=== PATIENT | female | born 1940 | race Caucasian/White ===

== ENCOUNTER 2018-06-22 13:48 | Inpatient (IN) ==
[2018-06-22] MEDS ORDERED: Morphine Inj 4 MG/ML Vial IV.PUSH ONE (13:57)
[2018-06-22] MEDS ORDERED: Sod Chloride 0.9% Inj 1,000 ML IV.CONT SCH (14:00)
[2018-06-22 14:31] LABS: Baso # (Auto) 0.1 th/mm3 (0.0-0.2); Baso % (Auto) 0.3 % (0.0-2.0); Hematocrit 43.9 % (35.0-46.0); Hemoglobin 14.6 gm/dL (11.6-15.3); Lymph # (Auto) 2.3 th/mm3 (1.0-4.8); Lymph % (Auto) 7.3 % (9.0-44.0); Mean Corpuscular HGB Conc 33.3 % (32.0-36.0); Mean Corpuscular Hemoglobin 29.2 pg (27.0-34.0); Mean Corpuscular Volume 87.7 fL (80.0-100.0); Mono # (Auto) 2.6 th/mm3 (0.0-0.9); Mono % (Auto) 8.4 % (0.0-8.0); Neut # (Auto) 26.1 th/mm3 (1.8-7.7); Platelet Count 124 th/mm3 (150-450); Red Cell Distribution Width 14.1 % (11.6-17.2)
[2018-06-22] MEDS ORDERED: Vancomycin Inj 1 GM/200 ML PIGGYBACK IV.SIG ONE (14:40)
[2018-06-22] MEDS ORDERED: Piperacil/Tazo 4.5 GM Premix 4.5 GM/100 ML BAG IV.SIG ONE (14:40)
--- NOTE | 2018-06-22 14:41 | CT ---
EXAM DATE: 06/22/2018 2:14 PM EDT AGE/SEX: 78 years / Female INDICATIONS: Found down, left hand weakness, complaining of back pain CLINICAL DATA: This is the patient's initial encounter. Patient reports that signs and symptoms have been present for 1 day and indicates a pain score of Nonresponsive. MEDICAL/SURGICAL HISTORY: Non-responsive. Non-responsive. RADIATION DOSE: 66.34 CTDI (mGy) COMPARISON: No prior exams available for comparison. TECHNIQUE: CT of the head without contrast. Using automated exposure control and adjustment of the mA and/or kV according to patient size, radiation dose was kept as low as reasonably achievable to ob tain optimal diagnostic quality images. DICOM format image data is available electronically for revi ew and comparison. FINDINGS: Cerebrum: Areas of low-density in the right parietal lobe. The ventricles are normal for age. No jenna dence of midline shift, mass lesion, hemorrhage. No extraaxial fluid collections are seen. Posterior Fossa: The cerebellum and brainstem are intact. The 4th ventricle is midline. The cerebe llopontine angle is unremarkable. Extracranial: The visualized portion of the orbits is intact. Skull: The calvaria is intact. No evidence of skull fracture. CONCLUSION: 1. Acute right parietal infarcts. No midline shift or mass effect. . Electronically signed by: Man Zimmerman MD 06/22/2018 2:39 PM EDT
--- NOTE | 2018-06-22 14:43 | CT ---
EXAM DATE: 06/22/2018 2:21 PM EDT AGE/SEX: 78 years / Female INDICATIONS: Found down, left sided weakness, complaining of back pain. CLINICAL DATA: This is the patient's initial encounter. Patient reports that signs and symptoms have been present for 1 day and indicates a pain score of Nonresponsive. MEDICAL/SURGICAL HISTORY: Alzheimer's disease. Non-responsive. RADIATION DOSE: 22.75 CTDI (mGy) COMPARISON: . TECHNIQUE: Contiguous axial images were obtained using helical multirow detector technique. The vol umetric data was post-processed with multiplanar reconstruction in oblique axial, sagittal, and coron al planes. Using automated exposure control and adjustment of the mA and/or kV according to patient s ize, radiation dose was kept as low as reasonably achievable to obtain optimal diagnostic quality delonte ges. DICOM format image data is available electronically for review and comparison. FINDINGS: Vertebrae: Normal vertebral body height. Diffuse disc space narrowing and degenerative disc disease C4-C7. Anterior endplate osteophytes C4-C7. Alignment: Normal. No subluxation. C2-3: The bony spinal canal is normal in size. No evidence of disc bulge or herniation. The neural foramina are bilaterally patent. C3-4: Posterior disc osteophyte complex abuts the ventral thecal sac. No canal stenosis. Moderate gregg ateral neural foraminal narrowing. C4-5: Posterior disc osteophyte complex abuts the ventral thecal sac. No canal stenosis. Moderate bi lateral neural foraminal narrowing. C5-6: Posterior disc osteophyte complex abuts the ventral thecal sac. No canal stenosis. Moderate bi lateral neural foraminal narrowing. C6-7: Posterior disc osteophyte complex abuts the ventral thecal sac. No canal stenosis. Moderate bi lateral neural foraminal narrowing. C7-T1: Posterior disc osteophyte complex abuts the ventral thecal sac. No canal stenosis. Mild right -sided and severe left-sided neural foraminal narrowing. CONCLUSION: 1. Multilevel degenerative changes. 2. Scattered neural foraminal narrowing. 3. No compression fracture or spondylolisthesis Electronically signed by: Man Zimmerman MD 06/22/2018 2:42 PM EDT
[2018-06-22 14:46] LABS: Troponin I 0.29 ng/mL (0.02-0.05)
--- NOTE | 2018-06-22 14:54 | ED ---
HPI General Chief complaint: Respiratory Symptoms Stated complaint: Medical Time Seen by Provider: 06/22/18 13:57 Source: patient and EMS Mode of arrival: EMS Limitations: no limitations and altered mental status History of Present Illness HPI narrative: 78-year-old female that presents to the ED for evaluation of possible CVA and shortness of breath. Per [facility] they got a call that apparently the patient had been found on the floor. Unclear as to how long the patient had been on the floor. Last time the patient was seen normal was on Friday per friends that were in the scene. Per patient herself she cannot really tell us any history other than she has pain on the left side of her body as well as weakness to her left arm. She cannot move her left arm on her own. She denies any history of stroke on herself. She cannot really give us good history about her medications. She denies taking blood thinners however. She cannot recall when she fell and she cannot really tell us how long she has been on the floor. No one really at bedside to give us any information about how long the symptoms have been going. Per [facility] she is also been having left facial droop. Pain per patient is 8 out of 10 especially on the left ribs. 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 Medical History Medical History Breast cancer (Acute) Diverticulosis (Acute) Elevated cholesterol (Acute) Glaucoma (Acute) Hypertension (Acute) Lung cancer (Acute) Osteoporosis (Acute) Surgical History Surgical History H/O hysterectomy for benign disease (Acute) History of appendectomy (Acute) History of bilateral salpingo-oophorectomy (Acute) History of lobectomy of lung (Acute) History of lumpectomy (Acute) History of lung biopsy (Acute) History of removal of nevus (Acute) History of rhinoplasty (Acute) History of tonsillectomy (Acute) Status post laser cataract surgery of both eyes (Acute) Family History Family History Sister Cervical cancer Social History Social History Substance History: Unable to Obtain Second Hand Smoke Exposure: Yes Smoking Status: Current every day smoker Tobacco Type: Cigarettes Packs Per Day: 1 Cigarettes Per Day: 20.0 Years Smoked: 50 Pack-Years: 50.00 How Often Do You Have a Drink Containing Alcohol: Unable to Obtain Recent Travel in [facility] within the Last 8 Weeks: No Recent Out of Country Travel within the Last 8 Weeks: No Exam Narrative Exam Narrative: GENERAL: in some distress SKIN: Focused skin assessment warm/dry. HEAD: Atraumatic. Normocephalic. EYES: Pupils equal and round 4 mm reactive to light and accommodation.. No scleral icterus. No injection or drainage. EOM intact bilaterally. ENT: No nasal bleeding or discharge. Mucous membranes pink and moist. Tongue is midline. No uvula deviation. Patient does appear to have some droop to the left side of the face. Mainly to the lip area. NECK: Trachea midline. No JVD. CARDIOVASCULAR: Regular rate and rhythm. No murmur appreciated. RESPIRATORY: No accessory muscle use. Clear to auscultation. Breath sounds equal bilaterally. GASTROINTESTINAL: Abdomen soft, non-tender, nondistended. Hepatic and splenic margins not palpable. MUSCULOSKELETAL: No obvious deformities. No clubbing. No cyanosis. No edema. Full range of motion of all extremities with exception of the left arm. Patient cannot move the left arm. Patient does have obvious drift on the left arm. Patient does have bruising noted to both knees, left arm in different sides of the body with some of them appearing older. NEUROLOGICAL: Awake and alert. slurred speech, left upper and lower extremity hemiparesis PSYCHIATRIC: Appropriate mood and affect; insight and judgment normal. Procedures Chest Tube Chest Tube 1: Chest Tube Location: Mid-Axillary Chest Size of Tube (cm): 20 Chest Tube Procedure: Yes betadine prep Tube Sutured to Skin: Yes Sterile Dressing Applied: Yes Anesthesia: 1% Lidocaine Volume anesthetic (mL): 6 Incision made with: #11 blade Chris of Air [place]: Yes Tube Drainage: none Post Procedure CXR?: Yes Patient Tolerated Procedure: Yes Post Procedure: sutured to skin Intubation Time Out Performed: Yes Sedative: etomidate Mg Given: 20 Paralytic: succinylcholine Mg Given: 100 Laryngoscope: Mccoy ET Tube Size: 7 ET Tube Uncuffed: No Tube Secured Depth (cm): 24 Tube Placement Confirmation: visualized tube passing through cords Patient Tolerated Procedure: well Intubation Complications: none Course Initial Documented Vital Signs Temperature 98 F 06/22/18 13:53 Pulse Rate 100 H 06/22/18 13:53 Respiratory Rate 28 H 06/22/18 13:53 Blood Pressure 190/88 H 06/22/18 13:53 Pulse Oximetry 96 06/22/18 13:53 Last Documented Vital Signs Temperature 98.8 F 06/23/18 12:00 Pulse Rate 88 06/23/18 14:00 Respiratory Rate 29 H 06/23/18 12:00 Blood Pressure 122/94 H 06/23/18 12:00 Pulse Oximetry 96 06/23/18 14:43 Critical Care Time Critical Care Time: Yes Total Critical Care Time: 60 Attestation: Aggregate critical care time was 60 minutes. Time to perform other separately billable procedures was not included in the critical care time. My time did not include minutes spent treating any other patients simultaneously or on activities that did not directly contribute to the patient's treatment. The services I provided to this patient were to treat and/or prevent clinically significant deterioration that could result in: [Respiratory failure and -] I provided critical care services requiring my management, as noted below: Chart data review, documentation time, medication orders and management, vital sign assessments/reviewing monitor data, ordering and reviewing lab tests, ordering and interpreting/reviewing x-rays and diagnostic studies, care of the patient and discussion of the patient with the admitting physicians. Medical Decision Making KYLE Attestation KYLE supervised visit: Yes Attestation: I, Dr. Curry, have reviewed the advance practice practitioner' s documentation and am in agreement, met with the patient face to face, made the diagnosis, and the medical decision making was done by me. The patient was initially evaluated by kenia. Please see their complete history and physical. *My assessment and Findings: The patient presents with left upper left lower hemiplegia, pulse oximetry at bedside while on nonrebreather was in the mid 90s after nonrebreather in the 80s, patient CT showed parietal CVA in lieu of the large CVA infarct and hypoxemia will intubate to protect airway During the course of the patient's emergency department visit, the patient's history, examination, and differential diagnosis were reviewed with the patient. The patient was placed on a monitor tech with oximetry and frequent blood pressure monitoring. The patient had [peripheral] IV access obtained and blood work sent for analysis. Additional worrisome laboratory findings 1 troponin elevation in lieu of CVA or neuro neurological finding raise concern for dissection, patient immediately after being intubated will be placed on propofol and taken to CT for a dissection workup. MDM Narrative Medical decision making narrative: 78-year-old female that presents to the ED for evaluation of possible stroke with shortness of breath. Patient was properly examined and was found to have signs and symptoms very concerning. Case was discussed with my attending Dr. Cruz who initially went to evaluate the patient. He recommended no stroke alert at this time as there is no clear evidence of when the symptoms started and patient does look like she has been probably in the ground for at least 24 hours. He does recommend full workup. At this time he does not recommend to being the patient. CT and labs were ordered stat. CT did show what appears to be a parietal stroke. My attending Dr. Curry evaluated the patient with me and decided to intubate the patient secondary to the patient's low O2 stats. He also because of the labs that did show elevated white blood cell count as well as troponin recommended doing a CT our time to make sure there is no sign of dissection. CT order was positive for what appears to be a left-sided pneumothorax, moderate size PE as well as multiple rib fractures and what appears to be possible metastatic disease. Unfortunate there is no family or friends at bedside to provide any information. Patient herself is not a good historian secondary to her symptoms. She is also intubated currently. At this time patient will be admitted for further evaluation. My attending Dr. Curry recommends that I speak with neurology. I spoke with Dr. Davenport who states that unfortunately as patient does have a PE will have to have heparin which partially can increase the chances of bleeding of the head but unfortunately PE can kill the patient so this will have to be treated first. This was discussed with my attending Dr. Curry who agrees with plan. My attending Dr. Curry and Dr. Ramirez for intensive care unit put a chest tube on the patient. Dr. Ramirez agrees admission to his service. plesase see chest tube insertion note, on left, indication was midsize left ptx while on peep from intubation....this case was comanaged with ENEDINA Candelario, dr maguire, and dr ramirez. Medical Screen Exam Complete: Yes Emergency Medical Condition: Yes Differential Diagnosis Differential Diagnosis: CVA versus fall versus mechanical fall versus TIA versus neuropathy versus trauma Medical Records Medical records reviewed: Yes I reviewed the patient's medical records. Lab Data Lab results reviewed: Yes I reviewed the patient's lab results. Result diagrams: 06/23/18 09:25 06/23/18 09:25 Lab Results 06/22/18 06/22/18 06/22/18 Range/Units 14:00 14:00 14:00 WBC 31.0 H (4.0-11.0) th/mm3 RBC 5.00 (4.00-5.30) mil/mm3 Hgb 14.6 (11.6-15.3) gm/dL POC Hgb (Calc) (11.6-15.3) g/dL Hct 43.9 (35.0-46.0) % POC Hct (35-46.0) % MCV 87.7 (80.0-100.0) fL MCH 29.2 (27.0-34.0) pg MCHC 33.3 (32.0-36.0) % RDW 14.1 (11.6-17.2) % Plt Count 124 L (150-450) th/mm3 MPV 10.0 (7.0-11.0) fL Prelim Diff (Auto) Slide review pending Neut % (Auto) 84.0 H (16.0-70.0) % Lymph % (Auto) 7.3 L (9.0-44.0) % Gillespie % (Auto) 8.4 H (0.0-8.0) % Eos % (Auto) 0.0 (0.0-4.0) % Baso % (Auto) 0.3 (0.0-2.0) % Neut # (Auto) 26.1 H (1.8-7.7) th/mm3 Lymph # (Auto) 2.3 (1.0-4.8) th/mm3 Gillespie # (Auto) 2.6 H (0.0-0.9) th/mm3 Eos # (Auto) 0.0 (0.0-0.4) th/mm3 Baso # (Auto) 0.1 (0.0-0.2) th/mm3 WBC Differential Manual diff final Diff Scan Seg Neuts % (Manual) 86 H (16-70) % Band Neuts % (Manual) 2 (0-6) % Lymphocytes % (Manual) 4 L (9-44) % Monocytes % (Manual) 8 (0-8) % Abs Neuts (Manual) 27.3 H (1.8-7.7) th/mm3 Differential Comment . Platelet Estimate Low L (Normal) Platelet Morphology Normal (Normal) RBC Morphology (Normal) ESR (0-30) mm/hr PT 11.9 H (9.8-11.6) sec INR 1.2 Ratio APTT 23.6 L (24.3-30.1) sec Puncture Site Patient Temperature O2 Saturation (90-100) % ABG pH (7.380-7.420) ABG pCO2 (38-42) mmHg ABG pO2 (61-120) mmHg ABG HCO3 (22-26) mmol/L ABG O2 Content (12.0-20.0) Vol % ABG Base Excess (-2-2) mmol/L ABG Methemoglobin (0-2) % Jay Test Hemoglobin (12.0-16.0) G/DL Carboxyhemoglobin (0-4) % O2 Delivery Device Vent Setting Inspired O2 % Critical Value POC Sodium (137-144) mmol/L Sodium (136-145) meq/L POC Potassium (3.6-5.0) mmol/L Potassium (3.5-5.1) meq/L POC Chloride (102-111) mmol/L Chloride (98-107) meq/L Carbon Dioxide (21.0-32.0) meq/L Anion Gap (5-15) meq/L POC BUN (5-21) mg/dL BUN (7-18) mg/dL Creatinine (0.50-1.00) mg/dL POC Creatinine (0.6-1.3) mg/dL Estimated GFR (>89) mL/min POC Glucose (68-110) mg/dL Random Glucose (74-106) mg/dL Calcium (8.5-10.1) mg/dL Phosphorus (2.5-4.9) mg/dL Magnesium (1.5-2.5) mg/dL Total Bilirubin (0.2-1.0) mg/dL AST (15-37) U/L ALT (10-53) U/L Alkaline Phosphatase (45-117) U/L Total Creatine Kinase (26-192) U/L CK-MB (CK-2) (0.5-3.6) ng/mL CK-MB (CK-2) % (0.0-4.0) % Troponin I 0.29 H (0.02-0.05) ng/mL Total Protein (6.4-8.2) g/dL Albumin (3.4-5.0) g/dL Triglycerides (42-150) mg/dL Cholesterol (120-200) mg/dL LDL Cholesterol, Calc (0-99) mg/dL HDL Cholesterol (40.0-60.0) mg/dL Cholesterol/HDL Ratio Ratio Tumor Marker AFP (0.5-8.0) ng/mL Carcinoembryonic Ag (0.2-5.0) ng/mL CA 15-3 Antigen (0.0-32.4) U/mL CA 19-9 Antigen (0.0-35.0) U/mL CA 125 Antigen (0.0-30.2) U/mL Urine Color (Yellw/Straw) Urine Clarity (Clear) Urine pH (5.0-8.5) Ur Specific Pratts (1.002-1.035) Urine Protein (Neg-Trace) mg/dL Urine Glucose (UA) (Negative) mg/dL Urine Ketones (Negative) mg/dL Urine Occult Blood (Negative) Urine Nitrate (Negative) Urine Bilirubin (Negative) Urine Urobilinogen (Less than 2) mg/dL Ur Leukocyte Esterase (Negative) Urine RBC (0-3) /hpf Urine WBC (0-5) /hpf Ur Squamous Epith Cells (0-5) /hpf Urine Mucus (Occasional) /lpf Micro UA Comment Ur Microscopic Review Urine Culture Comments Nasal Screen MRSA (PCR) (Negative) Serum Alcohol Less than 3 (0-5) mg/dL Blood Type Antibody Screen 06/22/18 06/22/18 06/22/18 Range/Units 14:00 14:00 16:28 WBC (4.0-11.0) th/mm3 RBC (4.00-5.30) mil/mm3 Hgb (11.6-15.3) gm/dL POC Hgb (Calc) 13.6 (11.6-15.3) g/dL Hct (35.0-46.0) % POC Hct 40.0 (35-46.0) % MCV (80.0-100.0) fL MCH (27.0-34.0) pg MCHC (32.0-36.0) % RDW (11.6-17.2) % Plt Count (150-450) th/mm3 MPV (7.0-11.0) fL Prelim Diff (Auto) Neut % (Auto) (16.0-70.0) % Lymph % (Auto) (9.0-44.0) % Gillespie % (Auto) (0.0-8.0) % Eos % (Auto) (0.0-4.0) % Baso % (Auto) (0.0-2.0) % Neut # (Auto) (1.8-7.7) th/mm3 Lymph # (Auto) (1.0-4.8) th/mm3 Gillespie # (Auto) (0.0-0.9) th/mm3 Eos # (Auto) (0.0-0.4) th/mm3 Baso # (Auto) (0.0-0.2) th/mm3 WBC Differential Diff Scan Seg Neuts % (Manual) (16-70) % Band Neuts % (Manual) (0-6) % Lymphocytes % (Manual) (9-44) % Monocytes % (Manual) (0-8) % Abs Neuts (Manual) (1.8-7.7) th/mm3 Differential Comment Platelet Estimate (Normal) Platelet Morphology (Normal) RBC Morphology (Normal) ESR (0-30) mm/hr PT (9.8-11.6) sec INR Ratio APTT (24.3-30.1) sec Puncture Site Left radial Patient Temperature 98.6 O2 Saturation 98 (90-100) % ABG pH 7.34 L (7.380-7.420) ABG pCO2 40 (38-42) mmHg ABG pO2 172 H (61-120) mmHg ABG HCO3 21 L (22-26) mmol/L ABG O2 Content 19.4 (12.0-20.0) Vol % ABG Base Excess -3.9 L (-2-2) mmol/L ABG Methemoglobin 0.7 (0-2) % Jay Test Present Hemoglobin 14.0 (12.0-16.0) G/DL Carboxyhemoglobin 0.9 (0-4) % O2 Delivery Device Ventilator Vent Setting Inspired O2 100 % Critical Value No POC Sodium 141 (137-144) mmol/L Sodium (136-145) meq/L POC Potassium 3.1 L (3.6-5.0) mmol/L Potassium (3.5-5.1) meq/L POC Chloride 108 (102-111) mmol/L Chloride (98-107) meq/L Carbon Dioxide (21.0-32.0) meq/L Anion Gap (5-15) meq/L POC BUN 32 H (5-21) mg/dL BUN (7-18) mg/dL Creatinine (0.50-1.00) mg/dL POC Creatinine 1.2 (0.6-1.3) mg/dL Estimated GFR (>89) mL/min POC Glucose 148 H (68-110) mg/dL Random Glucose (74-106) mg/dL Calcium (8.5-10.1) mg/dL Phosphorus (2.5-4.9) mg/dL Magnesium (1.5-2.5) mg/dL Total Bilirubin (0.2-1.0) mg/dL AST (15-37) U/L ALT (10-53) U/L Alkaline Phosphatase (45-117) U/L Total Creatine Kinase (26-192) U/L CK-MB (CK-2) (0.5-3.6) ng/mL CK-MB (CK-2) % (0.0-4.0) % Troponin I (0.02-0.05) ng/mL Total Protein (6.4-8.2) g/dL Albumin (3.4-5.0) g/dL Triglycerides (42-150) mg/dL Cholesterol (120-200) mg/dL LDL Cholesterol, Calc (0-99) mg/dL HDL Cholesterol (40.0-60.0) mg/dL Cholesterol/HDL Ratio Ratio Tumor Marker AFP (0.5-8.0) ng/mL Carcinoembryonic Ag (0.2-5.0) ng/mL CA 15-3 Antigen (0.0-32.4) U/mL CA 19-9 Antigen (0.0-35.0) U/mL CA 125 Antigen (0.0-30.2) U/mL Urine Color (Yellw/Straw) Urine Clarity (Clear) Urine pH (5.0-8.5) Ur Specific Pratts (1.002-1.035) Urine Protein (Neg-Trace) mg/dL Urine Glucose (UA) (Negative) mg/dL Urine Ketones (Negative) mg/dL Urine Occult Blood (Negative) Urine Nitrate (Negative) Urine Bilirubin (Negative) Urine Urobilinogen (Less than 2) mg/dL Ur Leukocyte Esterase (Negative) Urine RBC (0-3) /hpf Urine WBC (0-5) /hpf Ur Squamous Epith Cells (0-5) /hpf Urine Mucus (Occasional) /lpf Micro UA Comment Ur Microscopic Review Urine Culture Comments Nasal Screen MRSA (PCR) (Negative) Serum Alcohol (0-5) mg/dL Blood Type O Positive Antibody Screen Negative 06/22/18 06/22/18 06/22/18 Range/Units 16:30 18:49 23:59 WBC (4.0-11.0) th/mm3 RBC (4.00-5.30) mil/mm3 Hgb (11.6-15.3) gm/dL POC Hgb (Calc) (11.6-15.3) g/dL Hct (35.0-46.0) % POC Hct (35-46.0) % MCV (80.0-100.0) fL MCH (27.0-34.0) pg MCHC (32.0-36.0) % RDW (11.6-17.2) % Plt Count (150-450) th/mm3 MPV (7.0-11.0) fL Prelim Diff (Auto) Neut % (Auto) (16.0-70.0) % Lymph % (Auto) (9.0-44.0) % Gillespie % (Auto) (0.0-8.0) % Eos % (Auto) (0.0-4.0) % Baso % (Auto) (0.0-2.0) % Neut # (Auto) (1.8-7.7) th/mm3 Lymph # (Auto) (1.0-4.8) th/mm3 Gillespie # (Auto) (0.0-0.9) th/mm3 Eos # (Auto) (0.0-0.4) th/mm3 Baso # (Auto) (0.0-0.2) th/mm3 WBC Differential Diff Scan Seg Neuts % (Manual) (16-70) % Band Neuts % (Manual) (0-6) % Lymphocytes % (Manual) (9-44) % Monocytes % (Manual) (0-8) % Abs Neuts (Manual) (1.8-7.7) th/mm3 Differential Comment Platelet Estimate (Normal) Platelet Morphology (Normal) RBC Morphology (Normal) ESR (0-30) mm/hr PT (9.8-11.6) sec INR Ratio APTT (24.3-30.1) sec Puncture Site Patient Temperature O2 Saturation (90-100) % ABG pH (7.380-7.420) ABG pCO2 (38-42) mmHg ABG pO2 (61-120) mmHg ABG HCO3 (22-26) mmol/L ABG O2 Content (12.0-20.0) Vol % ABG Base Excess (-2-2) mmol/L ABG Methemoglobin (0-2) % Jay Test Hemoglobin (12.0-16.0) G/DL Carboxyhemoglobin (0-4) % O2 Delivery Device Vent Setting Inspired O2 % Critical Value POC Sodium (137-144) mmol/L Sodium (136-145) meq/L POC Potassium (3.6-5.0) mmol/L Potassium (3.5-5.1) meq/L POC Chloride (102-111) mmol/L Chloride (98-107) meq/L Carbon Dioxide (21.0-32.0) meq/L Anion Gap (5-15) meq/L POC BUN (5-21) mg/dL BUN (7-18) mg/dL Creatinine (0.50-1.00) mg/dL POC Creatinine (0.6-1.3) mg/dL Estimated GFR (>89) mL/min POC Glucose (68-110) mg/dL Random Glucose (74-106) mg/dL Calcium (8.5-10.1) mg/dL Phosphorus (2.5-4.9) mg/dL Magnesium (1.5-2.5) mg/dL Total Bilirubin (0.2-1.0) mg/dL AST (15-37) U/L ALT (10-53) U/L Alkaline Phosphatase (45-117) U/L Total Creatine Kinase 470 H (26-192) U/L CK-MB (CK-2) 20.2 H (0.5-3.6) ng/mL CK-MB (CK-2) % 4.3 H* (0.0-4.0) % Troponin I 0.64 H* D (0.02-0.05) ng/mL Total Protein (6.4-8.2) g/dL Albumin (3.4-5.0) g/dL Triglycerides (42-150) mg/dL Cholesterol (120-200) mg/dL LDL Cholesterol, Calc (0-99) mg/dL HDL Cholesterol (40.0-60.0) mg/dL Cholesterol/HDL Ratio Ratio Tumor Marker AFP (0.5-8.0) ng/mL Carcinoembryonic Ag (0.2-5.0) ng/mL CA 15-3 Antigen (0.0-32.4) U/mL CA 19-9 Antigen (0.0-35.0) U/mL CA 125 Antigen (0.0-30.2) U/mL Urine Color Nancie (Yellw/Straw) Urine Clarity Cloudy H (Clear) Urine pH 5.0 (5.0-8.5) Ur Specific Pratts 1.021 (1.002-1.035) Urine Protein 100 H (Neg-Trace) mg/dL Urine Glucose (UA) Negative (Negative) mg/dL Urine Ketones Trace H (Negative) mg/dL Urine Occult Blood Large H (Negative) Urine Nitrate Negative (Negative) Urine Bilirubin Negative (Negative) Urine Urobilinogen Less than 2 (Less than 2) mg/dL Ur Leukocyte Esterase Negative (Negative) Urine RBC 37 H (0-3) /hpf Urine WBC 3 (0-5) /hpf Ur Squamous Epith Cells 2 (0-5) /hpf Urine Mucus Few H (Occasional) /lpf Micro UA Comment Culture not ind Ur Microscopic Review Not Reportable Urine Culture Comments Culture not ind Nasal Screen MRSA (PCR) Not detected (Negative) Serum Alcohol (0-5) mg/dL Blood Type Antibody Screen 06/23/18 06/23/18 06/23/18 Range/Units 04:54 04:54 04:54 WBC 22.1 H (4.0-11.0) th/mm3 RBC 4.46 (4.00-5.30) mil/mm3 Hgb 13.1 (11.6-15.3) gm/dL POC Hgb (Calc) (11.6-15.3) g/dL Hct 39.7 (35.0-46.0) % POC Hct (35-46.0) % MCV 89.0 (80.0-100.0) fL MCH 29.3 (27.0-34.0) pg MCHC 32.9 (32.0-36.0) % RDW 13.6 (11.6-17.2) % Plt Count 77 L D (150-450) th/mm3 MPV 10.0 (7.0-11.0) fL Prelim Diff (Auto) Slide review pending Neut % (Auto) 83.3 H (16.0-70.0) % Lymph % (Auto) 6.9 L (9.0-44.0) % Gillespie % (Auto) 9.7 H (0.0-8.0) % Eos % (Auto) 0.0 (0.0-4.0) % Baso % (Auto) 0.1 (0.0-2.0) % Neut # (Auto) 18.4 H (1.8-7.7) th/mm3 Lymph # (Auto) 1.5 (1.0-4.8) th/mm3 Gillespie # (Auto) 2.1 H (0.0-0.9) th/mm3 Eos # (Auto) 0.0 (0.0-0.4) th/mm3 Baso # (Auto) 0.0 (0.0-0.2) th/mm3 WBC Differential . Diff Scan Auto diff confirmed Seg Neuts % (Manual) (16-70) % Band Neuts % (Manual) (0-6) % Lymphocytes % (Manual) (9-44) % Monocytes % (Manual) (0-8) % Abs Neuts (Manual) (1.8-7.7) th/mm3 Differential Comment . Platelet Estimate Low L (Normal) Platelet Morphology Normal (Normal) RBC Morphology (Normal) ESR (0-30) mm/hr PT 11.5 (9.8-11.6) sec INR 1.1 Ratio APTT 25.5 (24.3-30.1) sec Puncture Site Patient Temperature O2 Saturation (90-100) % ABG pH (7.380-7.420) ABG pCO2 (38-42) mmHg ABG pO2 (61-120) mmHg ABG HCO3 (22-26) mmol/L ABG O2 Content (12.0-20.0) Vol % ABG Base Excess (-2-2) mmol/L ABG Methemoglobin (0-2) % Jay Test Hemoglobin (12.0-16.0) G/DL Carboxyhemoglobin (0-4) % O2 Delivery Device Vent Setting Inspired O2 % Critical Value POC Sodium (137-144) mmol/L Sodium 145 (136-145) meq/L POC Potassium (3.6-5.0) mmol/L Potassium 3.1 L (3.5-5.1) meq/L POC Chloride (102-111) mmol/L Chloride 109 H (98-107) meq/L Carbon Dioxide 23.4 (21.0-32.0) meq/L Anion Gap 13 (5-15) meq/L POC BUN (5-21) mg/dL BUN 32 H (7-18) mg/dL Creatinine 1.23 H (0.50-1.00) mg/dL POC Creatinine (0.6-1.3) mg/dL Estimated GFR 42 L (>89) mL/min POC Glucose (68-110) mg/dL Random Glucose 104 (74-106) mg/dL Calcium 8.0 L (8.5-10.1) mg/dL Phosphorus 3.6 (2.5-4.9) mg/dL Magnesium 2.0 (1.5-2.5) mg/dL Total Bilirubin 0.6 (0.2-1.0) mg/dL AST 43 H (15-37) U/L ALT 22 (10-53) U/L Alkaline Phosphatase 85 (45-117) U/L Total Creatine Kinase (26-192) U/L CK-MB (CK-2) (0.5-3.6) ng/mL CK-MB (CK-2) % (0.0-4.0) % Troponin I 0.56 H (0.02-0.05) ng/mL Total Protein 6.3 L (6.4-8.2) g/dL Albumin 2.8 L (3.4-5.0) g/dL Triglycerides 322 H (42-150) mg/dL Cholesterol 209 H (120-200) mg/dL LDL Cholesterol, Calc 100 H (0-99) mg/dL HDL Cholesterol 44.9 (40.0-60.0) mg/dL Cholesterol/HDL Ratio 4.65 Ratio Tumor Marker AFP (0.5-8.0) ng/mL Carcinoembryonic Ag (0.2-5.0) ng/mL CA 15-3 Antigen (0.0-32.4) U/mL CA 19-9 Antigen (0.0-35.0) U/mL CA 125 Antigen (0.0-30.2) U/mL Urine Color (Yellw/Straw) Urine Clarity (Clear) Urine pH (5.0-8.5) Ur Specific Pratts (1.002-1.035) Urine Protein (Neg-Trace) mg/dL Urine Glucose (UA) (Negative) mg/dL Urine Ketones (Negative) mg/dL Urine Occult Blood (Negative) Urine Nitrate (Negative) Urine Bilirubin (Negative) Urine Urobilinogen (Less than 2) mg/dL Ur Leukocyte Esterase (Negative) Urine RBC (0-3) /hpf Urine WBC (0-5) /hpf Ur Squamous Epith Cells (0-5) /hpf Urine Mucus (Occasional) /lpf Micro UA Comment Ur Microscopic Review Urine Culture Comments Nasal Screen MRSA (PCR) (Negative) Serum Alcohol (0-5) mg/dL Blood Type Antibody Screen 06/23/18 06/23/18 06/23/18 Range/Units 04:54 09:25 09:25 WBC 22.0 H (4.0-11.0) th/mm3 RBC 4.45 (4.00-5.30) mil/mm3 Hgb 13.1 (11.6-15.3) gm/dL POC Hgb (Calc) (11.6-15.3) g/dL Hct 39.5 (35.0-46.0) % POC Hct (35-46.0) % MCV 88.8 (80.0-100.0) fL MCH 29.4 (27.0-34.0) pg MCHC 33.2 (32.0-36.0) % RDW 14.1 (11.6-17.2) % Plt Count 71 L (150-450) th/mm3 MPV 10.4 (7.0-11.0) fL Prelim Diff (Auto) Slide review pending Neut % (Auto) 85.4 H (16.0-70.0) % Lymph % (Auto) 5.8 L (9.0-44.0) % Gillespie % (Auto) 8.5 H (0.0-8.0) % Eos % (Auto) 0.0 (0.0-4.0) % Baso % (Auto) 0.3 (0.0-2.0) % Neut # (Auto) 18.8 H (1.8-7.7) th/mm3 Lymph # (Auto) 1.3 (1.0-4.8) th/mm3 Gillespie # (Auto) 1.9 H (0.0-0.9) th/mm3 Eos # (Auto) 0.0 (0.0-0.4) th/mm3 Baso # (Auto) 0.1 (0.0-0.2) th/mm3 WBC Differential Manual diff final Diff Scan Seg Neuts % (Manual) 73 H (16-70) % Band Neuts % (Manual) 12 H (0-6) % Lymphocytes % (Manual) 6 L (9-44) % Monocytes % (Manual) 9 H (0-8) % Abs Neuts (Manual) 18.7 H (1.8-7.7) th/mm3 Differential Comment . Platelet Estimate Low L (Normal) Platelet Morphology Enlarged H (Normal) RBC Morphology Normal (Normal) ESR (0-30) mm/hr PT (9.8-11.6) sec INR Ratio APTT (24.3-30.1) sec Puncture Site Patient Temperature O2 Saturation (90-100) % ABG pH (7.380-7.420) ABG pCO2 (38-42) mmHg ABG pO2 (61-120) mmHg ABG HCO3 (22-26) mmol/L ABG O2 Content (12.0-20.0) Vol % ABG Base Excess (-2-2) mmol/L ABG Methemoglobin (0-2) % Jay Test Hemoglobin (12.0-16.0) G/DL Carboxyhemoglobin (0-4) % O2 Delivery Device Vent Setting Inspired O2 % Critical Value POC Sodium (137-144) mmol/L Sodium 144 (136-145) meq/L POC Potassium (3.6-5.0) mmol/L Potassium 3.3 L (3.5-5.1) meq/L POC Chloride (102-111) mmol/L Chloride 109 H (98-107) meq/L Carbon Dioxide 24.3 (21.0-32.0) meq/L Anion Gap 11 (5-15) meq/L POC BUN (5-21) mg/dL BUN 31 H (7-18) mg/dL Creatinine 1.21 H (0.50-1.00) mg/dL POC Creatinine (0.6-1.3) mg/dL Estimated GFR 43 L (>89) mL/min POC Glucose (68-110) mg/dL Random Glucose 153 H (74-106) mg/dL Calcium 8.0 L (8.5-10.1) mg/dL Phosphorus 3.1 (2.5-4.9) mg/dL Magnesium 2.1 (1.5-2.5) mg/dL Total Bilirubin 0.7 (0.2-1.0) mg/dL AST 51 H (15-37) U/L ALT 25 (10-53) U/L Alkaline Phosphatase 87 (45-117) U/L Total Creatine Kinase (26-192) U/L CK-MB (CK-2) (0.5-3.6) ng/mL CK-MB (CK-2) % (0.0-4.0) % Troponin I (0.02-0.05) ng/mL Total Protein 6.4 (6.4-8.2) g/dL Albumin 2.8 L (3.4-5.0) g/dL Triglycerides 327 H (42-150) mg/dL Cholesterol 205 H (120-200) mg/dL LDL Cholesterol, Calc 97 (0-99) mg/dL HDL Cholesterol 43.0 (40.0-60.0) mg/dL Cholesterol/HDL Ratio 4.76 Ratio Tumor Marker AFP (0.5-8.0) ng/mL Carcinoembryonic Ag (0.2-5.0) ng/mL CA 15-3 Antigen (0.0-32.4) U/mL CA 19-9 Antigen (0.0-35.0) U/mL CA 125 Antigen (0.0-30.2) U/mL Urine Color (Yellw/Straw) Urine Clarity (Clear) Urine pH (5.0-8.5) Ur Specific Pratts (1.002-1.035) Urine Protein (Neg-Trace) mg/dL Urine Glucose (UA) (Negative) mg/dL Urine Ketones (Negative) mg/dL Urine Occult Blood (Negative) Urine Nitrate (Negative) Urine Bilirubin (Negative) Urine Urobilinogen (Less than 2) mg/dL Ur Leukocyte Esterase (Negative) Urine RBC (0-3) /hpf Urine WBC (0-5) /hpf Ur Squamous Epith Cells (0-5) /hpf Urine Mucus (Occasional) /lpf Micro UA Comment Ur Microscopic Review Urine Culture Comments Nasal Screen MRSA (PCR) (Negative) Serum Alcohol (0-5) mg/dL Blood Type Antibody Screen 06/23/18 06/23/18 06/23/18 Range/Units 09:25 09:25 09:25 WBC (4.0-11.0) th/mm3 RBC (4.00-5.30) mil/mm3 Hgb (11.6-15.3) gm/dL POC Hgb (Calc) (11.6-15.3) g/dL Hct (35.0-46.0) % POC Hct (35-46.0) % MCV (80.0-100.0) fL MCH (27.0-34.0) pg MCHC (32.0-36.0) % RDW (11.6-17.2) % Plt Count (150-450) th/mm3 MPV (7.0-11.0) fL Prelim Diff (Auto) Neut % (Auto) (16.0-70.0) % Lymph % (Auto) (9.0-44.0) % Gillespie % (Auto) (0.0-8.0) % Eos % (Auto) (0.0-4.0) % Baso % (Auto) (0.0-2.0) % Neut # (Auto) (1.8-7.7) th/mm3 Lymph # (Auto) (1.0-4.8) th/mm3 Gillespie # (Auto) (0.0-0.9) th/mm3 Eos # (Auto) (0.0-0.4) th/mm3 Baso # (Auto) (0.0-0.2) th/mm3 WBC Differential Diff Scan Seg Neuts % (Manual) (16-70) % Band Neuts % (Manual) (0-6) % Lymphocytes % (Manual) (9-44) % Monocytes % (Manual) (0-8) % Abs Neuts (Manual) (1.8-7.7) th/mm3 Differential Comment Platelet Estimate (Normal) Platelet Morphology (Normal) RBC Morphology (Normal) ESR 10 (0-30) mm/hr PT (9.8-11.6) sec INR Ratio APTT (24.3-30.1) sec Puncture Site Patient Temperature O2 Saturation (90-100) % ABG pH (7.380-7.420) ABG pCO2 (38-42) mmHg ABG pO2 (61-120) mmHg ABG HCO3 (22-26) mmol/L ABG O2 Content (12.0-20.0) Vol % ABG Base Excess (-2-2) mmol/L ABG Methemoglobin (0-2) % Jay Test Hemoglobin (12.0-16.0) G/DL Carboxyhemoglobin (0-4) % O2 Delivery Device Vent Setting Inspired O2 % Critical Value POC Sodium (137-144) mmol/L Sodium (136-145) meq/L POC Potassium (3.6-5.0) mmol/L Potassium (3.5-5.1) meq/L POC Chloride (102-111) mmol/L Chloride (98-107) meq/L Carbon Dioxide (21.0-32.0) meq/L Anion Gap (5-15) meq/L POC BUN (5-21) mg/dL BUN (7-18) mg/dL Creatinine (0.50-1.00) mg/dL POC Creatinine (0.6-1.3) mg/dL Estimated GFR (>89) mL/min POC Glucose (68-110) mg/dL Random Glucose (74-106) mg/dL Calcium (8.5-10.1) mg/dL Phosphorus (2.5-4.9) mg/dL Magnesium (1.5-2.5) mg/dL Total Bilirubin (0.2-1.0) mg/dL AST (15-37) U/L ALT (10-53) U/L Alkaline Phosphatase (45-117) U/L Total Creatine Kinase (26-192) U/L CK-MB (CK-2) (0.5-3.6) ng/mL CK-MB (CK-2) % (0.0-4.0) % Troponin I (0.02-0.05) ng/mL Total Protein (6.4-8.2) g/dL Albumin (3.4-5.0) g/dL Triglycerides 494 H (42-150) mg/dL Cholesterol 225 H (120-200) mg/dL LDL Cholesterol, Calc (0-99) mg/dL HDL Cholesterol 45.3 (40.0-60.0) mg/dL Cholesterol/HDL Ratio 4.96 Ratio Tumor Marker AFP 13.3 H (0.5-8.0) ng/mL Carcinoembryonic Ag 41.3 H (0.2-5.0) ng/mL CA 15-3 Antigen 177.1 H (0.0-32.4) U/mL CA 19-9 Antigen 593.6 H (0.0-35.0) U/mL CA 125 Antigen 1091.1 H (0.0-30.2) U/mL Urine Color (Yellw/Straw) Urine Clarity (Clear) Urine pH (5.0-8.5) Ur Specific Pratts (1.002-1.035) Urine Protein (Neg-Trace) mg/dL Urine Glucose (UA) (Negative) mg/dL Urine Ketones (Negative) mg/dL Urine Occult Blood (Negative) Urine Nitrate (Negative) Urine Bilirubin (Negative) Urine Urobilinogen (Less than 2) mg/dL Ur Leukocyte Esterase (Negative) Urine RBC (0-3) /hpf Urine WBC (0-5) /hpf Ur Squamous Epith Cells (0-5) /hpf Urine Mucus (Occasional) /lpf Micro UA Comment Ur Microscopic Review Urine Culture Comments Nasal Screen MRSA (PCR) (Negative) Serum Alcohol (0-5) mg/dL Blood Type Antibody Screen 06/23/18 Range/Units 11:27 WBC (4.0-11.0) th/mm3 RBC (4.00-5.30) mil/mm3 Hgb (11.6-15.3) gm/dL POC Hgb (Calc) (11.6-15.3) g/dL Hct (35.0-46.0) % POC Hct (35-46.0) % MCV (80.0-100.0) fL MCH (27.0-34.0) pg MCHC (32.0-36.0) % RDW (11.6-17.2) % Plt Count (150-450) th/mm3 MPV (7.0-11.0) fL Prelim Diff (Auto) Neut % (Auto) (16.0-70.0) % Lymph % (Auto) (9.0-44.0) % Gillespie % (Auto) (0.0-8.0) % Eos % (Auto) (0.0-4.0) % Baso % (Auto) (0.0-2.0) % Neut # (Auto) (1.8-7.7) th/mm3 Lymph # (Auto) (1.0-4.8) th/mm3 Gillespie # (Auto) (0.0-0.9) th/mm3 Eos # (Auto) (0.0-0.4) th/mm3 Baso # (Auto) (0.0-0.2) th/mm3 WBC Differential Diff Scan Seg Neuts % (Manual) (16-70) % Band Neuts % (Manual) (0-6) % Lymphocytes % (Manual) (9-44) % Monocytes % (Manual) (0-8) % Abs Neuts (Manual) (1.8-7.7) th/mm3 Differential Comment Platelet Estimate (Normal) Platelet Morphology (Normal) RBC Morphology (Normal) ESR (0-30) mm/hr PT (9.8-11.6) sec INR Ratio APTT (24.3-30.1) sec Puncture Site Patient Temperature O2 Saturation (90-100) % ABG pH (7.380-7.420) ABG pCO2 (38-42) mmHg ABG pO2 (61-120) mmHg ABG HCO3 (22-26) mmol/L ABG O2 Content (12.0-20.0) Vol % ABG Base Excess (-2-2) mmol/L ABG Methemoglobin (0-2) % Jay Test Hemoglobin (12.0-16.0) G/DL Carboxyhemoglobin (0-4) % O2 Delivery Device Vent Setting Inspired O2 % Critical Value POC Sodium (137-144) mmol/L Sodium (136-145) meq/L POC Potassium (3.6-5.0) mmol/L Potassium (3.5-5.1) meq/L POC Chloride (102-111) mmol/L Chloride (98-107) meq/L Carbon Dioxide (21.0-32.0) meq/L Anion Gap (5-15) meq/L POC BUN (5-21) mg/dL BUN (7-18) mg/dL Creatinine (0.50-1.00) mg/dL POC Creatinine (0.6-1.3) mg/dL Estimated GFR (>89) mL/min POC Glucose 97 (68-110) mg/dL Random Glucose (74-106) mg/dL Calcium (8.5-10.1) mg/dL Phosphorus (2.5-4.9) mg/dL Magnesium (1.5-2.5) mg/dL Total Bilirubin (0.2-1.0) mg/dL AST (15-37) U/L ALT (10-53) U/L Alkaline Phosphatase (45-117) U/L Total Creatine Kinase (26-192) U/L CK-MB (CK-2) (0.5-3.6) ng/mL CK-MB (CK-2) % (0.0-4.0) % Troponin I (0.02-0.05) ng/mL Total Protein (6.4-8.2) g/dL Albumin (3.4-5.0) g/dL Triglycerides (42-150) mg/dL Cholesterol (120-200) mg/dL LDL Cholesterol, Calc (0-99) mg/dL HDL Cholesterol (40.0-60.0) mg/dL Cholesterol/HDL Ratio Ratio Tumor Marker AFP (0.5-8.0) ng/mL Carcinoembryonic Ag (0.2-5.0) ng/mL CA 15-3 Antigen (0.0-32.4) U/mL CA 19-9 Antigen (0.0-35.0) U/mL CA 125 Antigen (0.0-30.2) U/mL Urine Color (Yellw/Straw) Urine Clarity (Clear) Urine pH (5.0-8.5) Ur Specific Pratts (1.002-1.035) Urine Protein (Neg-Trace) mg/dL Urine Glucose (UA) (Negative) mg/dL Urine Ketones (Negative) mg/dL Urine Occult Blood (Negative) Urine Nitrate (Negative) Urine Bilirubin (Negative) Urine Urobilinogen (Less than 2) mg/dL Ur Leukocyte Esterase (Negative) Urine RBC (0-3) /hpf Urine WBC (0-5) /hpf Ur Squamous Epith Cells (0-5) /hpf Urine Mucus (Occasional) /lpf Micro UA Comment Ur Microscopic Review Urine Culture Comments Nasal Screen MRSA (PCR) (Negative) Serum Alcohol (0-5) mg/dL Blood Type Antibody Screen Imaging Data Attestation: I personally reviewed and interpreted this imaging study as follows : Radiologist's impression: Cervical Spine CT 06/22/18 13:58 CONCLUSION: 1. Multilevel degenerative changes. 2. Scattered neural foraminal narrowing. 3. No compression fracture or spondylolisthesis Chest X-Ray 06/22/18 13:58 CONCLUSION: 1. The endotracheal tube and NG tube appear to be in good position. 2. Small 3 mm apical left pneumothorax. 3. Subcutaneous emphysema along the left chest wall along with multiple left- sided rib fractures. Head CT 06/22/18 13:58 CONCLUSION: 1. Acute right parietal infarcts. No midline shift or mass effect. . Pelvis X-Ray 06/22/18 13:58 CONCLUSION: Limited study without gross abnormality. Humerus X-Ray 06/22/18 13:59 CONCLUSION: No abnormality involving the humerus. Subcutaneous air is seen tracking over the lateral left chest wall. Thoracic Aorta CT 06/22/18 15:28 CONCLUSION: 1. Moderate volume acute pulmonary emboli. 2. Moderate size left pneumothorax with overlying subcutaneous air. 3. Severe emphysematous changes. 4. 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 5. Occlusion of the right outflow possibly acute in origin. Clinical evaluation for right lower extremity claudication suggested. 6. 2 hepatic masses worrisome for metastatic disease. These are limited in their evaluation on this study due to the arterial phase of the exam. Consider MRI of the liver to further assess if clinically warranted. Chest X-Ray 06/22/18 19:09 CONCLUSION: Left chest tube with tiny stable left pneumothorax and subcutaneous air that has increased slightly since earlier exam. Multiple left rib fractures. Endotracheal tube and nasogastric tube in good position. Chest X-Ray 06/23/18 00:00 CONCLUSION: 1. The left-sided chest tube remains in place with no visualized pneumothorax. 2. Small left effusion with hazy airspace disease at the left lung base. Head MRI 06/23/18 00:00 CONCLUSION: 1. 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 2. There appear to be 2 punctate acute infarctions involving the right cerebellar hemisphere. This is best seen on the diffusion-weighted images. Venous Doppler Study 06/23/18 00:00 CONCLUSION: 1. Occlusive thrombus in both posterior tibial veins. Head MRA 06/23/18 09:12 CONCLUSION: 1. Occlusion of the mid to distal right M1 segment with reconstitution of the proximal right M2 branches via collaterals. ECG Data Attestation: I personally reviewed and interpreted this ECG as follows: Interpretation: EKG shows sinus rhythm with no sign of acute ischemia and arrhythmia read by me and attending. Discharge Plan Discharge Disposition Patient Disposition: 30 Still Patient Discharge Condition Condition: Fair Discharge Details Diagnosis: Acute CVA (cerebrovascular accident), Pulmonary embolism, Pneumothorax, Closed rib fracture Physicians Team ED Provider: Jesus Curry ED Midlevel Provider: Michael Candelario Primary Care Provider: Ciaran Aldridge Attending Provider: Jhon Ramirez Other Providers: Roberto Enriquez ; Wero Wadsworth ; Salbador Turcios ; Benjie Woodson Status ED Status: Left Department Discharge Information Discharge Date/Time: 06/22/18 20:05
[2018-06-22 15:03] LABS: Lymphocytes 4 % (9-44); Monocytes 8 % (0-8); Platelet Morphology Normal (Normal)
[2018-06-22] MEDS ORDERED: Etomidate Inj 40 MG/20 ML Vial IV.PUSH ONE (15:12)
[2018-06-22] MEDS ORDERED: Propofol Inj 500 MG/50 ML Vial ONE (15:23)
[2018-06-22] MEDS ORDERED: Etomidate Inj 20 MG/10 ML Ampul IV.PUSH ONE (15:23)
[2018-06-22] MEDS ORDERED: Succinylcholine Inj 200 MG/10 ML Vial IV.PUSH ONE (15:23)
[2018-06-22 15:24] LABS: Activated Partial Thrombo Time 23.6 sec (24.3-30.1); INR 1.2 Ratio; Prothrombin Time 11.9 sec (9.8-11.6)
[2018-06-22] MEDS: Propofol 1000 mg/100 ml Inj 1,000 MG/100 ML BOTTLE IV.CONT PRN (15:35)
--- NOTE | 2018-06-22 16:09 | XR ---
EXAM DATE: 06/22/2018 1:58 PM EDT AGE/SEX: 78 years / Female INDICATIONS: Pelvic pain. CLINICAL DATA: This is the patient's initial encounter. Patient reports that signs and symptoms have been present for 1 day and indicates a pain score of Nonresponsive. MEDICAL/SURGICAL HISTORY: Non-responsive. Non-responsive. COMPARISON: None. FINDINGS: 2 frontal views of the pelvis are limited by motion artifact. Osteoarthritis involving the hip joints bilaterally. No gross fracture or dislocation. Soft tissues are grossly unremarkable. CONCLUSION: Limited study without gross abnormality. Electronically signed by: Kike Salazar MD 06/22/2018 4:08 PM EDT
--- NOTE | 2018-06-22 16:11 | XR ---
EXAM DATE: 06/22/2018 1:58 PM EDT AGE/SEX: 78 years / Female INDICATIONS: Post intubation. CLINICAL DATA: This is the patient's initial encounter. Patient reports that signs and symptoms have been present for 1 day and indicates a pain score of Nonresponsive. MEDICAL/SURGICAL HISTORY: Non-responsive. Non-responsive. COMPARISON: No prior exams available for comparison. FINDINGS: Status post placement of an endotracheal tube which appears to be in good position. The tip is approx imately 1 cm above the jennifer. There is an NG tube in the stomach. There is some atelectasis in the l eft lung base. The right lung is grossly clear. There is a small 3 mm left apical pneumothorax. There is subcutaneous emphysema seen along the left chest wall. There are multiple left-sided rib fracture s. CONCLUSION: 1. The endotracheal tube and NG tube appear to be in good position. 2. Small 3 mm apical left pneumothorax. 3. Subcutaneous emphysema along the left chest wall along with multiple left-sided rib fractures. Electronically signed by: Dany Leon MD 06/22/2018 4:09 PM EDT
--- NOTE | 2018-06-22 16:15 | XR ---
EXAM DATE: 06/22/2018 1:59 PM EDT AGE/SEX: 78 years / Female INDICATIONS: Left arm pain. CLINICAL DATA: This is the patient's initial encounter. Patient reports that signs and symptoms have been present for 1 day and indicates a pain score of Nonresponsive. MEDICAL/SURGICAL HISTORY: None. None. COMPARISON: None . FINDINGS: Bony structures are intact and in normal alignment. Osseous density is normal. Soft tissues are unre markable. No radiopaque foreign bodies seen. CONCLUSION: No abnormality involving the humerus. Subcutaneous air is seen tracking over the lateral left chest w all. Electronically signed by: Kike Salazar MD 06/22/2018 4:13 PM EDT
[2018-06-22 16:45] LABS: ABG Base Excess -3.9 mmol/L (-2-2); ABG PCO2 40 mmHg (38-42); ABG PO2 172 mmHg (61-120)
[2018-06-22 16:53] LABS: Bilirubin,Urine Negative (Negative); Clarity,Urine Cloudy (Clear); Color,Urine Amber (Yellw/Straw); Glucose,Urine (UA) Negative (Negative); Leukocyte Esterase,Urine Negative (Negative); Mucus,Urine Few /lpf (Occasional); Nitrite,Urine Negative (Negative); Specific Gravity,Urine 1.021 (1.002-1.035); Squamous Epithelial Cell,Urine 2 /hpf (0-5)
--- NOTE | 2018-06-22 18:04 | CT ---
EXAM DATE: 06/22/2018 5:03 PM EDT AGE/SEX: 78 years / Female INDICATIONS: Left sided weakness, and pain. CLINICAL DATA: This is the patient's initial encounter. Patient reports that signs and symptoms have been present for 1 day and indicates a pain score of 10/10. MEDICAL/SURGICAL HISTORY: None. None. RADIATION DOSE: 15.79 CTDI (mGy) COMPARISON: CT of the abdomen and pelvis 02/14/2017 . TECHNIQUE: Volumetric scanning was performed using a multi-row detector CT scanner during bolus infu michelle of 73 ml Omnipaque 350 (iohexol) nonionic water-soluble contrast as a single exam dose. The da ta was post processed with a variety of visualization algorithms including full volume maximum intens ity projection, multi-planar sliding thin slab reformation, curved planar reformation, and surface re ndering techniques. Using automated exposure control and adjustment of the mA and/or kV according to patient size, radiation dose was kept as low as reasonably achievable to obtain optimal diagnostic q uality images. DICOM format image data is available electronically for review and comparison. FINDINGS: THORACIC/ABDOMINAL AORTA: Diffuse scattered calcified atheromatous plaque throughout the thoracic and abdominal aorta as well as its major branches. A tiny chronic dissection flap is seen involving the infrarenal abdominal aorta. This is not flow limiting. A 50% stenosis is seen involving the right com mon iliac artery. There is short segment occlusion spanning approximately 1 cm involving the origin o f the right external iliac artery. The remaining external iliac artery on the right is patent. The ri ght internal iliac artery is occluded. The left inflow is patent although calcified. Left internal il iac artery is highly stenotic at its origin. The celiac and SMA origins are patent. Renal artery orig ins are patent. HEART AND MEDIASTINUM: The heart is normal in size. No pericardial effusion. Pulmonary arteries are n ormal in caliber. Note is made of multiple filling defects involving the pulmonary arteries bilateral ly but more pronounced on the right. The largest thrombus involves the interlobar pulmonary artery ex tending into the origin of the segmental branches. Small volume thrombus seen involving the right upp er lobe and left lower lobe. No saddle embolus. LUNG PARENCHYMA: Pronounced emphysematous changes bilaterally. A moderate left sided pneumothorax. En dotracheal tube and nasogastric tube observed. Consolidation involving the basilar segments of left l ower lobe. OTHER STRUCTURES: 2 low-density masses are seen involving the liver worrisome for metastatic lesions. This measures 17 mm within segment 2 and 20 mm within segment 6. These are new from the prior study. Colonic diverticulosis. Solitary gallstone. CONCLUSION: 1. Moderate volume acute pulmonary emboli. 2. Moderate size left pneumothorax with overlying subcutaneous air. 3. Severe emphysematous changes. 4. 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 5. Occlusion of the right outflow possibly acute in origin. Clinical evaluation for right lower extr emity claudication suggested. 6. 2 hepatic masses worrisome for metastatic disease. These are limited in their evaluation on this study due to the arterial phase of the exam. Consider MRI of the liver to further assess if clinicall y warranted. Electronically signed by: Kike Salazar MD 06/22/2018 6:03 PM EDT
[2018-06-22] MEDS ORDERED: Lidocaine PF 1% Inj 30 ML Vial ONE (18:42)
[2018-06-22] MEDS ORDERED: Acetaminophen 325 MG Tablet PO PRN (18:48)
[2018-06-22] MEDS ORDERED: Bisacodyl 10 MG Supp RECTAL PRN (18:48)
--- NOTE | 2018-06-22 19:34 | XR ---
EXAM DATE: 06/22/2018 7:09 PM EDT AGE/SEX: 78 years / Female INDICATIONS: Status post chest tube placement. CLINICAL DATA: This is the patient's subsequent encounter. Patient reports that signs and symptoms h ave been present for 1 day and indicates a pain score of Nonresponsive. MEDICAL/SURGICAL HISTORY: Non-responsive. Non-responsive. COMPARISON: C, CHEST 1V SINGLE AP, 06/22/2018. . FINDINGS: Endotracheal tube tip about 1 cm above the jennifer. NG coiled in stomach. Left-sided chest tube presen t with tiny left apical pneumothorax similar to the exam from earlier today. Bilateral patchy basilar airspace disease, left greater than right. Subcutaneous air in left chest wall. Multiple left rib fr actures. CONCLUSION: Left chest tube with tiny stable left pneumothorax and subcutaneous air that has increased slightly s tommy earlier exam. Multiple left rib fractures. Endotracheal tube and nasogastric tube in good position. Electronically signed by: Farrukh Sierra MD 06/22/2018 7:32 PM EDT
[2018-06-22] MEDS ORDERED: fentaNYL Citrate Inj 100 MCG/2 ML Ampul IV.PUSH ONE (19:35)
[2018-06-22] MEDS: Chlorhexidine 0.12% Oral Kit 15 ML UDC OROPHARYNG SCH (19:38)
[2018-06-22] MEDS: Sod Chloride 0.9% Inj 1,000 ML IV.CONT SCH (19:46)
--- NOTE | 2018-06-22 21:07 | P.HPCC ---
History of Present Illness Primary Care Physician: Ciaran Aldridge MD History of Present Illness: 78-year-old female presents to the ED for evaluation of possible CVA and shortness of breath. Per [facility] they got a call that apparently the patient had been found on the floor. Unclear as to how long the patient had been on the floor. Last time the patient was seen normal was on Friday per friends that were in the scene. Per patient herself she cannot really tell us any history other than she has pain on the left side of her body as well as weakness to her left arm. She cannot move her left arm on her own. She denies any history of stroke on herself. She cannot really give us good history about her medications. She denies taking blood thinners however. She cannot recall when she fell and she cannot really tell us how long she has been on the floor. No one really at bedside to give us any information about how long the symptoms have been going. Per EVAC she is also been having left facial droop. CT of the brain obtained in the emergency department shows Acute right parietal infarcts. No midline shift or mass effect. The chest x-ray with the findings of Subcutaneous emphysema along the left chest wall along with multiple left- sided rib fractures. CTA of the pulmonary artery is consistent with Moderate volume acute pulmonary emboli and Moderate size left pneumothorax with overlying subcutaneous air. The patient was intubated by ED attending and the chest tube was placed in the emergency department as well. Inpatient Certification: I certify that the inpatient services were ordered in accordance with Medicare regulations governing the order. This includes certification that hospital inpatient services are reasonable and necessary and in the case of services not specified as inpatient-only under 42 CFR 419.22(n), that they are appropriately provided as inpatient services in accordance to with the 2-midnight benchmark under 43 CFR 412.3(e) Estimated Total Length of Stay (Days): 5 Plans for Post Hospital Care: Not yet determined Review of Systems unobtainable due to endotracheal tube PMFSH - History History Provided By: Patient, Medical Record, Try Out Person / EMT - Medical History Medical History: Medical History (Last Reviewed 06/22/18 @ 18:26 by ENEDINA Toussaint) Medical history unknown Patient taking unknown medications Surgical history unknown - Tobacco History Second Hand Smoke Exposure: Yes Tobacco Use In Past 30 Days: Yes Smoking Status: Current every day smoker Tobacco Type: Cigarettes - Alcohol History How Often Do You Have a Drink Containing Alcohol: Unable to Obtain - Substance Use History Substance History: Unable to Obtain - Travel History Recent Travel in the [place] Within the Last 8 Weeks: No Recent Travel Out of the Country Within the Last 8 Weeks: No - Immunization History Tetanus Immunization: Unable to Assess Medications and Allergies Active Medications: Active Medications Acetaminophen (Tylenol) 650 mg PO Q6H PRN PRN Reason: PAIN 1-10 AND/OR FEVER >101F Al Hydroxide/Mg Hydroxide (Milk Of Magnesia Liq) 30 ml PO Q12H PRN PRN Reason: Mild Constipation Albuterol (Duoneb Neb (Prn)) 1 ampul NEB Q2HR NEB PRN PRN Reason: WHEEZING Albuterol (Duoneb Neb (Nicola)) 1 ampul NEB Q4HR NEB [facility] Last Admin: 06/22/18 19:46 Dose: 1 ampul Bisacodyl (Dulcolax Supp) 10 mg RECTAL DAILY PRN PRN Reason: SEVERE CONSITIPATION Chlorhexidine Gluconate (Peridex 0.12% Oral Kit) 15 ml OROPHARYNG BID@0800, 2000 [facility] Last Admin: 06/22/18 19:38 Dose: 15 ml Chlorhexidine Gluconate (Chlorhexidine 2% Cloth) 3 pack TOPICAL DAILY@0400 NICOLA Stop: 06/28/18 03:59 Chlorhexidine Gluconate (Chlorhexidine 2% Cloth) 3 pack TOPICAL DAILY@0400 PRN PRN Reason: Extra cloth needed Stop: 06/28/18 03:59 Famotidine (Pepcid Pf Inj) 20 mg IV.PUSH Q12HR [facility] Propofol (Diprivan 1000 Mg/100 Ml Inj) 1,000 mg in 100 mls @ 2.042 mls/hr IV.CONT TITRATE PRN; Protocol PRN Reason: Per Protocol Last Titration: 06/22/18 15:54 Dose: 25 mcg/kg/min, 10.21 mls/hr Sodium Chloride (Ns Inj) 1,000 mls @ 84 mls/hr IV.CONT .[id number] [facility] Last Admin: 06/22/18 19:46 Dose: 84 mls/hr Lactulose (Lactulose Liq) 30 ml PO DAILY PRN PRN Reason: SEVERE CONSITIPATION Midazolam HCl (Versed Inj) 2 mg IV.PUSH Q1H PRN PRN Reason: SEDATION Miscellaneous Medication () 1 each OROPHARYNG 0000,0400,1200,1600 NICOLA Ondansetron HCl (Zofran Inj) 4 mg IV.PUSH Q6H PRN PRN Reason: NAUSEA OR VOMITING Senna/Docusate Sodium (Shadia-Colace) 1 tab PO BID NICOLA Sennosides (Senokot) 17.2 mg PO Q12H PRN PRN Reason: Moderate Constipation Sodium Chloride (Ns Flush) 2 ml IV.FLUSH BID NICOLA Sodium Chloride (Ns Flush) 2 ml IV.FLUSH PRN PRN PRN Reason: FLUSH AFTER USING IV ACCESS Allergies Allergy/AdvReac Type Severity Reaction Status Date / Time No Known Allergies Allergy Unverified 06/22/18 13:53 Home Medications Medication Instructions Recorded Confirmed Type Unable to Obtain Home Meds 06/22/18 06/22/18 History Results - Labs CBC & Chem 7: 06/22/18 14:00 Labs: Short CBC 06/22/18 Range/Units 14:00 WBC 31.0 H (4.0-11.0) th/mm3 Hgb 14.6 (11.6-15.3) gm/dL Hct 43.9 (35.0-46.0) % Plt Count 124 L (150-450) th/mm3 Cardiac Enzymes 06/22/18 Range/Units 14:00 Troponin I 0.29 H (0.02-0.05) ng/mL Urine 06/22/18 Range/Units 16:30 Urine Color Nancie (Yellw/Straw) Urine Clarity Cloudy H (Clear) Urine pH 5.0 (5.0-8.5) Ur Specific [place] 1.021 (1.002-1.035) Urine Protein 100 H (Neg-Trace) mg/dL Urine Glucose (UA) Negative (Negative) mg/dL - Imaging Impressions Cervical Spine CT 06/22/18 13:58 CONCLUSION: 1. Multilevel degenerative changes. 2. Scattered neural foraminal narrowing. 3. No compression fracture or spondylolisthesis Chest X-Ray 06/22/18 13:58 CONCLUSION: 1. The endotracheal tube and NG tube appear to be in good position. 2. Small 3 mm apical left pneumothorax. 3. Subcutaneous emphysema along the left chest wall along with multiple left- sided rib fractures. Head CT 06/22/18 13:58 CONCLUSION: 1. Acute right parietal infarcts. No midline shift or mass effect. . Pelvis X-Ray 06/22/18 13:58 CONCLUSION: Limited study without gross abnormality. Humerus X-Ray 06/22/18 13:59 CONCLUSION: No abnormality involving the humerus. Subcutaneous air is seen tracking over the lateral left chest wall. Thoracic Aorta CT 06/22/18 15:28 CONCLUSION: 1. Moderate volume acute pulmonary emboli. 2. Moderate size left pneumothorax with overlying subcutaneous air. 3. Severe emphysematous changes. 4. 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 5. Occlusion of the right outflow possibly acute in origin. Clinical evaluation for right lower extremity claudication suggested. 6. 2 hepatic masses worrisome for metastatic disease. These are limited in their evaluation on this study due to the arterial phase of the exam. Consider MRI of the liver to further assess if clinically warranted. Chest X-Ray 06/22/18 19:09 CONCLUSION: Left chest tube with tiny stable left pneumothorax and subcutaneous air that has increased slightly since earlier exam. Multiple left rib fractures. Endotracheal tube and nasogastric tube in good position. Exam Vital signs: Vital Signs 06/22/18 13:53 06/22/18 13:58 06/22/18 14:10 Temperature 98 F Pulse Rate 100 H 102 H Respiratory Rate 28 H 28 H Blood Pressure 190/88 H Pulse Oximetry 96 98 06/22/18 15:05 06/22/18 15:55 06/22/18 16:30 Temperature 97.8 F 97.7 F 97.8 F Pulse Rate 97 H 99 H 93 H Respiratory Rate 24 20 15 Blood Pressure 191/85 H 145/93 H 150/78 H Pulse Oximetry 100 100 100 06/22/18 17:23 06/22/18 18:15 06/22/18 18:17 Temperature 97.7 F 97.9 F Pulse Rate 87 89 Respiratory Rate 16 20 28 H Blood Pressure 130/78 166/76 H Pulse Oximetry 100 100 98 06/22/18 19:25 06/22/18 19:30 06/22/18 20:00 Temperature Pulse Rate 92 H Respiratory Rate 22 35 H Blood Pressure 122/61 Pulse Oximetry 99 100 06/22/18 20:12 Temperature Pulse Rate Respiratory Rate 26 H Blood Pressure Pulse Oximetry Intake & Output 06/22/18 06/22/1818 06:59 18:59 06:59 Intake Total 1000 / 1000 Balance 1000 / 1000 Weight 68.07 kg 65 kg Intake: IV 1000 / 1000 NS Inj 1,000 ML @ 1000 mls/hr 1000 / 1000 IV.CONT .Q1H [facility] Rx#:[id number] Other: Weight On Admission 65 kg - Constitutional moderate distress, chronically ill appearing, somnolent - Routine HEENT Exam Head: Present: normocephalic, atraumatic Eye: Present: normal accommodation ENT: Present: mucous membranes moist - Routine Neck Exam Absent: JVD, carotid bruit - Routine Respiratory Exam Present: patient mechanically ventilated. Absent: rhonchi, stridor, wheezes - Routine Cardiovascular Exam Present: RRR, S1, S2. Absent: murmur, gallop, rubs - Routine Abdominal Exam Present: soft, normoactive bowel sounds. Absent: tenderness, distended - Routine Extremities Exam Absent: cyanosis, clubbing, edema - Routine Skin Exam Present: intact. Absent: cyanosis, erythema - Routine Neurological Exam Present: altered mental status Septic Shock Reassessment Septic shock perfusion: reassessment completed Caprini VTE Risk Assessment Caprini VTE Risk Assessment: Moderate/High Risk (score >= 2) Caprini Risk Assessment Model: Point Value = 1 Point Value = 2 Point Value = 3 Point Value = 5 Age 41-60 Minor surgery BMI > 25 kg/m2 Swollen legs Varicose veins or History of unexplained or recurrent spontaneous Oral contraceptives or hormone replacement Sepsis (< 1 month) Serious lung disease, including pneumonia (< 1 month) Abnormal pulmonary function Acute myocardial infarction Congestive heart failure (< 1 month) History of inflammatory bowel disease Medical patient at bed rest Age 61-74 Arthroscopic surgery Major open surgery (> 45 min) Laparoscopic surgery (> 45 min) Malignancy Confined to bed (> 72 hours) Immobilizing plaster cast Central venous access Age >= 75 History of VTE Family history of VTE Factor V Leiden Prothrombin [id number] Lupus anticoagulant Anticardiolipin antibodies Elevated serum homocysteine Heparin-induced thrombocytopenia Other congenital or acquired thrombophilia Stroke (< 1 month) Elective arthroplasty Hip, pelvis, or leg fracture Acute spinal cord injury (< 1 month) Prophylaxis Regimen: Total Risk Factor Score Risk Level Prophylaxis Regimen 0-1 Low Early ambulation 2 Moderate Order ONE of the following: *Sequential Compression Device (SCD) *Heparin 5000 units SQ BID 3-4 Higher Order ONE of the following medications: *Heparin 5000 units SQ TID *Enoxaparin/Lovenox 40 mg SQ daily (WT < 150 kg, CrCl > 30 mL/min) *Enoxaparin/Lovenox 30 mg SQ daily (WT < 150 kg, CrCl > 10-29 mL/min) *Enoxaparin/Lovenox 30 mg SQ BID (WT < 150 kg, CrCl > 30 mL/min) AND/OR *Sequential Compression Device (SCD) 5 or more Highest Order ONE of the following medications: *Heparin 5000 units SQ TID (Preferred with Epidurals) *Enoxaparin/Lovenox 40 mg SQ daily (WT < 150 kg, CrCl > 30 mL/min) *Enoxaparin/Lovenox 30 mg SQ daily (WT < 150 kg, CrCl > 10-29 mL/min) *Enoxaparin/Lovenox 30 mg SQ BID (WT < 150 kg, CrCl > 30 mL/min) AND *Sequential Compression Device (SCD) Assessment and Plan - Assessment and Plan Plan: Respiratory failure -Intubated for an airway protection -Underlying pulmonary embolism -Vent bundle -No weaning until neurologically improved Acute CVA -Unknown downtime -Not a candidate for TPA or thrombectomy -Aspirin, statins -2D echo -Neurology consultation Pulmonary embolism -Doppler of lower extremities -2D echo to rule out PFO -Hematology consultation for anticoagulation, the patient with acute CVA worrisome of hemorrhagic conversion -Most likely needs IVC filter Liver lesions suspicious of metastatic process -Per gastroenterology DVT GI prophylaxis -Teds SCDs -Subcu heparin -Pepcid 35 minutes of critical care H&P: Quality - VTE Deep Vein Thrombosis/Pulmonary Embolism Present on Admission: No
[2018-06-23] MEDS: Famotidine PF Inj 20 MG/2 ML Vial IV.PUSH SCH ×3 (00:01→20:59)
[2018-06-23] MEDS: Oral Hygiene Kit OROPHARYNG SCH ×5 (00:02→23:43)
[2018-06-23] MEDS: Senna/Docusate Sodium 8.6/50 MG Tablet PO SCH ×3 (00:02→20:59)
[2018-06-23 00:55] LABS: Troponin I 0.64 ng/mL (0.02-0.05)
[2018-06-23 01:09] LABS: Creatine Kinase MB 20.2 ng/mL (0.5-3.6)
[2018-06-23 01:10] LABS: CKMB Percent 4.3 % (0.0-4.0)
[2018-06-23] MEDS ORDERED: Chlorhexidine Gluconate 2% 1 Pack (2 Cloths) TOPICAL PRN (04:00)
[2018-06-23] MEDS: Chlorhexidine Gluconate 2% 1 Pack (2 Cloths) TOPICAL SCH (04:12)
[2018-06-23] MEDS: Sod Chloride 0.9% Inj 1,000 ML IV.CONT SCH ×2 (06:20→21:15)
[2018-06-23 07:02] LABS: Baso % (Auto) 0.1 % (0.0-2.0); Hematocrit 39.7 % (35.0-46.0); Hemoglobin 13.1 gm/dL (11.6-15.3); Lymph # (Auto) 1.5 th/mm3 (1.0-4.8); Lymph % (Auto) 6.9 % (9.0-44.0); Mean Corpuscular HGB Conc 32.9 % (32.0-36.0); Mean Corpuscular Hemoglobin 29.3 pg (27.0-34.0); Mono # (Auto) 2.1 th/mm3 (0.0-0.9); Mono % (Auto) 9.7 % (0.0-8.0); Neut # (Auto) 18.4 th/mm3 (1.8-7.7); Neut % (Auto) 83.3 % (16.0-70.0); Platelet Count 77 th/mm3 (150-450); Red Blood Count 4.46 mil/mm3 (4.00-5.30); Red Cell Distribution Width 13.6 % (11.6-17.2); White Blood Count 22.1 th/mm3 (4.0-11.0)
[2018-06-23 07:19] LABS: Alanine Aminotransferase 22 U/L (10-53); Albumin 2.8 g/dL (3.4-5.0); Anion Gap 13 meq/L (5-15); Aspartate Aminotransferase 43 U/L (15-37); Blood Urea Nitrogen 32 mg/dL (7-18); Carbon Dioxide 23.4 meq/L (21.0-32.0); Chloride 109 meq/L (98-107); Cholesterol 209 mg/dL (120-200); Glomerular Filtration Rate 42 mL/min (>89); Glucose,Random 104 mg/dL (74-106); Phosphorus 3.6 mg/dL (2.5-4.9); Potassium 3.1 meq/L (3.5-5.1); Sodium 145 meq/L (136-145)
[2018-06-23 07:21] LABS: Activated Partial Thrombo Time 25.5 sec (24.3-30.1); INR 1.1 Ratio; Prothrombin Time 11.5 sec (9.8-11.6)
[2018-06-23 07:22] LABS: Alkaline Phosphatase 85 U/L (45-117); Chol/HDL Ratio 4.65 Ratio; HDL Cholesterol 44.9 mg/dL (40.0-60.0); LDL Cholesterol,Calculated 100 mg/dL (0-99); Total Protein 6.3 g/dL (6.4-8.2); Triglycerides 322 mg/dL (42-150); Troponin I 0.56 ng/mL (0.02-0.05)
[2018-06-23] MEDS: Propofol 1000 mg/100 ml Inj 1,000 MG/100 ML BOTTLE IV.CONT PRN ×4 (07:47→23:42)
--- NOTE | 2018-06-23 07:53 | XR ---
EXAM DATE: 06/23/2018 12:00 AM EDT AGE/SEX: 78 years / Female INDICATIONS: Follow up pneumothorax. CLINICAL DATA: This is the patient's subsequent encounter. Patient reports that signs and symptoms h ave been present for 2 days and indicates a pain score of Nonresponsive. MEDICAL/SURGICAL HISTORY: Non-responsive. Non-responsive. COMPARISON: [facility] [place], CHEST 1V SINGLE AP, 06/22/2018. . FINDINGS: A single AP portable semierect view of the chest was obtained and again demonstrates an endotracheal tube in place with the tip 2 cm above the jennifer. A nasogastric tube is again seen coursing through t he esophagus and stomach. There is a left-sided chest tube in place with no visualized pneumothorax. Multiple left rib fractures are again noted. There is subcutaneous emphysema along the left lateral c hest wall. Patchy opacity remains at the left lung base and costophrenic angle is blunted. CONCLUSION: 1. The left-sided chest tube remains in place with no visualized pneumothorax. 2. Small left effusion with hazy airspace disease at the left lung base. Electronically signed by: Jose Griffiths MD 06/23/2018 7:52 AM EDT
[2018-06-23 08:24] LABS: Platelet Morphology Normal (Normal)
[2018-06-23] MEDS ORDERED: Dextrose 50% in Water 50 ML Vial IV.PUSH PRN (08:37)
--- NOTE | 2018-06-23 08:39 | US ---
EXAM DATE: 06/23/2018 12:00 AM EDT AGE/SEX: 78 years / Female INDICATIONS: Bilateral leg swelling. CLINICAL DATA: This is the patient's initial encounter. Patient reports that signs and symptoms have been present for 1 day and indicates a pain score of Nonresponsive. MEDICAL/SURGICAL HISTORY: . Bilateral leg swelling. None. COMPARISON: No prior exams available for comparison. TECHNIQUE: Venous ultrasound of both lower extremities was performed from the inguinal ligament to t he proximal calf. Real-time, color Doppler and spectral tracing, compression and augmentation techni ques were used. FINDINGS: Right Leg: The common femoral, superficial and popliteal veins are fully compressible and demonstrat ed normal venous waveform with augmentation response. There is occlusive thrombus noted in the on awake counselor ior tibial vein which is noncompressible. The peroneal vein is patent. Left Leg: The common femoral, superficial femoral and popliteal veins are fully compressible and dem onstrate a normal venous waveform with augmentation response. There is occlusive thrombus noted in th e posterior tibial vein which is noncompressible. The peroneal vein is patent. Other: None. CONCLUSION: 1. Occlusive thrombus in both posterior tibial veins. Electronically signed by: Jose Griffiths MD 06/23/2018 8:38 AM EDT
[2018-06-23] MEDS ORDERED: Sodium Phosphate Inj 30 MMOL in Sodium Chlor 0.9% Inj 250 ML IV.SIG PRN (08:53)
[2018-06-23] MEDS ORDERED: Potassium Phosphate 500 MG Soluble Tablet PO PRN ×2 (08:53)
[2018-06-23] MEDS ORDERED: Magnesium Oxide 400 MG Tablet PO PRN (08:53)
[2018-06-23] MEDS ORDERED: Magnesium Sulfate Inj 2 GM in Sodium Chlor 0.9% Inj 96 ML IV.SIG PRN (08:53)
[2018-06-23] MEDS ORDERED: Potassium Chlor 40 mEq Premix 40 MEQ/100 ML PIGGYBACK IV.SIG PRN ×2 (08:53)
[2018-06-23] MEDS ORDERED: Potassium Chlor 20 mEq Premix 20 MEQ/100 ML PIGGYBACK IV.SIG PRN ×2 (08:53)
[2018-06-23] MEDS ORDERED: Potassium Phosphate Inj 30 MMOL in Sodium Chlor 0.9% Inj 250 ML IV.SIG PRN (08:53)
[2018-06-23] MEDS ORDERED: Magnesium Sulfate Inj 4 GM in Sodium Chlor 0.9% Inj 92 ML IV.SIG PRN (08:53)
--- NOTE | 2018-06-23 08:53 | P.PNCC ---
Subjective Subjective Remarks/Hospital Course: 78-year-old female presents to the ED for evaluation of possible CVA and shortness of breath. Per [facility] they got a call that apparently the patient had been found on the floor. Unclear as to how long the patient had been on the floor. Last time the patient was seen normal was on Friday per friends that were in the scene. Per patient herself she cannot really tell us any history other than she has pain on the left side of her body as well as weakness to her left arm. She cannot move her left arm on her own. She denies any history of stroke on herself. She cannot really give us good history about her medications. She denies taking blood thinners however. She cannot recall when she fell and she cannot really tell us how long she has been on the floor. No one really at bedside to give us any information about how long the symptoms have been going. Per EVAC she is also been having left facial droop. CT of the brain obtained in the emergency department shows Acute right parietal infarcts. No midline shift or mass effect. The chest x-ray with the findings of Subcutaneous emphysema along the left chest wall along with multiple left- sided rib fractures. CTA of the pulmonary artery is consistent with Moderate volume acute pulmonary emboli and Moderate size left pneumothorax with overlying subcutaneous air. The patient was intubated by ED attending and the chest tube was placed in the emergency department as well. 06/23 Patient is sedated with Diprivan and intubated. Afebrile. Objective Vital Signs / I&O: Vital Signs 06/22/18 13:53 06/22/18 13:58 06/22/18 14:10 Temperature 98 F Pulse Rate 100 H 102 H Respiratory Rate 28 H 28 H Blood Pressure 190/88 H Pulse Oximetry 96 98 06/22/18 15:05 06/22/18 15:55 06/22/18 16:30 Temperature 97.8 F 97.7 F 97.8 F Pulse Rate 97 H 99 H 93 H Respiratory Rate 24 20 15 Blood Pressure 191/85 H 145/93 H 150/78 H Pulse Oximetry 100 100 100 06/22/18 17:23 06/22/18 18:15 06/22/18 18:17 Temperature 97.7 F 97.9 F Pulse Rate 87 89 Respiratory Rate 16 20 28 H Blood Pressure 130/78 166/76 H Pulse Oximetry 100 100 98 06/22/18 19:25 06/22/18 19:30 06/22/18 19:45 Temperature Pulse Rate 92 H 90 Respiratory Rate 22 35 H 24 Blood Pressure 122/61 Pulse Oximetry 99 06/22/18 20:00 06/22/18 20:12 06/22/18 20:16 Temperature 98.4 F Pulse Rate 96 H Respiratory Rate 26 H 22 Blood Pressure 201/95 H Pulse Oximetry 100 94 L 06/22/18 22:00 06/22/18 23:15 06/23/18 00:00 Temperature 99.1 F Pulse Rate 86 86 95 H Respiratory Rate 21 32 H Blood Pressure 148/66 H Pulse Oximetry 95 95 06/23/18 02:00 06/23/18 03:36 06/23/18 03:37 Temperature Pulse Rate 85 84 Respiratory Rate 18 19 Blood Pressure Pulse Oximetry 97 06/23/18 04:00 06/23/18 06:00 Temperature 99.0 F Pulse Rate 85 92 H Respiratory Rate 19 Blood Pressure 122/59 L Pulse Oximetry 93 L Intake & Output 06/22/18 06/23/18 06/23/18 18:59 06:59 18:59 Intake Total 1000 / 1000 300 / 300 100 / 100 Output Total 536 / 536 Balance 1000 / 1000 -236 / -236 100 / 100 Weight 68.07 kg 61.4 kg Intake: IV 1000 / 1000 200 / 200 100 / 100 Diprivan 1000 mg/100 ml Inj 1, 100 / 100 100 / 100 000 mg In 100 ml @ 5 MCG/KG/MIN 2.042 mls/hr IV.CONT TITRATE PRN Rx#:[id number] NS Inj 1,000 ML @ 84 mls/hr IV. 1000 / 1000 100 / 100 CONT .[id number] [facility] Rx#:[id number] Tube Feeding 100 / 100 Output: Urine Amount (Catheter) 450 / 450 Indwelling Urethral Catheter 450 / 450 Gastric Drainage 50 / 50 Orogastric Tube 50 / 50 Chest Tube Drainage 36 / 36 #1 Left Upper Mid-Axillary 36 / 36 Chest Other: # Bowel Movements 0 Weight On Admission 65 kg Result Diagrams: 06/23/18 09:25 06/23/18 09:25 Other Results: Laboratory Results - last 12 hr 06/22/18 06/22/18 06/23/18 18:49 23:59 04:54 WBC 22.1 H RBC 4.46 Hgb 13.1 Hct 39.7 MCV 89.0 MCH 29.3 MCHC 32.9 RDW 13.6 Plt Count 77 L D MPV 10.0 Prelim Diff (Auto) Slide review pending Neut % (Auto) 83.3 H Lymph % (Auto) 6.9 L Mitchell % (Auto) 9.7 H Eos % (Auto) 0.0 Baso % (Auto) 0.1 Neut # (Auto) 18.4 H Lymph # (Auto) 1.5 Mitchell # (Auto) 2.1 H Eos # (Auto) 0.0 Baso # (Auto) 0.0 WBC Differential . Diff Scan Auto diff confirmed Differential Comment . Platelet Estimate Low L Platelet Morphology Normal PT INR APTT Sodium Potassium Chloride Carbon Dioxide Anion Gap BUN Creatinine Estimated GFR Random Glucose Calcium Phosphorus Magnesium Total Bilirubin AST ALT Alkaline Phosphatase Total Creatine Kinase 470 H CK-MB (CK-2) 20.2 H CK-MB (CK-2) % 4.3 H* Troponin I 0.64 H* D Total Protein Albumin Triglycerides Cholesterol LDL Cholesterol, Calc HDL Cholesterol Cholesterol/HDL Ratio Nasal Screen MRSA (PCR) Not detected 06/23/18 06/23/18 04:54 04:54 WBC RBC Hgb Hct MCV MCH MCHC RDW Plt Count MPV Prelim Diff (Auto) Neut % (Auto) Lymph % (Auto) Mitchell % (Auto) Eos % (Auto) Baso % (Auto) Neut # (Auto) Lymph # (Auto) Mitchell # (Auto) Eos # (Auto) Baso # (Auto) WBC Differential Diff Scan Differential Comment Platelet Estimate Platelet Morphology PT 11.5 INR 1.1 APTT 25.5 Sodium 145 Potassium 3.1 L Chloride 109 H Carbon Dioxide 23.4 Anion Gap 13 BUN 32 H Creatinine 1.23 H Estimated GFR 42 L Random Glucose 104 Calcium 8.0 L Phosphorus 3.6 Magnesium 2.0 Total Bilirubin 0.6 AST 43 H ALT 22 Alkaline Phosphatase 85 Total Creatine Kinase CK-MB (CK-2) CK-MB (CK-2) % Troponin I 0.56 H Total Protein 6.3 L Albumin 2.8 L Triglycerides 322 H Cholesterol 209 H LDL Cholesterol, Calc 100 H HDL Cholesterol 44.9 Cholesterol/HDL Ratio 4.65 Nasal Screen MRSA (PCR) Imaging: Cervical Spine CT 06/22/18 13:58 CONCLUSION: 1. Multilevel degenerative changes. 2. Scattered neural foraminal narrowing. 3. No compression fracture or spondylolisthesis Head CT 06/22/18 13:58 CONCLUSION: 1. Acute right parietal infarcts. No midline shift or mass effect. . Pelvis X-Ray 06/22/18 13:58 CONCLUSION: Limited study without gross abnormality. Humerus X-Ray 06/22/18 13:59 CONCLUSION: No abnormality involving the humerus. Subcutaneous air is seen tracking over the lateral left chest wall. Thoracic Aorta CT 06/22/18 15:28 CONCLUSION: 1. Moderate volume acute pulmonary emboli. 2. Moderate size left pneumothorax with overlying subcutaneous air. 3. Severe emphysematous changes. 4. 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 5. Occlusion of the right outflow possibly acute in origin. Clinical evaluation for right lower extremity claudication suggested. 6. 2 hepatic masses worrisome for metastatic disease. These are limited in their evaluation on this study due to the arterial phase of the exam. Consider MRI of the liver to further assess if clinically warranted. Chest X-Ray 06/23/18 00:00 CONCLUSION: 1. The left-sided chest tube remains in place with no visualized pneumothorax. 2. Small left effusion with hazy airspace disease at the left lung base. Objective Remarks: GENERAL: Patient is 78 yo critcally ill intubated and sedated SKIN: Warm and dry. HEAD: Normocephalic. EYES: No scleral icterus. No injection or drainage. NECK: Supple, trachea midline. No JVD or lymphadenopathy. CARDIOVASCULAR: Regular rate and rhythm without murmurs, gallops, or rubs. RESPIRATORY: Breath sounds equal bilaterally. No accessory muscle use. GASTROINTESTINAL: Abdomen soft, non-tender, nondistended. MUSCULOSKELETAL: No cyanosis, or edema. Neuro: sedated Assessment and Plan - Assessment and Plan Plan: VDRF Acute CVA ( Acute right parietal infarcts) Pulmonary embolism Left sided PTX Liver lesions suspicious of metastatic process Mild elevated troponin-multifactorial. Leukocytosis Thrombocytopenia Plan Neuro: On Diprivan infusion for sedation. Daily sedation vacation. CT brain: Acute parietal infarcts MRI brain:. 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 2 punctate acute infarctions involving the right cerebellar hemisphere. MRA brain: Occlusion of the mid to distal right M1 segment with reconstitution of the proximal right M2 branches via collaterals. Neuro is following Unknown downtime. Not a candidate for TPA or thrombectomy Aspirin, statins Pulm: Continue with vent support keep sats >92% Bronchodilators, ICU vent bundle. CT thoracic aorta: Pulmonary embolism, left sided PTX s/p CT placement 2D echo ordered, check Doppler US LE Hematology consultation for anticoagulation, the patient with acute CVA worrisome of hemorrhagic conversion Most likely needs IVC filter CV: Monitor HR and BP keep MAp>65mmHg Continue ASA, Lipitor Echo showed Normal left ventricular size. Wall thickness is normal. EF: 60 -65%. : Monitor renal function, I/O's, electrolytes replacement per protocol. On NS@84ml/hr GI: Liver lesions suspicious of metastatic process GI consulted. On Pepcid 20mg IV Q12 for GI prophylaxis On tube feeds- 2cal HN with goal rate 55ml/hr ID: Monitor for signs of infections (Fever, WBC) Received Vanco and Zosyn in ED. Continue with Zosyn empirically, check sputum cx, BC x 2sets Heme: Monitor CBC, Doppler US LE: Occlusive thrombus in both posterior tibial veins. Endo: SSI for glycemic control DVT GI prophylaxis -Teds SCDs -Subcu heparin -Pepcid 35 minutes of critical care
[2018-06-23] MEDS ORDERED: Aspirin 325 MG Tablet PO SCH (09:00)
[2018-06-23] MEDS ORDERED: Piperacil/Tazo 4.5 GM Premix 4.5 GM/100 ML BAG IV.SIG SCH (09:00)
--- NOTE | 2018-06-23 09:15 | P.CONNEU ---
History of Present Illness Service: Neurology Primary Care Provider: Ciaran Aldridge MD Family Provider: Ciaran Aldridge MD Chief Complaint: Stroke History of Present Illness: 78-year-old female admitted for stroke management. Patient found down unknown length of time unclear time of onset of her stroke. Therefore not a TPA candidate. No information obtainable from patient as she is currently intubated and lightly sedated. She is found to have right hemispheric strokes on CT brain scan also had a chest tube placed. 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 - Medical History Medical History: Medical History (Last Reviewed 06/22/18 @ 18:26 by ENEDINA Toussaint) Medical history unknown Patient taking unknown medications Surgical history unknown - Tobacco History Second Hand Smoke Exposure: Yes Tobacco Use In Past 30 Days: Yes Smoking Status: Current every day smoker Tobacco Type: Cigarettes - Alcohol History How Often Do You Have a Drink Containing Alcohol: Unable to Obtain - Substance Use History Substance History: Unable to Obtain - Travel History Recent Travel in the [facility] Within the Last 8 Weeks: No Recent Travel Out of the Country Within the Last 8 Weeks: No - Immunization History Tetanus Immunization: Unable to Assess Medications and Allergies Active Medications: Active Medications Acetaminophen (Tylenol) 650 mg PO Q6H PRN PRN Reason: PAIN 1-10 AND/OR FEVER >101F Al Hydroxide/Mg Hydroxide (Milk Of Magnrosemary Liq) 30 ml PO Q12H PRN PRN Reason: Mild Constipation Albuterol (Duoneb Neb (Prn)) 1 ampul NEB Q2HR NEB PRN PRN Reason: WHEEZING Albuterol (Duoneb Neb (Nicola)) 1 ampul NEB Q4HR NEB [facility] Last Admin: 06/23/18 03:35 Dose: 1 ampul Aspirin (Aspirin) 325 mg PO DAILY [facility] Atorvastatin Calcium (Lipitor) 80 mg PO DAILY [facility] Bisacodyl (Dulcolax Supp) 10 mg RECTAL DAILY PRN PRN Reason: SEVERE CONSITIPATION Chlorhexidine Gluconate (Peridex 0.12% Oral Kit) 15 ml OROPHARYNG BID@0800, 2000 [facility] Last Admin: 06/22/18 19:38 Dose: 15 ml Chlorhexidine Gluconate (Chlorhexidine 2% Cloth) 3 pack TOPICAL DAILY@0400 [facility] Stop: 06/28/18 03:59 Last Admin: 06/23/18 04:12 Dose: 3 pack Chlorhexidine Gluconate (Chlorhexidine 2% Cloth) 3 pack TOPICAL DAILY@0400 PRN PRN Reason: Extra cloth needed Stop: 06/28/18 03:59 Dextrose (D50w Vial) 50 ml IV.PUSH UNSCH PRN PRN Reason: PER HYPOGLYCEMIA PROTOCOL Famotidine (Pepcid Pf Inj) 20 mg IV.PUSH Q12HR [facility] Last Admin: 06/23/18 00:01 Dose: 20 mg Glucagon (Glucagon Inj) 1 mg OTHER PRN PRN PRN Reason: for Hypoglycemia Protocol Propofol (Diprivan 1000 Mg/100 Ml Inj) 1,000 mg in 100 mls @ 2.042 mls/hr IV.CONT TITRATE PRN; Protocol PRN Reason: Per Protocol Last Admin: 06/23/18 07:47 Dose: 35 mcg/kg/min, 14.3 mls/hr Sodium Chloride (Ns Inj) 1,000 mls @ 84 mls/hr IV.CONT .[id number] [facility] Last Admin: 06/23/18 06:20 Dose: 84 mls/hr Magnesium Sulfate 4 gm/ Sodium (Chloride) 100 mls @ 50 mls/hr IV.SIG UNSCH PRN PRN Reason: For Magnesium 0.9 - 1.1 mg/dL Potassium Chloride (Kcl 40 Meq Premix Inj) 40 meq in 100 mls @ 25 mls/hr IV.SIG Q2H PRN PRN Reason: For Potassium 2.8 - 3.2 mEq/L Potassium Chloride (Kcl 20 Meq Premix Inj) 20 meq in 100 mls @ 50 mls/hr IV.SIG Q2H PRN PRN Reason: For Potassium 3.3 - 3.5 mEq/L Potassium Chloride (Kcl 40 Meq Premix Inj) 40 meq in 100 mls @ 25 mls/hr IV.SIG UNSCH PRN PRN Reason: For Potassium 3.3 - 3.5 mEq/L Potassium Chloride (Kcl 20 Meq Premix Inj) 20 meq in 100 mls @ 50 mls/hr IV.SIG Q2H PRN PRN Reason: For Potassium 2.8 - 3.2 mEq/L Potassium Phosphate 30 mmol/ (Sodium Chloride) 260 mls @ 42 mls/hr IV.SIG UNSCH PRN PRN Reason: SEE LABEL COMMENTS Sodium Phosphate 30 mmol/ (Sodium Chloride) 260 mls @ 42 mls/hr IV.SIG UNSCH PRN PRN Reason: For Phosphorus < 2.5 mg/dL Piperacillin/Tazobactam/Dextrose (Zosyn 4.5 Gm Premix) 4.5 gm in 100 mls @ 200 mls/hr IV.SIG Q8H [place]A Magnesium Sulfate 2 gm/ Sodium (Chloride) 100 mls @ 50 mls/hr IV.SIG UNSCH PRN PRN Reason: For Magnesium 1.2 - 1.6 mg/dL Insulin Human Regular (Novolin R Correctional Sugar Inj) 0 units SQ Q6HR [place]A; Protocol Lactulose (Lactulose Liq) 30 ml PO DAILY PRN PRN Reason: SEVERE CONSITIPATION Magnesium Oxide (Mag-Ox) 800 mg PO UNSCH PRN PRN Reason: For Magnesium 1.2 - 1.6 mg/dL Midazolam HCl (Versed Inj) 2 mg IV.PUSH Q1H PRN PRN Reason: SEDATION Miscellaneous Medication () 1 each OROPHARYNG 0000,0400,1200,1600 [facility] Last Admin: 06/23/18 04:12 Dose: 1 each Ondansetron HCl (Zofran Inj) 4 mg IV.PUSH Q6H PRN PRN Reason: NAUSEA OR VOMITING Potassium Bicarb/Potassium Chloride (K-Lyte Cl Eff) 50 meq PO UNSCH PRN PRN Reason: For Potassium 3.3 - 3.5 mEq/L Potassium Phosphate (K-Phos Original) 2,000 mg PO UNSCH PRN PRN Reason: SEE LABEL COMMENTS Potassium Phosphate (K-Phos Original) 2,000 mg PO Q4H PRN PRN Reason: Phosphorus Less Than 2.5 mg/dL Senna/Docusate Sodium (Shadia-Colace) 1 tab PO BID [facility] Last Admin: 06/23/18 00:02 Dose: 1 tab Sennosides (Senokot) 17.2 mg PO Q12H PRN PRN Reason: Moderate Constipation Sodium Chloride (Ns Flush) 2 ml IV.FLUSH BID [facility] Last Admin: 06/23/18 00:00 Dose: 2 ml Sodium Chloride (Ns Flush) 2 ml IV.FLUSH PRN PRN PRN Reason: FLUSH AFTER USING IV ACCESS Allergies Allergy/AdvReac Type Severity Reaction Status Date / Time No Known Allergies Allergy Unverified 06/22/18 13:53 Home Medications Medication Instructions Recorded Confirmed Type Unable to Obtain Home Meds 06/22/18 06/22/18 History Exam Vital signs: Vital Signs 06/22/18 13:53 06/22/18 13:58 06/22/18 14:10 Temperature 98 F Pulse Rate 100 H 102 H Respiratory Rate 28 H 28 H Blood Pressure 190/88 H Pulse Oximetry 96 98 06/22/18 15:05 06/22/18 15:55 06/22/18 16:30 Temperature 97.8 F 97.7 F 97.8 F Pulse Rate 97 H 99 H 93 H Respiratory Rate 24 20 15 Blood Pressure 191/85 H 145/93 H 150/78 H Pulse Oximetry 100 100 100 06/22/18 17:23 06/22/18 18:15 06/22/18 18:17 Temperature 97.7 F 97.9 F Pulse Rate 87 89 Respiratory Rate 16 20 28 H Blood Pressure 130/78 166/76 H Pulse Oximetry 100 100 98 06/22/18 19:25 06/22/18 19:30 06/22/18 19:45 Temperature Pulse Rate 92 H 90 Respiratory Rate 22 35 H 24 Blood Pressure 122/61 Pulse Oximetry 99 06/22/18 20:00 06/22/18 20:12 06/22/18 20:16 Temperature 98.4 F Pulse Rate 96 H Respiratory Rate 26 H 22 Blood Pressure 201/95 H Pulse Oximetry 100 94 L 06/22/18 22:00 06/22/18 23:15 06/23/18 00:00 Temperature 99.1 F Pulse Rate 86 86 95 H Respiratory Rate 21 32 H Blood Pressure 148/66 H Pulse Oximetry 95 95 06/23/18 02:00 06/23/18 03:36 06/23/18 03:37 Temperature Pulse Rate 85 84 Respiratory Rate 18 19 Blood Pressure Pulse Oximetry 97 06/23/18 04:00 06/23/18 06:00 06/23/18 08:28 Temperature 99.0 F Pulse Rate 85 92 H 86 Respiratory Rate 19 23 Blood Pressure 122/59 L Pulse Oximetry 93 L 97 Intake & Output 06/22/18 06/23/18 06/23/18 18:59 06:59 18:59 Intake Total 1000 / 1000 300 / 300 100 / 100 Output Total 536 / 536 Balance 1000 / 1000 -236 / -236 100 / 100 Weight 68.07 kg 61.4 kg Intake: IV 1000 / 1000 200 / 200 100 / 100 Diprivan 1000 mg/100 ml Inj 1, 100 / 100 100 / 100 000 mg In 100 ml @ 5 MCG/KG/MIN 2.042 mls/hr IV.CONT TITRATE PRN Rx#:[id number] NS Inj 1,000 ML @ 84 mls/hr IV. 1000 / 1000 100 / 100 CONT .[id number] NICLOA Rx#:[id number] Tube Feeding 100 / 100 Output: Urine Amount (Catheter) 450 / 450 Indwelling Urethral Catheter 450 / 450 Gastric Drainage 50 / 50 Orogastric Tube 50 / 50 Chest Tube Drainage 36 / 36 #1 Left Upper Mid-Axillary 36 / 36 Chest Other: # Bowel Movements 0 Weight On Admission 65 kg Narrative: GENERAL: in NAD, SKIN: Warm and dry. HEAD: Atraumatic. Normocephalic. EYES: Pupils equal and round. No scleral icterus. ENT: No nasal bleeding or discharge. Mucous membranes pink and moist. NECK: Trachea midline. No JVD. CARDIOVASCULAR: Regular rate and rhythm. RESPIRATORY: No accessory muscle use. GASTROINTESTINAL: Abdomen soft, non-tender, nondistended. MUSCULOSKELETAL: Extremities without clubbing, cyanosis, or edema. No obvious deformities. NEUROLOGICAL: Intubated, mild sedation, not following nonverbal, right gaze preference, left hemiplegia PSYCHIATRIC: Calm - Constitutional no acute distress - Routine HEENT Exam Head: Present: normocephalic Eye: Present: EOMI Results - Labs CBC & Chem 7: 06/23/18 04:54 06/23/18 04:54 Labs: Laboratory Results - last 24 hr 06/22/18 06/22/18 06/22/18 14:00 14:00 14:00 WBC 31.0 H RBC 5.00 Hgb 14.6 POC Hgb (Calc) Hct 43.9 POC Hct MCV 87.7 MCH 29.2 MCHC 33.3 RDW 14.1 Plt Count 124 L MPV 10.0 Prelim Diff (Auto) Slide review pending Neut % (Auto) 84.0 H Lymph % (Auto) 7.3 L [place] % (Auto) 8.4 H Eos % (Auto) 0.0 Baso % (Auto) 0.3 Neut # (Auto) 26.1 H Lymph # (Auto) 2.3 [place] # (Auto) 2.6 H Eos # (Auto) 0.0 Baso # (Auto) 0.1 WBC Differential Manual diff final Diff Scan Seg Neuts % (Manual) 86 H Band Neuts % (Manual) 2 Lymphocytes % (Manual) 4 L Monocytes % (Manual) 8 Abs Neuts (Manual) 27.3 H Differential Comment . Platelet Estimate Low L Platelet Morphology Normal PT 11.9 H INR 1.2 APTT 23.6 L Puncture Site Patient Temperature O2 Saturation ABG pH ABG pCO2 ABG pO2 ABG HCO3 ABG O2 Content ABG Base Excess ABG Methemoglobin Jay Test Hemoglobin Carboxyhemoglobin O2 Delivery Device Vent Setting Inspired O2 Critical Value POC Sodium Sodium POC Potassium Potassium POC Chloride Chloride Carbon Dioxide Anion Gap POC BUN BUN Creatinine POC Creatinine Estimated GFR POC Glucose Random Glucose Calcium Phosphorus Magnesium Total Bilirubin AST ALT Alkaline Phosphatase Total Creatine Kinase CK-MB (CK-2) CK-MB (CK-2) % Troponin I 0.29 H Total Protein Albumin Triglycerides Cholesterol LDL Cholesterol, Calc HDL Cholesterol Cholesterol/HDL Ratio Urine Color Urine Clarity Urine pH Ur Specific [place] Urine Protein Urine Glucose (UA) Urine Ketones Urine Occult Blood Urine Nitrate Urine Bilirubin Urine Urobilinogen Ur Leukocyte Esterase Urine RBC Urine WBC Ur Squamous Epith Cells Urine Mucus Micro UA Comment Ur Microscopic Review Urine Culture Comments Nasal Screen MRSA (PCR) Serum Alcohol Less than 3 Blood Type Antibody Screen 06/22/18 06/22/18 06/22/18 14:00 14:00 16:28 WBC RBC Hgb POC Hgb (Calc) 13.6 Hct POC Hct 40.0 MCV MCH MCHC RDW Plt Count MPV Prelim Diff (Auto) Neut % (Auto) Lymph % (Auto) [place] % (Auto) Eos % (Auto) Baso % (Auto) Neut # (Auto) Lymph # (Auto) [place] # (Auto) Eos # (Auto) Baso # (Auto) WBC Differential Diff Scan Seg Neuts % (Manual) Band Neuts % (Manual) Lymphocytes % (Manual) Monocytes % (Manual) Abs Neuts (Manual) Differential Comment Platelet Estimate Platelet Morphology PT INR APTT Puncture Site Left radial Patient Temperature 98.6 O2 Saturation 98 ABG pH 7.34 L ABG pCO2 40 ABG pO2 172 H ABG HCO3 21 L ABG O2 Content 19.4 ABG Base Excess -3.9 L ABG Methemoglobin 0.7 Jay Test Present Hemoglobin 14.0 Carboxyhemoglobin 0.9 O2 Delivery Device Ventilator Vent Setting Inspired O2 100 Critical Value No POC Sodium 141 Sodium POC Potassium 3.1 L Potassium POC Chloride 108 Chloride Carbon Dioxide Anion Gap POC BUN 32 H BUN Creatinine POC Creatinine 1.2 Estimated GFR POC Glucose 148 H Random Glucose Calcium Phosphorus Magnesium Total Bilirubin AST ALT Alkaline Phosphatase Total Creatine Kinase CK-MB (CK-2) CK-MB (CK-2) % Troponin I Total Protein Albumin Triglycerides Cholesterol LDL Cholesterol, Calc HDL Cholesterol Cholesterol/HDL Ratio Urine Color Urine Clarity Urine pH Ur Specific [place] Urine Protein Urine Glucose (UA) Urine Ketones Urine Occult Blood Urine Nitrate Urine Bilirubin Urine Urobilinogen Ur Leukocyte Esterase Urine RBC Urine WBC Ur Squamous Epith Cells Urine Mucus Micro UA Comment Ur Microscopic Review Urine Culture Comments Nasal Screen MRSA (PCR) Serum Alcohol Blood Type O Positive Antibody Screen Negative 06/22/18 06/22/18 06/22/18 16:30 18:49 23:59 WBC RBC Hgb POC Hgb (Calc) Hct POC Hct MCV MCH MCHC RDW Plt Count MPV Prelim Diff (Auto) Neut % (Auto) Lymph % (Auto) [place] % (Auto) Eos % (Auto) Baso % (Auto) Neut # (Auto) Lymph # (Auto) [place] # (Auto) Eos # (Auto) Baso # (Auto) WBC Differential Diff Scan Seg Neuts % (Manual) Band Neuts % (Manual) Lymphocytes % (Manual) Monocytes % (Manual) Abs Neuts (Manual) Differential Comment Platelet Estimate Platelet Morphology PT INR APTT Puncture Site Patient Temperature O2 Saturation ABG pH ABG pCO2 ABG pO2 ABG HCO3 ABG O2 Content ABG Base Excess ABG Methemoglobin Jay Test Hemoglobin Carboxyhemoglobin O2 Delivery Device Vent Setting Inspired O2 Critical Value POC Sodium Sodium POC Potassium Potassium POC Chloride Chloride Carbon Dioxide Anion Gap POC BUN BUN Creatinine POC Creatinine Estimated GFR POC Glucose Random Glucose Calcium Phosphorus Magnesium Total Bilirubin AST ALT Alkaline Phosphatase Total Creatine Kinase 470 H CK-MB (CK-2) 20.2 H CK-MB (CK-2) % 4.3 H* Troponin I 0.64 H* D Total Protein Albumin Triglycerides Cholesterol LDL Cholesterol, Calc HDL Cholesterol Cholesterol/HDL Ratio Urine Color Nancie Urine Clarity Cloudy H Urine pH 5.0 Ur Specific [place] 1.021 Urine Protein 100 H Urine Glucose (UA) Negative Urine Ketones Trace H Urine Occult Blood Large H Urine Nitrate Negative Urine Bilirubin Negative Urine Urobilinogen Less than 2 Ur Leukocyte Esterase Negative Urine RBC 37 H Urine WBC 3 Ur Squamous Epith Cells 2 Urine Mucus Few H Micro UA Comment Culture not ind Ur Microscopic Review Not Reportable Urine Culture Comments Culture not ind Nasal Screen MRSA (PCR) Not detected Serum Alcohol Blood Type Antibody Screen 06/23/18 06/23/18 06/23/18 04:54 04:54 04:54 WBC 22.1 H RBC 4.46 Hgb 13.1 POC Hgb (Calc) Hct 39.7 POC Hct MCV 89.0 MCH 29.3 MCHC 32.9 RDW 13.6 Plt Count 77 L D MPV 10.0 Prelim Diff (Auto) Slide review pending Neut % (Auto) 83.3 H Lymph % (Auto) 6.9 L [place] % (Auto) 9.7 H Eos % (Auto) 0.0 Baso % (Auto) 0.1 Neut # (Auto) 18.4 H Lymph # (Auto) 1.5 [place] # (Auto) 2.1 H Eos # (Auto) 0.0 Baso # (Auto) 0.0 WBC Differential . Diff Scan Auto diff confirmed Seg Neuts % (Manual) Band Neuts % (Manual) Lymphocytes % (Manual) Monocytes % (Manual) Abs Neuts (Manual) Differential Comment . Platelet Estimate Low L Platelet Morphology Normal PT 11.5 INR 1.1 APTT 25.5 Puncture Site Patient Temperature O2 Saturation ABG pH ABG pCO2 ABG pO2 ABG HCO3 ABG O2 Content ABG Base Excess ABG Methemoglobin Jay Test Hemoglobin Carboxyhemoglobin O2 Delivery Device Vent Setting Inspired O2 Critical Value POC Sodium Sodium 145 POC Potassium Potassium 3.1 L POC Chloride Chloride 109 H Carbon Dioxide 23.4 Anion Gap 13 POC BUN BUN 32 H Creatinine 1.23 H POC Creatinine Estimated GFR 42 L POC Glucose Random Glucose 104 Calcium 8.0 L Phosphorus 3.6 Magnesium 2.0 Total Bilirubin 0.6 AST 43 H ALT 22 Alkaline Phosphatase 85 Total Creatine Kinase CK-MB (CK-2) CK-MB (CK-2) % Troponin I 0.56 H Total Protein 6.3 L Albumin 2.8 L Triglycerides 322 H Cholesterol 209 H LDL Cholesterol, Calc 100 H HDL Cholesterol 44.9 Cholesterol/HDL Ratio 4.65 Urine Color Urine Clarity Urine pH Ur Specific [place] Urine Protein Urine Glucose (UA) Urine Ketones Urine Occult Blood Urine Nitrate Urine Bilirubin Urine Urobilinogen Ur Leukocyte Esterase Urine RBC Urine WBC Ur Squamous Epith Cells Urine Mucus Micro UA Comment Ur Microscopic Review Urine Culture Comments Nasal Screen MRSA (PCR) Serum Alcohol Blood Type Antibody Screen - Imaging Impressions Cervical Spine CT 06/22/18 13:58 CONCLUSION: 1. Multilevel degenerative changes. 2. Scattered neural foraminal narrowing. 3. No compression fracture or spondylolisthesis Chest X-Ray 06/22/18 13:58 CONCLUSION: 1. The endotracheal tube and NG tube appear to be in good position. 2. Small 3 mm apical left pneumothorax. 3. Subcutaneous emphysema along the left chest wall along with multiple left- sided rib fractures. Head CT 06/22/18 13:58 CONCLUSION: 1. Acute right parietal infarcts. No midline shift or mass effect. . Pelvis X-Ray 06/22/18 13:58 CONCLUSION: Limited study without gross abnormality. Humerus X-Ray 06/22/18 13:59 CONCLUSION: No abnormality involving the humerus. Subcutaneous air is seen tracking over the lateral left chest wall. Thoracic Aorta CT 06/22/18 15:28 CONCLUSION: 1. Moderate volume acute pulmonary emboli. 2. Moderate size left pneumothorax with overlying subcutaneous air. 3. Severe emphysematous changes. 4. 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 5. Occlusion of the right outflow possibly acute in origin. Clinical evaluation for right lower extremity claudication suggested. 6. 2 hepatic masses worrisome for metastatic disease. These are limited in their evaluation on this study due to the arterial phase of the exam. Consider MRI of the liver to further assess if clinically warranted. Chest X-Ray 06/22/18 19:09 CONCLUSION: Left chest tube with tiny stable left pneumothorax and subcutaneous air that has increased slightly since earlier exam. Multiple left rib fractures. Endotracheal tube and nasogastric tube in good position. Chest X-Ray 06/23/18 00:00 CONCLUSION: 1. The left-sided chest tube remains in place with no visualized pneumothorax. 2. Small left effusion with hazy airspace disease at the left lung base. Venous Doppler Study 06/23/18 00:00 CONCLUSION: 1. Occlusive thrombus in both posterior tibial veins. Review/Management - Diagnosis (1) Acute right MCA stroke Code(s): I63.511 - Cerebral infarction due to unspecified occlusion or stenosis of right middle cerebral artery Status: Acute Current Visit: Yes (2) Pulmonary embolism Code(s): I26.99 - Other pulmonary embolism without acute cor pulmonale Status : Acute Current Visit: Yes (3) Pneumothorax Code(s): J93.9 - Pneumothorax, unspecified Status: Acute Current Visit: Yes (4) Closed rib fracture Code(s): S22.39XA - Fracture of one rib, unspecified side, initial encounter for closed fracture Status: Acute Current Visit: Yes (5) DVT (deep venous thrombosis) Code(s): I82.409 - Acute embolism and thrombosis of unspecified deep veins of unspecified lower extremity Status: Acute Current Visit: Yes (6) Liver lesion Code(s): K76.9 - Liver disease, unspecified Status: Acute Current Visit: Yes - Review/Management Plan: Acute right MCA stroke Possibly related to hypercoagulable state she also has a concurrent pulmonary embolus; possible underlying neoplasm Recommendations Aspirin, heparin every 8hrs Hematological evaluation for DVT, PE, liver lesion suspicious of metastatic disease High-dose anticoagulation does run a risk of hemorrhage into the ischemic infarct MRI, MRA brain Carotid imaging Echo Lipid, TSH, B12, HbA1c Therapy Telemetry SCDs Patient is critically ill (2) Pulmonary embolism Qualifiers: Pulmonary embolism type: other Chronicity: acute Acute cor pulmonale presence: without acute cor pulmonale Qualified Code(s): I26.99 - Other pulmonary embolism without acute cor pulmonale (3) Pneumothorax Qualifiers: Pneumothorax type: traumatic Encounter type: initial encounter Qualified Code(s): S27.0XXA - Traumatic pneumothorax, initial encounter (4) Closed rib fracture Qualifiers: Encounter type: initial encounter Rib fracture type: multiple ribs Laterality: left Qualified Code(s): S22.42XA - Multiple fractures of ribs, left side, initial encounter for closed fracture
[2018-06-23 09:18] LABS: Chol/HDL Ratio 4.76 Ratio
[2018-06-23] MEDS: Chlorhexidine 0.12% Oral Kit 15 ML UDC OROPHARYNG SCH ×2 (09:37→20:15)
--- NOTE | 2018-06-23 09:49 | P.CONGI ---
History of Present Illness Consult date: 06/23/18 Consult reason: 2 hepatic masses worrisome for metastatic disease Chief complaint: Acute CVA, PE, Pneumonthorax, AMS History of Present Illness: This patient is a 78-year-old female who presented to the emergency room at [facility] on 06/22/2018 due to possible CVA and shortness of breath. Per emergency medical services patient had been found on the floor, length of time unable to be determined. Patient denied any history of CVA and also denied taking any blood thinners and was unable to provide much information upon arrival. Thoracic/abdominal CTA done revealed 2 low-density masses worrisome for metastatic lesions one measuring 17 mm and the other 20 mm , colonic diverticulosis, and solitary gallstones. This service has been consulted to evaluate results of thoracic/abdominal CTA to hepatic masses. 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 Venous Doppler study done due to bilateral lower extremity swelling reveal bilateral tibial DVTs. Patient also noted to have pulmonary embolism with a left sided pneumothorax for which she has a left-sided chest tube to drainage. Patient is currently sedated with dipper Van and ventilated. NG tube in place with 2 Darnell HN infusing at 30 mL's an hour. 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 - Medical History Medical History: Medical History (Last Reviewed 06/22/18 @ 18:26 by ENEDINA Toussaint) Medical history unknown Patient taking unknown medications Surgical history unknown - Tobacco History Second Hand Smoke Exposure: Yes Tobacco Use In Past 30 Days: Yes Smoking Status: Current every day smoker Tobacco Type: Cigarettes - Alcohol History How Often Do You Have a Drink Containing Alcohol: Unable to Obtain - Substance Use History Substance History: Unable to Obtain - Travel History Recent Travel in the [place] Within the Last 8 Weeks: No Recent Travel Out of the Country Within the Last 8 Weeks: No - Immunization History Tetanus Immunization: Unable to Assess <Chary Mark - Last Filed: 06/23/18 09:49> - Medical History Medical History: Medical History (Last Reviewed 06/22/18 @ 18:26 by ENEDINA Toussaint) Medical history unknown Patient taking unknown medications Surgical history unknown <Wero Wadsworth - Last Filed: 06/23/18 13:53> Medications and Allergies Active Medications: Active Medications Acetaminophen (Tylenol) 650 mg PO Q6H PRN PRN Reason: PAIN 1-10 AND/OR FEVER >101F Al Hydroxide/Mg Hydroxide (Milk Of Magnesia Liq) 30 ml PO Q12H PRN PRN Reason: Mild Constipation Albuterol (Duoneb Neb (Prn)) 1 ampul NEB Q2HR NEB PRN PRN Reason: WHEEZING Albuterol (Duoneb Neb (Nicola)) 1 ampul NEB Q4HR NEB [facility] Last Admin: 06/23/18 03:35 Dose: 1 ampul Aspirin (Aspirin Supp) 300 mg RECTAL DAILY N[facility] Atorvastatin Calcium (Lipitor) 80 mg PO DAILY N[facility] Bisacodyl (Dulcolax Supp) 10 mg RECTAL DAILY PRN PRN Reason: SEVERE CONSITIPATION Chlorhexidine Gluconate (Peridex 0.12% Oral Kit) 15 ml OROPHARYNG BID@0800, 2000 [facility] Last Admin: 06/22/18 19:38 Dose: 15 ml Chlorhexidine Gluconate (Chlorhexidine 2% Cloth) 3 pack TOPICAL DAILY@0400 N[facility] Stop: 06/28/18 03:59 Last Admin: 06/23/18 04:12 Dose: 3 pack Chlorhexidine Gluconate (Chlorhexidine 2% Cloth) 3 pack TOPICAL DAILY@0400 PRN PRN Reason: Extra cloth needed Stop: 06/28/18 03:59 Dextrose (D50w Vial) 50 ml IV.PUSH UNSCH PRN PRN Reason: PER HYPOGLYCEMIA PROTOCOL Famotidine (Pepcid Pf Inj) 20 mg IV.PUSH Q12HR [facility] Last Admin: 06/23/18 00:01 Dose: 20 mg Glucagon (Glucagon Inj) 1 mg OTHER PRN PRN PRN Reason: for Hypoglycemia Protocol Heparin Sodium (Porcine) (Heparin Inj) 5,000 units SQ Q8H [facility] Propofol (Diprivan 1000 Mg/100 Ml Inj) 1,000 mg in 100 mls @ 2.042 mls/hr IV.CONT TITRATE PRN; Protocol PRN Reason: Per Protocol Last Admin: 06/23/18 07:47 Dose: 35 mcg/kg/min, 14.3 mls/hr Sodium Chloride (Ns Inj) 1,000 mls @ 84 mls/hr IV.CONT .[id number] [facility] Last Admin: 06/23/18 06:20 Dose: 84 mls/hr Magnesium Sulfate 4 gm/ Sodium (Chloride) 100 mls @ 50 mls/hr IV.SIG UNSCH PRN PRN Reason: For Magnesium 0.9 - 1.1 mg/dL Potassium Chloride (Kcl 40 Meq Premix Inj) 40 meq in 100 mls @ 25 mls/hr IV.SIG Q2H PRN PRN Reason: For Potassium 2.8 - 3.2 mEq/L Potassium Chloride (Kcl 20 Meq Premix Inj) 20 meq in 100 mls @ 50 mls/hr IV.SIG Q2H PRN PRN Reason: For Potassium 3.3 - 3.5 mEq/L Potassium Chloride (Kcl 40 Meq Premix Inj) 40 meq in 100 mls @ 25 mls/hr IV.SIG UNSCH PRN PRN Reason: For Potassium 3.3 - 3.5 mEq/L Potassium Chloride (Kcl 20 Meq Premix Inj) 20 meq in 100 mls @ 50 mls/hr IV.SIG Q2H PRN PRN Reason: For Potassium 2.8 - 3.2 mEq/L Potassium Phosphate 30 mmol/ (Sodium Chloride) 260 mls @ 42 mls/hr IV.SIG UNSCH PRN PRN Reason: SEE LABEL COMMENTS Sodium Phosphate 30 mmol/ (Sodium Chloride) 260 mls @ 42 mls/hr IV.SIG UNSCH PRN PRN Reason: For Phosphorus < 2.5 mg/dL Piperacillin/Tazobactam/Dextrose (Zosyn 4.5 Gm Premix) 4.5 gm in 100 mls @ 200 mls/hr IV.SIG Q8H [facility] Magnesium Sulfate 2 gm/ Sodium (Chloride) 100 mls @ 50 mls/hr IV.SIG UNSCH PRN PRN Reason: For Magnesium 1.2 - 1.6 mg/dL Insulin Human Regular (Novolin R Correctional Sugar Inj) 0 units SQ Q6HR [facility]; Protocol Lactulose (Lactulose Liq) 30 ml PO DAILY PRN PRN Reason: SEVERE CONSITIPATION Magnesium Oxide (Mag-Ox) 800 mg PO UNSCH PRN PRN Reason: For Magnesium 1.2 - 1.6 mg/dL Midazolam HCl (Versed Inj) 2 mg IV.PUSH Q1H PRN PRN Reason: SEDATION Miscellaneous Medication () 1 each OROPHARYNG 0000,0400,1200,1600 [facility] Last Admin: 06/23/18 04:12 Dose: 1 each Ondansetron HCl (Zofran Inj) 4 mg IV.PUSH Q6H PRN PRN Reason: NAUSEA OR VOMITING Potassium Bicarb/Potassium Chloride (K-Lyte Cl Eff) 50 meq PO UNSCH PRN PRN Reason: For Potassium 3.3 - 3.5 mEq/L Potassium Phosphate (K-Phos Original) 2,000 mg PO UNSCH PRN PRN Reason: SEE LABEL COMMENTS Potassium Phosphate (K-Phos Original) 2,000 mg PO Q4H PRN PRN Reason: Phosphorus Less Than 2.5 mg/dL Senna/Docusate Sodium (Shadia-Colace) 1 tab PO BID [facility] Last Admin: 06/23/18 00:02 Dose: 1 tab Sennosides (Senokot) 17.2 mg PO Q12H PRN PRN Reason: Moderate Constipation Sodium Chloride (Ns Flush) 2 ml IV.FLUSH BID [facility] Last Admin: 06/23/18 00:00 Dose: 2 ml Sodium Chloride (Ns Flush) 2 ml IV.FLUSH PRN PRN PRN Reason: FLUSH AFTER USING IV ACCESS <Chary Mark - Last Filed: 06/23/18 09:49> Active Medications: Active Medications Acetaminophen (Tylenol) 650 mg PO Q6H PRN PRN Reason: PAIN 1-10 AND/OR FEVER >101F Al Hydroxide/Mg Hydroxide (Milk Of Magnesia Liq) 30 ml PO Q12H PRN PRN Reason: Mild Constipation Albuterol (Duoneb Neb (Prn)) 1 ampul NEB Q2HR NEB PRN PRN Reason: WHEEZING Albuterol (Duoneb Neb (Nicola)) 1 ampul NEB Q4HR NEB [facility] Last Admin: 06/23/18 11:09 Dose: 1 ampul Aspirin (Aspirin Supp) 300 mg RECTAL DAILY [facility] Atorvastatin Calcium (Lipitor) 80 mg PO DAILY [facility] Bisacodyl (Dulcolax Supp) 10 mg RECTAL DAILY PRN PRN Reason: SEVERE CONSITIPATION Chlorhexidine Gluconate (Peridex 0.12% Oral Kit) 15 ml OROPHARYNG BID@0800, 2000 [facility] Last Admin: 06/23/18 09:37 Dose: 15 ml Chlorhexidine Gluconate (Chlorhexidine 2% Cloth) 3 pack TOPICAL DAILY@0400 [facility] Stop: 06/28/18 03:59 Last Admin: 06/23/18 04:12 Dose: 3 pack Chlorhexidine Gluconate (Chlorhexidine 2% Cloth) 3 pack TOPICAL DAILY@0400 PRN PRN Reason: Extra cloth needed Stop: 06/28/18 03:59 Dextrose (D50w Vial) 50 ml IV.PUSH UNSCH PRN PRN Reason: PER HYPOGLYCEMIA PROTOCOL Famotidine (Pepcid Pf Inj) 20 mg IV.PUSH Q12HR [facility] Last Admin: 06/23/18 09:36 Dose: 20 mg Glucagon (Glucagon Inj) 1 mg OTHER PRN PRN PRN Reason: for Hypoglycemia Protocol Heparin Sodium (Porcine) (Heparin Inj) 5,000 units SQ Q8H [facility] Last Admin: 06/23/18 11:03 Dose: Not Given Propofol (Diprivan 1000 Mg/100 Ml Inj) 1,000 mg in 100 mls @ 2.042 mls/hr IV.CONT TITRATE PRN; Protocol PRN Reason: Per Protocol Last Admin: 06/23/18 07:47 Dose: 35 mcg/kg/min, 14.3 mls/hr Sodium Chloride (Ns Inj) 1,000 mls @ 84 mls/hr IV.CONT .[id number] [facility] Last Admin: 06/23/18 06:20 Dose: 84 mls/hr Magnesium Sulfate 4 gm/ Sodium (Chloride) 100 mls @ 50 mls/hr IV.SIG UNSCH PRN PRN Reason: For Magnesium 0.9 - 1.1 mg/dL Potassium Chloride (Kcl 40 Meq Premix Inj) 40 meq in 100 mls @ 25 mls/hr IV.SIG Q2H PRN PRN Reason: For Potassium 2.8 - 3.2 mEq/L Potassium Chloride (Kcl 20 Meq Premix Inj) 20 meq in 100 mls @ 50 mls/hr IV.SIG Q2H PRN PRN Reason: For Potassium 3.3 - 3.5 mEq/L Potassium Chloride (Kcl 40 Meq Premix Inj) 40 meq in 100 mls @ 25 mls/hr IV.SIG UNSCH PRN PRN Reason: For Potassium 3.3 - 3.5 mEq/L Potassium Chloride (Kcl 20 Meq Premix Inj) 20 meq in 100 mls @ 50 mls/hr IV.SIG Q2H PRN PRN Reason: For Potassium 2.8 - 3.2 mEq/L Potassium Phosphate 30 mmol/ (Sodium Chloride) 260 mls @ 42 mls/hr IV.SIG UNSCH PRN PRN Reason: SEE LABEL COMMENTS Sodium Phosphate 30 mmol/ (Sodium Chloride) 260 mls @ 42 mls/hr IV.SIG UNSCH PRN PRN Reason: For Phosphorus < 2.5 mg/dL Magnesium Sulfate 2 gm/ Sodium (Chloride) 100 mls @ 50 mls/hr IV.SIG UNSCH PRN PRN Reason: For Magnesium 1.2 - 1.6 mg/dL Piperacillin/Tazobactam/Dextrose (Zosyn 3.375 Gm Premix) 50 mls @ 100 mls/hr IV.SIG Q6H [facility] Insulin Human Regular (Novolin R Correctional Sugar Inj) 0 units SQ Q6HR [facility]; Protocol Last Admin: 06/23/18 12:36 Dose: Not Given Lactulose (Lactulose Liq) 30 ml PO DAILY PRN PRN Reason: SEVERE CONSITIPATION Magnesium Oxide (Mag-Ox) 800 mg PO UNSCH PRN PRN Reason: For Magnesium 1.2 - 1.6 mg/dL Midazolam HCl (Versed Inj) 2 mg IV.PUSH Q1H PRN PRN Reason: SEDATION Miscellaneous Medication () 1 each OROPHARYNG 0000,0400,1200,1600 [facility] Last Admin: 06/23/18 12:36 Dose: 1 each Ondansetron HCl (Zofran Inj) 4 mg IV.PUSH Q6H PRN PRN Reason: NAUSEA OR VOMITING Potassium Bicarb/Potassium Chloride (K-Lyte Cl Eff) 50 meq PO UNSCH PRN PRN Reason: For Potassium 3.3 - 3.5 mEq/L Potassium Phosphate (K-Phos Original) 2,000 mg PO UNSCH PRN PRN Reason: SEE LABEL COMMENTS Potassium Phosphate (K-Phos Original) 2,000 mg PO Q4H PRN PRN Reason: Phosphorus Less Than 2.5 mg/dL Senna/Docusate Sodium (Shadia-Colace) 1 tab PO BID [facility] Last Admin: 06/23/18 00:02 Dose: 1 tab Sennosides (Senokot) 17.2 mg PO Q12H PRN PRN Reason: Moderate Constipation Sodium Chloride (Ns Flush) 2 ml IV.FLUSH BID [facility] Last Admin: 06/23/18 09:36 Dose: 2 ml Sodium Chloride (Ns Flush) 2 ml IV.FLUSH PRN PRN PRN Reason: FLUSH AFTER USING IV ACCESS <Wero Wadsworth - Last Filed: 06/23/18 13:53> Allergies Allergy/AdvReac Type Severity Reaction Status Date / Time No Known Allergies Allergy Unverified 06/22/18 13:53 Home Medications Medication Instructions Recorded Confirmed Type Unable to Obtain Home Meds 06/22/18 06/22/18 History Exam Vital signs: Vital Signs 06/22/18 13:53 06/22/18 13:58 06/22/18 14:10 Temperature 98 F Pulse Rate 100 H 102 H Respiratory Rate 28 H 28 H Blood Pressure 190/88 H Pulse Oximetry 96 98 06/22/18 15:05 06/22/18 15:55 06/22/18 16:30 Temperature 97.8 F 97.7 F 97.8 F Pulse Rate 97 H 99 H 93 H Respiratory Rate 24 20 15 Blood Pressure 191/85 H 145/93 H 150/78 H Pulse Oximetry 100 100 100 06/22/18 17:23 06/22/18 18:15 06/22/18 18:17 Temperature 97.7 F 97.9 F Pulse Rate 87 89 Respiratory Rate 16 20 28 H Blood Pressure 130/78 166/76 H Pulse Oximetry 100 100 98 06/22/18 19:25 06/22/18 19:30 06/22/18 19:45 Temperature Pulse Rate 92 H 90 Respiratory Rate 22 35 H 24 Blood Pressure 122/61 Pulse Oximetry 99 06/22/18 20:00 06/22/18 20:12 06/22/18 20:16 Temperature 98.4 F Pulse Rate 96 H Respiratory Rate 26 H 22 Blood Pressure 201/95 H Pulse Oximetry 100 94 L 06/22/18 22:00 06/22/18 23:15 06/23/18 00:00 Temperature 99.1 F Pulse Rate 86 86 95 H Respiratory Rate 21 32 H Blood Pressure 148/66 H Pulse Oximetry 95 95 06/23/18 02:00 06/23/18 03:36 06/23/18 03:37 Temperature Pulse Rate 85 84 Respiratory Rate 18 19 Blood Pressure Pulse Oximetry 97 06/23/18 04:00 06/23/18 06:00 06/23/18 08:28 Temperature 99.0 F Pulse Rate 85 92 H 86 Respiratory Rate 19 23 Blood Pressure 122/59 L Pulse Oximetry 93 L 97 Intake & Output 06/22/18 06/23/18 06/23/18 18:59 06:59 18:59 Intake Total 1000 / 1000 300 / 300 100 / 100 Output Total 536 / 536 Balance 1000 / 1000 -236 / -236 100 / 100 Weight 68.07 kg 61.4 kg Intake: IV 1000 / 1000 200 / 200 100 / 100 Diprivan 1000 mg/100 ml Inj 1, 100 / 100 100 / 100 000 mg In 100 ml @ 5 MCG/KG/MIN 2.042 mls/hr IV.CONT TITRATE PRN Rx#:[id number] NS Inj 1,000 ML @ 84 mls/hr IV. 1000 / 1000 100 / 100 CONT .[id number] [facility] Rx#:[id number] Tube Feeding 100 / 100 Output: Urine Amount (Catheter) 450 / 450 Indwelling Urethral Catheter 450 / 450 Gastric Drainage 50 / 50 Orogastric Tube 50 / 50 Chest Tube Drainage 36 / 36 #1 Left Upper Mid-Axillary 36 / 36 Chest Other: # Bowel Movements 0 Weight On Admission 65 kg - Constitutional chronically ill appearing Comments: Sedated and ventilated - Routine HEENT Exam Head: Present: normocephalic Eye: Absent: conjunctival icterus - Routine Respiratory Exam Present: patient mechanically ventilated, CTA bilaterally. Absent: accessory muscle use - Routine Cardiovascular Exam Present: RRR. Absent: murmur, gallop - Routine Abdominal Exam Present: soft, normoactive bowel sounds. Absent: tenderness, distended, firm - Routine Extremities Exam Present: cyanosis, pulses intact. Absent: edema - Routine Skin Exam Present: dry, warm. Absent: jaundice - Routine Neurological Exam Sedated on propofol <Chary Mark - Last Filed: 06/23/18 09:49> Vital signs: Vital Signs 06/22/18 13:53 06/22/18 13:58 06/22/18 14:10 Temperature 98 F Pulse Rate 100 H 102 H Respiratory Rate 28 H 28 H Blood Pressure 190/88 H Pulse Oximetry 96 98 06/22/18 15:05 06/22/18 15:55 06/22/18 16:30 Temperature 97.8 F 97.7 F 97.8 F Pulse Rate 97 H 99 H 93 H Respiratory Rate 24 20 15 Blood Pressure 191/85 H 145/93 H 150/78 H Pulse Oximetry 100 100 100 06/22/18 17:23 06/22/18 18:15 06/22/18 18:17 Temperature 97.7 F 97.9 F Pulse Rate 87 89 Respiratory Rate 16 20 28 H Blood Pressure 130/78 166/76 H Pulse Oximetry 100 100 98 06/22/18 19:25 06/22/18 19:30 06/22/18 19:45 Temperature Pulse Rate 92 H 90 Respiratory Rate 22 35 H 24 Blood Pressure 122/61 Pulse Oximetry 99 06/22/18 20:00 06/22/18 20:12 06/22/18 20:16 Temperature 98.4 F Pulse Rate 96 H Respiratory Rate 26 H 22 Blood Pressure 201/95 H Pulse Oximetry 100 94 L 06/22/18 22:00 06/22/18 23:15 06/23/18 00:00 Temperature 99.1 F Pulse Rate 86 86 95 H Respiratory Rate 21 32 H Blood Pressure 148/66 H Pulse Oximetry 95 95 06/23/18 02:00 06/23/18 03:36 06/23/18 03:37 Temperature Pulse Rate 85 84 Respiratory Rate 18 19 Blood Pressure Pulse Oximetry 97 06/23/18 04:00 06/23/18 06:00 06/23/18 08:00 Temperature 99.0 F 100.0 F H Pulse Rate 85 92 H 84 Respiratory Rate 19 19 Blood Pressure 122/59 L 132/62 Pulse Oximetry 93 L 93 L 06/23/18 08:28 06/23/18 09:00 06/23/18 10:00 Temperature Pulse Rate 86 86 87 Respiratory Rate 23 Blood Pressure Pulse Oximetry 97 06/23/18 11:09 06/23/18 12:00 Temperature 98.8 F Pulse Rate 78 79 Respiratory Rate 16 29 H Blood Pressure 122/94 H Pulse Oximetry 95 90 L Intake & Output 06/22/18 06/23/18 06/23/18 18:59 06:59 18:59 Intake Total 1000 / 1000 300 / 300 200 / 200 Output Total 536 / 536 Balance 1000 / 1000 -236 / -236 200 / 200 Weight 68.07 kg 61.4 kg Intake: IV 1000 / 1000 200 / 200 200 / 200 Diprivan 1000 mg/100 ml Inj 1, 100 / 100 100 / 100 000 mg In 100 ml @ 5 MCG/KG/MIN 2.042 mls/hr IV.CONT TITRATE PRN Rx#:[id number] NS Inj 1,000 ML @ 84 mls/hr IV. 1000 / 1000 100 / 100 CONT .[id number] [facility] Rx#:[id number] Zosyn 4.5 GM Premix 4.5 gm In 100 / 100 100 ml @ 200 mls/hr IV.SIG Q8H [facility] Rx#:[id number] Tube Feeding 100 / 100 Output: Urine Amount (Catheter) 450 / 450 Indwelling Urethral Catheter 450 / 450 Gastric Drainage 50 / 50 Orogastric Tube 50 / 50 Chest Tube Drainage 36 / 36 #1 Left Upper Mid-Axillary 36 / 36 Chest Other: # Bowel Movements 0 Weight On Admission 65 kg <Wero Wadsworth - Last Filed: 06/23/18 13:53> Results - Labs CBC & Chem 7: 06/23/18 04:54 06/23/18 04:54 Labs: Laboratory Results - last 24 hr 06/22/18 06/22/18 06/22/18 14:00 14:00 14:00 WBC 31.0 H RBC 5.00 Hgb 14.6 POC Hgb (Calc) Hct 43.9 POC Hct MCV 87.7 MCH 29.2 MCHC 33.3 RDW 14.1 Plt Count 124 L MPV 10.0 Prelim Diff (Auto) Slide review pending Neut % (Auto) 84.0 H Lymph % (Auto) 7.3 L Letcher % (Auto) 8.4 H Eos % (Auto) 0.0 Baso % (Auto) 0.3 Neut # (Auto) 26.1 H Lymph # (Auto) 2.3 Letcher # (Auto) 2.6 H Eos # (Auto) 0.0 Baso # (Auto) 0.1 WBC Differential Manual diff final Diff Scan Seg Neuts % (Manual) 86 H Band Neuts % (Manual) 2 Lymphocytes % (Manual) 4 L Monocytes % (Manual) 8 Abs Neuts (Manual) 27.3 H Differential Comment . Platelet Estimate Low L Platelet Morphology Normal PT 11.9 H INR 1.2 APTT 23.6 L Puncture Site Patient Temperature O2 Saturation ABG pH ABG pCO2 ABG pO2 ABG HCO3 ABG O2 Content ABG Base Excess ABG Methemoglobin Jay Test Hemoglobin Carboxyhemoglobin O2 Delivery Device Vent Setting Inspired O2 Critical Value POC Sodium Sodium POC Potassium Potassium POC Chloride Chloride Carbon Dioxide Anion Gap POC BUN BUN Creatinine POC Creatinine Estimated GFR POC Glucose Random Glucose Calcium Phosphorus Magnesium Total Bilirubin AST ALT Alkaline Phosphatase Total Creatine Kinase CK-MB (CK-2) CK-MB (CK-2) % Troponin I 0.29 H Total Protein Albumin Triglycerides Cholesterol LDL Cholesterol, Calc HDL Cholesterol Cholesterol/HDL Ratio Urine Color Urine Clarity Urine pH Ur Specific [place] Urine Protein Urine Glucose (UA) Urine Ketones Urine Occult Blood Urine Nitrate Urine Bilirubin Urine Urobilinogen Ur Leukocyte Esterase Urine RBC Urine WBC Ur Squamous Epith Cells Urine Mucus Micro UA Comment Ur Microscopic Review Urine Culture Comments Nasal Screen MRSA (PCR) Serum Alcohol Less than 3 Blood Type Antibody Screen 06/22/18 06/22/18 06/22/18 14:00 14:00 16:28 WBC RBC Hgb POC Hgb (Calc) 13.6 Hct POC Hct 40.0 MCV MCH MCHC RDW Plt Count MPV Prelim Diff (Auto) Neut % (Auto) Lymph % (Auto) Letcher % (Auto) Eos % (Auto) Baso % (Auto) Neut # (Auto) Lymph # (Auto) Letcher # (Auto) Eos # (Auto) Baso # (Auto) WBC Differential Diff Scan Seg Neuts % (Manual) Band Neuts % (Manual) Lymphocytes % (Manual) Monocytes % (Manual) Abs Neuts (Manual) Differential Comment Platelet Estimate Platelet Morphology PT INR APTT Puncture Site Left radial Patient Temperature 98.6 O2 Saturation 98 ABG pH 7.34 L ABG pCO2 40 ABG pO2 172 H ABG HCO3 21 L ABG O2 Content 19.4 ABG Base Excess -3.9 L ABG Methemoglobin 0.7 Jay Test Present Hemoglobin 14.0 Carboxyhemoglobin 0.9 O2 Delivery Device Ventilator Vent Setting Inspired O2 100 Critical Value No POC Sodium 141 Sodium POC Potassium 3.1 L Potassium POC Chloride 108 Chloride Carbon Dioxide Anion Gap POC BUN 32 H BUN Creatinine POC Creatinine 1.2 Estimated GFR POC Glucose 148 H Random Glucose Calcium Phosphorus Magnesium Total Bilirubin AST ALT Alkaline Phosphatase Total Creatine Kinase CK-MB (CK-2) CK-MB (CK-2) % Troponin I Total Protein Albumin Triglycerides Cholesterol LDL Cholesterol, Calc HDL Cholesterol Cholesterol/HDL Ratio Urine Color Urine Clarity Urine pH Ur Specific [place] Urine Protein Urine Glucose (UA) Urine Ketones Urine Occult Blood Urine Nitrate Urine Bilirubin Urine Urobilinogen Ur Leukocyte Esterase Urine RBC Urine WBC Ur Squamous Epith Cells Urine Mucus Micro UA Comment Ur Microscopic Review Urine Culture Comments Nasal Screen MRSA (PCR) Serum Alcohol Blood Type O Positive Antibody Screen Negative 06/22/18 06/22/18 06/22/18 16:30 18:49 23:59 WBC RBC Hgb POC Hgb (Calc) Hct POC Hct MCV MCH MCHC RDW Plt Count MPV Prelim Diff (Auto) Neut % (Auto) Lymph % (Auto) Letcher % (Auto) Eos % (Auto) Baso % (Auto) Neut # (Auto) Lymph # (Auto) Letcher # (Auto) Eos # (Auto) Baso # (Auto) WBC Differential Diff Scan Seg Neuts % (Manual) Band Neuts % (Manual) Lymphocytes % (Manual) Monocytes % (Manual) Abs Neuts (Manual) Differential Comment Platelet Estimate Platelet Morphology PT INR APTT Puncture Site Patient Temperature O2 Saturation ABG pH ABG pCO2 ABG pO2 ABG HCO3 ABG O2 Content ABG Base Excess ABG Methemoglobin Jay Test Hemoglobin Carboxyhemoglobin O2 Delivery Device Vent Setting Inspired O2 Critical Value POC Sodium Sodium POC Potassium Potassium POC Chloride Chloride Carbon Dioxide Anion Gap POC BUN BUN Creatinine POC Creatinine Estimated GFR POC Glucose Random Glucose Calcium Phosphorus Magnesium Total Bilirubin AST ALT Alkaline Phosphatase Total Creatine Kinase 470 H CK-MB (CK-2) 20.2 H CK-MB (CK-2) % 4.3 H* Troponin I 0.64 H* D Total Protein Albumin Triglycerides Cholesterol LDL Cholesterol, Calc HDL Cholesterol Cholesterol/HDL Ratio Urine Color Nancie Urine Clarity Cloudy H Urine pH 5.0 Ur Specific [place] 1.021 Urine Protein 100 H Urine Glucose (UA) Negative Urine Ketones Trace H Urine Occult Blood Large H Urine Nitrate Negative Urine Bilirubin Negative Urine Urobilinogen Less than 2 Ur Leukocyte Esterase Negative Urine RBC 37 H Urine WBC 3 Ur Squamous Epith Cells 2 Urine Mucus Few H Micro UA Comment Culture not ind Ur Microscopic Review Not Reportable Urine Culture Comments Culture not ind Nasal Screen MRSA (PCR) Not detected Serum Alcohol Blood Type Antibody Screen 06/23/18 06/23/18 06/23/18 04:54 04:54 04:54 WBC 22.1 H RBC 4.46 Hgb 13.1 POC Hgb (Calc) Hct 39.7 POC Hct MCV 89.0 MCH 29.3 MCHC 32.9 RDW 13.6 Plt Count 77 L D MPV 10.0 Prelim Diff (Auto) Slide review pending Neut % (Auto) 83.3 H Lymph % (Auto) 6.9 L Letcher % (Auto) 9.7 H Eos % (Auto) 0.0 Baso % (Auto) 0.1 Neut # (Auto) 18.4 H Lymph # (Auto) 1.5 Letcher # (Auto) 2.1 H Eos # (Auto) 0.0 Baso # (Auto) 0.0 WBC Differential . Diff Scan Auto diff confirmed Seg Neuts % (Manual) Band Neuts % (Manual) Lymphocytes % (Manual) Monocytes % (Manual) Abs Neuts (Manual) Differential Comment . Platelet Estimate Low L Platelet Morphology Normal PT 11.5 INR 1.1 APTT 25.5 Puncture Site Patient Temperature O2 Saturation ABG pH ABG pCO2 ABG pO2 ABG HCO3 ABG O2 Content ABG Base Excess ABG Methemoglobin Jay Test Hemoglobin Carboxyhemoglobin O2 Delivery Device Vent Setting Inspired O2 Critical Value POC Sodium Sodium 145 POC Potassium Potassium 3.1 L POC Chloride Chloride 109 H Carbon Dioxide 23.4 Anion Gap 13 POC BUN BUN 32 H Creatinine 1.23 H POC Creatinine Estimated GFR 42 L POC Glucose Random Glucose 104 Calcium 8.0 L Phosphorus 3.6 Magnesium 2.0 Total Bilirubin 0.6 AST 43 H ALT 22 Alkaline Phosphatase 85 Total Creatine Kinase CK-MB (CK-2) CK-MB (CK-2) % Troponin I 0.56 H Total Protein 6.3 L Albumin 2.8 L Triglycerides 322 H Cholesterol 209 H LDL Cholesterol, Calc 100 H HDL Cholesterol 44.9 Cholesterol/HDL Ratio 4.65 Urine Color Urine Clarity Urine pH Ur Specific [place] Urine Protein Urine Glucose (UA) Urine Ketones Urine Occult Blood Urine Nitrate Urine Bilirubin Urine Urobilinogen Ur Leukocyte Esterase Urine RBC Urine WBC Ur Squamous Epith Cells Urine Mucus Micro UA Comment Ur Microscopic Review Urine Culture Comments Nasal Screen MRSA (PCR) Serum Alcohol Blood Type Antibody Screen 06/23/18 04:54 WBC RBC Hgb POC Hgb (Calc) Hct POC Hct MCV MCH MCHC RDW Plt Count MPV Prelim Diff (Auto) Neut % (Auto) Lymph % (Auto) [place] % (Auto) Eos % (Auto) Baso % (Auto) Neut # (Auto) Lymph # (Auto) [place] # (Auto) Eos # (Auto) Baso # (Auto) WBC Differential Diff Scan Seg Neuts % (Manual) Band Neuts % (Manual) Lymphocytes % (Manual) Monocytes % (Manual) Abs Neuts (Manual) Differential Comment Platelet Estimate Platelet Morphology PT INR APTT Puncture Site Patient Temperature O2 Saturation ABG pH ABG pCO2 ABG pO2 ABG HCO3 ABG O2 Content ABG Base Excess ABG Methemoglobin Jay Test Hemoglobin Carboxyhemoglobin O2 Delivery Device Vent Setting Inspired O2 Critical Value POC Sodium Sodium POC Potassium Potassium POC Chloride Chloride Carbon Dioxide Anion Gap POC BUN BUN Creatinine POC Creatinine Estimated GFR POC Glucose Random Glucose Calcium Phosphorus Magnesium Total Bilirubin AST ALT Alkaline Phosphatase Total Creatine Kinase CK-MB (CK-2) CK-MB (CK-2) % Troponin I Total Protein Albumin Triglycerides 327 H Cholesterol 205 H LDL Cholesterol, Calc 97 HDL Cholesterol 43.0 Cholesterol/HDL Ratio 4.76 Urine Color Urine Clarity Urine pH Ur Specific [place] Urine Protein Urine Glucose (UA) Urine Ketones Urine Occult Blood Urine Nitrate Urine Bilirubin Urine Urobilinogen Ur Leukocyte Esterase Urine RBC Urine WBC Ur Squamous Epith Cells Urine Mucus Micro UA Comment Ur Microscopic Review Urine Culture Comments Nasal Screen MRSA (PCR) Serum Alcohol Blood Type Antibody Screen - Imaging Impressions Cervical Spine CT 06/22/18 13:58 CONCLUSION: 1. Multilevel degenerative changes. 2. Scattered neural foraminal narrowing. 3. No compression fracture or spondylolisthesis Chest X-Ray 06/22/18 13:58 CONCLUSION: 1. The endotracheal tube and NG tube appear to be in good position. 2. Small 3 mm apical left pneumothorax. 3. Subcutaneous emphysema along the left chest wall along with multiple left- sided rib fractures. Head CT 06/22/18 13:58 CONCLUSION: 1. Acute right parietal infarcts. No midline shift or mass effect. . Pelvis X-Ray 06/22/18 13:58 CONCLUSION: Limited study without gross abnormality. Humerus X-Ray 06/22/18 13:59 CONCLUSION: No abnormality involving the humerus. Subcutaneous air is seen tracking over the lateral left chest wall. Thoracic Aorta CT 06/22/18 15:28 CONCLUSION: 1. Moderate volume acute pulmonary emboli. 2. Moderate size left pneumothorax with overlying subcutaneous air. 3. Severe emphysematous changes. 4. 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 5. Occlusion of the right outflow possibly acute in origin. Clinical evaluation for right lower extremity claudication suggested. 6. 2 hepatic masses worrisome for metastatic disease. These are limited in their evaluation on this study due to the arterial phase of the exam. Consider MRI of the liver to further assess if clinically warranted. Chest X-Ray 06/22/18 19:09 CONCLUSION: Left chest tube with tiny stable left pneumothorax and subcutaneous air that has increased slightly since earlier exam. Multiple left rib fractures. Endotracheal tube and nasogastric tube in good position. Chest X-Ray 06/23/18 00:00 CONCLUSION: 1. The left-sided chest tube remains in place with no visualized pneumothorax. 2. Small left effusion with hazy airspace disease at the left lung base. Venous Doppler Study 06/23/18 00:00 CONCLUSION: 1. Occlusive thrombus in both posterior tibial veins. <Chary Mark - Last Filed: 06/23/18 09:49> - Labs CBC & Chem 7: 06/23/18 09:25 06/23/18 09:25 Labs: Laboratory Results - last 24 hr 06/22/18 06/22/18 06/22/18 14:00 14:00 14:00 WBC 31.0 H RBC 5.00 Hgb 14.6 POC Hgb (Calc) Hct 43.9 POC Hct MCV 87.7 MCH 29.2 MCHC 33.3 RDW 14.1 Plt Count 124 L MPV 10.0 Prelim Diff (Auto) Slide review pending Neut % (Auto) 84.0 H Lymph % (Auto) 7.3 L Letcher % (Auto) 8.4 H Eos % (Auto) 0.0 Baso % (Auto) 0.3 Neut # (Auto) 26.1 H Lymph # (Auto) 2.3 Letcher # (Auto) 2.6 H Eos # (Auto) 0.0 Baso # (Auto) 0.1 WBC Differential Manual diff final Diff Scan Seg Neuts % (Manual) 86 H Band Neuts % (Manual) 2 Lymphocytes % (Manual) 4 L Monocytes % (Manual) 8 Abs Neuts (Manual) 27.3 H Differential Comment . Platelet Estimate Low L Platelet Morphology Normal RBC Morphology ESR PT 11.9 H INR 1.2 APTT 23.6 L Puncture Site Patient Temperature O2 Saturation ABG pH ABG pCO2 ABG pO2 ABG HCO3 ABG O2 Content ABG Base Excess ABG Methemoglobin Jay Test Hemoglobin Carboxyhemoglobin O2 Delivery Device Vent Setting Inspired O2 Critical Value POC Sodium Sodium POC Potassium Potassium POC Chloride Chloride Carbon Dioxide Anion Gap POC BUN BUN Creatinine POC Creatinine Estimated GFR POC Glucose Random Glucose Calcium Phosphorus Magnesium Total Bilirubin AST ALT Alkaline Phosphatase Total Creatine Kinase CK-MB (CK-2) CK-MB (CK-2) % Troponin I 0.29 H Total Protein Albumin Triglycerides Cholesterol LDL Cholesterol, Calc HDL Cholesterol Cholesterol/HDL Ratio Tumor Marker AFP Carcinoembryonic Ag Urine Color Urine Clarity Urine pH Ur Specific [place] Urine Protein Urine Glucose (UA) Urine Ketones Urine Occult Blood Urine Nitrate Urine Bilirubin Urine Urobilinogen Ur Leukocyte Esterase Urine RBC Urine WBC Ur Squamous Epith Cells Urine Mucus Micro UA Comment Ur Microscopic Review Urine Culture Comments Nasal Screen MRSA (PCR) Serum Alcohol Less than 3 Blood Type Antibody Screen 06/22/18 06/22/18 06/22/18 14:00 14:00 16:28 WBC RBC Hgb POC Hgb (Calc) 13.6 Hct POC Hct 40.0 MCV MCH MCHC RDW Plt Count MPV Prelim Diff (Auto) Neut % (Auto) Lymph % (Auto) [place]cher % (Auto) Eos % (Auto) Baso % (Auto) Neut # (Auto) Lymph # (Auto) Letcher # (Auto) Eos # (Auto) Baso # (Auto) WBC Differential Diff Scan Seg Neuts % (Manual) Band Neuts % (Manual) Lymphocytes % (Manual) Monocytes % (Manual) Abs Neuts (Manual) Differential Comment Platelet Estimate Platelet Morphology RBC Morphology ESR PT INR APTT Puncture Site Left radial Patient Temperature 98.6 O2 Saturation 98 ABG pH 7.34 L ABG pCO2 40 ABG pO2 172 H ABG HCO3 21 L ABG O2 Content 19.4 ABG Base Excess -3.9 L ABG Methemoglobin 0.7 Jay Test Present Hemoglobin 14.0 Carboxyhemoglobin 0.9 O2 Delivery Device Ventilator Vent Setting Inspired O2 100 Critical Value No POC Sodium 141 Sodium POC Potassium 3.1 L Potassium POC Chloride 108 Chloride Carbon Dioxide Anion Gap POC BUN 32 H BUN Creatinine POC Creatinine 1.2 Estimated GFR POC Glucose 148 H Random Glucose Calcium Phosphorus Magnesium Total Bilirubin AST ALT Alkaline Phosphatase Total Creatine Kinase CK-MB (CK-2) CK-MB (CK-2) % Troponin I Total Protein Albumin Triglycerides Cholesterol LDL Cholesterol, Calc HDL Cholesterol Cholesterol/HDL Ratio Tumor Marker AFP Carcinoembryonic Ag Urine Color Urine Clarity Urine pH Ur Specific [place] Urine Protein Urine Glucose (UA) Urine Ketones Urine Occult Blood Urine Nitrate Urine Bilirubin Urine Urobilinogen Ur Leukocyte Esterase Urine RBC Urine WBC Ur Squamous Epith Cells Urine Mucus Micro UA Comment Ur Microscopic Review Urine Culture Comments Nasal Screen MRSA (PCR) Serum Alcohol Blood Type O Positive Antibody Screen Negative 06/22/18 06/22/18 06/22/18 16:30 18:49 23:59 WBC RBC Hgb POC Hgb (Calc) Hct POC Hct MCV MCH MCHC RDW Plt Count MPV Prelim Diff (Auto) Neut % (Auto) Lymph % (Auto) [place] % (Auto) Eos % (Auto) Baso % (Auto) Neut # (Auto) Lymph # (Auto) [place] # (Auto) Eos # (Auto) Baso # (Auto) WBC Differential Diff Scan Seg Neuts % (Manual) Band Neuts % (Manual) Lymphocytes % (Manual) Monocytes % (Manual) Abs Neuts (Manual) Differential Comment Platelet Estimate Platelet Morphology RBC Morphology ESR PT INR APTT Puncture Site Patient Temperature O2 Saturation ABG pH ABG pCO2 ABG pO2 ABG HCO3 ABG O2 Content ABG Base Excess ABG Methemoglobin Jay Test Hemoglobin Carboxyhemoglobin O2 Delivery Device Vent Setting Inspired O2 Critical Value POC Sodium Sodium POC Potassium Potassium POC Chloride Chloride Carbon Dioxide Anion Gap POC BUN BUN Creatinine POC Creatinine Estimated GFR POC Glucose Random Glucose Calcium Phosphorus Magnesium Total Bilirubin AST ALT Alkaline Phosphatase Total Creatine Kinase 470 H CK-MB (CK-2) 20.2 H CK-MB (CK-2) % 4.3 H* Troponin I 0.64 H* D Total Protein Albumin Triglycerides Cholesterol LDL Cholesterol, Calc HDL Cholesterol Cholesterol/HDL Ratio Tumor Marker AFP Carcinoembryonic Ag Urine Color Nancie Urine Clarity Cloudy H Urine pH 5.0 Ur Specific [place] 1.021 Urine Protein 100 H Urine Glucose (UA) Negative Urine Ketones Trace H Urine Occult Blood Large H Urine Nitrate Negative Urine Bilirubin Negative Urine Urobilinogen Less than 2 Ur Leukocyte Esterase Negative Urine RBC 37 H Urine WBC 3 Ur Squamous Epith Cells 2 Urine Mucus Few H Micro UA Comment Culture not ind Ur Microscopic Review Not Reportable Urine Culture Comments Culture not ind Nasal Screen MRSA (PCR) Not detected Serum Alcohol Blood Type Antibody Screen 06/23/18 06/23/18 06/23/18 04:54 04:54 04:54 WBC 22.1 H RBC 4.46 Hgb 13.1 POC Hgb (Calc) Hct 39.7 POC Hct MCV 89.0 MCH 29.3 MCHC 32.9 RDW 13.6 Plt Count 77 L D MPV 10.0 Prelim Diff (Auto) Slide review pending Neut % (Auto) 83.3 H Lymph % (Auto) 6.9 L [place] % (Auto) 9.7 H Eos % (Auto) 0.0 Baso % (Auto) 0.1 Neut # (Auto) 18.4 H Lymph # (Auto) 1.5 [place] # (Auto) 2.1 H Eos # (Auto) 0.0 Baso # (Auto) 0.0 WBC Differential . Diff Scan Auto diff confirmed Seg Neuts % (Manual) Band Neuts % (Manual) Lymphocytes % (Manual) Monocytes % (Manual) Abs Neuts (Manual) Differential Comment . Platelet Estimate Low L Platelet Morphology Normal RBC Morphology ESR PT 11.5 INR 1.1 APTT 25.5 Puncture Site Patient Temperature O2 Saturation ABG pH ABG pCO2 ABG pO2 ABG HCO3 ABG O2 Content ABG Base Excess ABG Methemoglobin Jay Test Hemoglobin Carboxyhemoglobin O2 Delivery Device Vent Setting Inspired O2 Critical Value POC Sodium Sodium 145 POC Potassium Potassium 3.1 L POC Chloride Chloride 109 H Carbon Dioxide 23.4 Anion Gap 13 POC BUN BUN 32 H Creatinine 1.23 H POC Creatinine Estimated GFR 42 L POC Glucose Random Glucose 104 Calcium 8.0 L Phosphorus 3.6 Magnesium 2.0 Total Bilirubin 0.6 AST 43 H ALT 22 Alkaline Phosphatase 85 Total Creatine Kinase CK-MB (CK-2) CK-MB (CK-2) % Troponin I 0.56 H Total Protein 6.3 L Albumin 2.8 L Triglycerides 322 H Cholesterol 209 H LDL Cholesterol, Calc 100 H HDL Cholesterol 44.9 Cholesterol/HDL Ratio 4.65 Tumor Marker AFP Carcinoembryonic Ag Urine Color Urine Clarity Urine pH Ur Specific [place] Urine Protein Urine Glucose (UA) Urine Ketones Urine Occult Blood Urine Nitrate Urine Bilirubin Urine Urobilinogen Ur Leukocyte Esterase Urine RBC Urine WBC Ur Squamous Epith Cells Urine Mucus Micro UA Comment Ur Microscopic Review Urine Culture Comments Nasal Screen MRSA (PCR) Serum Alcohol Blood Type Antibody Screen 06/23/18 06/23/18 06/23/18 04:54 09:25 09:25 WBC 22.0 H RBC 4.45 Hgb 13.1 POC Hgb (Calc) Hct 39.5 POC Hct MCV 88.8 MCH 29.4 MCHC 33.2 RDW 14.1 Plt Count 71 L MPV 10.4 Prelim Diff (Auto) Slide review pending Neut % (Auto) 85.4 H Lymph % (Auto) 5.8 L [place] % (Auto) 8.5 H Eos % (Auto) 0.0 Baso % (Auto) 0.3 Neut # (Auto) 18.8 H Lymph # (Auto) 1.3 [place] # (Auto) 1.9 H Eos # (Auto) 0.0 Baso # (Auto) 0.1 WBC Differential Manual diff final Diff Scan Seg Neuts % (Manual) 73 H Band Neuts % (Manual) 12 H Lymphocytes % (Manual) 6 L Monocytes % (Manual) 9 H Abs Neuts (Manual) 18.7 H Differential Comment . Platelet Estimate Low L Platelet Morphology Enlarged H RBC Morphology Normal ESR PT INR APTT Puncture Site Patient Temperature O2 Saturation ABG pH ABG pCO2 ABG pO2 ABG HCO3 ABG O2 Content ABG Base Excess ABG Methemoglobin Jay Test Hemoglobin Carboxyhemoglobin O2 Delivery Device Vent Setting Inspired O2 Critical Value POC Sodium Sodium 144 POC Potassium Potassium 3.3 L POC Chloride Chloride 109 H Carbon Dioxide 24.3 Anion Gap 11 POC BUN BUN 31 H Creatinine 1.21 H POC Creatinine Estimated GFR 43 L POC Glucose Random Glucose 153 H Calcium 8.0 L Phosphorus 3.1 Magnesium 2.1 Total Bilirubin 0.7 AST 51 H ALT 25 Alkaline Phosphatase 87 Total Creatine Kinase CK-MB (CK-2) CK-MB (CK-2) % Troponin I Total Protein 6.4 Albumin 2.8 L Triglycerides 327 H Cholesterol 205 H LDL Cholesterol, Calc 97 HDL Cholesterol 43.0 Cholesterol/HDL Ratio 4.76 Tumor Marker AFP Carcinoembryonic Ag Urine Color Urine Clarity Urine pH Ur Specific [place] Urine Protein Urine Glucose (UA) Urine Ketones Urine Occult Blood Urine Nitrate Urine Bilirubin Urine Urobilinogen Ur Leukocyte Esterase Urine RBC Urine WBC Ur Squamous Epith Cells Urine Mucus Micro UA Comment Ur Microscopic Review Urine Culture Comments Nasal Screen MRSA (PCR) Serum Alcohol Blood Type Antibody Screen 06/23/18 06/23/18 06/23/18 09:25 09:25 11:27 WBC RBC Hgb POC Hgb (Calc) Hct POC Hct MCV MCH MCHC RDW Plt Count MPV Prelim Diff (Auto) Neut % (Auto) Lymph % (Auto) [place] % (Auto) Eos % (Auto) Baso % (Auto) Neut # (Auto) Lymph # (Auto) [place] # (Auto) Eos # (Auto) Baso # (Auto) WBC Differential Diff Scan Seg Neuts % (Manual) Band Neuts % (Manual) Lymphocytes % (Manual) Monocytes % (Manual) Abs Neuts (Manual) Differential Comment Platelet Estimate Platelet Morphology RBC Morphology ESR 10 PT INR APTT Puncture Site Patient Temperature O2 Saturation ABG pH ABG pCO2 ABG pO2 ABG HCO3 ABG O2 Content ABG Base Excess ABG Methemoglobin Jay Test Hemoglobin Carboxyhemoglobin O2 Delivery Device Vent Setting Inspired O2 Critical Value POC Sodium Sodium POC Potassium Potassium POC Chloride Chloride Carbon Dioxide Anion Gap POC BUN BUN Creatinine POC Creatinine Estimated GFR POC Glucose 97 Random Glucose Calcium Phosphorus Magnesium Total Bilirubin AST ALT Alkaline Phosphatase Total Creatine Kinase CK-MB (CK-2) CK-MB (CK-2) % Troponin I Total Protein Albumin Triglycerides 494 H Cholesterol 225 H LDL Cholesterol, Calc HDL Cholesterol 45.3 Cholesterol/HDL Ratio 4.96 Tumor Marker AFP 13.3 H Carcinoembryonic Ag 41.3 H Urine Color Urine Clarity Urine pH Ur Specific [place] Urine Protein Urine Glucose (UA) Urine Ketones Urine Occult Blood Urine Nitrate Urine Bilirubin Urine Urobilinogen Ur Leukocyte Esterase Urine RBC Urine WBC Ur Squamous Epith Cells Urine Mucus Micro UA Comment Ur Microscopic Review Urine Culture Comments Nasal Screen MRSA (PCR) Serum Alcohol Blood Type Antibody Screen - Imaging Impressions Cervical Spine CT 06/22/18 13:58 CONCLUSION: 1. Multilevel degenerative changes. 2. Scattered neural foraminal narrowing. 3. No compression fracture or spondylolisthesis Chest X-Ray 06/22/18 13:58 CONCLUSION: 1. The endotracheal tube and NG tube appear to be in good position. 2. Small 3 mm apical left pneumothorax. 3. Subcutaneous emphysema along the left chest wall along with multiple left- sided rib fractures. Head CT 06/22/18 13:58 CONCLUSION: 1. Acute right parietal infarcts. No midline shift or mass effect. . Pelvis X-Ray 06/22/18 13:58 CONCLUSION: Limited study without gross abnormality. Humerus X-Ray 06/22/18 13:59 CONCLUSION: No abnormality involving the humerus. Subcutaneous air is seen tracking over the lateral left chest wall. Thoracic Aorta CT 06/22/18 15:28 CONCLUSION: 1. Moderate volume acute pulmonary emboli. 2. Moderate size left pneumothorax with overlying subcutaneous air. 3. Severe emphysematous changes. 4. 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 5. Occlusion of the right outflow possibly acute in origin. Clinical evaluation for right lower extremity claudication suggested. 6. 2 hepatic masses worrisome for metastatic disease. These are limited in their evaluation on this study due to the arterial phase of the exam. Consider MRI of the liver to further assess if clinically warranted. Chest X-Ray 06/22/18 19:09 CONCLUSION: Left chest tube with tiny stable left pneumothorax and subcutaneous air that has increased slightly since earlier exam. Multiple left rib fractures. Endotracheal tube and nasogastric tube in good position. Chest X-Ray 06/23/18 00:00 CONCLUSION: 1. The left-sided chest tube remains in place with no visualized pneumothorax. 2. Small left effusion with hazy airspace disease at the left lung base. Venous Doppler Study 06/23/18 00:00 CONCLUSION: 1. Occlusive thrombus in both posterior tibial veins. <Wero Wadsworth - Last Filed: 06/23/18 13:53> Assessment and Plan (1) Liver lesion Status: Acute Code(s): K76.9 - Liver disease, unspecified - Plan This patient is a 78-year-old female who presented to the emergency room at [facility] on 06/22/2018 due to possible CVA and shortness of breath. Per emergency medical services patient had been found on the floor, length of time unable to be determined. Patient denied any history of CVA and also denied taking any blood thinners and was unable to provide much information upon arrival. Thoracic/abdominal CTA done revealed 2 low-density masses worrisome for metastatic lesions one measuring 17 mm and the other 20 mm , colonic diverticulosis, and solitary gallstones. This service has been consulted to evaluate results of thoracic/abdominal CTA to hepatic masses. 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 Venous Doppler study done due to bilateral lower extremity swelling reveal bilateral tibial DVTs. Patient also noted to have pulmonary embolism with a left sided pneumothorax for which she has a left-sided chest tube to drainage. Patient is currently sedated with dipper Van and ventilated. NG tube in place with 2 Darnell HN infusing at 30 mL's an hour. Liver Lesions: CTA of the thoracic aorta performed and revealed the following findings--> 2 low-density masses are seen involving the liver worrisome for metastatic lesions. This measures 17 mm within segment 2 and 20 mm within segment 6. These are new from the prior study. Colonic diverticulosis. Solitary gallstone. May consider MRI if patient stabilizes for further evaluation and assessment. Neurology, hematology and palliative care consulted. 06/23/2018 WBC count 22.1 hemoglobin 13.1 hematocrit 39.7 platelet count 77 INR 1.1 total bilirubin 0.6 AST 43 ALT 22 alk phos 85 troponin elevated since admission, now 0.56. Will continue to follow patient's labs. Plan -Continue tube feedings -Monitor liver function -May consider MRI when patient stable for further evaluation -Supportive care -Further recommendations to follow This patient has been seen by myself and Dr. Wadsworth and this note is written on his behalf <Chary Mark - Last Filed: 06/23/18 09:49> (1) Liver lesion Status: Acute Code(s): K76.9 - Liver disease, unspecified - Plan Seen and exmained with [facility], currently too sick for liver orta. Tumor markers ordered. MRI at some point in the future depending upon clinical situation. Thank you The exam, history, and the medical decision-making described in the above note were completed with the assistance of the mid-level provider. I reviewed and agree with the findings presented. I attest that I had a [id number] encounter with the patient on the same day, and personally performed and documented my assessment and findings in the medical record. <Wero Wadsworth - Last Filed: 06/23/18 13:53>
[2018-06-23 10:00] LABS: Baso # (Auto) 0.1 th/mm3 (0.0-0.2); Baso % (Auto) 0.3 % (0.0-2.0); Hematocrit 39.5 % (35.0-46.0); Hemoglobin 13.1 gm/dL (11.6-15.3); Lymph # (Auto) 1.3 th/mm3 (1.0-4.8); Lymph % (Auto) 5.8 % (9.0-44.0); Mean Corpuscular HGB Conc 33.2 % (32.0-36.0); Mean Corpuscular Hemoglobin 29.4 pg (27.0-34.0); Mean Corpuscular Volume 88.8 fL (80.0-100.0); Mean Platelet Volume 10.4 fL (7.0-11.0); Mono # (Auto) 1.9 th/mm3 (0.0-0.9); Mono % (Auto) 8.5 % (0.0-8.0); Neut # (Auto) 18.8 th/mm3 (1.8-7.7); Neut % (Auto) 85.4 % (16.0-70.0); Platelet Count 71 th/mm3 (150-450); Red Blood Count 4.45 mil/mm3 (4.00-5.30); Red Cell Distribution Width 14.1 % (11.6-17.2)
[2018-06-23 10:40] LABS: Alanine Aminotransferase 25 U/L (10-53); Alkaline Phosphatase 87 U/L (45-117); Alpha Fetoprotein Tumor Marker 13.3 ng/mL (0.5-8.0); Carcinoembryonic Antigen 41.3 ng/mL (0.2-5.0); Chol/HDL Ratio 4.96 Ratio; HDL Cholesterol 45.3 mg/dL (40.0-60.0); Phosphorus 3.1 mg/dL (2.5-4.9); Total Protein 6.4 g/dL (6.4-8.2)
[2018-06-23 10:45] LABS: Albumin 2.8 g/dL (3.4-5.0); Anion Gap 11 meq/L (5-15); Aspartate Aminotransferase 51 U/L (15-37); Blood Urea Nitrogen 31 mg/dL (7-18); Carbon Dioxide 24.3 meq/L (21.0-32.0); Chloride 109 meq/L (98-107); Glomerular Filtration Rate 43 mL/min (>89); Glucose,Random 153 mg/dL (74-106); Magnesium 2.1 mg/dL (1.5-2.5); Sodium 144 meq/L (136-145)
[2018-06-23 10:56] LABS: Potassium 3.3 meq/L (3.5-5.1)
[2018-06-23] MEDS: Heparin - SQ 10,000 UNITS/ML Vial SQ SCH ×2 (11:03→19:25)
--- NOTE | 2018-06-23 11:18 | P.CONPAL ---
Consult Service: Palliative Care Requesting Physician: Jhon Ramirez Reason for Consult: a. To assist with evaluation and management of symptoms including: pain b. To assist medical decision maker(s) with: better understanding of current medical conditions; weighing benefits/burdens of medical treatment options; making medical treatment decisions. Primary Care Provider: Ciaran Aldridge MD History of Present Illness History of Present Illness: Miss Reina is a 78 year old female with past medical history of emphysema, hyperlipidemia, breast cancer, diverticulosis, glaucoma, hypertension, lung cancer and osteoporosis. Patient presented to [facility] emergency department on 06/22/18 for evaluation of shortness of breath and possible CVA. She was found on the floor after an uncertain period of time. She had reportedly last been seen in her normal state of health on 06/20/18. Upon arrival the patient was unable to provide any history. Left arm was flaccid and had notable left facial droop. She reported pain 8/10 on left rib area. Initial evaluation revealed: * WBC 31, hemoglobin 14.6, hematocrit 43.9, platelets 124, neutrophils 84% * PT 11.9, INR 1.2, APTT 23.6 * Troponin 0.29 * Serum alcohol less than 3 * NA 141, K 3.1, Chloride 108, BUN 32, Creatinine 1.2 * Urinalysis negative * CT cervical spine - multilevel degenerative changes, scattered neural foraminal narrowing, no fracture. * CXR - ETT and NG in place, 3mm apical left pneumothorax, subcutaneous emphysema along left chest wall with multiple level rib fractures. * CT head - acute right parietal infarcts, no midline shift or mass effect. * pelvis x-ray - limited study without gross abnormality. * humerus x-ray - negative, subcutaneous air seen tracking over the lateral left chest wall. 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 Consider MRI of the liver to further assess if clinically warranted. * Chest X-Ray - left chest tube with tiny stable left pneumothorax and subcutaneous air that has increased slightly since earlier exam, multiple left rib fractures, endotracheal tube and nasogastric tube in good position. * EKG - sinus rhythm, possible left atrial enlargement, possible right ventricular conduction delay, inferior NM. * Venous Doppler ultrasound - occlusive thrombus in both posterior tibial veins. Patient was admitted with stroke, pulmonary embolus/ DVT and possible liver mets. She was deemed not to be candidate for TPA given likely prolonged down time. Patient was intubated for hypoxia and placed on mechanical vent. Left chest tube was placed. Neurology, Dr. Woodson was consulted. Patient was started on aspirin and heparin to treat DVT and pulmonary embolus as this can be fatal understanding there is an increase risk of bleeding in the brain. MRI/ MRA brain and echocardiogram recommended. Gastroenterology, Dr. Wadsworth was consulted for possible liver mets with recommendations to monitor liver function, MRI when medically stable for further evaluation. Lab results 06/23/18: * WBC 22, platelets 71 * Total bilirubin 0.7, AST 51, ALT 25, creatinine 1.21 * Total protein 6.4, albumin 2.8 * triglycerides 494, cholesterol 225, HDL 45.3, LDL pending * AFP tumor marker 13.3 * CEA 41.3 * CA 15-3, CA 19-9 and CA 125 pending. * Blood cultures pending. Palliative care consulted to assist with further clarification of medical treatment goals. Discussed with Dr. Turcios who recommends to proceed with IVC filter. Spoke with [facility], Cari Dumas who agrees to proceed. We agreed I will call with another update as we obtain additional information. She verbalizes appreciation. I have contacted Dr. Rivera and Dr. Duckworth's offices to request lung cancer records. They will fax to [facility] unit fax# [phone]. Function/Cognitive Trajectory: Patient has had increasing weakness and fatigue over the past few months, recent headache and feeling foggy this weekend. She was living independently and caring for herself. Review of Systems unobtainable due to endotracheal tube PMFSH - History History Provided By: Friend, Medical Record, Psychotherapist Counselor / EMT - Medical History Medical History: Medical History (Last Updated 06/23/18 @ 15:23 by Dulce Pelaez) Breast cancer Diverticulosis Elevated cholesterol Glaucoma Hypertension Lung cancer Osteoporosis - Surgical History Surgical History: Surgical History (Last Updated 06/23/18 @ 15:27 by Dulce Pelaez) H/O hysterectomy for benign disease History of appendectomy History of bilateral salpingo-oophorectomy History of lobectomy of lung History of lumpectomy History of lung biopsy History of removal of nevus History of rhinoplasty History of tonsillectomy Status post laser cataract surgery of both eyes - Family History Family History: Family History (Last Updated 06/23/18 @ 12:22 by Dulce Pelaez) Sister Cervical cancer - Social History I have reviewed the patient's Social History: Yes - Tobacco History Second Hand Smoke Exposure: Yes Tobacco Use In Past 30 Days: Yes Smoking Status: Current every day smoker Tobacco Type: Cigarettes Packs Per Day: 1 Years Smoked: 50 - Alcohol History How Often Do You Have a Drink Containing Alcohol: Unable to Obtain - Substance Use History Substance History: Unable to Obtain - Travel History Recent Travel in the [facility] [place] Within the Last 8 Weeks: No Recent Travel Out of the Country Within the Last 8 Weeks: No - Immunization History Tetanus Immunization: Unable to Assess Medications and Allergies Active Medications: Active Medications Acetaminophen (Tylenol) 650 mg PO Q6H PRN PRN Reason: PAIN 1-10 AND/OR FEVER >101F Al Hydroxide/Mg Hydroxide (Milk Of Osvaldo Liq) 30 ml PO Q12H PRN PRN Reason: Mild Constipation Albuterol (Duoneb Neb (Prn)) 1 ampul NEB Q2HR NEB PRN PRN Reason: WHEEZING Albuterol (Duoneb Neb (Nicola)) 1 ampul NEB Q4HR NEB [facility] Last Admin: 06/23/18 03:35 Dose: 1 ampul Aspirin (Aspirin Supp) 300 mg RECTAL DAILY [facility] Atorvastatin Calcium (Lipitor) 80 mg PO DAILY [facility] Bisacodyl (Dulcolax Supp) 10 mg RECTAL DAILY PRN PRN Reason: SEVERE CONSITIPATION Chlorhexidine Gluconate (Peridex 0.12% Oral Kit) 15 ml OROPHARYNG BID@0800, 2000 [facility] Last Admin: 06/23/18 09:37 Dose: 15 ml Chlorhexidine Gluconate (Chlorhexidine 2% Cloth) 3 pack TOPICAL DAILY@0400 [facility] Stop: 06/28/18 03:59 Last Admin: 06/23/18 04:12 Dose: 3 pack Chlorhexidine Gluconate (Chlorhexidine 2% Cloth) 3 pack TOPICAL DAILY@0400 PRN PRN Reason: Extra cloth needed Stop: 06/28/18 03:59 Dextrose (D50w Vial) 50 ml IV.PUSH UNSCH PRN PRN Reason: PER HYPOGLYCEMIA PROTOCOL Famotidine (Pepcid Pf Inj) 20 mg IV.PUSH Q12HR [facility] Last Admin: 06/23/18 09:36 Dose: 20 mg Glucagon (Glucagon Inj) 1 mg OTHER PRN PRN PRN Reason: for Hypoglycemia Protocol Heparin Sodium (Porcine) (Heparin Inj) 5,000 units SQ Q8H [facility] Propofol (Diprivan 1000 Mg/100 Ml Inj) 1,000 mg in 100 mls @ 2.042 mls/hr IV.CONT TITRATE PRN; Protocol PRN Reason: Per Protocol Last Admin: 06/23/18 07:47 Dose: 35 mcg/kg/min, 14.3 mls/hr Sodium Chloride (Ns Inj) 1,000 mls @ 84 mls/hr IV.CONT .[id number] [facility] Last Admin: 06/23/18 06:20 Dose: 84 mls/hr Magnesium Sulfate 4 gm/ Sodium (Chloride) 100 mls @ 50 mls/hr IV.SIG UNSCH PRN PRN Reason: For Magnesium 0.9 - 1.1 mg/dL Potassium Chloride (Kcl 40 Meq Premix Inj) 40 meq in 100 mls @ 25 mls/hr IV.SIG Q2H PRN PRN Reason: For Potassium 2.8 - 3.2 mEq/L Potassium Chloride (Kcl 20 Meq Premix Inj) 20 meq in 100 mls @ 50 mls/hr IV.SIG Q2H PRN PRN Reason: For Potassium 3.3 - 3.5 mEq/L Potassium Chloride (Kcl 40 Meq Premix Inj) 40 meq in 100 mls @ 25 mls/hr IV.SIG UNSCH PRN PRN Reason: For Potassium 3.3 - 3.5 mEq/L Potassium Chloride (Kcl 20 Meq Premix Inj) 20 meq in 100 mls @ 50 mls/hr IV.SIG Q2H PRN PRN Reason: For Potassium 2.8 - 3.2 mEq/L Potassium Phosphate 30 mmol/ (Sodium Chloride) 260 mls @ 42 mls/hr IV.SIG UNSCH PRN PRN Reason: SEE LABEL COMMENTS Sodium Phosphate 30 mmol/ (Sodium Chloride) 260 mls @ 42 mls/hr IV.SIG UNSCH PRN PRN Reason: For Phosphorus < 2.5 mg/dL Piperacillin/Tazobactam/Dextrose (Zosyn 4.5 Gm Premix) 4.5 gm in 100 mls @ 200 mls/hr IV.SIG Q8H [facility] Last Admin: 06/23/18 09:36 Dose: 200 mls/hr Magnesium Sulfate 2 gm/ Sodium (Chloride) 100 mls @ 50 mls/hr IV.SIG UNSCH PRN PRN Reason: For Magnesium 1.2 - 1.6 mg/dL Insulin Human Regular (Novolin R Correctional Sugar Inj) 0 units SQ Q6HR NICOLA; Protocol Lactulose (Lactulose Liq) 30 ml PO DAILY PRN PRN Reason: SEVERE CONSITIPATION Magnesium Oxide (Mag-Ox) 800 mg PO UNSCH PRN PRN Reason: For Magnesium 1.2 - 1.6 mg/dL Midazolam HCl (Versed Inj) 2 mg IV.PUSH Q1H PRN PRN Reason: SEDATION Miscellaneous Medication () 1 each OROPHARYNG 0000,0400,1200,1600 [facility] Last Admin: 06/23/18 04:12 Dose: 1 each Ondansetron HCl (Zofran Inj) 4 mg IV.PUSH Q6H PRN PRN Reason: NAUSEA OR VOMITING Potassium Bicarb/Potassium Chloride (K-Lyte Cl Eff) 50 meq PO UNSCH PRN PRN Reason: For Potassium 3.3 - 3.5 mEq/L Potassium Phosphate (K-Phos Original) 2,000 mg PO UNSCH PRN PRN Reason: SEE LABEL COMMENTS Potassium Phosphate (K-Phos Original) 2,000 mg PO Q4H PRN PRN Reason: Phosphorus Less Than 2.5 mg/dL Senna/Docusate Sodium (Shadia-Colace) 1 tab PO BID [facility] Last Admin: 06/23/18 00:02 Dose: 1 tab Sennosides (Senokot) 17.2 mg PO Q12H PRN PRN Reason: Moderate Constipation Sodium Chloride (Ns Flush) 2 ml IV.FLUSH BID [facility] Last Admin: 06/23/18 09:36 Dose: 2 ml Sodium Chloride (Ns Flush) 2 ml IV.FLUSH PRN PRN PRN Reason: FLUSH AFTER USING IV ACCESS Allergies Allergy/AdvReac Type Severity Reaction Status Date / Time No Known Allergies Allergy Unverified 06/22/18 13:53 Home Medications Medication Instructions Recorded Confirmed Type Unable to Obtain Home Meds 06/22/18 06/22/18 History Advance Directives Advance Directives Date on File: 12/04/89 Living Will: Yes Healthcare Surrogate: Yes Health Care Surrogate Name and Number: Cari Dumas, friend: [phone] Power of Electrical Contractor: Unknown Documented care wishes: Living Will states that if she is unable to participate in decisions concerning her life: if no reasonable expectation for recovery from extreme physical or mental disability that she directs she be allowed to , not be kept alive by medications, artificial means, life support or heroic measures. She asks that medication be administered to alleviate suffering even though this may shorten her remaining life. She also indicates she hopes to live out her last days at home rather than n the the hospital if it does not jeopardize the chance of recovery to a meaningful and conscious life and does not impose an undue burden on my family. Today's verbally stated goals: Patient is not capacitated to make her own health care decisions, uncertain if she will regain capacity. Family/friends goals: Elected NO CODE. Has consented to proceed with IVC filter placement. Will further clarify goals as we obtain additional information to further prognosticate. Ethical and Legal Issues: No known concerns at this time. Physical Exam Vital Signs: Vital Signs - 24 hr 06/22/18 13:53 06/22/18 13:58 06/22/18 14:10 Temperature 98 F Pulse Rate 100 H 102 H Respiratory Rate 28 H 28 H Blood Pressure 190/88 H Pulse Oximetry 96 98 06/22/18 15:05 06/22/18 15:55 06/22/18 16:30 Temperature 97.8 F 97.7 F 97.8 F Pulse Rate 97 H 99 H 93 H Respiratory Rate 24 20 15 Blood Pressure 191/85 H 145/93 H 150/78 H Pulse Oximetry 100 100 100 06/22/18 17:23 06/22/18 18:15 06/22/18 18:17 Temperature 97.7 F 97.9 F Pulse Rate 87 89 Respiratory Rate 16 20 28 H Blood Pressure 130/78 166/76 H Pulse Oximetry 100 100 98 06/22/18 19:25 06/22/18 19:30 06/22/18 19:45 Temperature Pulse Rate 92 H 90 Respiratory Rate 22 35 H 24 Blood Pressure 122/61 Pulse Oximetry 99 06/22/18 20:00 06/22/18 20:12 06/22/18 20:16 Temperature 98.4 F Pulse Rate 96 H Respiratory Rate 26 H 22 Blood Pressure 201/95 H Pulse Oximetry 100 94 L 06/22/18 22:00 06/22/18 23:15 06/23/18 00:00 Temperature 99.1 F Pulse Rate 86 86 95 H Respiratory Rate 21 32 H Blood Pressure 148/66 H Pulse Oximetry 95 95 06/23/18 02:00 06/23/18 03:36 06/23/18 03:37 Temperature Pulse Rate 85 84 Respiratory Rate 18 19 Blood Pressure Pulse Oximetry 97 06/23/18 04:00 06/23/18 06:00 06/23/18 08:28 Temperature 99.0 F Pulse Rate 85 92 H 86 Respiratory Rate 19 23 Blood Pressure 122/59 L Pulse Oximetry 93 L 97 I&O: Intake & Output 06/21/18 06/22/18 06/23/18 06/24/18 06:59 06:59 06:59 06:59 Intake Total 1300 / 1300 100 / 100 Output Total 536 / 536 Balance 764 / 764 100 / 100 Weight 61.4 kg Physical Exam: CONSTITUTIONAL/GENERAL: This is an adequately nourished patient, sedated on mech vent. TUBES/LINES/DRAINS: ETT, OG, PIVs, left chest tube, Siddiqi, bilateral soft wrist restraints. SKIN: No jaundice, rashes, or lesions. Ecchymoses on upper extremities, bilateral knees and left hip. HEAD: Atraumatic. Normocephalic. EYES: Pupils equal and round and reactive. Extraocular motions intact. No scleral icterus. No injection or drainage. Fundi not examined. ENT: Unable to assess hearing. Nose without bleeding or purulent drainage. Throat difficult to visualize due to tubes. NECK: Trachea midline. CARDIOVASCULAR: Regular rate and rhythm without murmurs, gallops, or rubs. No JVD. Peripheral pulses symmetric. RESPIRATORY/CHEST: Left chest tube. Mildly labored respirations on vent. crackles. diminished breath sounds. GASTROINTESTINAL: Abdomen soft, non-tender, nondistended. Bowel sounds present. GENITOURINARY: Without palpable bladder distension. Siddiqi catheter in place. MUSCULOSKELETAL: Extremities without clubbing edema. Mottling noted left foot, toes purplish color and cold to touch. LYMPHATICS: No palpable cervical or supraclavicular adenopathy. NEUROLOGICAL: Sedated on vent. Withdraws to painful stimuli right UE and bilateral LEs. Left arm flaccid. PSYCHIATRIC: Sedated. Diagnostic Tests Laboratory: Laboratory Results - last 72 hr 06/22/18 06/22/18 06/22/18 14:00 14:00 14:00 WBC 31.0 H RBC 5.00 Hgb 14.6 POC Hgb (Calc) Hct 43.9 POC Hct MCV 87.7 MCH 29.2 MCHC 33.3 RDW 14.1 Plt Count 124 L MPV 10.0 Prelim Diff (Auto) Slide review pending Neut % (Auto) 84.0 H Lymph % (Auto) 7.3 L Surry % (Auto) 8.4 H Eos % (Auto) 0.0 Baso % (Auto) 0.3 Neut # (Auto) 26.1 H Lymph # (Auto) 2.3 Surry # (Auto) 2.6 H Eos # (Auto) 0.0 Baso # (Auto) 0.1 WBC Differential Manual diff final Diff Scan Seg Neuts % (Manual) 86 H Band Neuts % (Manual) 2 Lymphocytes % (Manual) 4 L Monocytes % (Manual) 8 Abs Neuts (Manual) 27.3 H Differential Comment . Platelet Estimate Low L Platelet Morphology Normal ESR PT 11.9 H INR 1.2 APTT 23.6 L Puncture Site Patient Temperature O2 Saturation ABG pH ABG pCO2 ABG pO2 ABG HCO3 ABG O2 Content ABG Base Excess ABG Methemoglobin Jay Test Hemoglobin Carboxyhemoglobin O2 Delivery Device Vent Setting Inspired O2 Critical Value POC Sodium Sodium POC Potassium Potassium POC Chloride Chloride Carbon Dioxide Anion Gap POC BUN BUN Creatinine POC Creatinine Estimated GFR POC Glucose Random Glucose Calcium Phosphorus Magnesium Total Bilirubin AST ALT Alkaline Phosphatase Total Creatine Kinase CK-MB (CK-2) CK-MB (CK-2) % Troponin I 0.29 H Total Protein Albumin Triglycerides Cholesterol LDL Cholesterol, Calc HDL Cholesterol Cholesterol/HDL Ratio Tumor Marker AFP Carcinoembryonic Ag Urine Color Urine Clarity Urine pH Ur Specific [place] Urine Protein Urine Glucose (UA) Urine Ketones Urine Occult Blood Urine Nitrate Urine Bilirubin Urine Urobilinogen Ur Leukocyte Esterase Urine RBC Urine WBC Ur Squamous Epith Cells Urine Mucus Micro UA Comment Ur Microscopic Review Urine Culture Comments Nasal Screen MRSA (PCR) Serum Alcohol Less than 3 Blood Type Antibody Screen 06/22/18 06/22/18 06/22/18 14:00 14:00 16:28 WBC RBC Hgb POC Hgb (Calc) 13.6 Hct POC Hct 40.0 MCV MCH MCHC RDW Plt Count MPV Prelim Diff (Auto) Neut % (Auto) Lymph % (Auto) Surry % (Auto) Eos % (Auto) Baso % (Auto) Neut # (Auto) Lymph # (Auto) Sur[place] # (Auto) Eos # (Auto) Baso # (Auto) WBC Differential Diff Scan Seg Neuts % (Manual) Band Neuts % (Manual) Lymphocytes % (Manual) Monocytes % (Manual) Abs Neuts (Manual) Differential Comment Platelet Estimate Platelet Morphology ESR PT INR APTT Puncture Site Left radial Patient Temperature 98.6 O2 Saturation 98 ABG pH 7.34 L ABG pCO2 40 ABG pO2 172 H ABG HCO3 21 L ABG O2 Content 19.4 ABG Base Excess -3.9 L ABG Methemoglobin 0.7 Jay Test Present Hemoglobin 14.0 Carboxyhemoglobin 0.9 O2 Delivery Device Ventilator Vent Setting Inspired O2 100 Critical Value No POC Sodium 141 Sodium POC Potassium 3.1 L Potassium POC Chloride 108 Chloride Carbon Dioxide Anion Gap POC BUN 32 H BUN Creatinine POC Creatinine 1.2 Estimated GFR POC Glucose 148 H Random Glucose Calcium Phosphorus Magnesium Total Bilirubin AST ALT Alkaline Phosphatase Total Creatine Kinase CK-MB (CK-2) CK-MB (CK-2) % Troponin I Total Protein Albumin Triglycerides Cholesterol LDL Cholesterol, Calc HDL Cholesterol Cholesterol/HDL Ratio Tumor Marker AFP Carcinoembryonic Ag Urine Color Urine Clarity Urine pH Ur Specific [place] Urine Protein Urine Glucose (UA) Urine Ketones Urine Occult Blood Urine Nitrate Urine Bilirubin Urine Urobilinogen Ur Leukocyte Esterase Urine RBC Urine WBC Ur Squamous Epith Cells Urine Mucus Micro UA Comment Ur Microscopic Review Urine Culture Comments Nasal Screen MRSA (PCR) Serum Alcohol Blood Type O Positive Antibody Screen Negative 06/22/18 06/22/18 06/22/18 16:30 18:49 23:59 WBC RBC Hgb POC Hgb (Calc) Hct POC Hct MCV MCH MCHC RDW Plt Count MPV Prelim Diff (Auto) Neut % (Auto) Lymph % (Auto) Sur[place] % (Auto) Eos % (Auto) Baso % (Auto) Neut # (Auto) Lymph # (Auto) [place] # (Auto) Eos # (Auto) Baso # (Auto) WBC Differential Diff Scan Seg Neuts % (Manual) Band Neuts % (Manual) Lymphocytes % (Manual) Monocytes % (Manual) Abs Neuts (Manual) Differential Comment Platelet Estimate Platelet Morphology ESR PT INR APTT Puncture Site Patient Temperature O2 Saturation ABG pH ABG pCO2 ABG pO2 ABG HCO3 ABG O2 Content ABG Base Excess ABG Methemoglobin Jay Test Hemoglobin Carboxyhemoglobin O2 Delivery Device Vent Setting Inspired O2 Critical Value POC Sodium Sodium POC Potassium Potassium POC Chloride Chloride Carbon Dioxide Anion Gap POC BUN BUN Creatinine POC Creatinine Estimated GFR POC Glucose Random Glucose Calcium Phosphorus Magnesium Total Bilirubin AST ALT Alkaline Phosphatase Total Creatine Kinase 470 H CK-MB (CK-2) 20.2 H CK-MB (CK-2) % 4.3 H* Troponin I 0.64 H* D Total Protein Albumin Triglycerides Cholesterol LDL Cholesterol, Calc HDL Cholesterol Cholesterol/HDL Ratio Tumor Marker AFP Carcinoembryonic Ag Urine Color Nancie Urine Clarity Cloudy H Urine pH 5.0 Ur Specific [place] 1.021 Urine Protein 100 H Urine Glucose (UA) Negative Urine Ketones Trace H Urine Occult Blood Large H Urine Nitrate Negative Urine Bilirubin Negative Urine Urobilinogen Less than 2 Ur Leukocyte Esterase Negative Urine RBC 37 H Urine WBC 3 Ur Squamous Epith Cells 2 Urine Mucus Few H Micro UA Comment Culture not ind Ur Microscopic Review Not Reportable Urine Culture Comments Culture not ind Nasal Screen MRSA (PCR) Not detected Serum Alcohol Blood Type Antibody Screen 06/23/18 06/23/18 06/23/18 04:54 04:54 04:54 WBC 22.1 H RBC 4.46 Hgb 13.1 POC Hgb (Calc) Hct 39.7 POC Hct MCV 89.0 MCH 29.3 MCHC 32.9 RDW 13.6 Plt Count 77 L D MPV 10.0 Prelim Diff (Auto) Slide review pending Neut % (Auto) 83.3 H Lymph % (Auto) 6.9 L [place] % (Auto) 9.7 H Eos % (Auto) 0.0 Baso % (Auto) 0.1 Neut # (Auto) 18.4 H Lymph # (Auto) 1.5 [place] # (Auto) 2.1 H Eos # (Auto) 0.0 Baso # (Auto) 0.0 WBC Differential . Diff Scan Auto diff confirmed Seg Neuts % (Manual) Band Neuts % (Manual) Lymphocytes % (Manual) Monocytes % (Manual) Abs Neuts (Manual) Differential Comment . Platelet Estimate Low L Platelet Morphology Normal ESR PT 11.5 INR 1.1 APTT 25.5 Puncture Site Patient Temperature O2 Saturation ABG pH ABG pCO2 ABG pO2 ABG HCO3 ABG O2 Content ABG Base Excess ABG Methemoglobin Jay Test Hemoglobin Carboxyhemoglobin O2 Delivery Device Vent Setting Inspired O2 Critical Value POC Sodium Sodium 145 POC Potassium Potassium 3.1 L POC Chloride Chloride 109 H Carbon Dioxide 23.4 Anion Gap 13 POC BUN BUN 32 H Creatinine 1.23 H POC Creatinine Estimated GFR 42 L POC Glucose Random Glucose 104 Calcium 8.0 L Phosphorus 3.6 Magnesium 2.0 Total Bilirubin 0.6 AST 43 H ALT 22 Alkaline Phosphatase 85 Total Creatine Kinase CK-MB (CK-2) CK-MB (CK-2) % Troponin I 0.56 H Total Protein 6.3 L Albumin 2.8 L Triglycerides 322 H Cholesterol 209 H LDL Cholesterol, Calc 100 H HDL Cholesterol 44.9 Cholesterol/HDL Ratio 4.65 Tumor Marker AFP Carcinoembryonic Ag Urine Color Urine Clarity Urine pH Ur Specific [place] Urine Protein Urine Glucose (UA) Urine Ketones Urine Occult Blood Urine Nitrate Urine Bilirubin Urine Urobilinogen Ur Leukocyte Esterase Urine RBC Urine WBC Ur Squamous Epith Cells Urine Mucus Micro UA Comment Ur Microscopic Review Urine Culture Comments Nasal Screen MRSA (PCR) Serum Alcohol Blood Type Antibody Screen 06/23/18 06/23/18 06/23/18 04:54 09:25 09:25 WBC 22.0 H RBC 4.45 Hgb 13.1 POC Hgb (Calc) Hct 39.5 POC Hct MCV 88.8 MCH 29.4 MCHC 33.2 RDW 14.1 Plt Count 71 L MPV 10.4 Prelim Diff (Auto) Slide review pending Neut % (Auto) 85.4 H Lymph % (Auto) 5.8 L [place] % (Auto) 8.5 H Eos % (Auto) 0.0 Baso % (Auto) 0.3 Neut # (Auto) 18.8 H Lymph # (Auto) 1.3 [place] # (Auto) 1.9 H Eos # (Auto) 0.0 Baso # (Auto) 0.1 WBC Differential Diff Scan Seg Neuts % (Manual) Band Neuts % (Manual) Lymphocytes % (Manual) Monocytes % (Manual) Abs Neuts (Manual) Differential Comment . Platelet Estimate Platelet Morphology ESR PT INR APTT Puncture Site Patient Temperature O2 Saturation ABG pH ABG pCO2 ABG pO2 ABG HCO3 ABG O2 Content ABG Base Excess ABG Methemoglobin Jay Test Hemoglobin Carboxyhemoglobin O2 Delivery Device Vent Setting Inspired O2 Critical Value POC Sodium Sodium 144 POC Potassium Potassium 3.3 L POC Chloride Chloride 109 H Carbon Dioxide 24.3 Anion Gap 11 POC BUN BUN 31 H Creatinine 1.21 H POC Creatinine Estimated GFR 43 L POC Glucose Random Glucose 153 H Calcium 8.0 L Phosphorus 3.1 Magnesium 2.1 Total Bilirubin 0.7 AST 51 H ALT 25 Alkaline Phosphatase 87 Total Creatine Kinase CK-MB (CK-2) CK-MB (CK-2) % Troponin I Total Protein 6.4 Albumin 2.8 L Triglycerides 327 H Cholesterol 205 H LDL Cholesterol, Calc 97 HDL Cholesterol 43.0 Cholesterol/HDL Ratio 4.76 Tumor Marker AFP Carcinoembryonic Ag Urine Color Urine Clarity Urine pH Ur Specific [place] Urine Protein Urine Glucose (UA) Urine Ketones Urine Occult Blood Urine Nitrate Urine Bilirubin Urine Urobilinogen Ur Leukocyte Esterase Urine RBC Urine WBC Ur Squamous Epith Cells Urine Mucus Micro UA Comment Ur Microscopic Review Urine Culture Comments Nasal Screen MRSA (PCR) Serum Alcohol Blood Type Antibody Screen 06/23/18 06/23/18 09:25 09:25 WBC RBC Hgb POC Hgb (Calc) Hct POC Hct MCV MCH MCHC RDW Plt Count MPV Prelim Diff (Auto) Neut % (Auto) Lymph % (Auto) [place] % (Auto) Eos % (Auto) Baso % (Auto) Neut # (Auto) Lymph # (Auto) [place] # (Auto) Eos # (Auto) Baso # (Auto) WBC Differential Diff Scan Seg Neuts % (Manual) Band Neuts % (Manual) Lymphocytes % (Manual) Monocytes % (Manual) Abs Neuts (Manual) Differential Comment Platelet Estimate Platelet Morphology ESR 10 PT INR APTT Puncture Site Patient Temperature O2 Saturation ABG pH ABG pCO2 ABG pO2 ABG HCO3 ABG O2 Content ABG Base Excess ABG Methemoglobin Jay Test Hemoglobin Carboxyhemoglobin O2 Delivery Device Vent Setting Inspired O2 Critical Value POC Sodium Sodium POC Potassium Potassium POC Chloride Chloride Carbon Dioxide Anion Gap POC BUN BUN Creatinine POC Creatinine Estimated GFR POC Glucose Random Glucose Calcium Phosphorus Magnesium Total Bilirubin AST ALT Alkaline Phosphatase Total Creatine Kinase CK-MB (CK-2) CK-MB (CK-2) % Troponin I Total Protein Albumin Triglycerides 494 H Cholesterol 225 H LDL Cholesterol, Calc HDL Cholesterol 45.3 Cholesterol/HDL Ratio 4.96 Tumor Marker AFP 13.3 H Carcinoembryonic Ag 41.3 H Urine Color Urine Clarity Urine pH Ur Specific [place] Urine Protein Urine Glucose (UA) Urine Ketones Urine Occult Blood Urine Nitrate Urine Bilirubin Urine Urobilinogen Ur Leukocyte Esterase Urine RBC Urine WBC Ur Squamous Epith Cells Urine Mucus Micro UA Comment Ur Microscopic Review Urine Culture Comments Nasal Screen MRSA (PCR) Serum Alcohol Blood Type Antibody Screen Result Diagrams: 06/24/18 06:48 06/24/18 06:48 Imaging: Cervical Spine CT 06/22/18 13:58 CONCLUSION: 1. Multilevel degenerative changes. 2. Scattered neural foraminal narrowing. 3. No compression fracture or spondylolisthesis Head CT 06/22/18 13:58 CONCLUSION: 1. Acute right parietal infarcts. No midline shift or mass effect. . Pelvis X-Ray 06/22/18 13:58 CONCLUSION: Limited study without gross abnormality. Humerus X-Ray 06/22/18 13:59 CONCLUSION: No abnormality involving the humerus. Subcutaneous air is seen tracking over the lateral left chest wall. Thoracic Aorta CT 06/22/18 15:28 CONCLUSION: 1. Moderate volume acute pulmonary emboli. 2. Moderate size left pneumothorax with overlying subcutaneous air. 3. Severe emphysematous changes. 4. 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 5. Occlusion of the right outflow possibly acute in origin. Clinical evaluation for right lower extremity claudication suggested. 6. 2 hepatic masses worrisome for metastatic disease. These are limited in their evaluation on this study due to the arterial phase of the exam. Consider MRI of the liver to further assess if clinically warranted. Chest X-Ray 06/23/18 00:00 CONCLUSION: 1. The left-sided chest tube remains in place with no visualized pneumothorax. 2. Small left effusion with hazy airspace disease at the left lung base. Venous Doppler Study 06/23/18 00:00 CONCLUSION: 1. Occlusive thrombus in both posterior tibial veins. Procedures: * 06/22/18 - intubated, chest tube placed. Patient/Family Conference Present at Family Conference: Met with NINA Gould and friend. Family Conference Time: 60 Family Conference Location: Bedside, Consult Room Issues Discussed: * Palliative care role, purpose, approach * Additional medical, psychosocial, and spiritual history * Patients general health, functional status, and cognitive changes in the months leading up to the current hospitalization * Patient/family understanding of the current medical problems * Patient/family understanding of prognosis - will need additional test results to clearly prognosticate - patient is critically ill and high risk for complications/ decline. * Patients goals of care as best understood from advance directives and/or conversations and/or values * Current medical treatment options and benefits/burdens of those options * Questions answered to the best of my ability * Palliative care contact information provided Assessment and Plan Pertinent Non-Medical Issues: Psychosocial: Single. Has 2 sisters and 1 son. 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 Spiritual: Unknown. Legal: Patient is not capacitated to make her own health care decisions, uncertain if she will regain capacity. HAs written Living Will and designation of health care surrogate, Cari Dumas (primary [facility]) and Nathaniel Reina (alternate [facility]). Ethical issues impacting care: No known concerns at this time. Important Contacts: * Cari Dumas, [facility]/friend: [phone] * Nathaniel Aguilarzio, brother: [phone] Prognosis: Will need additional test results to adequately prognosticate. Code Status: No Code DNR Plan: * Patient is not capacitated to make her own health care decisions, uncertain if she will regain capacity. HAs written Living Will and designation of health care surrogate, Cari Dumas (primary [facility]) and Nathaniel Reina (alternate [facility]). * NO CODE * Goals: Met with NINA Gould (retired [employer] [facility] town manager) and her friend. Medical update provided, review additional tests pending. Reviewed Living Will and [facility] paperwork. NO CODE elected. Verbalizes patient would not find quality of life less than previous acceptable, as she is a very active, independent woman. Advised we do not have enough information at this time to determine expected residual effects of stroke. Cari has a good understanding of potential complications. We agreed to talk after additional test results are available. * Discussed with Dr. Turcios who recommends to proceed with IVC filter. Spoke with [facility], Cari Dumas who agrees to proceed. We agreed I will call with another update as we obtain additional information. * I have contacted Dr. Rivera and Dr. Duckworth's offices to request lung cancer records. They will fax to [facility] unit fax# [phone]. * SYMPTOMS: Dyspnea: secondary to COPD/emphysema, possible lung cancer, pulmonary embolus, rib fractures, pneumothorax, chest tube in place. On mechanical vent. Pain: due to recent fall, stroke, tubes. Currently sedated on Propofol. Will monitor. No new medication recommendations at this time. * Palliative care number provided. * Palliative care will continue to follow throughout hospital course to assist with symptom management and further clarification of goals of medical treatment. Appreciation Thank you for the opportunity to participate in the care of Betty Reina. Attestation Attestation: To help prompt me to consider important information that might be impacting today's encounter and assessment, information from prior notes written by myself or my colleagues may have been "brought forward" into today's note. My signature on this note, however, is an attestation that I personally performed the exam, history, and/or decision-making noted today, and, unless otherwise indicated, the interactions with patient, family, and staff as well as the review of records all occurred today. I also attest that the listed assessment and stated plan reflect my best clinical judgment today based on the combination of historical information, prior notes, and today's exam/ interactions. When time spent is documented, it refers only to time spent today by the signer, or if indicated, combined time spent today by collaborating physician/nurse practitioner.
[2018-06-23 11:43] LABS: Lymphocytes 6 % (9-44); Monocytes 9 % (0-8)
[2018-06-23 11:44] LABS: RBC Morphology Normal (Normal)
[2018-06-23] MEDS: Insulin NovoLIN Regular Correctional Sugar Inj SQ SCH ×3 (12:36→23:53)
--- NOTE | 2018-06-23 13:17 | ECHRPT ---
Indication: AFIB AND FLUTTER CONCLUSIONS Normal left ventricular size and function. Wall thickness is normal. The right ventricular size is normal. The right ventricular systoilc function is normal. The interatrial septum not well visualized. The aortic root and proximal ascending aorta are not well visualized. Trace mitral valve regurgitation. No aortic valve stenosis or regurgitation but mild sclerosis. There is moderate to severe tricuspid valve regurgitation. . The estimated pulmonary arterial pressure is 71 mmHg suggesting pulmonary hypertension. The pulmonary valve is not well visualized. BP: / HR: Rhythm: MEASUREMENTS (Male / Female) Normal Values Technical Quality:Fair 2D ECHO LV Diastolic Diameter PLAX 3.1 cm 4.2 - 5.9 / 3.9 - 5.3 cm LV Systolic Diameter PLAX 2.4 cm IVS Diastolic Thickness 0.9 cm 0.6 - 1.0 / 0.6 - 0.9 cm LVPW Diastolic Thickness 0.9 cm 0.6 - 1.0 / 0.6 - 0.9 cm LV Relative Wall Thickness 0.6 RV Internal Dim ED PLAX 2.9 cm LVOT Diameter 1.7 cm Aortic Root Diameter 1.9 cm DOPPLER AV Peak Velocity 189.0 cm/s AV Peak Gradient 14.3 mmHg LVOT Peak Velocity 108.0 cm/s LVOT Peak Gradient 4.7 mmHg AV Area Cont Eq pk 1.3 cm Mitral E Point Velocity 47.4 cm/s Mitral A Point Velocity 80.9 cm/s Mitral E to A Ratio 0.6 LV E' Lateral Velocity 6.8 cm/s Mitral E to LV E' Lateral Ratio 7.0 LV E' Septal Velocity 5.7 cm/s Mitral E to LV E' Septal Ratio 8.4 TR Peak Velocity 389.0 cm/s TR Peak Gradient 60.5 mmHg Right Atrial Pressure 10.0 mmHg Pulmonary Artery Systolic Pressu 70.5 mmHg Right Ventricular Systolic Press 70.5 mmHg PV Peak Velocity 150.0 cm/s PV Peak Gradient 9.0 mmHg FINDINGS LEFT VENTRICLE Normal left ventricular size. Wall thickness is normal. The left ventricular systolic function is normal with an estimated ejection fraction in the range of 60-65%. RIGHT VENTRICLE The right ventricular size is normal. The right ventricular systoilc function is normal. LEFT ATRIUM The left atrial size is normal. RIGHT ATRIUM The right atrial size is normal. ATRIAL SEPTUM The interatrial septum not well visualized. AORTA The aortic root and proximal ascending aorta are not well visualized. MITRAL VALVE Trace mitral valve regurgitation. AORTIC VALVE Trileaflet aortic valve. No aortic valve stenosis or regurgitation but mild sclerosis. TRICUSPID VALVE There is moderate to severe tricuspid valve regurgitation. . The estimated pulmonary arterial pressure is 71 mmHg suggesting pulmonary hypertension. PULMONARY VALVE The pulmonary valve is not well visualized. VESSELS The inferior vena cava is normal in size. PERICARDIUM No pericardial effusion. Higinio Alvares MD (Electronically Signed) Final Date:23 June 2018 13:16
[2018-06-23 13:35] LABS: Cancer Antigen 19-9 593.6 U/mL (0.0-35.0)
[2018-06-23 13:42] LABS: Cancer Antigen 15-3 177.1 U/mL (0.0-32.4)
[2018-06-23 14:42] LABS: Cancer Antigen 125 1091.1 U/mL (0.0-30.2)
--- NOTE | 2018-06-23 14:47 | MR ---
EXAM DATE: 06/23/2018 12:20 PM EDT AGE/SEX: 78 years / Female INDICATIONS: Left sided weakness. CLINICAL DATA: This is the patient's subsequent encounter. Patient reports that signs and symptoms h ave been present for 2 days and indicates a pain score of 3/10. MEDICAL/SURGICAL HISTORY: Hypertension. Hypercholesterolemia. Carcinoma, breast. Appendectomy . Tonsillectomy. Hysterectomy. lumpectomy COMPARISON: [facility], MR HEAD W/O CONTRAST, 06/23/2018. . TECHNIQUE: 3D [id number]-cixizg MRA was performed. Source images, multiplanar STS MIP, and 3D volum e MIP reconstructions were reviewed. FINDINGS: Anterior Circulation: Intracranial Carotid Arteries: Patent. TRISTIAN: There is no evidence for aneurysm, vessel truncation or stenosis, and no evidence for vascular m alformation. MCA: The right M1 segment tapers to an occlusion in the mid to distal segment with reconstitution of the proximal M2 branches. Left MCA branches are patent and normal in caliber. Posterior Circulation: Distal Vertebral Arteries: Distal Vertebral arteries are symetrical and patent. Basilar Artery: There is no evidence for aneurysm, vessel truncation or stenosis, and no evidence for vascular malformation. SPIKE MACHINE FEEDER and Cerebellar Branches: There is no evidence for aneurysm, vessel truncation or stenosis, and no evidence for vascular malformation. CONCLUSION: 1. Occlusion of the mid to distal right M1 segment with reconstitution of the proximal right M2 bran ches via collaterals. Electronically signed by: Robb Ferguson MD 06/23/2018 2:46 PM EDT
--- NOTE | 2018-06-23 14:52 | MR ---
EXAM DATE: 06/23/2018 12:20 PM EDT AGE/SEX: 78 years / Female INDICATIONS: Left sided weakness. CLINICAL DATA: This is the patient's subsequent encounter. Patient reports that signs and symptoms h ave been present for 2 days and indicates a pain score of 3/10. MEDICAL/SURGICAL HISTORY: Hypertension. Hypercholesterolemia. Carcinoma, breast. Appendectomy . Tonsillectomy. Hysterectomy. lumpectomy COMPARISON: [facility], CT HEAD W/O CONTRAST, 06/22/2018. . TECHNIQUE: Multiplanar, multisequence examination of the brain was performed without contrast. FINDINGS: Cerebrum: The ventricles are normal for age. No evidence of midline shift, mass lesion, hemorrhage. There is evidence of acute cerebral infarction involving the right MCA territory.. No extraaxial fl uid collections are seen. The pituitary gland and suprasellar cistern are normal in configuration. White Matter: No significant signal abnormalities are seen in the white matter. There are mild chron ic white matter changes bilaterally characteristic for patient's age. Posterior Fossa: The cerebellum and brainstem are intact. The 4th ventricle is midline. The cerebel lopontine angle is unremarkable. The cerebellar tonsils are normal in position. Diffusion Imaging: There is restricted diffusion involving the right temporal parietal lobe extendin g into the right occipital lobe. This is consistent with acute infarct involving the right MCA territ ory. There is also some questionable increased signal in the right cerebellar hemisphere which may re present to punctate areas of acute infarction. Extracranial: The visualized portions of the orbits and paranasal sinuses are unremarkable. CONCLUSION: 1. 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 2. There appear to be 2 punctate acute infarctions involving the right cerebellar hemisphere. This i s best seen on the diffusion-weighted images. Electronically signed by: Dany Leon MD 06/23/2018 2:51 PM EDT
[2018-06-23] MEDS ORDERED: RASS Change Order MISCELLANE ONE (15:00)
--- NOTE | 2018-06-23 15:16 | MG ---
cc: Puja Clemente MD AGE: [age] years old. EEG NUMBER: [id number] REFERRING PHYSICIAN: . In room 527, intubated, Diprivan at 40 mcg. Hyperventilation not done, photic done. Diprivan was off for 4 minutes into the EEG and then back at 14 minutes for restlessness. CLINICAL HISTORY: The patient is not using the left side of her body. Unable to determine if actually squeezing the right hand to command. She has history of acute right parietal infarcts found on the floor with a possible stroke. Pepcid and Diprivan are current medicines as described, per the description of record. At times, she has a background of 6 Hz to 7 Hz, variable. EKG looks sinus. Overall, fairly symmetrical theta slowing. Some movement of her right leg and arm. No epileptic activity. Increased artifact as the patient becomes more restless. Photic stimulation with some driving response noted. IMPRESSION: Mild slowing of background consistent with a possible mild encephalopathy from medication effect, but no epileptiform features. Clinical correlation. MD SHIREEN Kingsley/adeola/kassi , 02:41 PM , 02:46 PM
[2018-06-23] MEDS: fentaNYL 10 mcg/mL Premix Drip 2,500 MCG/250 ML BAG IV.SIG PRN (15:21)
--- NOTE | 2018-06-23 16:18 | ECG ---
Date Performed: 06/22/2018 Time Performed: 13:59:55 PTAGE: 78 years EKG: INDETERMINATE ATRIAL RHYTHM DUE TO BASELINE ARTIFACT AND WATER. LEFT ATRIAL ENLARGEMENT POS SIBLE RIGHT VENTRICULAR CONDUCTION DELAY LEFT ANTERIOR FASCICULAR BLOCK INFERIOR MYOCARDIAL INFARCTIO N ABNORMAL ECG PREVIOUS TRACING : 04/24/2015 10.52 DOCTOR: Ton Adrian Interpretating Date/Time 06/23/2018 16:17:55
--- NOTE | 2018-06-23 16:38 | P.RAD ---
Post Procedure Progress Note - Pre Procedure Diagnosis (1) DVT (deep venous thrombosis) - Post Procedure Diagnosis (1) DVT (deep venous thrombosis) - Procedure Information Procedure Date: 06/23/18 Supervising Radiologist: Luis Haro MD Anesthesia: Conscious Sedation - Plan of Activity Patient to Unit: Critical Care Patient Condition: Critical See PACS Report for procedural detail/treatment. Vascular - Venous Procedure Abdominal Procedure(s): Permanent IVC Filter
[2018-06-23] MEDS ORDERED: Iohexol 350 MG/ML 50 ML Vial (for Rad Diag) IVCONTRAST ONE (16:39)
--- NOTE | 2018-06-23 16:57 | IR ---
EXAM DATE: 06/23/2018 9:20 AM EDT AGE/SEX: 78 years / Female INDICATIONS: Patient presents with history of stroke and pulmonary emboli in need of inferior vena c ilda filter placement. CLINICAL DATA: This is the patient's initial encounter. Patient reports that signs and symptoms have been present for 1 day and indicates a pain score of Nonresponsive. MEDICAL/SURGICAL HISTORY: . History of stroke, CVA, Pulmonary Embolus, Thrombocytopenia. . Un able to obtain. COMPARISON: No prior exams available for comparison. FLUORO TIME (min): 1.1 IMAGE SERIES: 2 ACCESS SITE: Right internal jugular vein CONTRAST (cc): 10cc Omnipaque (iohexol) 350 DEVICE(S): Right IVC vein 7fr venatech filter . . PROCEDURE : 1. Ultrasound-guided venipuncture. 2. Inferior venacavogram. 3. Inferior vena cava filter placement. 4. Conscious sedation with continuous EKG and oximetry monitoring. The risks, benefits and alternatives to the procedure were explained and verbal and written consent w as obtained. The site was prepped in sterile fashion. Full sterile technique was used, including ca p, mask, sterile gloves and gown and a large sterile sheet. Hand hygiene and 2% chlorhexidine and/or betadine/alcohol prep was utilized per protocol for cutaneous antisepsis. Sterile gel and sterile p robe cover were utilized for ultrasound guidance. The skin and subcutaneous tissues were infiltrated with local anesthetic solution. With ultrasound and fluoroscopic guidance the targeted vein was punctured and a vascular sheath was p laced. Inferior venacavogram was performed to demonstrate level of renal veins. No caval thrombus was identified. The prescribed filter was deployed in the infrarenal inferior vena cava. Following deplo yment the filter was identified in good position. Conscious sedation was performed with the prescribed dosages and duration as above in the presence of an independent trained radiology nurse to assist in the monitoring of the patient. EKG and oximetry remained stable throughout the procedure. The patient tolerated the procedure well and there were n o complications. The patient was sent to post anesthesia recovery in stable condition. CONCLUSION: 1. Uncomplicated inferior vena cava filter placement as above. Electronically signed by: Luis Haro MD 06/23/2018 4:56 PM EDT
[2018-06-23 17:14] LABS: Hemoglobin A1c 5.9 % (4.3-6.0)
[2018-06-23] MEDS: Piperacil/Tazo 3.375 GM Premix 50 ML IV.SIG SCH ×2 (17:18→20:59)
[2018-06-23] MEDS: Aspirin 300 MG Supp RECTAL SCH (17:18)
[2018-06-23] MEDS: Potassium Chloride 25 MEQ Effervescent Tablet PO PRN (17:19)
--- NOTE | 2018-06-23 19:08 | P.PNPAL ---
Called Cari Dumas [facility] to provide update on additional test results since our meeting earlier today. Reviewed MRI, MRA, echocardiogram, EEG and tumor marker results. Advised I suha requested copies of lung cancer diagnosis from Dr. Duckworth and Dr. Spencer Adhikari's offices, will fax to [facility]. It did not seem offices had copy of pathology results, she will contact a friend of Dr. Adhikari 's to obtain path report. If unable to obtain I will request copy from Dr. Betsy Kyle at [facility] in AM. I advised I will speak with cinder dump crane operator, oncologist and neurologist for further prognostication and plan of care on 06/24/18 and will call with update tomorrow. Questions answered. Verbalizes great appreciation.
--- NOTE | 2018-06-23 19:33 | MB ---
cc: Keshawn Turcios MD DATE: 06/23/2018 REASON FOR CONSULTATION: Consult requested by arboriculturist for recommendation for anticoagulation in a patient who has acute thrombotic stroke, pulmonary embolism, and bilateral lower leg DVT and liver lesions. HISTORY OF PRESENT ILLNESS: Betty is a 78-year-old female. She is currently on the ventilator, unable to give any history. History is obtained through review of her records. According to the available records, EVAC was called by patient's friend when she was found on the floor by them. It is unknown how long the patient was on the floor. She was brought into the emergency room. Examination showed left-sided weakness and left facial droop. A CT scan of the brain showed acute thrombotic stroke. She had a CT angiogram of the aorta, which showed pulmonary embolism and large left pneumothorax. Chest x-ray showed multiple left-sided rib fractures. Also, incidentally showed 2 liver lesions. The patient has a chest tube placed in for left pneumothorax, which most likely due to the patient's fall and trauma to the rib cage with rib fracture causing the pneumothorax. She was intubated in the emergency room. She had a Doppler ultrasound of both lower legs showed bilateral lower leg DVTs. The patient was not a candidate for any anticoagulation due to the concern for hemorrhagic conversion of the acute stroke. Unit Coordinator has consulted the undersigned for further recommendations. I did talk to Dr. Littlejohn and recommended that patient is not a candidate for any anticoagulation, and we should get an IVC filter with the interventional radiologist. Further history is not available at the present time. REVIEW OF SYSTEMS: Not possible as the patient is sedated on the ventilator. PAST MEDICAL HISTORY: Unable to obtain. PAST SURGICAL HISTORY: Unable to obtain. ALLERGIES: NONE reported in the chart. MEDICATIONS: Medications prior to the hospital we were unable to obtain. FAMILY HISTORY: Unable to obtain. SOCIAL HISTORY: Unable to obtain. PHYSICAL EXAMINATION: GENERAL: Reveals a well-developed, elderly female who is on the ventilator, lightly sedated. VITAL SIGNS: Temperature is 98.8, heart rate is 79, blood pressure is 122/94. HEENT: PERRLA, EOMI. Left facial droop noted. ET tube noted. NECK: No lymphadenopathy. LUNGS: Clear. HEART: Regular rate and rhythm. BREASTS: No masses noted. The patient was examined in the presence of the patient's nurse and the tech. ABDOMEN: Soft, nondistended. EXTREMITIES: Edema noted. NEUROLOGIC: The patient is sedated. ASSESSMENT: 1. 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 This is most likely due to hypercoagulable state from disseminated malignancy until proven otherwise. 2. Left pneumothorax due to the fall and has rib fractures. 3. Thrombocytopenia consumptive due to multiple thrombotic/embolic event. 4. Multiple liver lesions, highly suspicious for malignancy. The primary site is unknown at the present time. PLAN: I have reviewed her available records. I have discussed with the arboriculturist, Dr. Littlejohn. She is not a candidate for any anticoagulation for pulmonary embolism and DVT due to concern for hemorrhagic conversion of acute thrombotic stroke. My recommendation is temporary IVC filter placement. I had called the radiology department and discussed with the obstetrics technician who will schedule the filter as soon as possible. Regarding the liver lesions, she is not stable at this time to undergo CT scan of the chest, abdomen and pelvis to evaluate for the primary tumor. At this time, my advice is to check the tumor markers for further evaluation. Once the patient is stable, then I will order the CT scan of the chest, abdomen and pelvis for the primary site. On examination, she does not have any breast masses. The patient was examined in the presence of the patient's nurse and tech. Neurology, GI and palliative care have been consulted. Further recommendations to follow. Thank you for asking my opinion. MD KIT Ardon/zaina , 06:51 PM , 07:06 PM YESSY
[2018-06-24] MEDS: Heparin - SQ 10,000 UNITS/ML Vial SQ SCH ×3 (02:02→17:18)
[2018-06-24] MEDS: Piperacil/Tazo 3.375 GM Premix 50 ML IV.SIG SCH ×4 (02:58→20:17)
[2018-06-24] MEDS: Oral Hygiene Kit OROPHARYNG SCH ×3 (04:24→16:07)
[2018-06-24] MEDS: Chlorhexidine Gluconate 2% 1 Pack (2 Cloths) TOPICAL SCH (04:24)
[2018-06-24] MEDS: Propofol 1000 mg/100 ml Inj 1,000 MG/100 ML BOTTLE IV.CONT PRN ×4 (06:06→23:26)
[2018-06-24] MEDS: Insulin NovoLIN Regular Correctional Sugar Inj SQ SCH ×3 (06:07→17:34)
--- NOTE | 2018-06-24 07:02 | P.PNCC ---
Subjective Subjective Remarks/Hospital Course: 78-year-old female presents to the ED for evaluation of possible CVA and shortness of breath. Per [facility] they got a call that apparently the patient had been found on the floor. Unclear as to how long the patient had been on the floor. Last time the patient was seen normal was on Friday per friends that were in the scene. Per patient herself she cannot really tell us any history other than she has pain on the left side of her body as well as weakness to her left arm. She cannot move her left arm on her own. She denies any history of stroke on herself. She cannot really give us good history about her medications. She denies taking blood thinners however. She cannot recall when she fell and she cannot really tell us how long she has been on the floor. No one really at bedside to give us any information about how long the symptoms have been going. Per [facility] she is also been having left facial droop. CT of the brain obtained in the emergency department shows Acute right parietal infarcts. No midline shift or mass effect. The chest x-ray with the findings of Subcutaneous emphysema along the left chest wall along with multiple left- sided rib fractures. CTA of the pulmonary artery is consistent with Moderate volume acute pulmonary emboli and Moderate size left pneumothorax with overlying subcutaneous air. The patient was intubated by ED attending and the chest tube was placed in the emergency department as well. 06/23 Patient is sedated with Diprivan and intubated. Afebrile. /10 Patient remains sedated with Fentanyl and Diprivan and intubated. T:100.3 , s/p IVC filter placement yesterday.Had an episode of desaturation and now on 100% FIO2 with PEEP:5 and sats 94-95%. Objective Vital Signs / I&O: Vital Signs 06/23/18 08:00 06/23/18 08:28 06/23/18 09:00 Temperature 100.0 F H Pulse Rate 84 86 86 Respiratory Rate 19 23 Blood Pressure 132/62 Pulse Oximetry 93 L 97 06/23/18 10:00 06/23/18 10:47 06/23/18 11:00 Temperature Pulse Rate 87 91 H 82 Respiratory Rate 30 H 18 Blood Pressure 114/65 117/60 Pulse Oximetry 87 L 92 L 06/23/18 11:09 06/23/18 11:15 06/23/18 11:30 Temperature Pulse Rate 78 80 81 Respiratory Rate 16 17 20 Blood Pressure 119/63 121/64 Pulse Oximetry 95 94 L 91 L 06/23/18 11:45 06/23/18 12:00 06/23/18 12:01 Temperature 98.1 F Pulse Rate 83 84 79 Respiratory Rate 25 H 25 H 29 H Blood Pressure 125/71 122/94 H 122/94 H Pulse Oximetry 91 L 92 L 90 L 06/23/18 12:16 06/23/18 12:30 06/23/18 13:00 Temperature Pulse Rate 84 83 82 Respiratory Rate 25 H 26 H 31 H Blood Pressure 160/95 H 125/58 L 118/61 Pulse Oximetry 93 L 96 97 06/23/18 13:22 06/23/18 13:30 06/23/18 14:00 Temperature Pulse Rate 80 84 88 Respiratory Rate 53 H Blood Pressure 118/65 118/66 Pulse Oximetry 06/23/18 14:11 06/23/18 14:19 06/23/18 14:27 Temperature Pulse Rate 87 88 84 Respiratory Rate 37 H 38 H 28 H Blood Pressure 152/106 H 131/64 Pulse Oximetry 70 L 92 L 91 L 06/23/18 14:43 06/23/18 15:00 06/23/18 15:54 Temperature Pulse Rate 87 85 Respiratory Rate 26 H 18 Blood Pressure 133/67 119/58 L Pulse Oximetry 96 90 L 97 06/23/18 15:58 06/23/18 16:00 06/23/18 16:34 Temperature 98.2 F Pulse Rate 85 83 84 Respiratory Rate 15 16 23 Blood Pressure 123/62 Pulse Oximetry 96 93 L 06/23/18 16:40 06/23/18 16:52 06/23/18 17:00 Temperature Pulse Rate 83 83 83 Respiratory Rate 17 18 16 Blood Pressure 119/63 99/56 L Pulse Oximetry 91 L 93 L 98 06/23/18 17:23 06/23/18 18:00 06/23/18 19:00 Temperature Pulse Rate 80 87 Respiratory Rate 15 15 Blood Pressure 104/61 135/69 Pulse Oximetry 97 94 L 91 L 06/23/18 19:55 06/23/18 19:56 06/23/18 20:00 Temperature Pulse Rate 81 85 Respiratory Rate 19 19 21 Blood Pressure Pulse Oximetry 93 L 96 06/23/18 20:01 06/23/18 21:00 06/23/18 22:00 Temperature Pulse Rate 87 83 86 Respiratory Rate 24 12 12 Blood Pressure 166/83 H 109/60 109/61 Pulse Oximetry 94 L 94 L 95 06/23/18 23:00 06/23/18 23:10 06/23/18 23:14 Temperature Pulse Rate 80 79 79 Respiratory Rate 12 11 L 11 L Blood Pressure 95/55 L 94/57 L 96/57 L Pulse Oximetry 94 L 93 L 94 L 06/23/18 23:30 06/23/18 23:51 06/24/18 00:00 Temperature 98.5 F Pulse Rate 81 79 82 Respiratory Rate 16 21 13 Blood Pressure 119/67 116/59 L Pulse Oximetry 93 L 95 06/24/18 00:10 06/24/18 02:00 06/24/18 04:00 Temperature 100.3 F H Pulse Rate 82 84 Respiratory Rate 20 15 Blood Pressure 115/60 Pulse Oximetry 94 L 93 L 06/24/18 04:19 06/24/18 04:20 06/24/18 06:00 Temperature Pulse Rate 86 92 H Respiratory Rate 13 14 Blood Pressure Pulse Oximetry 93 L 92 L Intake & Output 06/23/18 06/23/18 06/24/18 06:59 18:59 06:59 Intake Total 300 / 300 1472 / 1472 708 / 708 Output Total 536 / 536 372 / 372 300 / 300 Balance -236 / -236 1100 / 1100 408 / 408 Weight 61.4 kg 61.8 kg 28.44 kg Intake: IV 200 / 200 1350 / 1350 250 / 250 Diprivan 1000 mg/100 ml Inj 1, 100 / 100 200 / 200 150 / 150 000 mg In 100 ml @ 5 MCG/KG/MIN 2.042 mls/hr IV.CONT TITRATE PRN Rx#:[id number] NS Inj 1,000 ML @ 84 mls/hr IV. 100 / 100 1000 / 1000 CONT .[id number] MATIAS Rx#:[id number] Zosyn 3.375 GM Premix 50 ML @ 50 / 50 100 / 100 100 mls/hr IV.SIG Q6H MATIAS Rx#: [id number] Zosyn 4.5 GM Premix 4.5 gm In 100 / 100 100 ml @ 200 mls/hr IV.SIG Q8H MATIAS Rx#:[id number] Tube Feeding 100 / 100 122 / 122 458 / 458 Output: Urine Amount (Catheter) 450 / 450 300 / 300 250 / 250 Indwelling Urethral Catheter 450 / 450 300 / 300 250 / 250 Gastric Drainage 50 / 50 Orogastric Tube 50 / 50 Chest Tube Drainage 36 / 36 72 / 72 50 / 50 #1 Left Upper Mid-Axillary 36 / 36 72 / 72 50 / 50 Chest Other: # Bowel Movements 0 0 Weight On Admission 65 kg Result Diagrams: 06/24/18 06:48 06/24/18 06:48 Other Results: Laboratory Results - last 12 hr 06/23/18 06/23/18 06/23/18 04:54 09:25 23:37 POC Glucose 161 H Hemoglobin A1c 6.0 5.9 06/24/18 06:04 POC Glucose 160 H Hemoglobin A1c Imaging: Laboratory Results - last 12 hr 06/23/18 06/23/18 06/23/18 04:54 09:25 23:37 POC Glucose 161 H Hemoglobin A1c 6.0 5.9 06/24/18 06:04 POC Glucose 160 H Hemoglobin A1c Objective Remarks: GENERAL: Patient is 78 yo critically ill intubated and sedated SKIN: Warm and dry. HEAD: Normocephalic. EYES: No scleral icterus. No injection or drainage. NECK: Supple, trachea midline. No JVD or lymphadenopathy. CARDIOVASCULAR: Regular rate and rhythm without murmurs, gallops, or rubs. RESPIRATORY: Breath sounds equal bilaterally. No accessory muscle use. GASTROINTESTINAL: Abdomen soft, non-tender, nondistended. MUSCULOSKELETAL: No edema. +Cyanosis of fingertips on right hand Neuro: sedated Assessment and Plan - Assessment and Plan Plan: VDRF Acute CVA ( Acute right parietal infarcts) Pulmonary embolism Left sided PTX Liver lesions suspicious of metastatic process Mild elevated troponin-multifactorial. Leukocytosis Thrombocytopenia Plan Neuro: On Diprivan, Fentanyl infusion for sedation. Daily sedation vacation. CT brain: Acute parietal infarcts MRI brain:. 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 2 punctate acute infarctions involving the right cerebellar hemisphere. MRA brain: Occlusion of the mid to distal right M1 segment with reconstitution of the proximal right M2 branches via collaterals. Neuro is following Unknown downtime. Not a candidate for TPA or thrombectomy Aspirin, statins Pulm: Continue with vent support keep sats >92% On PRVC RR 12, TV 450, IT:1.0, PEEP:5 and FIO2:100%. Decrease FIO2 as josh. Bronchodilators, ICU vent bundle. Check CXR CT thoracic aorta: Pulmonary embolism, left sided PTX s/p CT placement- monitor CT drainage Doppler US LE b/l LE Not a candidate for anticoagulation due to worrisome of hemorrhagic conversion s/p IVC filter placement on 06/23. Heme is following. CV: Monitor HR and BP keep MAP>65mmHg Continue ASA, Lipitor Echo showed Normal left ventricular size. Wall thickness is normal. EF: 60 -65%. : Monitor renal function, I/O's, electrolytes replacement per protocol. d/c IVF and diurese with Lasix 40mg x1 GI: Liver lesions suspicious of metastatic process GIis following. On Pepcid 20mg IV Q12 for GI prophylaxis tube feeds held for high residuals, will start trickle feeds-On 2cal HN with goal rate 55ml/hr Add [place] 5mg IV Q8 PRN ID: Monitor for signs of infections (Fever, WBC) Received Vanco and Zosyn in ED. Continue with Zosyn empirically, add Vanco Follow up on sputum cx and BC 06/23 Heme: Monitor CBC, check Hep PLT ab Doppler US LE: Occlusive thrombus in both posterior tibial veins. Heme is following Tumor markers elevated. CEA: 41, AFP:13, CA 125: 1091, CA19-9: 593.6, CA 15-3:177 Endo: SSI for glycemic control DVT GI prophylaxis -Teds SCDs -Subcu heparin -Pepcid Palliative care is following- Patient was made no code DNR 35 minutes of critical care
[2018-06-24 08:01] LABS: Baso % (Auto) 0.1 % (0.0-2.0); Eos % (Auto) 0.1 % (0.0-4.0); Hematocrit 34.7 % (35.0-46.0); Hemoglobin 11.5 gm/dL (11.6-15.3); Lymph # (Auto) 1.2 th/mm3 (1.0-4.8); Mean Corpuscular HGB Conc 33.2 % (32.0-36.0); Mean Corpuscular Volume 90.6 fL (80.0-100.0); Mean Platelet Volume 10.6 fL (7.0-11.0); Mono # (Auto) 1.8 th/mm3 (0.0-0.9); Mono % (Auto) 7.5 % (0.0-8.0); Neut # (Auto) 20.8 th/mm3 (1.8-7.7); Neut % (Auto) 87.3 % (16.0-70.0); Platelet Count 55 th/mm3 (150-450); Red Blood Count 3.83 mil/mm3 (4.00-5.30); Red Cell Distribution Width 14.3 % (11.6-17.2); White Blood Count 23.8 th/mm3 (4.0-11.0)
--- NOTE | 2018-06-24 08:03 | P.PNNEU ---
Subjective Subjective Comments: No acute events Active Medications: Active Medications Acetaminophen (Tylenol) 650 mg PO Q6H PRN PRN Reason: PAIN 1-10 AND/OR FEVER >101F Al Hydroxide/Mg Hydroxide (Milk Of Osvaldo Lireji) 30 ml PO Q12H PRN PRN Reason: Mild Constipation Albuterol (Duoneb Neb (Prn)) 1 ampul NEB Q2HR NEB PRN PRN Reason: WHEEZING Albuterol (Duoneb Neb (Nicola)) 1 ampul NEB Q4HR NEB [facility] Last Admin: 06/24/18 04:19 Dose: 1 ampul Aspirin (Aspirin Supp) 300 mg RECTAL DAILY [facility] Last Admin: 06/23/18 17:18 Dose: 300 mg Atorvastatin Calcium (Lipitor) 80 mg PO DAILY [facility] Last Admin: 06/23/18 17:19 Dose: 80 mg Bisacodyl (Dulcolax Supp) 10 mg RECTAL DAILY PRN PRN Reason: SEVERE CONSITIPATION Chlorhexidine Gluconate (Peridex 0.12% Oral Kit) 15 ml OROPHARYNG BID@0800, 2000 [facility] Last Admin: 06/23/18 20:15 Dose: 15 ml Chlorhexidine Gluconate (Chlorhexidine 2% Cloth) 3 pack TOPICAL DAILY@0400 [facility] Stop: 06/28/18 03:59 Last Admin: 06/24/18 04:24 Dose: 3 pack Chlorhexidine Gluconate (Chlorhexidine 2% Cloth) 3 pack TOPICAL DAILY@0400 PRN PRN Reason: Extra cloth needed Stop: 06/28/18 03:59 Dextrose (D50w Vial) 50 ml IV.PUSH UNSCH PRN PRN Reason: PER HYPOGLYCEMIA PROTOCOL Famotidine (Pepcid Pf Inj) 20 mg IV.PUSH Q12HR [facility] Last Admin: 06/23/18 20:59 Dose: 20 mg Glucagon (Glucagon Inj) 1 mg OTHER PRN PRN PRN Reason: for Hypoglycemia Protocol Heparin Sodium (Porcine) (Heparin Inj) 5,000 units SQ Q8H [facility] Last Admin: 06/24/18 02:02 Dose: 5,000 units Propofol (Diprivan 1000 Mg/100 Ml Inj) 1,000 mg in 100 mls @ 2.042 mls/hr IV.CONT TITRATE PRN; Protocol PRN Reason: Per Protocol Last Admin: 06/24/18 06:06 Dose: 50 mcg/kg/min, 20.42 mls/hr Sodium Chloride (Ns Inj) 1,000 mls @ 84 mls/hr IV.CONT .[id number] [facility] Last Admin: 06/23/18 21:15 Dose: 84 mls/hr Magnesium Sulfate 4 gm/ Sodium (Chloride) 100 mls @ 50 mls/hr IV.SIG UNSCH PRN PRN Reason: For Magnesium 0.9 - 1.1 mg/dL Potassium Chloride (Kcl 40 Meq Premix Inj) 40 meq in 100 mls @ 25 mls/hr IV.SIG Q2H PRN PRN Reason: For Potassium 2.8 - 3.2 mEq/L Potassium Chloride (Kcl 20 Meq Premix Inj) 20 meq in 100 mls @ 50 mls/hr IV.SIG Q2H PRN PRN Reason: For Potassium 3.3 - 3.5 mEq/L Potassium Chloride (Kcl 40 Meq Premix Inj) 40 meq in 100 mls @ 25 mls/hr IV.SIG UNSCH PRN PRN Reason: For Potassium 3.3 - 3.5 mEq/L Potassium Chloride (Kcl 20 Meq Premix Inj) 20 meq in 100 mls @ 50 mls/hr IV.SIG Q2H PRN PRN Reason: For Potassium 2.8 - 3.2 mEq/L Potassium Phosphate 30 mmol/ (Sodium Chloride) 260 mls @ 42 mls/hr IV.SIG UNSCH PRN PRN Reason: SEE LABEL COMMENTS Sodium Phosphate 30 mmol/ (Sodium Chloride) 260 mls @ 42 mls/hr IV.SIG UNSCH PRN PRN Reason: For Phosphorus < 2.5 mg/dL Magnesium Sulfate 2 gm/ Sodium (Chloride) 100 mls @ 50 mls/hr IV.SIG UNSCH PRN PRN Reason: For Magnesium 1.2 - 1.6 mg/dL Piperacillin/Tazobactam/Dextrose (Zosyn 3.375 Gm Premix) 50 mls @ 100 mls/hr IV.SIG Q6H [facility] Last Infusion: 06/24/18 03:35 Dose: Infused Fentanyl (Fentanyl 10 Mcg/Ml Premix Drip) 2,500 mcg in 250 mls @ 5 mls/hr IV.SIG TITRATE PRN; Protocol PRN Reason: Per Protocol Last Admin: 06/23/18 15:21 Dose: 50 mcg/hr, 5 mls/hr Insulin Human Regular (Novolin R Correctional Sugar Inj) 0 units SQ Q6HR [facility]; Protocol Last Admin: 06/24/18 06:07 Dose: 1 units Lactulose (Lactulose Liq) 30 ml PO DAILY PRN PRN Reason: SEVERE CONSITIPATION Magnesium Oxide (Mag-Ox) 800 mg PO UNSCH PRN PRN Reason: For Magnesium 1.2 - 1.6 mg/dL Metoclopramide HCl (Reglan Inj) 5 mg IV.PUSH Q8H PRN; Protocol PRN Reason: VOMITING Midazolam HCl (Versed Inj) 2 mg IV.PUSH Q1H PRN PRN Reason: SEDATION Miscellaneous Medication () 1 each OROPHARYNG 0000,0400,1200,1600 [facility] Last Admin: 06/24/18 04:24 Dose: 1 each Ondansetron HCl (Zofran Inj) 4 mg IV.PUSH Q6H PRN PRN Reason: NAUSEA OR VOMITING Potassium Bicarb/Potassium Chloride (K-Lyte Cl Eff) 50 meq PO UNSCH PRN PRN Reason: For Potassium 3.3 - 3.5 mEq/L Last Admin: 06/23/18 17:19 Dose: 50 meq Potassium Phosphate (K-Phos Original) 2,000 mg PO UNSCH PRN PRN Reason: SEE LABEL COMMENTS Potassium Phosphate (K-Phos Original) 2,000 mg PO Q4H PRN PRN Reason: Phosphorus Less Than 2.5 mg/dL Senna/Docusate Sodium (Shadia-Colace) 1 tab PO BID [facility] Last Admin: 06/23/18 20:59 Dose: 1 tab Sennosides (Senokot) 17.2 mg PO Q12H PRN PRN Reason: Moderate Constipation Sodium Chloride (Ns Flush) 2 ml IV.FLUSH BID [facility] Last Admin: 06/23/18 20:15 Dose: 2 ml Sodium Chloride (Ns Flush) 2 ml IV.FLUSH PRN PRN PRN Reason: FLUSH AFTER USING IV ACCESS Allergies/Adverse Reactions: Allergies Allergy/AdvReac Type Severity Reaction Status Date / Time No Known Allergies Allergy Unverified 06/22/18 13:53 Review of Systems unobtainable due to endotracheal tube, unobtainable due to mental status Physical Exam Vital signs: Vital Signs 06/23/18 08:00 06/23/18 08:28 06/23/18 09:00 Temperature 100.0 F H Pulse Rate 84 86 86 Respiratory Rate 19 23 Blood Pressure 132/62 Pulse Oximetry 93 L 97 06/23/18 10:00 06/23/18 10:47 06/23/18 11:00 Temperature Pulse Rate 87 91 H 82 Respiratory Rate 30 H 18 Blood Pressure 114/65 117/60 Pulse Oximetry 87 L 92 L 06/23/18 11:09 06/23/18 11:15 06/23/18 11:30 Temperature Pulse Rate 78 80 81 Respiratory Rate 16 17 20 Blood Pressure 119/63 121/64 Pulse Oximetry 95 94 L 91 L 06/23/18 11:45 06/23/18 12:00 06/23/18 12:01 Temperature 98.1 F Pulse Rate 83 84 79 Respiratory Rate 25 H 25 H 29 H Blood Pressure 125/71 122/94 H 122/94 H Pulse Oximetry 91 L 92 L 90 L 06/23/18 12:16 06/23/18 12:30 06/23/18 13:00 Temperature Pulse Rate 84 83 82 Respiratory Rate 25 H 26 H 31 H Blood Pressure 160/95 H 125/58 L 118/61 Pulse Oximetry 93 L 96 97 06/23/18 13:22 06/23/18 13:30 06/23/18 14:00 Temperature Pulse Rate 80 84 88 Respiratory Rate 53 H Blood Pressure 118/65 118/66 Pulse Oximetry 06/23/18 14:11 06/23/18 14:19 06/23/18 14:27 Temperature Pulse Rate 87 88 84 Respiratory Rate 37 H 38 H 28 H Blood Pressure 152/106 H 131/64 Pulse Oximetry 70 L 92 L 91 L 06/23/18 14:43 06/23/18 15:00 06/23/18 15:54 Temperature Pulse Rate 87 85 Respiratory Rate 26 H 18 Blood Pressure 133/67 119/58 L Pulse Oximetry 96 90 L 97 06/23/18 15:58 06/23/18 16:00 06/23/18 16:34 Temperature 98.2 F Pulse Rate 85 83 84 Respiratory Rate 15 16 23 Blood Pressure 123/62 Pulse Oximetry 96 93 L 06/23/18 16:40 06/23/18 16:52 06/23/18 17:00 Temperature Pulse Rate 83 83 83 Respiratory Rate 17 18 16 Blood Pressure 119/63 99/56 L Pulse Oximetry 91 L 93 L 98 06/23/18 17:23 06/23/18 18:00 06/23/18 19:00 Temperature Pulse Rate 80 87 Respiratory Rate 15 15 Blood Pressure 104/61 135/69 Pulse Oximetry 97 94 L 91 L 06/23/18 19:55 06/23/18 19:56 06/23/18 20:00 Temperature Pulse Rate 81 85 Respiratory Rate 19 19 21 Blood Pressure Pulse Oximetry 93 L 96 06/23/18 20:01 06/23/18 21:00 06/23/18 22:00 Temperature Pulse Rate 87 83 86 Respiratory Rate 24 12 12 Blood Pressure 166/83 H 109/60 109/61 Pulse Oximetry 94 L 94 L 95 06/23/18 23:00 06/23/18 23:10 06/23/18 23:14 Temperature Pulse Rate 80 79 79 Respiratory Rate 12 11 L 11 L Blood Pressure 95/55 L 94/57 L 96/57 L Pulse Oximetry 94 L 93 L 94 L 06/23/18 23:30 06/23/18 23:51 06/24/18 00:00 Temperature 98.5 F Pulse Rate 81 79 82 Respiratory Rate 16 21 13 Blood Pressure 119/67 116/59 L Pulse Oximetry 93 L 95 06/24/18 00:10 06/24/18 02:00 06/24/18 04:00 Temperature 100.3 F H Pulse Rate 82 84 Respiratory Rate 20 15 Blood Pressure 115/60 Pulse Oximetry 94 L 93 L 06/24/18 04:19 06/24/18 04:20 06/24/18 06:00 Temperature Pulse Rate 86 92 H Respiratory Rate 13 14 Blood Pressure Pulse Oximetry 93 L 92 L Intake & Output 06/23/18 06/24/18 06/24/18 18:59 06:59 18:59 Intake Total 1472 / 1472 708 / 708 Output Total 372 / 372 300 / 300 Balance 1100 / 1100 408 / 408 Weight 61.8 kg 28.44 kg Intake: IV 1350 / 1350 250 / 250 Diprivan 1000 mg/100 ml Inj 1, 200 / 200 150 / 150 000 mg In 100 ml @ 5 MCG/KG/MIN 2.042 mls/hr IV.CONT TITRATE PRN Rx#:[id number] NS Inj 1,000 ML @ 84 mls/hr IV. 1000 / 1000 CONT .[id number] N[facility]OLA Rx#:[id number] Zosyn 3.375 GM Premix 50 ML @ 50 / 50 100 / 100 100 mls/hr IV.SIG Q6H [facility] Rx#: [id number] Zosyn 4.5 GM Premix 4.5 gm In 100 / 100 100 ml @ 200 mls/hr IV.SIG Q8H [facility] Rx#:[id number] Tube Feeding 122 / 122 458 / 458 Output: Urine Amount (Catheter) 300 / 300 250 / 250 Indwelling Urethral Catheter 300 / 300 250 / 250 Chest Tube Drainage 72 / 72 50 / 50 #1 Left Upper Mid-Axillary 72 50 / 50 Chest Other: # Bowel Movements 0 Narrative: GENERAL: in NAD, SKIN: Warm and dry. HEAD: Atraumatic. Normocephalic. EYES: Pupils equal and round. No scleral icterus. ENT: No nasal bleeding or discharge. Mucous membranes pink and moist. NECK: Trachea midline. No JVD. CARDIOVASCULAR: Regular rate and rhythm. RESPIRATORY: No accessory muscle use. GASTROINTESTINAL: Abdomen soft, non-tender, nondistended. MUSCULOSKELETAL: Extremities without clubbing, cyanosis, or edema. No obvious deformities. NEUROLOGICAL: Intubated, on fentanyl and propofol, more awake, not following nonverbal, ou 2mm sluggish, right gaze preference, left hemiplegia PSYCHIATRIC: Calm - Constitutional no acute distress - Routine HEENT Exam Head: Present: normocephalic - Urinary Catheter Management Indwelling Urethral Catheter Cath placed during this visit: yes Reason for continuing: Hourly intake/output Insertion date: 06/22/18 Insertion time: 15:29 Objective Laboratory Results - last 24 hr 06/23/18 06/23/18 06/23/18 04:54 04:54 04:54 WBC RBC Hgb Hct MCV MCH MCHC RDW Plt Count MPV Prelim Diff (Auto) Neut % (Auto) Lymph % (Auto) [place] % (Auto) Eos % (Auto) Baso % (Auto) Neut # (Auto) Lymph # (Auto) [place] # (Auto) Eos # (Auto) Baso # (Auto) WBC Differential . Diff Scan Auto diff confirmed Seg Neuts % (Manual) Band Neuts % (Manual) Lymphocytes % (Manual) Monocytes % (Manual) Abs Neuts (Manual) Differential Comment Platelet Estimate Low L Platelet Morphology Normal RBC Morphology ESR Sodium Potassium Chloride Carbon Dioxide Anion Gap BUN Creatinine Estimated GFR POC Glucose Random Glucose Hemoglobin A1c 6.0 Calcium Phosphorus Magnesium Total Bilirubin AST ALT Alkaline Phosphatase Total Protein Albumin Triglycerides 327 H Cholesterol 205 H LDL Cholesterol, Calc 97 HDL Cholesterol 43.0 Cholesterol/HDL Ratio 4.76 Tumor Marker AFP Carcinoembryonic Ag CA 15-3 Antigen CA 19-9 Antigen CA 125 Antigen 06/23/18 06/23/18 06/23/18 09:25 09:25 09:25 WBC 22.0 H RBC 4.45 Hgb 13.1 Hct 39.5 MCV 88.8 MCH 29.4 MCHC 33.2 RDW 14.1 Plt Count 71 L MPV 10.4 Prelim Diff (Auto) Slide review pending Neut % (Auto) 85.4 H Lymph % (Auto) 5.8 L [place] % (Auto) 8.5 H Eos % (Auto) 0.0 Baso % (Auto) 0.3 Neut # (Auto) 18.8 H Lymph # (Auto) 1.3 S[place]y # (Auto) 1.9 H Eos # (Auto) 0.0 Baso # (Auto) 0.1 WBC Differential Manual diff final Diff Scan Seg Neuts % (Manual) 73 H Band Neuts % (Manual) 12 H Lymphocytes % (Manual) 6 L Monocytes % (Manual) 9 H Abs Neuts (Manual) 18.7 H Differential Comment . Platelet Estimate Low L Platelet Morphology Enlarged H RBC Morphology Normal ESR 10 Sodium 144 Potassium 3.3 L Chloride 109 H Carbon Dioxide 24.3 Anion Gap 11 BUN 31 H Creatinine 1.21 H Estimated GFR 43 L POC Glucose Random Glucose 153 H Hemoglobin A1c Calcium 8.0 L Phosphorus 3.1 Magnesium 2.1 Total Bilirubin 0.7 AST 51 H ALT 25 Alkaline Phosphatase 87 Total Protein 6.4 Albumin 2.8 L Triglycerides Cholesterol LDL Cholesterol, Calc HDL Cholesterol Cholesterol/HDL Ratio Tumor Marker AFP Carcinoembryonic Ag CA 15-3 Antigen CA 19-9 Antigen CA 125 Antigen 06/23/18 06/23/18 06/23/18 09:25 09:25 09:25 WBC RBC Hgb Hct MCV MCH MCHC RDW Plt Count MPV Prelim Diff (Auto) Neut % (Auto) Lymph % (Auto) [place] % (Auto) Eos % (Auto) Baso % (Auto) Neut # (Auto) Lymph # (Auto) [place] # (Auto) Eos # (Auto) Baso # (Auto) WBC Differential Diff Scan Seg Neuts % (Manual) Band Neuts % (Manual) Lymphocytes % (Manual) Monocytes % (Manual) Abs Neuts (Manual) Differential Comment Platelet Estimate Platelet Morphology RBC Morphology ESR Sodium Potassium Chloride Carbon Dioxide Anion Gap BUN Creatinine Estimated GFR POC Glucose Random Glucose Hemoglobin A1c 5.9 Calcium Phosphorus Magnesium Total Bilirubin AST ALT Alkaline Phosphatase Total Protein Albumin Triglycerides 494 H Cholesterol 225 H LDL Cholesterol, Calc HDL Cholesterol 45.3 Cholesterol/HDL Ratio 4.96 Tumor Marker AFP 13.3 H Carcinoembryonic Ag 41.3 H CA 15-3 Antigen 177.1 H CA 19-9 Antigen 593.6 H CA 125 Antigen 1091.1 H 06/23/18 06/23/18 06/23/18 11:27 17:22 23:37 WBC RBC Hgb Hct MCV MCH MCHC RDW Plt Count MPV Prelim Diff (Auto) Neut % (Auto) Lymph % (Auto) [place] % (Auto) Eos % (Auto) Baso % (Auto) Neut # (Auto) Lymph # (Auto) [place] # (Auto) Eos # (Auto) Baso # (Auto) WBC Differential Diff Scan Seg Neuts % (Manual) Band Neuts % (Manual) Lymphocytes % (Manual) Monocytes % (Manual) Abs Neuts (Manual) Differential Comment Platelet Estimate Platelet Morphology RBC Morphology ESR Sodium Potassium Chloride Carbon Dioxide Anion Gap BUN Creatinine Estimated GFR POC Glucose 97 114 H 161 H Random Glucose Hemoglobin A1c Calcium Phosphorus Magnesium Total Bilirubin AST ALT Alkaline Phosphatase Total Protein Albumin Triglycerides Cholesterol LDL Cholesterol, Calc HDL Cholesterol Cholesterol/HDL Ratio Tumor Marker AFP Carcinoembryonic Ag CA 15-3 Antigen CA 19-9 Antigen CA 125 Antigen 06/24/18 06:04 WBC RBC Hgb Hct MCV MCH MCHC RDW Plt Count MPV Prelim Diff (Auto) Neut % (Auto) Lymph % (Auto) [place] % (Auto) Eos % (Auto) Baso % (Auto) Neut # (Auto) Lymph # (Auto) [place] # (Auto) Eos # (Auto) Baso # (Auto) WBC Differential Diff Scan Seg Neuts % (Manual) Band Neuts % (Manual) Lymphocytes % (Manual) Monocytes % (Manual) Abs Neuts (Manual) Differential Comment Platelet Estimate Platelet Morphology RBC Morphology ESR Sodium Potassium Chloride Carbon Dioxide Anion Gap BUN Creatinine Estimated GFR POC Glucose 160 H Random Glucose Hemoglobin A1c Calcium Phosphorus Magnesium Total Bilirubin AST ALT Alkaline Phosphatase Total Protein Albumin Triglycerides Cholesterol LDL Cholesterol, Calc HDL Cholesterol Cholesterol/HDL Ratio Tumor Marker AFP Carcinoembryonic Ag CA 15-3 Antigen CA 19-9 Antigen CA 125 Antigen Review/Management - Diagnosis (1) Acute right MCA stroke Code(s): I63.511 - Cerebral infarction due to unspecified occlusion or stenosis of right middle cerebral artery Status: Acute Current Visit: Yes (2) Pulmonary embolism Code(s): I26.99 - Other pulmonary embolism without acute cor pulmonale Status : Acute Current Visit: Yes (3) Pneumothorax Code(s): J93.9 - Pneumothorax, unspecified Status: Acute Current Visit: Yes (4) Closed rib fracture Code(s): S22.39XA - Fracture of one rib, unspecified side, initial encounter for closed fracture Status: Acute Current Visit: Yes (5) DVT (deep venous thrombosis) Code(s): I82.409 - Acute embolism and thrombosis of unspecified deep veins of unspecified lower extremity Status: Acute Current Visit: Yes (6) Liver lesion Code(s): K76.9 - Liver disease, unspecified Status: Acute Current Visit: Yes - Review/Management Plan: Acute right MCA stroke Possibly related to hypercoagulable state she also has a concurrent pulmonary embolus; possible underlying neoplasm MRI brain scan reviewed right posterior MCA stroke. MRI brain showing distal MCA branch occlusion Echo normal Recommendations Carotid ultrasound pending I suspect she should have a reasonably favorable prognosis based on size and location of her stroke although serial exams off sedation will allow further investigation limit sedation as much as feasible/cpap trials Patient is critically ill (2) Pulmonary embolism Qualifiers: Pulmonary embolism type: other Chronicity: acute Acute cor pulmonale presence: without acute cor pulmonale Qualified Code(s): I26.99 - Other pulmonary embolism without acute cor pulmonale (3) Pneumothorax Qualifiers: Pneumothorax type: traumatic Encounter type: initial encounter Qualified Code(s): S27.0XXA - Traumatic pneumothorax, initial encounter (4) Closed rib fracture Qualifiers: Encounter type: initial encounter Rib fracture type: multiple ribs Laterality: left Qualified Code(s): S22.42XA - Multiple fractures of ribs, left side, initial encounter for closed fracture
[2018-06-24 08:20] LABS: Albumin 2.3 g/dL (3.4-5.0); Anion Gap 13 meq/L (5-15); Aspartate Aminotransferase 30 U/L (15-37); Blood Urea Nitrogen 33 mg/dL (7-18); Calcium 7.9 mg/dL (8.5-10.1); Carbon Dioxide 21.5 meq/L (21.0-32.0); Chloride 112 meq/L (98-107); Glomerular Filtration Rate 43 mL/min (>89); Glucose,Random 150 mg/dL (74-106); Magnesium 2.3 mg/dL (1.5-2.5); Potassium 3.5 meq/L (3.5-5.1); Sodium 146 meq/L (136-145)
[2018-06-24 08:22] LABS: Alanine Aminotransferase 21 U/L (10-53); Phosphorus 2.6 mg/dL (2.5-4.9)
[2018-06-24 08:24] LABS: Alkaline Phosphatase 95 U/L (45-117); Total Protein 5.7 g/dL (6.4-8.2)
--- NOTE | 2018-06-24 08:30 | XR ---
EXAM DATE: 06/24/2018 12:00 AM EDT AGE/SEX: 78 years / Female INDICATIONS: Cough. CLINICAL DATA: This is the patient's subsequent encounter. Patient reports that signs and symptoms h ave been present for 1 week and indicates a pain score of Nonresponsive. MEDICAL/SURGICAL HISTORY: Non-responsive. . Chest tube. COMPARISON: [facility] [place], CHEST 1V SINGLE AP, 06/23/2018. . FINDINGS: A single AP view of the chest demonstrates left basilar pleural-parenchymal density. Left-sided chest tube without significant pneumothorax. Subcutaneous emphysema laterally on the left. Cardiomegaly. E T tube and nasogastric tube are unchanged. The cardiomediastinal contours are unremarkable. Osseous structures are intact. CONCLUSION: Stable chest. Electronically signed by: Man Zimmerman MD 06/24/2018 8:29 AM EDT
[2018-06-24] MEDS ORDERED: Vancomycin Inj 1 GM/200 ML PIGGYBACK IV.SIG SCH (09:00)
--- NOTE | 2018-06-24 09:40 | US ---
EXAM DATE: 06/24/2018 8:01 AM EDT AGE/SEX: 78 years / Female INDICATIONS: Cerebrovascular accident. CLINICAL DATA: This is the patient's initial encounter. Patient reports that signs and symptoms have been present for 1 day and indicates a pain score of Nonresponsive. MEDICAL/SURGICAL HISTORY: Carcinoma, breast. Carcinoma, lung. Diverticulosis. Hypercholester olemia. Glaucoma. HTN. Osteoporosis. Hysterectomy. Appendectomy. Tonsillectomy. Bilateral salping o-oophorectomy. Right lung lobectomy. Right breast lumpectomy. Lung biopsy. Nevus removal. Rhinoplast y. Bilateral laser cataract surgery. COMPARISON: No prior exams available for comparison. VELOCITY PARAMETERS: ICA/CCA Ratio: Right 0.9 , Left 1.9 ICA: Right 97 cm/sec, Left 167 cm/sec CCA: Right 112 cm/sec, Left 88 cm/sec ECA: Right 94 cm/sec, Left 73 cm/sec Vertebral: Right 34 cm/sec antegrade, Left 43 cm/sec antegrade FINDINGS: Right Carotid: Mild arteriosclerotic plaque is visualized.The waveforms are within normal limits. Left Carotid: Mild arteriosclerotic plaque is visualized. The waveforms are within normal limits. Other: None. CONCLUSION: 1. No hemodynamic significant stenosis in right carotid artery. 2. There is an approximate 50-69% stenosis left internal carotid artery. Electronically signed by: Man Zimmerman MD 06/24/2018 9:38 AM EDT
[2018-06-24] MEDS: Senna/Docusate Sodium 8.6/50 MG Tablet PO SCH ×2 (09:50→20:17)
[2018-06-24] MEDS: Aspirin 300 MG Supp RECTAL SCH (09:50)
[2018-06-24] MEDS: Famotidine PF Inj 20 MG/2 ML Vial IV.PUSH SCH ×2 (09:51→20:17)
[2018-06-24] MEDS: Chlorhexidine 0.12% Oral Kit 15 ML UDC OROPHARYNG SCH ×2 (09:52→19:53)
[2018-06-24] MEDS ORDERED: Vancomycin Consult Pharmacy OTHER PRN (10:00)
--- NOTE | 2018-06-24 10:23 | P.PNGI ---
Subjective Interval history: Pt intubated and sedated. RN at bedside. Palliative care and oncology finding. <JohnluisDrakeRadha - Last Filed: 06/24/18 10:16> Physical Exam Vital signs: Vital Signs 06/23/18 10:47 06/23/18 11:00 06/23/18 11:09 Temperature Pulse Rate 91 H 82 78 Respiratory Rate 30 H 18 16 Blood Pressure 114/65 117/60 Pulse Oximetry 87 L 92 L 95 06/23/18 11:15 06/23/18 11:30 06/23/18 11:45 Temperature Pulse Rate 80 81 83 Respiratory Rate 17 20 25 H Blood Pressure 119/63 121/64 125/71 Pulse Oximetry 94 L 91 L 91 L 06/23/18 12:00 06/23/18 12:01 06/23/18 12:16 Temperature 98.1 F Pulse Rate 84 79 84 Respiratory Rate 25 H 29 H 25 H Blood Pressure 122/94 H 122/94 H 160/95 H Pulse Oximetry 92 L 90 L 93 L 06/23/18 12:30 06/23/18 13:00 06/23/18 13:22 Temperature Pulse Rate 83 82 80 Respiratory Rate 26 H 31 H 53 H Blood Pressure 125/58 L 118/61 118/65 Pulse Oximetry 96 97 06/23/18 13:30 06/23/18 14:00 06/23/18 14:11 Temperature Pulse Rate 84 88 87 Respiratory Rate 37 H Blood Pressure 118/66 Pulse Oximetry 70 L 06/23/18 14:19 06/23/18 14:27 06/23/18 14:43 Temperature Pulse Rate 88 84 Respiratory Rate 38 H 28 H Blood Pressure 152/106 H 131/64 Pulse Oximetry 92 L 91 L 96 06/23/18 15:00 06/23/18 15:54 06/23/18 15:58 Temperature Pulse Rate 87 85 85 Respiratory Rate 26 H 18 15 Blood Pressure 133/67 119/58 L Pulse Oximetry 90 L 97 96 06/23/18 16:00 06/23/18 16:34 06/23/18 16:40 Temperature 98.2 F Pulse Rate 83 84 83 Respiratory Rate 16 23 17 Blood Pressure 123/62 119/63 Pulse Oximetry 93 L 91 L 06/23/18 16:52 06/23/18 17:00 06/23/18 17:23 Temperature Pulse Rate 83 83 Respiratory Rate 18 16 Blood Pressure 99/56 L Pulse Oximetry 93 L 98 97 06/23/18 18:00 06/23/18 19:00 06/23/18 19:55 Temperature Pulse Rate 80 87 Respiratory Rate 15 15 19 Blood Pressure 104/61 135/69 Pulse Oximetry 94 L 91 L 93 L 06/23/18 19:56 06/23/18 20:00 06/23/18 20:01 Temperature Pulse Rate 81 85 87 Respiratory Rate 19 21 24 Blood Pressure 166/83 H Pulse Oximetry 96 94 L 06/23/18 21:00 06/23/18 22:00 06/23/18 23:00 Temperature Pulse Rate 83 86 80 Respiratory Rate 12 12 12 Blood Pressure 109/60 109/61 95/55 L Pulse Oximetry 94 L 95 94 L 06/23/18 23:10 06/23/18 23:14 06/23/18 23:30 Temperature Pulse Rate 79 79 81 Respiratory Rate 11 L 11 L 16 Blood Pressure 94/57 L 96/57 L 119/67 Pulse Oximetry 93 L 94 L 93 L 06/23/18 23:51 06/24/18 00:00 06/24/18 00:10 Temperature 98.5 F Pulse Rate 79 82 Respiratory Rate 21 13 20 Blood Pressure 116/59 L Pulse Oximetry 95 94 L 06/24/18 02:00 06/24/18 04:00 06/24/18 04:19 Temperature 100.3 F H Pulse Rate 82 84 86 Respiratory Rate 15 13 Blood Pressure 115/60 Pulse Oximetry 93 L 06/24/18 04:20 06/24/18 06:00 06/24/18 07:00 Temperature Pulse Rate 92 H 96 H Respiratory Rate 14 14 Blood Pressure Pulse Oximetry 93 L 92 L 06/24/18 08:00 Temperature Pulse Rate Respiratory Rate 25 H Blood Pressure Pulse Oximetry 90 L Intake & Output 06/23/18 06/24/18 06/24/18 18:59 06:59 18:59 Intake Total 1472 / 1472 708 / 708 Output Total 372 / 372 300 / 300 Balance 1100 / 1100 408 / 408 Weight 61.8 kg 28.44 kg 63.1 kg Intake: IV 1350 / 1350 250 / 250 Diprivan 1000 mg/100 ml Inj 1, 200 / 200 150 / 150 000 mg In 100 ml @ 5 MCG/KG/MIN 2.042 mls/hr IV.CONT TITRATE PRN Rx#:[id number] NS Inj 1,000 ML @ 84 mls/hr IV. 1000 / 1000 CONT .[id number] MATIAS Rx#:[id number] Zosyn 3.375 GM Premix 50 ML @ 50 / 50 100 / 100 100 mls/hr IV.SIG Q6H MATIAS Rx#: [id number] Zosyn 4.5 GM Premix 4.5 gm In 100 / 100 100 ml @ 200 mls/hr IV.SIG Q8H MATIAS Rx#:[id number] Tube Feeding 122 / 122 458 / 458 Output: Urine Amount (Catheter) 300 / 300 250 / 250 Indwelling Urethral Catheter 300 / 300 250 / 250 Chest Tube Drainage 72 / 72 50 / 50 #1 Left Upper Mid-Axillary 72 / 72 50 / 50 Chest Other: # Bowel Movements 0 - Routine HEENT Exam Head: Present: normocephalic - Routine Respiratory Exam Present: patient mechanically ventilated - Routine Abdominal Exam Present: soft, normoactive bowel sounds, distended - Routine Skin Exam Present: dry, warm - Routine Neurological Exam sedated, unresponsive - Urinary Catheter Management Indwelling Urethral Catheter Cath placed during this visit: yes Reason for continuing: Hourly intake/output Insertion date: 06/22/18 Insertion time: 15:29 <Radha Kirk - Last Filed: 06/24/18 10:16> Vital signs: Vital Signs 06/23/18 14:00 06/23/18 14:11 06/23/18 14:19 Temperature Pulse Rate 88 87 88 Respiratory Rate 37 H 38 H Blood Pressure 152/106 H Pulse Oximetry 70 L 92 L 06/23/18 14:27 06/23/18 14:43 06/23/18 15:00 Temperature Pulse Rate 84 87 Respiratory Rate 28 H 26 H Blood Pressure 131/64 133/67 Pulse Oximetry 91 L 96 90 L 06/23/18 15:54 06/23/18 15:58 06/23/18 16:00 Temperature 98.2 F Pulse Rate 85 85 83 Respiratory Rate 18 15 16 Blood Pressure 119/58 L 123/62 Pulse Oximetry 97 96 93 L 06/23/18 16:34 06/23/18 16:40 06/23/18 16:52 Temperature Pulse Rate 84 83 83 Respiratory Rate 23 17 18 Blood Pressure 119/63 Pulse Oximetry 91 L 93 L 06/23/18 17:00 06/23/18 17:23 06/23/18 18:00 Temperature Pulse Rate 83 80 Respiratory Rate 16 15 Blood Pressure 99/56 L 104/61 Pulse Oximetry 98 97 94 L 06/23/18 19:00 06/23/18 19:55 06/23/18 19:56 Temperature Pulse Rate 87 81 Respiratory Rate 15 19 19 Blood Pressure 135/69 Pulse Oximetry 91 L 93 L 06/23/18 20:00 06/23/18 20:01 06/23/18 21:00 Temperature Pulse Rate 85 87 83 Respiratory Rate 21 24 12 Blood Pressure 166/83 H 109/60 Pulse Oximetry 96 94 L 94 L 06/23/18 22:00 06/23/18 23:00 06/23/18 23:10 Temperature Pulse Rate 86 80 79 Respiratory Rate 12 12 11 L Blood Pressure 109/61 95/55 L 94/57 L Pulse Oximetry 95 94 L 93 L 06/23/18 23:14 06/23/18 23:30 06/23/18 23:51 Temperature Pulse Rate 79 81 79 Respiratory Rate 11 L 16 21 Blood Pressure 96/57 L 119/67 Pulse Oximetry 94 L 93 L 06/24/18 00:00 06/24/18 00:10 06/24/18 02:00 Temperature 98.5 F Pulse Rate 82 82 Respiratory Rate 13 20 Blood Pressure 116/59 L Pulse Oximetry 95 94 L 06/24/18 04:00 06/24/18 04:19 06/24/18 04:20 Temperature 100.3 F H Pulse Rate 84 86 Respiratory Rate 15 13 14 Blood Pressure 115/60 Pulse Oximetry 93 L 93 L 06/24/18 06:00 06/24/18 07:00 06/24/18 08:00 Temperature Pulse Rate 92 H 96 H 93 H Respiratory Rate 14 25 H Blood Pressure Pulse Oximetry 92 L 90 L 06/24/18 10:00 06/24/18 11:21 Temperature Pulse Rate 86 88 Respiratory Rate 16 Blood Pressure Pulse Oximetry Intake & Output 06/23/18 06/24/18 06/24/18 18:59 06:59 18:59 Intake Total 1472 / 1472 708 / 708 150 / 150 Output Total 372 / 372 300 / 300 Balance 1100 / 1100 408 / 408 150 / 150 Weight 61.8 kg 28.44 kg 63.1 kg Intake: IV 1350 / 1350 250 / 250 150 / 150 Diprivan 1000 mg/100 ml Inj 1, 200 / 200 150 / 150 100 / 100 000 mg In 100 ml @ 5 MCG/KG/MIN 2.042 mls/hr IV.CONT TITRATE PRN Rx#:[id number] NS Inj 1,000 ML @ 84 mls/hr IV. 1000 / 1000 CONT .[id number] MATIAS Rx#:[id number] Zosyn 3.375 GM Premix 50 ML @ 50 / 50 100 / 100 50 / 50 100 mls/hr IV.SIG Q6H MATIAS Rx#: [id number] Zosyn 4.5 GM Premix 4.5 gm In 100 / 100 100 ml @ 200 mls/hr IV.SIG Q8H MATIAS Rx#:[id number] Tube Feeding 122 / 122 458 / 458 Output: Urine Amount (Catheter) 300 / 300 250 / 250 Indwelling Urethral Catheter 300 / 300 250 / 250 Chest Tube Drainage 72 / 72 50 / 50 #1 Left Upper Mid-Axillary 72 / 72 50 / 50 Chest Other: # Bowel Movements 0 - Urinary Catheter Management Indwelling Urethral Catheter Cath placed during this visit: no <Wero Wadsworth - Last Filed: 06/24/18 13:59> Results - Labs CBC & Chem 7: 06/24/18 06:48 06/24/18 06:48 Laboratory Results - last 24 hr 06/23/18 06/23/18 06/23/18 04:54 09:25 09:25 WBC RBC Hgb Hct MCV MCH MCHC RDW Plt Count MPV Prelim Diff (Auto) Neut % (Auto) Lymph % (Auto) [place] % (Auto) Eos % (Auto) Baso % (Auto) Neut # (Auto) Lymph # (Auto) [place] # (Auto) Eos # (Auto) Baso # (Auto) WBC Differential Manual diff final Seg Neuts % (Manual) 73 H Band Neuts % (Manual) 12 H Lymphocytes % (Manual) 6 L Monocytes % (Manual) 9 H Abs Neuts (Manual) 18.7 H Differential Comment Platelet Estimate Low L Platelet Morphology Enlarged H RBC Morphology Normal ESR Sodium 144 Potassium 3.3 L Chloride 109 H Carbon Dioxide 24.3 Anion Gap 11 BUN 31 H Creatinine 1.21 H Estimated GFR 43 L POC Glucose Random Glucose 153 H Hemoglobin A1c 6.0 Calcium 8.0 L Phosphorus 3.1 Magnesium 2.1 Total Bilirubin 0.7 AST 51 H ALT 25 Alkaline Phosphatase 87 Total Protein 6.4 Albumin 2.8 L Triglycerides Cholesterol LDL Cholesterol, Calc HDL Cholesterol Cholesterol/HDL Ratio Tumor Marker AFP Carcinoembryonic Ag CA 15-3 Antigen CA 19-9 Antigen CA 125 Antigen 06/23/18 06/23/18 06/23/18 09:25 09:25 09:25 WBC RBC Hgb Hct MCV MCH MCHC RDW Plt Count MPV Prelim Diff (Auto) Neut % (Auto) Lymph % (Auto) [place] % (Auto) Eos % (Auto) Baso % (Auto) Neut # (Auto) Lymph # (Auto) [place] # (Auto) Eos # (Auto) Baso # (Auto) WBC Differential Seg Neuts % (Manual) Band Neuts % (Manual) Lymphocytes % (Manual) Monocytes % (Manual) Abs Neuts (Manual) Differential Comment Platelet Estimate Platelet Morphology RBC Morphology ESR 10 Sodium Potassium Chloride Carbon Dioxide Anion Gap BUN Creatinine Estimated GFR POC Glucose Random Glucose Hemoglobin A1c 5.9 Calcium Phosphorus Magnesium Total Bilirubin AST ALT Alkaline Phosphatase Total Protein Albumin Triglycerides 494 H Cholesterol 225 H LDL Cholesterol, Calc HDL Cholesterol 45.3 Cholesterol/HDL Ratio 4.96 Tumor Marker AFP 13.3 H Carcinoembryonic Ag 41.3 H CA 15-3 Antigen CA 19-9 Antigen CA 125 Antigen 06/23/18 06/23/18 06/23/18 09:25 11:27 17:22 WBC RBC Hgb Hct MCV MCH MCHC RDW Plt Count MPV Prelim Diff (Auto) Neut % (Auto) Lymph % (Auto) [place] % (Auto) Eos % (Auto) Baso % (Auto) Neut # (Auto) Lymph # (Auto) [place] # (Auto) Eos # (Auto) Baso # (Auto) WBC Differential Seg Neuts % (Manual) Band Neuts % (Manual) Lymphocytes % (Manual) Monocytes % (Manual) Abs Neuts (Manual) Differential Comment Platelet Estimate Platelet Morphology RBC Morphology ESR Sodium Potassium Chloride Carbon Dioxide Anion Gap BUN Creatinine Estimated GFR POC Glucose 97 114 H Random Glucose Hemoglobin A1c Calcium Phosphorus Magnesium Total Bilirubin AST ALT Alkaline Phosphatase Total Protein Albumin Triglycerides Cholesterol LDL Cholesterol, Calc HDL Cholesterol Cholesterol/HDL Ratio Tumor Marker AFP Carcinoembryonic Ag CA 15-3 Antigen 177.1 H CA 19-9 Antigen 593.6 H CA 125 Antigen 1091.1 H 06/23/18 06/24/18 06/24/18 23:37 06:04 06:48 WBC 23.8 H RBC 3.83 L Hgb 11.5 L Hct 34.7 L MCV 90.6 MCH 30.0 MCHC 33.2 RDW 14.3 Plt Count 55 L MPV 10.6 Prelim Diff (Auto) Slide review pending Neut % (Auto) 87.3 H Lymph % (Auto) 5.0 L [place] % (Auto) 7.5 Eos % (Auto) 0.1 Baso % (Auto) 0.1 Neut # (Auto) 20.8 H Lymph # (Auto) 1.2 [place] # (Auto) 1.8 H Eos # (Auto) 0.0 Baso # (Auto) 0.0 WBC Differential Seg Neuts % (Manual) Band Neuts % (Manual) Lymphocytes % (Manual) Monocytes % (Manual) Abs Neuts (Manual) Differential Comment . Platelet Estimate Platelet Morphology RBC Morphology ESR Sodium Potassium Chloride Carbon Dioxide Anion Gap BUN Creatinine Estimated GFR POC Glucose 161 H 160 H Random Glucose Hemoglobin A1c Calcium Phosphorus Magnesium Total Bilirubin AST ALT Alkaline Phosphatase Total Protein Albumin Triglycerides Cholesterol LDL Cholesterol, Calc HDL Cholesterol Cholesterol/HDL Ratio Tumor Marker AFP Carcinoembryonic Ag CA 15-3 Antigen CA 19-9 Antigen CA 125 Antigen 06/24/18 06:48 WBC RBC Hgb Hct MCV MCH MCHC RDW Plt Count MPV Prelim Diff (Auto) Neut % (Auto) Lymph % (Auto) [place] % (Auto) Eos % (Auto) Baso % (Auto) Neut # (Auto) Lymph # (Auto) [place] # (Auto) Eos # (Auto) Baso # (Auto) WBC Differential Seg Neuts % (Manual) Band Neuts % (Manual) Lymphocytes % (Manual) Monocytes % (Manual) Abs Neuts (Manual) Differential Comment Platelet Estimate Platelet Morphology RBC Morphology ESR Sodium 146 H Potassium 3.5 Chloride 112 H Carbon Dioxide 21.5 Anion Gap 13 BUN 33 H Creatinine 1.22 H Estimated GFR 43 L POC Glucose Random Glucose 150 H Hemoglobin A1c Calcium 7.9 L Phosphorus 2.6 Magnesium 2.3 Total Bilirubin 0.5 AST 30 ALT 21 Alkaline Phosphatase 95 Total Protein 5.7 L D Albumin 2.3 L Triglycerides Cholesterol LDL Cholesterol, Calc HDL Cholesterol Cholesterol/HDL Ratio Tumor Marker AFP Carcinoembryonic Ag CA 15-3 Antigen CA 19-9 Antigen CA 125 Antigen Microbiology 06/23/18 20:15 Sputum - Endotracheal Gram Stain - Final 06/23/18 11:05 Blood - Peripheral Anaerobic Blood Culture - Final QNS - See aerobic report. 06/23/18 10:50 Blood - Peripheral Anaerobic Blood Culture - Final QNS - See aerobic report. - Imaging Impressions Head MRI 06/23/18 00:00 CONCLUSION: 1. 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 2. There appear to be 2 punctate acute infarctions involving the right cerebellar hemisphere. This is best seen on the diffusion-weighted images. Head MRA 06/23/18 09:12 CONCLUSION: 1. Occlusion of the mid to distal right M1 segment with reconstitution of the proximal right M2 branches via collaterals. IVC Filter Placement X-Ray 06/23/18 09:20 CONCLUSION: 1. Uncomplicated inferior vena cava filter placement as above. Chest X-Ray 06/24/18 00:00 CONCLUSION: Stable chest. Carotid Doppler Study 06/24/18 08:01 CONCLUSION: 1. No hemodynamic significant stenosis in right carotid artery. 2. There is an approximate 50-69% stenosis left internal carotid artery. <Radha Kirk - Last Filed: 06/24/18 10:16> - Labs CBC & Chem 7: 06/24/18 06:48 06/24/18 06:48 Laboratory Results - last 24 hr 06/23/18 06/23/18 06/23/18 04:54 09:25 09:25 WBC RBC Hgb Hct MCV MCH MCHC RDW Plt Count MPV Prelim Diff (Auto) Neut % (Auto) Lymph % (Auto) [place] % (Auto) Eos % (Auto) Baso % (Auto) Neut # (Auto) Lymph # (Auto) [place] # (Auto) Eos # (Auto) Baso # (Auto) WBC Differential Seg Neuts % (Manual) Band Neuts % (Manual) Lymphocytes % (Manual) Monocytes % (Manual) Abs Neuts (Manual) Differential Comment Platelet Estimate Platelet Morphology RBC Morphology Sodium Potassium Chloride Carbon Dioxide Anion Gap BUN Creatinine Estimated GFR POC Glucose Random Glucose Hemoglobin A1c 6.0 5.9 Calcium Phosphorus Magnesium Total Bilirubin AST ALT Alkaline Phosphatase Total Protein Albumin CA 15-3 Antigen 177.1 H CA 19-9 Antigen 593.6 H CA 125 Antigen 1091.1 H 06/23/18 06/23/18 06/24/18 17:22 23:37 06:04 WBC RBC Hgb Hct MCV MCH MCHC RDW Plt Count MPV Prelim Diff (Auto) Neut % (Auto) Lymph % (Auto) [place] % (Auto) Eos % (Auto) Baso % (Auto) Neut # (Auto) Lymph # (Auto) [place] # (Auto) Eos # (Auto) Baso # (Auto) WBC Differential Seg Neuts % (Manual) Band Neuts % (Manual) Lymphocytes % (Manual) Monocytes % (Manual) Abs Neuts (Manual) Differential Comment Platelet Estimate Platelet Morphology RBC Morphology Sodium Potassium Chloride Carbon Dioxide Anion Gap BUN Creatinine Estimated GFR POC Glucose 114 H 161 H 160 H Random Glucose Hemoglobin A1c Calcium Phosphorus Magnesium Total Bilirubin AST ALT Alkaline Phosphatase Total Protein Albumin CA 15-3 Antigen CA 19-9 Antigen CA 125 Antigen 06/24/18 06/24/18 06/24/18 06:48 06:48 12:04 WBC 23.8 H RBC 3.83 L Hgb 11.5 L Hct 34.7 L MCV 90.6 MCH 30.0 MCHC 33.2 RDW 14.3 Plt Count 55 L MPV 10.6 Prelim Diff (Auto) Slide review pending Neut % (Auto) 87.3 H Lymph % (Auto) 5.0 L [place] % (Auto) 7.5 Eos % (Auto) 0.1 Baso % (Auto) 0.1 Neut # (Auto) 20.8 H Lymph # (Auto) 1.2 [place] # (Auto) 1.8 H Eos # (Auto) 0.0 Baso # (Auto) 0.0 WBC Differential Manual diff final Seg Neuts % (Manual) 80 H Band Neuts % (Manual) 13 H Lymphocytes % (Manual) 2 L Monocytes % (Manual) 5 Abs Neuts (Manual) 22.1 H Differential Comment . Platelet Estimate Low L Platelet Morphology Normal RBC Morphology Normal Sodium 146 H Potassium 3.5 Chloride 112 H Carbon Dioxide 21.5 Anion Gap 13 BUN 33 H Creatinine 1.22 H Estimated GFR 43 L POC Glucose 169 H Random Glucose 150 H Hemoglobin A1c Calcium 7.9 L Phosphorus 2.6 Magnesium 2.3 Total Bilirubin 0.5 AST 30 ALT 21 Alkaline Phosphatase 95 Total Protein 5.7 L D Albumin 2.3 L CA 15-3 Antigen CA 19-9 Antigen CA 125 Antigen Microbiology 06/23/18 11:05 Blood - Peripheral Aerobic Blood Culture - Preliminary No growth in 1 day 06/23/18 11:05 Blood - Peripheral Anaerobic Blood Culture - Final QNS - See aerobic report. 06/23/18 10:50 Blood - Peripheral Aerobic Blood Culture - Preliminary No growth in 1 day 06/23/18 10:50 Blood - Peripheral Anaerobic Blood Culture - Final QNS - See aerobic report. 06/23/18 20:15 Sputum - Endotracheal Gram Stain - Final - Imaging Impressions Head MRI 06/23/18 00:00 CONCLUSION: 1. 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 2. There appear to be 2 punctate acute infarctions involving the right cerebellar hemisphere. This is best seen on the diffusion-weighted images. Head MRA 06/23/18 09:12 CONCLUSION: 1. Occlusion of the mid to distal right M1 segment with reconstitution of the proximal right M2 branches via collaterals. IVC Filter Placement X-Ray 06/23/18 09:20 CONCLUSION: 1. Uncomplicated inferior vena cava filter placement as above. Chest X-Ray 06/24/18 00:00 CONCLUSION: Stable chest. Carotid Doppler Study 06/24/18 08:01 CONCLUSION: 1. No hemodynamic significant stenosis in right carotid artery. 2. There is an approximate 50-69% stenosis left internal carotid artery. <Wero Wadsworth - Last Filed: 06/24/18 13:59> Assessment and Plan (1) Liver lesion Status: Acute Code(s): K76.9 - Liver disease, unspecified - Plan Assessment: - Liver lesions noted on imaging with concern for malignancy CTA thoracic aorta --> 2 hepatic masses worrisome for metastatic disease. These are limited in their evaluation on this study due to the arterial phase of the exam. Consider MRI of the liver to further assess if clinically warranted. Tumor markers - AFP-13.3 CA 19-9 593.6 Oncology is currently following, pt too unstable for MRI. Palliative care is also following, planning for family meeting today. - Multiple emboli likely from hypercoagulable state likely from malignancy Plan: Oncology following Too unstable for MRI Nothing to add from a GI standpoint Our service will sign off Please reconsult if needed Pt has been seen and examined by myself and Dr. Wadsworth and this note is written on his behalf <Radha Kirk - Last Filed: 06/24/18 10:16> (1) Liver lesion Status: Acute Code(s): K76.9 - Liver disease, unspecified - Plan Seen and examined with [facility] [employer], too unstable for gi orta. Obtain MRI when able. GI will sign off, reconsult as needed. Thank you The exam, history, and the medical decision-making described in the above note were completed with the assistance of the mid-level provider. I reviewed and agree with the findings presented. I attest that I had a [id number] encounter with the patient on the same day, and personally performed and documented my assessment and findings in the medical record. <Wero Wadsworth - Last Filed: 06/24/18 13:59>
[2018-06-24] MEDS ORDERED: Vancomycin Inj 750 MG in Sodium Chlor 0.9% Inj 250 ML IV.SIG ONE (11:00)
[2018-06-24] MEDS ORDERED: Vancomycin Inj 1,250 MG in Sodium Chlor 0.9% Inj 250 ML IV.SIG ONE (12:00)
[2018-06-24 12:23] LABS: Lymphocytes 2 % (9-44); Monocytes 5 % (0-8); Platelet Morphology Normal (Normal); RBC Morphology Normal (Normal)
--- NOTE | 2018-06-24 12:33 | P.PNPAL ---
Reason for Visit Reason for visit: a. To assist with evaluation and management of symptoms including: pain, dyspnea b. To assist medical decision maker(s) with: better understanding of current medical conditions; weighing benefits/burdens of medical treatment options; making medical treatment decisions. Subjective Subjective/Interval History: Patient seen and examined in ICU. No family or friends present. Patient remains sedated (Fentanyl 50 and Propofol 40) on mech vent. Nurse reports episode of desaturations overnight with need to increase FiO2 to 100%, currently on vent with FiO2 90%. Carotid doppler ultrasound without significant right carotid artery stenosis, left carotid artery with 50-69% stenosis. Chest x-ray stable. WBC 23.8, hemoglobin 11.5, platelets continue to drop now 55. Creatinine stable 1.22. Albumin 2.3. Blood culture no growth 1 day, sputum culture pending. Patient has mottling left foot with palpable pulses. Nurse reports no pulse in right wrist. Gastroenterology has signed off. Dr. Woodson notes indicate reasonably favorable prognosis based on size and location of stroke. I appreciate his input. Spoke with Dr. Turcios to notify records were placed on chart with recent follow up notes regarding lung cancer. Advised to let me know if he needs additional information. He indicates he will order CT chest/ abdomen and pelvis to evaluate for source/ extent of cancer given elevated tumor markers and hypercoagulable state likely secondary to malignancy. Family/Friend Interactions: Spoke with Cari Dumas via phone. Medical update provided. Reviewed increased FiO2 needs overnight, test results, Dr. Woodson thoughts regarding prognosis, plan for additional imaging to evaluate source/ extent of cancer. Explained we need additional information for further prognositication. Explained the coming days and test results will provide better ability to prognosticate clearly. Advised the concern for being able to wean from mech vent given long smoking history, 6 months history of pneumonia, underlying PE, rib fractures and emphysema, Cari agrees. Cari will visit sometime 06/25/18, she will notify me before she arrives so we can meet again for update. Advance Directives Advance Directives Date on File: 12/04/89 Health Care Surrogate Name and Number: Cari Dumas, friend: [phone] Documented care wishes:: Living Will states that if she is unable to participate in decisions concerning her life: if no reasonable expectation for recovery from extreme physical or mental disability that she directs she be allowed to , not be kept alive by medications, artificial means, life support or heroic measures. She asks that medication be administered to alleviate suffering even though this may shorten her remaining life. She also indicates she hopes to live out her last days at home rather than n the the hospital if it does not jeopardize the chance of recovery to a meaningful and conscious life and does not impose an undue burden on my family. Significant change in goals:: NO CODE. Continue aggressive care short of NO CODE for now. Objective Vital Signs: Vital Signs 06/23/18 12:30 06/23/18 13:00 06/23/18 13:22 Temperature Pulse Rate 83 82 80 Respiratory Rate 26 H 31 H 53 H Blood Pressure 125/58 L 118/61 118/65 Pulse Oximetry 96 97 06/23/18 13:30 06/23/18 14:00 06/23/18 14:11 Temperature Pulse Rate 84 88 87 Respiratory Rate 37 H Blood Pressure 118/66 Pulse Oximetry 70 L 06/23/18 14:19 06/23/18 14:27 06/23/18 14:43 Temperature Pulse Rate 88 84 Respiratory Rate 38 H 28 H Blood Pressure 152/106 H 131/64 Pulse Oximetry 92 L 91 L 96 06/23/18 15:00 06/23/18 15:54 06/23/18 15:58 Temperature Pulse Rate 87 85 85 Respiratory Rate 26 H 18 15 Blood Pressure 133/67 119/58 L Pulse Oximetry 90 L 97 96 06/23/18 16:00 06/23/18 16:34 06/23/18 16:40 Temperature 98.2 F Pulse Rate 83 84 83 Respiratory Rate 16 23 17 Blood Pressure 123/62 119/63 Pulse Oximetry 93 L 91 L 06/23/18 16:52 06/23/18 17:00 06/23/18 17:23 Temperature Pulse Rate 83 83 Respiratory Rate 18 16 Blood Pressure 99/56 L Pulse Oximetry 93 L 98 97 06/23/18 18:00 06/23/18 19:00 06/23/18 19:55 Temperature Pulse Rate 80 87 Respiratory Rate 15 15 19 Blood Pressure 104/61 135/69 Pulse Oximetry 94 L 91 L 93 L 06/23/18 19:56 06/23/18 20:00 06/23/18 20:01 Temperature Pulse Rate 81 85 87 Respiratory Rate 19 21 24 Blood Pressure 166/83 H Pulse Oximetry 96 94 L 06/23/18 21:00 06/23/18 22:00 06/23/18 23:00 Temperature Pulse Rate 83 86 80 Respiratory Rate 12 12 12 Blood Pressure 109/60 109/61 95/55 L Pulse Oximetry 94 L 95 94 L 06/23/18 23:10 06/23/18 23:14 06/23/18 23:30 Temperature Pulse Rate 79 79 81 Respiratory Rate 11 L 11 L 16 Blood Pressure 94/57 L 96/57 L 119/67 Pulse Oximetry 93 L 94 L 93 L 06/23/18 23:51 06/24/18 00:00 06/24/18 00:10 Temperature 98.5 F Pulse Rate 79 82 Respiratory Rate 21 13 20 Blood Pressure 116/59 L Pulse Oximetry 95 94 L 06/24/18 02:00 06/24/18 04:00 06/24/18 04:19 Temperature 100.3 F H Pulse Rate 82 84 86 Respiratory Rate 15 13 Blood Pressure 115/60 Pulse Oximetry 93 L 06/24/18 04:20 06/24/18 06:00 06/24/18 07:00 Temperature Pulse Rate 92 H 96 H Respiratory Rate 14 14 Blood Pressure Pulse Oximetry 93 L 92 L 06/24/18 08:00 06/24/18 10:00 06/24/18 11:21 Temperature Pulse Rate 93 H 86 88 Respiratory Rate 25 H 16 Blood Pressure Pulse Oximetry 90 L Intake & Output 06/23/18 06/24/18 06/24/18 18:59 06:59 18:59 Intake Total 1472 / 1472 708 / 708 150 / 150 Output Total 372 / 372 300 / 300 Balance 1100 / 1100 408 / 408 150 / 150 Weight 61.8 kg 28.44 kg 63.1 kg Intake: IV 1350 / 1350 250 / 250 150 / 150 Diprivan 1000 mg/100 ml Inj 1, 200 / 200 150 / 150 100 / 100 000 mg In 100 ml @ 5 MCG/KG/MIN 2.042 mls/hr IV.CONT TITRATE PRN Rx#:[id number] NS Inj 1,000 ML @ 84 mls/hr IV. 1000 / 1000 CONT .[id number] [facility] Rx#:[id number] Zosyn 3.375 GM Premix 50 ML @ 50 / 50 100 / 100 50 / 50 100 mls/hr IV.SIG Q6H MATIAS Rx#: [id number] Zosyn 4.5 GM Premix 4.5 gm In 100 / 100 100 ml @ 200 mls/hr IV.SIG Q8H MATIAS Rx#:[id number] Tube Feeding 122 / 122 458 / 458 Output: Urine Amount (Catheter) 300 / 300 250 / 250 Indwelling Urethral Catheter 300 / 300 250 / 250 Chest Tube Drainage / 72 50 / 50 #1 Left Upper Mid-Axillary 50 / 50 Chest Other: # Bowel Movements 0 Physical Exam: CONSTITUTIONAL/GENERAL: This is an adequately nourished patient, sedated on [facility] vent. TUBES/LINES/DRAINS: ETT, OG, PIVs, left chest tube, Siddiqi, bilateral soft wrist restraints. SKIN: No jaundice, rashes, or lesions. Ecchymoses on upper extremities, bilateral knees and left hip. EYES: Pupils equal and round. ENT: Unable to assess hearing. Nose without bleeding or purulent drainage. Throat difficult to visualize due to tubes. CARDIOVASCULAR: Regular rate and rhythm. RESPIRATORY/CHEST: Left chest tube. Mildly labored respirations on vent. crackles. diminished breath sounds. GASTROINTESTINAL: Abdomen soft, non-tender, nondistended. Bowel sounds present. Easily reducible, soft hernia right upper abdomen. GENITOURINARY: Without palpable bladder distension. Siddiqi catheter in place. MUSCULOSKELETAL: Extremities without clubbing edema. Mottling noted left foot, cool to touch. Right hand fingertip cyanosis noted. NEUROLOGICAL: Sedated on vent. Withdraws to painful stimuli right UE and bilateral LEs. Left arm flaccid. PSYCHIATRIC: Sedated. Diagnostic Tests Laboratory: Laboratory Results - last 72 hr 06/22/18 06/22/18 06/22/18 14:00 14:00 14:00 WBC 31.0 H RBC 5.00 Hgb 14.6 POC Hgb (Calc) Hct 43.9 POC Hct MCV 87.7 MCH 29.2 MCHC 33.3 RDW 14.1 Plt Count 124 L MPV 10.0 Prelim Diff (Auto) Slide review pending Neut % (Auto) 84.0 H Lymph % (Auto) 7.3 L [place] % (Auto) 8.4 H Eos % (Auto) 0.0 Baso % (Auto) 0.3 Neut # (Auto) 26.1 H Lymph # (Auto) 2.3 [place] # (Auto) 2.6 H Eos # (Auto) 0.0 Baso # (Auto) 0.1 WBC Differential Manual diff final Diff Scan Seg Neuts % (Manual) 86 H Band Neuts % (Manual) 2 Lymphocytes % (Manual) 4 L Monocytes % (Manual) 8 Abs Neuts (Manual) 27.3 H Differential Comment . Platelet Estimate Low L Platelet Morphology Normal RBC Morphology ESR PT 11.9 H INR 1.2 APTT 23.6 L Puncture Site Patient Temperature O2 Saturation ABG pH ABG pCO2 ABG pO2 ABG HCO3 ABG O2 Content ABG Base Excess ABG Methemoglobin Jay Test Hemoglobin Carboxyhemoglobin O2 Delivery Device Vent Setting Inspired O2 Critical Value POC Sodium Sodium POC Potassium Potassium POC Chloride Chloride Carbon Dioxide Anion Gap POC BUN BUN Creatinine POC Creatinine Estimated GFR POC Glucose Random Glucose Hemoglobin A1c Calcium Phosphorus Magnesium Total Bilirubin AST ALT Alkaline Phosphatase Total Creatine Kinase CK-MB (CK-2) CK-MB (CK-2) % Troponin I 0.29 H Total Protein Albumin Triglycerides Cholesterol LDL Cholesterol, Calc HDL Cholesterol Cholesterol/HDL Ratio Tumor Marker AFP Carcinoembryonic Ag CA 15-3 Antigen CA 19-9 Antigen CA 125 Antigen Urine Color Urine Clarity Urine pH Ur Specific [place] Urine Protein Urine Glucose (UA) Urine Ketones Urine Occult Blood Urine Nitrate Urine Bilirubin Urine Urobilinogen Ur Leukocyte Esterase Urine RBC Urine WBC Ur Squamous Epith Cells Urine Mucus Micro UA Comment Ur Microscopic Review Urine Culture Comments Nasal Screen MRSA (PCR) Serum Alcohol Less than 3 Blood Type Antibody Screen 06/22/18 06/22/18 06/22/18 14:00 14:00 16:28 WBC RBC Hgb POC Hgb (Calc) 13.6 Hct POC Hct 40.0 MCV MCH MCHC RDW Plt Count MPV Prelim Diff (Auto) Neut % (Auto) Lymph % (Auto) [place] % (Auto) Eos % (Auto) Baso % (Auto) Neut # (Auto) Lymph # (Auto) [place] # (Auto) Eos # (Auto) Baso # (Auto) WBC Differential Diff Scan Seg Neuts % (Manual) Band Neuts % (Manual) Lymphocytes % (Manual) Monocytes % (Manual) Abs Neuts (Manual) Differential Comment Platelet Estimate Platelet Morphology RBC Morphology ESR PT INR APTT Puncture Site Left radial Patient Temperature 98.6 O2 Saturation 98 ABG pH 7.34 L ABG pCO2 40 ABG pO2 172 H ABG HCO3 21 L ABG O2 Content 19.4 ABG Base Excess -3.9 L ABG Methemoglobin 0.7 Jay Test Present Hemoglobin 14.0 Carboxyhemoglobin 0.9 O2 Delivery Device Ventilator Vent Setting Inspired O2 100 Critical Value No POC Sodium 141 Sodium POC Potassium 3.1 L Potassium POC Chloride 108 Chloride Carbon Dioxide Anion Gap POC BUN 32 H BUN Creatinine POC Creatinine 1.2 Estimated GFR POC Glucose 148 H Random Glucose Hemoglobin A1c Calcium Phosphorus Magnesium Total Bilirubin AST ALT Alkaline Phosphatase Total Creatine Kinase CK-MB (CK-2) CK-MB (CK-2) % Troponin I Total Protein Albumin Triglycerides Cholesterol LDL Cholesterol, Calc HDL Cholesterol Cholesterol/HDL Ratio Tumor Marker AFP Carcinoembryonic Ag CA 15-3 Antigen CA 19-9 Antigen CA 125 Antigen Urine Color Urine Clarity Urine pH Ur Specific [place] Urine Protein Urine Glucose (UA) Urine Ketones Urine Occult Blood Urine Nitrate Urine Bilirubin Urine Urobilinogen Ur Leukocyte Esterase Urine RBC Urine WBC Ur Squamous Epith Cells Urine Mucus Micro UA Comment Ur Microscopic Review Urine Culture Comments Nasal Screen MRSA (PCR) Serum Alcohol Blood Type O Positive Antibody Screen Negative 06/22/18 06/22/18 06/22/18 16:30 18:49 23:59 WBC RBC Hgb POC Hgb (Calc) Hct POC Hct MCV MCH MCHC RDW Plt Count MPV Prelim Diff (Auto) Neut % (Auto) Lymph % (Auto) [place] % (Auto) Eos % (Auto) Baso % (Auto) Neut # (Auto) Lymph # (Auto) [place] # (Auto) Eos # (Auto) Baso # (Auto) WBC Differential Diff Scan Seg Neuts % (Manual) Band Neuts % (Manual) Lymphocytes % (Manual) Monocytes % (Manual) Abs Neuts (Manual) Differential Comment Platelet Estimate Platelet Morphology RBC Morphology ESR PT INR APTT Puncture Site Patient Temperature O2 Saturation ABG pH ABG pCO2 ABG pO2 ABG HCO3 ABG O2 Content ABG Base Excess ABG Methemoglobin Jay Test Hemoglobin Carboxyhemoglobin O2 Delivery Device Vent Setting Inspired O2 Critical Value POC Sodium Sodium POC Potassium Potassium POC Chloride Chloride Carbon Dioxide Anion Gap POC BUN BUN Creatinine POC Creatinine Estimated GFR POC Glucose Random Glucose Hemoglobin A1c Calcium Phosphorus Magnesium Total Bilirubin AST ALT Alkaline Phosphatase Total Creatine Kinase 470 H CK-MB (CK-2) 20.2 H CK-MB (CK-2) % 4.3 H* Troponin I 0.64 H* D Total Protein Albumin Triglycerides Cholesterol LDL Cholesterol, Calc HDL Cholesterol Cholesterol/HDL Ratio Tumor Marker AFP Carcinoembryonic Ag CA 15-3 Antigen CA 19-9 Antigen CA 125 Antigen Urine Color [place]ancie Urine Clarity Cloudy H Urine pH 5.0 Ur Specific [place] 1.021 Urine Protein 100 H Urine Glucose (UA) Negative Urine Ketones Trace H Urine Occult Blood Large H Urine Nitrate Negative Urine Bilirubin Negative Urine Urobilinogen Less than 2 Ur Leukocyte Esterase Negative Urine RBC 37 H Urine WBC 3 Ur Squamous Epith Cells 2 Urine Mucus Few H Micro UA Comment Culture not ind Ur Microscopic Review Not Reportable Urine Culture Comments Culture not ind Nasal Screen MRSA (PCR) Not detected Serum Alcohol Blood Type Antibody Screen 06/23/18 06/23/18 06/23/18 04:54 04:54 04:54 WBC 22.1 H RBC 4.46 Hgb 13.1 POC Hgb (Calc) Hct 39.7 POC Hct MCV 89.0 MCH 29.3 MCHC 32.9 RDW 13.6 Plt Count 77 L D MPV 10.0 Prelim Diff (Auto) Slide review pending Neut % (Auto) 83.3 H Lymph % (Auto) 6.9 L [place] % (Auto) 9.7 H Eos % (Auto) 0.0 Baso % (Auto) 0.1 Neut # (Auto) 18.4 H Lymph # (Auto) 1.5 [place] # (Auto) 2.1 H Eos # (Auto) 0.0 Baso # (Auto) 0.0 WBC Differential . Diff Scan Auto diff confirmed Seg Neuts % (Manual) Band Neuts % (Manual) Lymphocytes % (Manual) Monocytes % (Manual) Abs Neuts (Manual) Differential Comment . Platelet Estimate Low L Platelet Morphology Normal RBC Morphology ESR PT 11.5 INR 1.1 APTT 25.5 Puncture Site Patient Temperature O2 Saturation ABG pH ABG pCO2 ABG pO2 ABG HCO3 ABG O2 Content ABG Base Excess ABG Methemoglobin Jay Test Hemoglobin Carboxyhemoglobin O2 Delivery Device Vent Setting Inspired O2 Critical Value POC Sodium Sodium 145 POC Potassium Potassium 3.1 L POC Chloride Chloride 109 H Carbon Dioxide 23.4 Anion Gap 13 POC BUN BUN 32 H Creatinine 1.23 H POC Creatinine Estimated GFR 42 L POC Glucose Random Glucose 104 Hemoglobin A1c Calcium 8.0 L Phosphorus 3.6 Magnesium 2.0 Total Bilirubin 0.6 AST 43 H ALT 22 Alkaline Phosphatase 85 Total Creatine Kinase CK-MB (CK-2) CK-MB (CK-2) % Troponin I 0.56 H Total Protein 6.3 L Albumin 2.8 L Triglycerides 322 H Cholesterol 209 H LDL Cholesterol, Calc 100 H HDL Cholesterol 44.9 Cholesterol/HDL Ratio 4.65 Tumor Marker AFP Carcinoembryonic Ag CA 15-3 Antigen CA 19-9 Antigen CA 125 Antigen Urine Color Urine Clarity Urine pH Ur Specific [place] Urine Protein Urine Glucose (UA) Urine Ketones Urine Occult Blood Urine Nitrate Urine Bilirubin Urine Urobilinogen Ur Leukocyte Esterase Urine RBC Urine WBC Ur Squamous Epith Cells Urine Mucus Micro UA Comment Ur Microscopic Review Urine Culture Comments Nasal Screen MRSA (PCR) Serum Alcohol Blood Type Antibody Screen 06/23/18 06/23/18 06/23/18 04:54 04:54 09:25 WBC 22.0 H RBC 4.45 Hgb 13.1 POC Hgb (Calc) Hct 39.5 POC Hct MCV 88.8 MCH 29.4 MCHC 33.2 RDW 14.1 Plt Count 71 L MPV 10.4 Prelim Diff (Auto) Slide review pending Neut % (Auto) 85.4 H Lymph % (Auto) 5.8 L [place] % (Auto) 8.5 H Eos % (Auto) 0.0 Baso % (Auto) 0.3 Neut # (Auto) 18.8 H Lymph # (Auto) 1.3 [place] # (Auto) 1.9 H Eos # (Auto) 0.0 Baso # (Auto) 0.1 WBC Differential Manual diff final Diff Scan Seg Neuts % (Manual) 73 H Band Neuts % (Manual) 12 H Lymphocytes % (Manual) 6 L Monocytes % (Manual) 9 H Abs Neuts (Manual) 18.7 H Differential Comment . Platelet Estimate Low L Platelet Morphology Enlarged H RBC Morphology Normal ESR PT INR APTT Puncture Site Patient Temperature O2 Saturation ABG pH ABG pCO2 ABG pO2 ABG HCO3 ABG O2 Content ABG Base Excess ABG Methemoglobin Jay Test Hemoglobin Carboxyhemoglobin O2 Delivery Device Vent Setting Inspired O2 Critical Value POC Sodium Sodium POC Potassium Potassium POC Chloride Chloride Carbon Dioxide Anion Gap POC BUN BUN Creatinine POC Creatinine Estimated GFR POC Glucose Random Glucose Hemoglobin A1c 6.0 Calcium Phosphorus Magnesium Total Bilirubin AST ALT Alkaline Phosphatase Total Creatine Kinase CK-MB (CK-2) CK-MB (CK-2) % Troponin I Total Protein Albumin Triglycerides 327 H Cholesterol 205 H LDL Cholesterol, Calc 97 HDL Cholesterol 43.0 Cholesterol/HDL Ratio 4.76 Tumor Marker AFP Carcinoembryonic Ag CA 15-3 Antigen CA 19-9 Antigen CA 125 Antigen Urine Color Urine Clarity Urine pH Ur Specific [place] Urine Protein Urine Glucose (UA) Urine Ketones Urine Occult Blood Urine Nitrate Urine Bilirubin Urine Urobilinogen Ur Leukocyte Esterase Urine RBC Urine WBC Ur Squamous Epith Cells Urine Mucus Micro UA Comment Ur Microscopic Review Urine Culture Comments Nasal Screen MRSA (PCR) Serum Alcohol Blood Type Antibody Screen 06/23/18 06/23/18 06/23/18 09:25 09:25 09:25 WBC RBC Hgb POC Hgb (Calc) Hct POC Hct MCV MCH MCHC RDW Plt Count MPV Prelim Diff (Auto) Neut % (Auto) Lymph % (Auto) [place] % (Auto) Eos % (Auto) Baso % (Auto) Neut # (Auto) Lymph # (Auto) [place] # (Auto) Eos # (Auto) Baso # (Auto) WBC Differential Diff Scan Seg Neuts % (Manual) Band Neuts % (Manual) Lymphocytes % (Manual) Monocytes % (Manual) Abs Neuts (Manual) Differential Comment Platelet Estimate Platelet Morphology RBC Morphology ESR 10 PT INR APTT Puncture Site Patient Temperature O2 Saturation ABG pH ABG pCO2 ABG pO2 ABG HCO3 ABG O2 Content ABG Base Excess ABG Methemoglobin Jay Test Hemoglobin Carboxyhemoglobin O2 Delivery Device Vent Setting Inspired O2 Critical Value POC Sodium Sodium 144 POC Potassium Potassium 3.3 L POC Chloride Chloride 109 H Carbon Dioxide 24.3 Anion Gap 11 POC BUN BUN 31 H Creatinine 1.21 H POC Creatinine Estimated GFR 43 L POC Glucose Random Glucose 153 H Hemoglobin A1c 5.9 Calcium 8.0 L Phosphorus 3.1 Magnesium 2.1 Total Bilirubin 0.7 AST 51 H ALT 25 Alkaline Phosphatase 87 Total Creatine Kinase CK-MB (CK-2) CK-MB (CK-2) % Troponin I Total Protein 6.4 Albumin 2.8 L Triglycerides Cholesterol LDL Cholesterol, Calc HDL Cholesterol Cholesterol/HDL Ratio Tumor Marker AFP Carcinoembryonic Ag CA 15-3 Antigen CA 19-9 Antigen CA 125 Antigen Urine Color Urine Clarity Urine pH Ur Specific [place] Urine Protein Urine Glucose (UA) Urine Ketones Urine Occult Blood Urine Nitrate Urine Bilirubin Urine Urobilinogen Ur Leukocyte Esterase Urine RBC Urine WBC Ur Squamous Epith Cells Urine Mucus Micro UA Comment Ur Microscopic Review Urine Culture Comments Nasal Screen MRSA (PCR) Serum Alcohol Blood Type Antibody Screen 06/23/18 06/23/18 06/23/18 09:25 09:25 11:27 WBC RBC Hgb POC Hgb (Calc) Hct POC Hct MCV MCH MCHC RDW Plt Count MPV Prelim Diff (Auto) Neut % (Auto) Lymph % (Auto) [place] % (Auto) Eos % (Auto) Baso % (Auto) Neut # (Auto) Lymph # (Auto) [place] # (Auto) Eos # (Auto) Baso # (Auto) WBC Differential Diff Scan Seg Neuts % (Manual) Band Neuts % (Manual) Lymphocytes % (Manual) Monocytes % (Manual) Abs Neuts (Manual) Differential Comment Platelet Estimate Platelet Morphology RBC Morphology ESR PT INR APTT Puncture Site Patient Temperature O2 Saturation ABG pH ABG pCO2 ABG pO2 ABG HCO3 ABG O2 Content ABG Base Excess ABG Methemoglobin Jay Test Hemoglobin Carboxyhemoglobin O2 Delivery Device Vent Setting Inspired O2 Critical Value POC Sodium Sodium POC Potassium Potassium POC Chloride Chloride Carbon Dioxide Anion Gap POC BUN BUN Creatinine POC Creatinine Estimated GFR POC Glucose 97 Random Glucose Hemoglobin A1c Calcium Phosphorus Magnesium Total Bilirubin AST ALT Alkaline Phosphatase Total Creatine Kinase CK-MB (CK-2) CK-MB (CK-2) % Troponin I Total Protein Albumin Triglycerides 494 H Cholesterol 225 H LDL Cholesterol, Calc HDL Cholesterol 45.3 Cholesterol/HDL Ratio 4.96 Tumor Marker AFP 13.3 H Carcinoembryonic Ag 41.3 H CA 15-3 Antigen 177.1 H CA 19-9 Antigen 593.6 H CA 125 Antigen 1091.1 H Urine Color Urine Clarity Urine pH Ur Specific [place] Urine Protein Urine Glucose (UA) Urine Ketones Urine Occult Blood Urine Nitrate Urine Bilirubin Urine Urobilinogen Ur Leukocyte Esterase Urine RBC Urine WBC Ur Squamous Epith Cells Urine Mucus Micro UA Comment Ur Microscopic Review Urine Culture Comments Nasal Screen MRSA (PCR) Serum Alcohol Blood Type Antibody Screen 06/23/18 06/23/18 06/24/18 17:22 23:37 06:04 WBC RBC Hgb POC Hgb (Calc) Hct POC Hct MCV MCH MCHC RDW Plt Count MPV Prelim Diff (Auto) Neut % (Auto) Lymph % (Auto) [place] % (Auto) Eos % (Auto) Baso % (Auto) Neut # (Auto) Lymph # (Auto) [place] # (Auto) Eos # (Auto) Baso # (Auto) WBC Differential Diff Scan Seg Neuts % (Manual) Band Neuts % (Manual) Lymphocytes % (Manual) Monocytes % (Manual) Abs Neuts (Manual) Differential Comment Platelet Estimate Platelet Morphology RBC Morphology ESR PT INR APTT Puncture Site Patient Temperature O2 Saturation ABG pH ABG pCO2 ABG pO2 ABG HCO3 ABG O2 Content ABG Base Excess ABG Methemoglobin Jay Test Hemoglobin Carboxyhemoglobin O2 Delivery Device Vent Setting Inspired O2 Critical Value POC Sodium Sodium POC Potassium Potassium POC Chloride Chloride Carbon Dioxide Anion Gap POC BUN BUN Creatinine POC Creatinine Estimated GFR POC Glucose 114 H 161 H 160 H Random Glucose Hemoglobin A1c Calcium Phosphorus Magnesium Total Bilirubin AST ALT Alkaline Phosphatase Total Creatine Kinase CK-MB (CK-2) CK-MB (CK-2) % Troponin I Total Protein Albumin Triglycerides Cholesterol LDL Cholesterol, Calc HDL Cholesterol Cholesterol/HDL Ratio Tumor Marker AFP Carcinoembryonic Ag CA 15-3 Antigen CA 19-9 Antigen CA 125 Antigen Urine Color Urine Clarity Urine pH Ur Specific [place] Urine Protein Urine Glucose (UA) Urine Ketones Urine Occult Blood Urine Nitrate Urine Bilirubin Urine Urobilinogen Ur Leukocyte Esterase Urine RBC Urine WBC Ur Squamous Epith Cells Urine Mucus Micro UA Comment Ur Microscopic Review Urine Culture Comments Nasal Screen MRSA (PCR) Serum Alcohol Blood Type Antibody Screen 06/24/18 06/24/18 06/24/18 06:48 06:48 12:04 WBC 23.8 H RBC 3.83 L Hgb 11.5 L POC Hgb (Calc) Hct 34.7 L POC Hct MCV 90.6 MCH 30.0 MCHC 33.2 RDW 14.3 Plt Count 55 L MPV 10.6 Prelim Diff (Auto) Slide review pending Neut % (Auto) 87.3 H Lymph % (Auto) 5.0 L [place] % (Auto) 7.5 Eos % (Auto) 0.1 Baso % (Auto) 0.1 Neut # (Auto) 20.8 H Lymph # (Auto) 1.2 [place] # (Auto) 1.8 H Eos # (Auto) 0.0 Baso # (Auto) 0.0 WBC Differential Manual diff final Diff Scan Seg Neuts % (Manual) 80 H Band Neuts % (Manual) 13 H Lymphocytes % (Manual) 2 L Monocytes % (Manual) 5 Abs Neuts (Manual) 22.1 H Differential Comment . Platelet Estimate Low L Platelet Morphology Normal RBC Morphology Normal ESR PT INR APTT Puncture Site Patient Temperature O2 Saturation ABG pH ABG pCO2 ABG pO2 ABG HCO3 ABG O2 Content ABG Base Excess ABG Methemoglobin Jay Test Hemoglobin Carboxyhemoglobin O2 Delivery Device Vent Setting Inspired O2 Critical Value POC Sodium Sodium 146 H POC Potassium Potassium 3.5 POC Chloride Chloride 112 H Carbon Dioxide 21.5 Anion Gap 13 POC BUN BUN 33 H Creatinine 1.22 H POC Creatinine Estimated GFR 43 L POC Glucose 169 H Random Glucose 150 H Hemoglobin A1c Calcium 7.9 L Phosphorus 2.6 Magnesium 2.3 Total Bilirubin 0.5 AST 30 ALT 21 Alkaline Phosphatase 95 Total Creatine Kinase CK-MB (CK-2) CK-MB (CK-2) % Troponin I Total Protein 5.7 L D Albumin 2.3 L Triglycerides Cholesterol LDL Cholesterol, Calc HDL Cholesterol Cholesterol/HDL Ratio Tumor Marker AFP Carcinoembryonic Ag CA 15-3 Antigen CA 19-9 Antigen CA 125 Antigen Urine Color Urine Clarity Urine pH Ur Specific [place] Urine Protein Urine Glucose (UA) Urine Ketones Urine Occult Blood Urine Nitrate Urine Bilirubin Urine Urobilinogen Ur Leukocyte Esterase Urine RBC Urine WBC Ur Squamous Epith Cells Urine Mucus Micro UA Comment Ur Microscopic Review Urine Culture Comments Nasal Screen MRSA (PCR) Serum Alcohol Blood Type Antibody Screen Result Diagrams: 06/24/18 06:48 06/24/18 06:48 Microbiology: Microbiology 06/23/18 11:05 Aerobic Blood Culture - Preliminary Blood - Peripheral No growth in 1 day Anaerobic Blood Culture - Final QNS - See aerobic report. 06/23/18 10:50 Aerobic Blood Culture - Preliminary Blood - Peripheral No growth in 1 day Anaerobic Blood Culture - Final QNS - See aerobic report. 06/23/18 20:15 Gram Stain - Final Sputum - Endotracheal Imaging: Cervical Spine CT 06/22/18 13:58 CONCLUSION: 1. Multilevel degenerative changes. 2. Scattered neural foraminal narrowing. 3. No compression fracture or spondylolisthesis Head CT 06/22/18 13:58 CONCLUSION: 1. Acute right parietal infarcts. No midline shift or mass effect. . Pelvis X-Ray 06/22/18 13:58 CONCLUSION: Limited study without gross abnormality. Humerus X-Ray 06/22/18 13:59 CONCLUSION: No abnormality involving the humerus. Subcutaneous air is seen tracking over the lateral left chest wall. Thoracic Aorta CT 06/22/18 15:28 CONCLUSION: 1. Moderate volume acute pulmonary emboli. 2. Moderate size left pneumothorax with overlying subcutaneous air. 3. Severe emphysematous changes. 4. 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 5. Occlusion of the right outflow possibly acute in origin. Clinical evaluation for right lower extremity claudication suggested. 6. 2 hepatic masses worrisome for metastatic disease. These are limited in their evaluation on this study due to the arterial phase of the exam. Consider MRI of the liver to further assess if clinically warranted. Head MRI 06/23/18 00:00 CONCLUSION: 1. 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 2. There appear to be 2 punctate acute infarctions involving the right cerebellar hemisphere. This is best seen on the diffusion-weighted images. Venous Doppler Study 06/23/18 00:00 CONCLUSION: 1. Occlusive thrombus in both posterior tibial veins. Head MRA 06/23/18 09:12 CONCLUSION: 1. Occlusion of the mid to distal right M1 segment with reconstitution of the proximal right M2 branches via collaterals. IVC Filter Placement X-Ray 06/23/18 09:20 CONCLUSION: 1. Uncomplicated inferior vena cava filter placement as above. Chest X-Ray 06/24/18 00:00 CONCLUSION: Stable chest. Carotid Doppler Study 06/24/18 08:01 CONCLUSION: 1. No hemodynamic significant stenosis in right carotid artery. 2. There is an approximate 50-69% stenosis left internal carotid artery. Procedures: * 06/22/18 - intubated, chest tube placed. Assessment and Plan - Disease Oriented Problem List (1) Emphysema lung (2) History of lung cancer (3) Acute CVA (cerebrovascular accident) (4) Closed rib fracture (5) DVT (deep venous thrombosis) (6) Liver lesion (7) Pneumothorax (8) Leucocytosis (9) Thrombocytopenia - Symptom Scale (1) Pain after cerebrovascular accident (CVA) 0-10 Scale: Unable to quantify (2) Dyspnea 0-10 Scale: Unable to quantify Pertinent Non-Medical Issues: Psychosocial: Single. Has 2 sisters and 1 son. 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 Spiritual: Unknown. Legal: Patient is not capacitated to make her own health care decisions, uncertain if she will regain capacity. HAs written Living Will and designation of health care surrogate, Cari Dumas (primary HCS) and Nathaniel Reina (alternate HCS). Ethical issues impacting care: No known concerns at this time. Important Contacts: * Cari Dumas, [facility]/friend: [phone] * Nathaniel Reina, brother: [phone] Prognosis: Will need additional test results to adequately prognosticate. Code Status: No Code DNR Plan: * Patient is not capacitated to make her own health care decisions, uncertain if she will regain capacity. HAs written Living Will and designation of health care surrogate, Cari Dumas (primary HCS) and Nathaniel Reina (alternate HCS). * NO CODE * Goals: Spoke with NINA Gould via phone. Medical update provided. Reviewed increased FiO2 needs overnight, test results, Dr. Woodson thoughts regarding prognosis, plan for additional imaging to evaluate source/ extent of cancer. Explained we need additional information for further prognositication. Explained the coming days and test results will provide better ability to prognosticate clearly. Advised the concern for being able to wean from mech vent given long smoking history, 6 months history of pneumonia, underlying PE, rib fractures and emphysema, Cari agrees. Cari will visit sometime 06/25/18, she will notify me before she arrives so we can meet again for update. * Discussed with Dr. Turcios who recommends CT chest/abdomen and pelvis. * Records received from Dr. Rivera confirming lung cancer diagnosis, sent by family. On chart for Dr. Turcios to review. * SYMPTOMS: Dyspnea: secondary to COPD/emphysema, possible lung cancer, pulmonary embolus, rib fractures, pneumothorax, chest tube in place. On mechanical vent, increased FiO2 needs overnight. Pain: due to recent fall, stroke, tubes. Currently sedated on Propofol and Fentanyl. Will monitor. No new medication recommendations at this time. * Palliative care will continue to follow throughout hospital course to assist with symptom management and further clarification of goals of medical treatment. Attestation Attestation: To help prompt me to consider important information that might be impacting today's encounter and assessment, information from prior notes written by myself or my colleagues may have been "brought forward" into today's note. My signature on this note, however, is an attestation that I personally performed the exam, history, and/or decision-making noted today, and, unless otherwise indicated, the interactions with patient, family, and staff as well as the review of records all occurred today. I also attest that the listed assessment and stated plan reflect my best clinical judgment today based on the combination of historical information, prior notes, and today's exam/ interactions. When time spent is documented, it refers only to time spent today by the signer, or if indicated, combined time spent today by collaborating physician/nurse practitioner.
--- NOTE | 2018-06-24 15:46 | P.PNONC ---
Subjective Interval history: T-max 100.3. Patient ventilated and sedated. No family/visitors are present during exam. Discussed with PADDY Sandoval. Palliative care obtained pathology confirming lung cancer diagnosis. Patient under the care of . Examination revealed right hand which is cyanotic in appearance and cool to touch. Radial pulse is not palpable. Discussed with RN: no pulse detected with Doppler, geophysical laboratory supervisor is aware and has consulted , vascular surgeon who will be evaluating. Objective Vital Signs/Intake & Output: Vital Signs 06/23/18 15:54 06/23/18 15:58 06/23/18 16:00 Temperature 98.2 F Pulse Rate 85 85 83 Respiratory Rate 18 15 16 Blood Pressure 119/58 L 123/62 Pulse Oximetry 97 96 93 L 06/23/18 16:34 06/23/18 16:40 06/23/18 16:52 Temperature Pulse Rate 84 83 83 Respiratory Rate 23 17 18 Blood Pressure 119/63 Pulse Oximetry 91 L 93 L 06/23/18 17:00 06/23/18 17:23 06/23/18 18:00 Temperature Pulse Rate 83 80 Respiratory Rate 16 15 Blood Pressure 99/56 L 104/61 Pulse Oximetry 98 97 94 L 06/23/18 19:00 06/23/18 19:55 06/23/18 19:56 Temperature Pulse Rate 87 81 Respiratory Rate 15 19 19 Blood Pressure 135/69 Pulse Oximetry 91 L 93 L 06/23/18 20:00 06/23/18 20:01 06/23/18 21:00 Temperature Pulse Rate 85 87 83 Respiratory Rate 21 24 12 Blood Pressure 166/83 H 109/60 Pulse Oximetry 96 94 L 94 L 06/23/18 22:00 06/23/18 23:00 06/23/18 23:10 Temperature Pulse Rate 86 80 79 Respiratory Rate 12 12 11 L Blood Pressure 109/61 95/55 L 94/57 L Pulse Oximetry 95 94 L 93 L 06/23/18 23:14 06/23/18 23:30 06/23/18 23:51 Temperature Pulse Rate 79 81 79 Respiratory Rate 11 L 16 21 Blood Pressure 96/57 L 119/67 Pulse Oximetry 94 L 93 L 06/24/18 00:00 06/24/18 00:10 06/24/18 02:00 Temperature 98.5 F Pulse Rate 82 82 Respiratory Rate 13 20 Blood Pressure 116/59 L Pulse Oximetry 95 94 L 06/24/18 04:00 06/24/18 04:19 06/24/18 04:20 Temperature 100.3 F H Pulse Rate 84 86 Respiratory Rate 15 13 14 Blood Pressure 115/60 Pulse Oximetry 93 L 93 L 06/24/18 06:00 06/24/18 07:00 06/24/18 08:00 Temperature Pulse Rate 92 H 96 H 93 H Respiratory Rate 14 25 H Blood Pressure Pulse Oximetry 92 L 90 L 06/24/18 10:00 06/24/18 11:21 Temperature Pulse Rate 86 88 Respiratory Rate 16 Blood Pressure Pulse Oximetry Intake & Output 06/23/18 06/24/18 06/24/18 18:59 06:59 18:59 Intake Total 1472 / 1472 708 / 708 150 / 150 Output Total 372 / 372 300 / 300 Balance 1100 / 1100 408 / 408 150 / 150 Weight 61.8 kg 28.44 kg 63.1 kg Intake: IV 1350 / 1350 250 / 250 150 / 150 Diprivan 1000 mg/100 ml Inj 1, 200 / 200 150 / 150 100 / 100 000 mg In 100 ml @ 5 MCG/KG/MIN 2.042 mls/hr IV.CONT TITRATE PRN Rx#:[id number] NS Inj 1,000 ML @ 84 mls/hr IV. 1000 / 1000 CONT .[id number] MATIAS Rx#:[id number] Zosyn 3.375 GM Premix 50 ML @ 50 / 50 100 / 100 50 / 50 100 mls/hr IV.SIG Q6H MATIAS Rx#: [id number] Zosyn 4.5 GM Premix 4.5 gm In 100 / 100 100 ml @ 200 mls/hr IV.SIG Q8H MATIAS Rx#:[id number] Tube Feeding 122 / 122 458 / 458 Output: Urine Amount (Catheter) 300 / 300 250 / 250 Indwelling Urethral Catheter 300 / 300 250 / 250 Chest Tube Drainage 72 / 72 50 / 50 #1 Left Upper Mid-Axillary 72 / 72 50 / 50 Chest Other: # Bowel Movements 0 Result Diagrams: 06/24/18 06:48 06/24/18 18:59 Laboratory Results: Laboratory Results - last 24 hr 06/23/18 06/23/18 06/23/18 04:54 09:25 17:22 WBC RBC Hgb Hct MCV MCH MCHC RDW Plt Count MPV Prelim Diff (Auto) Neut % (Auto) Lymph % (Auto) [place] % (Auto) Eos % (Auto) Baso % (Auto) Neut # (Auto) Lymph # (Auto) [place] # (Auto) Eos # (Auto) Baso # (Auto) WBC Differential Seg Neuts % (Manual) Band Neuts % (Manual) Lymphocytes % (Manual) Monocytes % (Manual) Abs Neuts (Manual) Differential Comment Platelet Estimate Platelet Morphology RBC Morphology Sodium Potassium Chloride Carbon Dioxide Anion Gap BUN Creatinine Estimated GFR POC Glucose 114 H Random Glucose Hemoglobin A1c 6.0 5.9 Calcium Phosphorus Magnesium Total Bilirubin AST ALT Alkaline Phosphatase Total Protein Albumin 06/23/18 06/24/18 06/24/18 23:37 06:04 06:48 WBC 23.8 H RBC 3.83 L Hgb 11.5 L Hct 34.7 L MCV 90.6 MCH 30.0 MCHC 33.2 RDW 14.3 Plt Count 55 L MPV 10.6 Prelim Diff (Auto) Slide review pending Neut % (Auto) 87.3 H Lymph % (Auto) 5.0 L [place] % (Auto) 7.5 Eos % (Auto) 0.1 Baso % (Auto) 0.1 Neut # (Auto) 20.8 H Lymph # (Auto) 1.2 [place] # (Auto) 1.8 H Eos # (Auto) 0.0 Baso # (Auto) 0.0 WBC Differential Manual diff final Seg Neuts % (Manual) 80 H Band Neuts % (Manual) 13 H Lymphocytes % (Manual) 2 L Monocytes % (Manual) 5 Abs Neuts (Manual) 22.1 H Differential Comment . Platelet Estimate Low L Platelet Morphology Normal RBC Morphology Normal Sodium Potassium Chloride Carbon Dioxide Anion Gap BUN Creatinine Estimated GFR POC Glucose 161 H 160 H Random Glucose Hemoglobin A1c Calcium Phosphorus Magnesium Total Bilirubin AST ALT Alkaline Phosphatase Total Protein Albumin 06/24/18 06/24/18 06:48 12:04 WBC RBC Hgb Hct MCV MCH MCHC RDW Plt Count MPV Prelim Diff (Auto) Neut % (Auto) Lymph % (Auto) [place] % (Auto) Eos % (Auto) Baso % (Auto) Neut # (Auto) Lymph # (Auto) [place] # (Auto) Eos # (Auto) Baso # (Auto) WBC Differential Seg Neuts % (Manual) Band Neuts % (Manual) Lymphocytes % (Manual) Monocytes % (Manual) Abs Neuts (Manual) Differential Comment Platelet Estimate Platelet Morphology RBC Morphology Sodium 146 H Potassium 3.5 Chloride 112 H Carbon Dioxide 21.5 Anion Gap 13 BUN 33 H Creatinine 1.22 H Estimated GFR 43 L POC Glucose 169 H Random Glucose 150 H Hemoglobin A1c Calcium 7.9 L Phosphorus 2.6 Magnesium 2.3 Total Bilirubin 0.5 AST 30 ALT 21 Alkaline Phosphatase 95 Total Protein 5.7 L D Albumin 2.3 L Culture Results: Microbiology 06/23/18 20:15 Gram Stain - Final Sputum - Endotracheal Sputum Culture - Preliminary Results Pending 06/23/18 11:05 Aerobic Blood Culture - Preliminary Blood - Peripheral No growth in 1 day Anaerobic Blood Culture - Final QNS - See aerobic report. 06/23/18 10:50 Aerobic Blood Culture - Preliminary Blood - Peripheral No growth in 1 day Anaerobic Blood Culture - Final QNS - See aerobic report. Imaging Studies: Impressions IVC Filter Placement X-Ray 06/23/18 09:20 CONCLUSION: 1. Uncomplicated inferior vena cava filter placement as above. Chest X-Ray 06/24/18 00:00 CONCLUSION: Stable chest. Carotid Doppler Study 06/24/18 08:01 CONCLUSION: 1. No hemodynamic significant stenosis in right carotid artery. 2. There is an approximate 50-69% stenosis left internal carotid artery. Medications: Active Medications Generic Name Dose Route Start Last Admin Trade Name Freq PRN Reason Stop Dose Admin Albuterol 1 ampul 06/22/18 20:00 06/24/18 11:20 Duoneb Neb ([facility]) NEB 1 ampul Q4HR NEB [facility] Administration Aspirin 300 mg 06/23/18 09:15 06/24/18 09:50 Aspirin Supp RECTAL 300 mg DAILY MATIAS Administration Atorvastatin Calcium 80 mg 06/23/18 09:00 06/24/18 09:50 Lipitor PO 80 mg DAILY MATIAS Administration Chlorhexidine Gluconate 15 ml 06/22/18 20:00 06/24/18 09:52 Peridex 0.12% Oral Kit OROPHARYNG 15 ml BID@0800,2000 MATIAS Administration Chlorhexidine Gluconate 3 pack 06/23/18 04:00 06/24/18 04:24 Chlorhexidine 2% Cloth TOPICAL 06/28/18 03:59 3 pack DAILY@0400 MATIAS Administration Famotidine 20 mg 06/22/18 21:00 06/24/18 09:51 Pepcid Pf Inj IV.PUSH 20 mg Q12HR MATIAS Administration Heparin Sodium (Porcine) 5,000 units 06/23/18 10:00 06/24/18 09:51 Heparin Inj SQ 5,000 units Q8H MATIAS Administration Propofol 1,000 mg in 100 mls @ 2.042 mls/hr 06/22/18 15:23 06/24/18 12:10 Diprivan 1000 Mg/100 Ml Inj IV.CONT 50 mcg/kg/min TITRATE PRN 20.42 mls/hr Per Protocol Administration Protocol 5 MCG/KG/MIN Piperacillin/Tazobactam/Dextrose 50 mls @ 100 mls/hr 06/23/18 15:00 06/24/18 12:10 Zosyn 3.375 Gm Premix IV.SIG Infused Q6H MATIAS Infusion Fentanyl 2,500 mcg in 250 mls @ 5 mls/hr 06/23/18 14:50 06/23/18 15:21 Fentanyl 10 Mcg/Ml Premix Drip IV.SIG 50 mcg/hr TITRATE PRN 5 mls/hr Per Protocol Administration Protocol 50 MCG/HR Insulin Human Regular 0 units 06/23/18 12:00 06/24/18 14:30 Novolin R Correctional Sugar Inj SQ Not Given Q6HR [facility] Protocol Metoclopramide HCl 5 mg 06/24/18 07:03 06/24/18 09:50 Reglan Inj IV.PUSH 5 mg Q8H PRN Administration VOMITING Protocol Miscellaneous Medication 1 each 06/23/18 00:00 06/24/18 12:10 OROPHARYNG 1 each 0000,0400,1200,1600 MATIAS Administration Potassium Bicarb/Potassium Chloride 50 meq 06/23/18 08:53 06/23/18 17:19 K-Lyte Cl Eff PO 50 meq UNSCH PRN Administration For Potassium 3.3 - 3.5 mEq/L Senna/Docusate Sodium 1 tab 06/22/18 21:00 06/24/18 09:50 Shadia-Colace PO 1 tab BID MATIAS Administration Sodium Chloride 2 ml 06/22/18 21:00 06/24/18 09:52 Ns Flush IV.FLUSH 2 ml BID MATIAS Administration Objective Remarks: GENERAL: Critically ill-appearing female patient, ventilated and sedated. SKIN: Warm and dry. HEAD: Normocephalic. EYES: No scleral icterus. No injection or drainage. NECK: Supple, trachea midline. CARDIOVASCULAR: Regular rate and rhythm without murmurs. RESPIRATORY: Breath sounds diminished on the left. +intubated, FiO2 70. Left chest tube draining minimal bright red fluid. GASTROINTESTINAL: Abdomen distended, upper abdominal soft large bulge. EXTREMITIES:Right hand cyanosis and mottling, no palpable radial pulse. Left toes mottled, warm to touch. Left hand and right foot pink, warm. MUSCULOSKELETAL: Decreased muscle tone. NEUROLOGICAL: Sedated. Assessment/Plan - Plan Ms. Reina is an unfortunate 78-year-old female currently being cared for in the intensive care unit, ventilated and sedated. She was found on the floor by a friend, unknown how long. She has been diagnosed with acute CVA, PE, bilateral DVT and pneumothorax with rib fractures status post left chest tube placement. According to palliative care the patient has been under the care of Dr. Rivera , for lung cancer. Unknown what treatments she has received. Hematology was consulted for anticoagulation recommendations in a patient who has had an acute thrombotic stroke, pulmonary embolism and bilateral lower leg DVTs. Patient was also found to have liver lesions. Plan: 1. 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 This is likely secondary to hypercoagulable state from malignancy. Patient is not a candidate for anticoagulation. IVC filter has been placed. 2. Liver lesions, likely metastatic lung cancer. Records received, the patient is under the care of a Dr. Rivera and she does have a lung cancer diagnosis. 3. Examination revealed a right cyanotic hand, no palpable radial pulse and cool to touch. Discussed with the patients nurse, Lori, no pulse detected with Doppler. Computer Systems Technology Instructor is aware and , vascular surgeon is going to evaluate further. Given patient's hypercoagulable state this could be secondary to arterial thrombus. Her left toes are also mottled in appearance, remaining extremities are pink and warm to touch. 4. Palliative care is following in the patient's healthcare surrogate is expected to visit tomorrow. We will await their meeting. - Attending Statement The exam, history, and the medical decision-making described in the above note were completed with the assistance of the mid-level provider. I reviewed and agree with the findings presented. I attest that I had a [id number] encounter with the patient on the same day, and personally performed and documented my assessment and findings in the medical record. Remains on vent, sedated Extensive discussion with Ms Latanya EDDYP palliative care, Thanks for her efforts to get additional history and records. I have reviewed her previous records which are in the paper chart. She had breast cancer in 1989 and 1998 (No additional details available) she had early stage Nscl ca which was resected in 2013 ( No additional details are available , ?chemo or XRT) Multiple previous radiology reports reviewed. Last scan showed very small 4 mm lung nodule. Recommend to get tomorrow CT Chest,Abd and pelvis to evaluate for primary site of malignancy and additional mets. Many tumor markers are high c/w malignancy. Right hand is cold ? arterial thrombosis . Vas surg consult pending. D/W pt RN and geophysical laboratory supervisor DR Littlejohn.
--- NOTE | 2018-06-24 19:28 | ECG ---
Date Performed: 06/22/2018 Time Performed: 21:16:59 PTAGE: 78 years EKG: Sinus rhythm POSSIBLE LEFT ATRIAL ENLARGEMENT POSSIBLE RIGHT VENTRICULAR CONDUCTION DELAY INFERIOR MYOCARDIAL INF ARCTION , OF INDETERMINATE AGE WITH POSTERIOR EXTENSION ABNORMAL ECG PREVIOUS TRACING : 06/22/2018 13.59 DOCTOR: Dariel Fuentes Interpretating Date/Time 06/24/2018 19:26:42
[2018-06-24] MEDS: Sod Chloride 0.9% Inj 1,000 ML IV.CONT SCH (19:55)
[2018-06-24] MEDS: Potassium Chloride 25 MEQ Effervescent Tablet PO PRN (20:15)
--- NOTE | 2018-06-24 21:04 | P.PNVS ---
Subjective Subjective/Hospital Course: referral received Full consult TF Louisa J Objective Vital Signs / I&O: Vital Signs 06/23/18 22:00 06/23/18 23:00 06/23/18 23:10 Temperature Pulse Rate 86 80 79 Respiratory Rate 12 12 11 L Blood Pressure 109/61 95/55 L 94/57 L Pulse Oximetry 95 94 L 93 L 06/23/18 23:14 06/23/18 23:30 06/23/18 23:51 Temperature Pulse Rate 79 81 79 Respiratory Rate 11 L 16 21 Blood Pressure 96/57 L 119/67 Pulse Oximetry 94 L 93 L 06/24/18 00:00 06/24/18 00:10 06/24/18 02:00 Temperature 98.5 F Pulse Rate 82 82 Respiratory Rate 13 20 Blood Pressure 116/59 L Pulse Oximetry 95 94 L 06/24/18 04:00 06/24/18 04:19 06/24/18 04:20 Temperature 100.3 F H Pulse Rate 84 86 Respiratory Rate 15 13 14 Blood Pressure 115/60 Pulse Oximetry 93 L 93 L 06/24/18 06:00 06/24/18 07:00 06/24/18 08:00 Temperature 99.8 F H Pulse Rate 92 H 96 H 93 H Respiratory Rate 14 14 Blood Pressure 125/59 L Pulse Oximetry 92 L 92 L 06/24/18 08:30 06/24/18 09:00 06/24/18 09:30 Temperature Pulse Rate 93 H 92 H 90 Respiratory Rate 14 15 13 Blood Pressure 117/59 L 112/55 L 117/56 L Pulse Oximetry 93 L 93 L 96 06/24/18 10:00 06/24/18 10:30 06/24/18 11:00 Temperature Pulse Rate 86 90 84 Respiratory Rate 12 14 13 Blood Pressure 111/57 L 121/58 L 105/56 L Pulse Oximetry 96 93 L 98 06/24/18 11:21 06/24/18 11:30 06/24/18 12:00 Temperature 98.9 F Pulse Rate 88 83 83 Respiratory Rate 16 12 12 Blood Pressure 101/58 L 108/56 L Pulse Oximetry 97 97 06/24/18 12:30 06/24/18 13:00 06/24/18 13:30 Temperature Pulse Rate 86 84 82 Respiratory Rate 11 L 11 L 12 Blood Pressure 117/65 101/55 L 105/56 L Pulse Oximetry 98 97 97 06/24/18 14:00 06/24/18 14:30 06/24/18 15:00 Temperature Pulse Rate 81 81 80 Respiratory Rate 12 12 12 Blood Pressure 106/57 L 107/55 L 108/59 L Pulse Oximetry 94 L 94 L 95 06/24/18 15:21 06/24/18 15:30 06/24/18 16:00 Temperature 98.7 F Pulse Rate 79 79 79 Respiratory Rate 17 11 L 10 L Blood Pressure 98/53 L 95/53 L Pulse Oximetry 96 96 97 06/24/18 16:30 06/24/18 17:00 06/24/18 17:30 Temperature Pulse Rate 79 78 79 Respiratory Rate 8 L 8 L 9 L Blood Pressure 105/56 L 99/55 L 102/56 L Pulse Oximetry 98 98 98 06/24/18 18:00 06/24/18 19:16 Temperature Pulse Rate 78 76 Respiratory Rate 8 L 16 Blood Pressure 97/52 L Pulse Oximetry 98 98 Intake & Output 06/24/18 06/24/18 06/25/18 06:59 18:59 06:59 Intake Total 708 / 708 1562.5 / 1562.5 Output Total 300 / 300 760 / 760 Balance 408 / 408 802.5 / 802.5 Weight 28.44 kg 63.1 kg Intake: IV 250 / 250 1562.5 / 1562.5 Diprivan 1000 mg/100 ml Inj 1, 150 / 150 200 / 200 000 mg In 100 ml @ 5 MCG/KG/MIN 2.042 mls/hr IV.CONT TITRATE PRN Rx#:[id number] NS Inj 1,000 ML @ 84 mls/hr IV. 1000 / 1000 CONT .[id number] [facility] Rx#:[id number] Zosyn 3.375 GM Premix 50 ML @ 100 / 100 100 / 100 100 mls/hr IV.SIG Q6H [facility] Rx#: [id number] Vancomycin Inj 1,250 MG In NS 262.5 / 262.5 Inj 250 ML @ 250 mls/hr IV.SIG ONCE ONE Rx#:[id number] Tube Feeding 458 / 458 Output: Urine 650 / 650 Urine Amount (Catheter) 250 / 250 Indwelling Urethral Catheter 250 / 250 Chest Tube Drainage 50 / 50 110 / 110 #1 Left Upper Mid-Axillary 50 / 50 110 / 110 Chest Other: # Bowel Movements 0 0 Laboratory Results - last 24 hr 06/23/18 06/23/18 06/23/18 04:54 09:25 09:25 WBC RBC Hgb Hct MCV MCH MCHC RDW Plt Count MPV Prelim Diff (Auto) Neut % (Auto) Lymph % (Auto) [place] % (Auto) Eos % (Auto) Baso % (Auto) Neut # (Auto) Lymph # (Auto) [place] # (Auto) Eos # (Auto) Baso # (Auto) WBC Differential Seg Neuts % (Manual) Band Neuts % (Manual) Lymphocytes % (Manual) Monocytes % (Manual) Abs Neuts (Manual) Differential Comment Platelet Estimate Platelet Morphology RBC Morphology Sodium Potassium Chloride Carbon Dioxide Anion Gap BUN Creatinine Estimated GFR POC Glucose Random Glucose Hemoglobin A1c 6.0 5.9 Calcium Phosphorus Magnesium Total Bilirubin AST ALT Alkaline Phosphatase Total Protein Albumin Chromogranin A 104.0 H 06/23/18 06/24/18 06/24/18 23:37 06:04 06:48 WBC 23.8 H RBC 3.83 L Hgb 11.5 L Hct 34.7 L MCV 90.6 MCH 30.0 MCHC 33.2 RDW 14.3 Plt Count 55 L MPV 10.6 Prelim Diff (Auto) Slide review pending Neut % (Auto) 87.3 H Lymph % (Auto) 5.0 L [place] % (Auto) 7.5 Eos % (Auto) 0.1 Baso % (Auto) 0.1 Neut # (Auto) 20.8 H Lymph # (Auto) 1.2 [place] # (Auto) 1.8 H Eos # (Auto) 0.0 Baso # (Auto) 0.0 WBC Differential Manual diff final Seg Neuts % (Manual) 80 H Band Neuts % (Manual) 13 H Lymphocytes % (Manual) 2 L Monocytes % (Manual) 5 Abs Neuts (Manual) 22.1 H Differential Comment . Platelet Estimate Low L Platelet Morphology Normal RBC Morphology Normal Sodium Potassium Chloride Carbon Dioxide Anion Gap BUN Creatinine Estimated GFR POC Glucose 161 H 160 H Random Glucose Hemoglobin A1c Calcium Phosphorus Magnesium Total Bilirubin AST ALT Alkaline Phosphatase Total Protein Albumin Chromogranin A 06/24/18 06/24/18 06/24/18 06:48 12:04 17:17 WBC RBC Hgb Hct MCV MCH MCHC RDW Plt Count MPV Prelim Diff (Auto) Neut % (Auto) Lymph % (Auto) [place] % (Auto) Eos % (Auto) Baso % (Auto) Neut # (Auto) Lymph # (Auto) [place] # (Auto) Eos # (Auto) Baso # (Auto) WBC Differential Seg Neuts % (Manual) Band Neuts % (Manual) Lymphocytes % (Manual) Monocytes % (Manual) Abs Neuts (Manual) Differential Comment Platelet Estimate Platelet Morphology RBC Morphology Sodium 146 H Potassium 3.5 Chloride 112 H Carbon Dioxide 21.5 Anion Gap 13 BUN 33 H Creatinine 1.22 H Estimated GFR 43 L POC Glucose 169 H 154 H Random Glucose 150 H Hemoglobin A1c Calcium 7.9 L Phosphorus 2.6 Magnesium 2.3 Total Bilirubin 0.5 AST 30 ALT 21 Alkaline Phosphatase 95 Total Protein 5.7 L D Albumin 2.3 L Chromogranin A 06/24/18 18:59 WBC RBC Hgb Hct MCV MCH MCHC RDW Plt Count MPV Prelim Diff (Auto) Neut % (Auto) Lymph % (Auto) [place] % (Auto) Eos % (Auto) Baso % (Auto) Neut # (Auto) Lymph # (Auto) [place] # (Auto) Eos # (Auto) Baso # (Auto) WBC Differential Seg Neuts % (Manual) Band Neuts % (Manual) Lymphocytes % (Manual) Monocytes % (Manual) Abs Neuts (Manual) Differential Comment Platelet Estimate Platelet Morphology RBC Morphology Sodium Potassium 3.4 L Chloride Carbon Dioxide Anion Gap BUN Creatinine Estimated GFR POC Glucose Random Glucose Hemoglobin A1c Calcium Phosphorus Magnesium Total Bilirubin AST ALT Alkaline Phosphatase Total Protein Albumin Chromogranin A Microbiology 06/23/18 20:15 Gram Stain - Final Sputum - Endotracheal Sputum Culture - Preliminary Results Pending 06/23/18 11:05 Aerobic Blood Culture - Preliminary Blood - Peripheral No growth in 1 day Anaerobic Blood Culture - Final QNS - See aerobic report. 06/23/18 10:50 Aerobic Blood Culture - Preliminary Blood - Peripheral No growth in 1 day Anaerobic Blood Culture - Final QNS - See aerobic report. Impressions Chest X-Ray 06/23/18 00:00 CONCLUSION: 1. The left-sided chest tube remains in place with no visualized pneumothorax. 2. Small left effusion with hazy airspace disease at the left lung base. Head MRI 06/23/18 00:00 CONCLUSION: 1. 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 2. There appear to be 2 punctate acute infarctions involving the right cerebellar hemisphere. This is best seen on the diffusion-weighted images. Venous Doppler Study 06/23/18 00:00 CONCLUSION: 1. Occlusive thrombus in both posterior tibial veins. Head MRA 06/23/18 09:12 CONCLUSION: 1. Occlusion of the mid to distal right M1 segment with reconstitution of the proximal right M2 branches via collaterals. IVC Filter Placement X-Ray 06/23/18 09:20 CONCLUSION: 1. Uncomplicated inferior vena cava filter placement as above. Chest X-Ray 06/24/18 00:00 CONCLUSION: Stable chest. Carotid Doppler Study 06/24/18 08:01 CONCLUSION: 1. No hemodynamic significant stenosis in right carotid artery. 2. There is an approximate 50-69% stenosis left internal carotid artery.
--- NOTE | 2018-06-24 22:25 | MB ---
cc: Jodi Deluna MD DATE: 06/24/2018 CONSULTING PHYSICIAN: Jodi Deluna MD, vascular surgery. REASON FOR CONSULTATION: 1. Ischemia of the right arm. 2. Hypercoagulable state. HISTORY OF PRESENT ILLNESS: This unfortunate 78-year-old lady with extensive past medical history was found unresponsive on the floor on 06/22/2018. She was brought to our institution and diagnosed with right hemispheric middle cerebral artery stroke. Clearly due to the period of time that passed, TPA was not an option. The patient has been admitted, placed on a ventilator, and since then numerous issues arose which are enumerated below. The patient was noted this morning to have cyanosis of the right hand and question arises about any possible remedy. PAST MEDICAL HISTORY: Breast cancer, known lung cancer, diverticulosis, hypercholesterolemia, hypertension, and osteoporosis. SURGICAL HISTORY: Appendectomy, hysterectomy, TAHBSO, lumpectomy, lung biopsy, followed by a lobectomy, and cataract surgery. SOCIAL HISTORY: The patient is a smoker most of her life, 1 pack a day. I do not know if she drinks. I am getting this from the chart. Since the arrival, the patient was diagnosed with multiple problems. She was noted to have below-mentioned issues and question arises about any remedy. PHYSICAL EXAMINATION: GENERAL: A 78-year-old female who is on the ventilator, sedated. HEENT: Normocephalic. No trauma to the head. Pupils are equal, fairly poorly reactive. Extraocular muscles cannot be tested. The patient appears to be pale, gaunt, and her color is sort of grayish although she does not have hyperbilirubinemia. CHEST: Bilateral breath sounds. The patient is very thin. Fully ventilatory supported. HEART: Regular rhythm. The patient does not have atrial fibrillation and arrhythmias while I was in the room. ABDOMEN: Soft, patulous. EXTREMITIES: The patient has bilateral weak palpable femoral pulses, bilateral feet are cool cyanotic and PT absent. DP weak bilateral. Bilateral brachial pulses which are palpable. On the left side, ulnar and the radial are palpable but weak. On the right side actually, Doppler with fairly strong radial and ulnar pulses present, although distal to that hand appears to be somewhat cyanotic, especially in the distal third over the phalanges. There is some generalized edema present. 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 At this point, the patient has all stigmata of hypercoagulable state induced by the extensive oncological issues and resulting thrombocytopenia. She had IVC filter placed by radiology. In the ideal case scenario, the patient will be on heparin, and we will watch this hand carefully, but right now, the patient has no indication for any surgery and this is consistent with microembolization to fingers and distal hand. Clearly, the patient is not a candidate for TPA either. At this point, this patient has no chance of meaningful recovery from the multitude of her problems, and she is not a candidate for any surgery unless absolutely emergent. Thank you very much for the referral. MD COLTON Rhodes/cheyenne , 09:59 PM , 10:08 PM YESSY
[2018-06-25] MEDS: Insulin NovoLIN Regular Correctional Sugar Inj SQ SCH ×4 (00:11→19:41)
[2018-06-25] MEDS: Oral Hygiene Kit OROPHARYNG SCH ×4 (00:12→18:13)
[2018-06-25] MEDS: Heparin - SQ 10,000 UNITS/ML Vial SQ SCH ×3 (01:33→18:11)
[2018-06-25] MEDS: Piperacil/Tazo 3.375 GM Premix 50 ML IV.SIG SCH ×4 (02:00→20:49)
[2018-06-25] MEDS: Chlorhexidine Gluconate 2% 1 Pack (2 Cloths) TOPICAL SCH (03:41)
[2018-06-25 06:38] LABS: Baso # (Auto) 0.1 th/mm3 (0.0-0.2); Baso % (Auto) 0.4 % (0.0-2.0); Eos # (Auto) 0.1 th/mm3 (0.0-0.4); Eos % (Auto) 0.3 % (0.0-4.0); Hematocrit 33.8 % (35.0-46.0); Hemoglobin 11.1 gm/dL (11.6-15.3); Lymph # (Auto) 1.2 th/mm3 (1.0-4.8); Lymph % (Auto) 6.2 % (9.0-44.0); Mean Corpuscular HGB Conc 32.9 % (32.0-36.0); Mean Corpuscular Hemoglobin 29.7 pg (27.0-34.0); Mean Corpuscular Volume 90.4 fL (80.0-100.0); Mean Platelet Volume 11.2 fL (7.0-11.0); Mono # (Auto) 1.4 th/mm3 (0.0-0.9); Mono % (Auto) 7.2 % (0.0-8.0); Neut % (Auto) 85.9 % (16.0-70.0); Platelet Count 61 th/mm3 (150-450); Red Blood Count 3.74 mil/mm3 (4.00-5.30); Red Cell Distribution Width 14.7 % (11.6-17.2); White Blood Count 19.8 th/mm3 (4.0-11.0)
[2018-06-25 07:00] LABS: Albumin 2.1 g/dL (3.4-5.0); Anion Gap 12 meq/L (5-15); Aspartate Aminotransferase 30 U/L (15-37); Blood Urea Nitrogen 35 mg/dL (7-18); Calcium 7.8 mg/dL (8.5-10.1); Chloride 115 meq/L (98-107); Glomerular Filtration Rate 35 mL/min (>89); Magnesium 2.5 mg/dL (1.5-2.5); Potassium 4.2 meq/L (3.5-5.1); Sodium 150 meq/L (136-145)
[2018-06-25] MEDS: Propofol 1000 mg/100 ml Inj 1,000 MG/100 ML BOTTLE IV.CONT PRN ×2 (07:01→18:17)
[2018-06-25 07:07] LABS: Alanine Aminotransferase 22 U/L (10-53); Alkaline Phosphatase 120 U/L (45-117); Glucose,Random 160 mg/dL (74-106); Phosphorus 2.8 mg/dL (2.5-4.9); Vancomycin,Random 10.7 Comment
--- NOTE | 2018-06-25 07:25 | P.PNCC ---
Subjective Subjective Remarks/Hospital Course: 78-year-old female presents to the ED for evaluation of possible CVA and shortness of breath. Per [facility]AC they got a call that apparently the patient had been found on the floor. Unclear as to how long the patient had been on the floor. Last time the patient was seen normal was on Friday per friends that were in the scene. Per patient herself she cannot really tell us any history other than she has pain on the left side of her body as well as weakness to her left arm. She cannot move her left arm on her own. She denies any history of stroke on herself. She cannot really give us good history about her medications. She denies taking blood thinners however. She cannot recall when she fell and she cannot really tell us how long she has been on the floor. No one really at bedside to give us any information about how long the symptoms have been going. Per EVAC she is also been having left facial droop. CT of the brain obtained in the emergency department shows Acute right parietal infarcts. No midline shift or mass effect. The chest x-ray with the findings of Subcutaneous emphysema along the left chest wall along with multiple left- sided rib fractures. CTA of the pulmonary artery is consistent with Moderate volume acute pulmonary emboli and Moderate size left pneumothorax with overlying subcutaneous air. The patient was intubated by ED attending and the chest tube was placed in the emergency department as well. 06/23 Patient is sedated with Diprivan and intubated. Afebrile. 06/24 Patient remains sedated with Fentanyl and Diprivan and intubated. T:100.3 , s/p IVC filter placement yesterday.Had an episode of desaturation and now on 100% FIO2 with PEEP:5 and sats 94-95% 06/25. Patient remains intubated and sedated. Afebrile. FIO2 down to 55% with good sats. Objective Vital Signs / I&O: Vital Signs 06/24/18 08:00 06/24/18 08:30 06/24/18 09:00 Temperature 99.8 F H Pulse Rate 93 H 93 H 92 H Respiratory Rate 14 14 15 Blood Pressure 125/59 L 117/59 L 112/55 L Pulse Oximetry 92 L 93 L 93 L 06/24/18 09:30 06/24/18 10:00 06/24/18 10:30 Temperature Pulse Rate 90 86 90 Respiratory Rate 13 12 14 Blood Pressure 117/56 L 111/57 L 121/58 L Pulse Oximetry 96 96 93 L 06/24/18 11:00 06/24/18 11:21 06/24/18 11:30 Temperature Pulse Rate 84 88 83 Respiratory Rate 13 16 12 Blood Pressure 105/56 L 101/58 L Pulse Oximetry 98 97 06/24/18 12:00 06/24/18 12:30 06/24/18 13:00 Temperature 98.9 F Pulse Rate 83 86 84 Respiratory Rate 12 11 L 11 L Blood Pressure 108/56 L 117/65 101/55 L Pulse Oximetry 97 98 97 06/24/18 13:30 06/24/18 14:00 06/24/18 14:30 Temperature Pulse Rate 82 81 81 Respiratory Rate 12 12 12 Blood Pressure 105/56 L 106/57 L 107/55 L Pulse Oximetry 97 94 L 94 L 06/24/18 15:00 06/24/18 15:21 06/24/18 15:30 Temperature Pulse Rate 80 79 79 Respiratory Rate 12 17 11 L Blood Pressure 108/59 L 98/53 L Pulse Oximetry 95 96 96 06/24/18 16:00 06/24/18 16:30 06/24/18 17:00 Temperature 98.7 F Pulse Rate 79 79 78 Respiratory Rate 10 L 8 L 8 L Blood Pressure 95/53 L 105/56 L 99/55 L Pulse Oximetry 97 98 98 06/24/18 17:30 06/24/18 18:00 06/24/18 19:16 Temperature Pulse Rate 79 78 76 Respiratory Rate 9 L 8 L 16 Blood Pressure 102/56 L 97/52 L Pulse Oximetry 98 98 98 06/24/18 20:00 06/24/18 22:00 06/25/18 00:00 Temperature 97.6 F 98 F Pulse Rate 79 80 74 Respiratory Rate 13 13 Blood Pressure 136/65 87/53 L Pulse Oximetry 99 98 06/25/18 00:06 06/25/18 00:08 06/25/18 02:00 Temperature Pulse Rate 80 79 Respiratory Rate 14 13 Blood Pressure Pulse Oximetry 100 06/25/18 03:26 06/25/18 04:00 06/25/18 04:16 Temperature 98.4 F Pulse Rate 88 85 Respiratory Rate 15 12 16 Blood Pressure 89/54 L Pulse Oximetry 98 98 06/25/18 06:00 Temperature Pulse Rate 88 Respiratory Rate Blood Pressure Pulse Oximetry Intake & Output 06/24/18 06/25/18 06/25/18 18:59 06:59 18:59 Intake Total 1562.5 / 1562.5 658 / 658 Output Total 760 / 760 325 / 325 Balance 802.5 / 802.5 333 / 333 Weight 63.1 kg 63.9 kg Intake: IV 1562.5 / 1562.5 300 / 300 Diprivan 1000 mg/100 ml Inj 1, 200 / 200 200 / 200 000 mg In 100 ml @ 5 MCG/KG/MIN 2.042 mls/hr IV.CONT TITRATE PRN Rx#:[id number] NS Inj 1,000 ML @ 84 mls/hr IV. 1000 / 1000 CONT .[id number] [facility] Rx#:[id number] Zosyn 3.375 GM Premix 50 ML @ 100 / 100 100 / 100 100 mls/hr IV.SIG Q6H [facility] Rx#: [id number] Vancomycin Inj 1,250 MG In NS 262.5 / 262.5 Inj 250 ML @ 250 mls/hr IV.SIG ONCE ONE Rx#:[id number] Tube Feeding 298 / 298 Water Bolus Amount 60 / 60 Output: Urine 650 / 650 Urine Amount (Catheter) 325 / 325 Indwelling Urethral Catheter 325 / 325 Chest Tube Drainage 110 / 110 #1 Left Upper Mid-Axillary 110 / 110 Chest Other: # Bowel Movements 0 0 Result Diagrams: 06/25/18 05:57 06/25/18 05:57 Other Results: Laboratory Results - last 12 hr 06/24/18 06/24/18 06/25/18 18:59 23:28 05:57 WBC 19.8 H RBC 3.74 L Hgb 11.1 L Hct 33.8 L MCV 90.4 MCH 29.7 MCHC 32.9 RDW 14.7 Plt Count 61 L MPV 11.2 H Prelim Diff (Auto) Slide review pending Neut % (Auto) 85.9 H Lymph % (Auto) 6.2 L [place]ady % (Auto) 7.2 Eos % (Auto) 0.3 Baso % (Auto) 0.4 Neut # (Auto) 17.0 H Lymph # (Auto) 1.2 [place]ady # (Auto) 1.4 H Eos # (Auto) 0.1 Baso # (Auto) 0.1 Differential Comment . Sodium Potassium 3.4 L Chloride Carbon Dioxide Anion Gap BUN Creatinine Estimated GFR POC Glucose 138 H Random Glucose Calcium Phosphorus Magnesium Total Bilirubin AST ALT Alkaline Phosphatase Total Protein Albumin Random Vancomycin 06/25/18 05:57 WBC RBC Hgb Hct MCV MCH MCHC RDW Plt Count MPV Prelim Diff (Auto) Neut % (Auto) Lymph % (Auto) [place]ady % (Auto) Eos % (Auto) Baso % (Auto) Neut # (Auto) Lymph # (Auto) [place] # (Auto) Eos # (Auto) Baso # (Auto) Differential Comment Sodium 150 H Potassium 4.2 D Chloride 115 H Carbon Dioxide 23.0 Anion Gap 12 BUN 35 H Creatinine 1.47 H Estimated GFR 35 L POC Glucose Random Glucose 160 H Calcium 7.8 L Phosphorus 2.8 Magnesium 2.5 Total Bilirubin 0.4 AST 30 ALT 22 Alkaline Phosphatase 120 H Total Protein 6.0 L Albumin 2.1 L Random Vancomycin 10.7 Imaging: Cervical Spine CT 06/22/18 13:58 CONCLUSION: 1. Multilevel degenerative changes. 2. Scattered neural foraminal narrowing. 3. No compression fracture or spondylolisthesis Head CT 06/22/18 13:58 CONCLUSION: 1. Acute right parietal infarcts. No midline shift or mass effect. . Pelvis X-Ray 06/22/18 13:58 CONCLUSION: Limited study without gross abnormality. Humerus X-Ray 06/22/18 13:59 CONCLUSION: No abnormality involving the humerus. Subcutaneous air is seen tracking over the lateral left chest wall. Thoracic Aorta CT 06/22/18 15:28 CONCLUSION: 1. Moderate volume acute pulmonary emboli. 2. Moderate size left pneumothorax with overlying subcutaneous air. 3. Severe emphysematous changes. 4. 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 5. Occlusion of the right outflow possibly acute in origin. Clinical evaluation for right lower extremity claudication suggested. 6. 2 hepatic masses worrisome for metastatic disease. These are limited in their evaluation on this study due to the arterial phase of the exam. Consider MRI of the liver to further assess if clinically warranted. Head MRI 06/23/18 00:00 CONCLUSION: 1. 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 2. There appear to be 2 punctate acute infarctions involving the right cerebellar hemisphere. This is best seen on the diffusion-weighted images. Venous Doppler Study 06/23/18 00:00 CONCLUSION: 1. Occlusive thrombus in both posterior tibial veins. Head MRA 06/23/18 09:12 CONCLUSION: 1. Occlusion of the mid to distal right M1 segment with reconstitution of the proximal right M2 branches via collaterals. IVC Filter Placement X-Ray 06/23/18 09:20 CONCLUSION: 1. Uncomplicated inferior vena cava filter placement as above. Chest X-Ray 06/24/18 00:00 CONCLUSION: Stable chest. Carotid Doppler Study 06/24/18 08:01 CONCLUSION: 1. No hemodynamic significant stenosis in right carotid artery. 2. There is an approximate 50-69% stenosis left internal carotid artery. Objective Remarks: GENERAL: Patient is 78 yo critically ill intubated and sedated SKIN: Warm and dry. HEAD: Normocephalic. EYES: No scleral icterus. No injection or drainage. NECK: Supple, trachea midline. No JVD or lymphadenopathy. CARDIOVASCULAR: Regular rate and rhythm without murmurs, gallops, or rubs. RESPIRATORY: Breath sounds equal bilaterally. No accessory muscle use. GASTROINTESTINAL: Abdomen soft, non-tender, nondistended. MUSCULOSKELETAL: No edema. +Cyanosis of fingertips on right hand Neuro: sedated Assessment and Plan - Assessment and Plan Plan: VDRF Acute CVA ( Acute right parietal infarcts) Pulmonary embolism Left sided PTX Liver lesions suspicious of metastatic process Mild elevated troponin-multifactorial. Leukocytosis Thrombocytopenia Plan Neuro: On Diprivan, Fentanyl infusion for sedation. Daily sedation vacation. CT brain: Acute parietal infarcts MRI brain:. 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 2 punctate acute infarctions involving the right cerebellar hemisphere. MRA brain: Occlusion of the mid to distal right M1 segment with reconstitution of the proximal right M2 branches via collaterals. Carotid Doppler US: No hemodynamic significant stenosis in right carotid artery. There is an approximate 50-69% stenosis left internal carotid artery. Neuro is following Unknown downtime. Not a candidate for TPA or thrombectomy Aspirin, statins Pulm: Continue with vent support keep sats >92% On PRVC RR 12, TV 450, IT:1.0, PEEP:5 and FIO2:55%. Decrease FIO2 as josh. Bronchodilators, ICU vent bundle. Check CXR CT thoracic aorta: Pulmonary embolism, left sided PTX s/p CT placement- monitor CT drainage Doppler US LE b/l LE: Occlusive thrombus in both posterior tibial veins. Not a candidate for anticoagulation due to worrisome of hemorrhagic conversion s/p IVC filter placement on 06/23. Heme is following. CV: Monitor HR and BP keep MAP>65mmHg Continue ASA, Lipitor Echo showed Normal left ventricular size. Wall thickness is normal. EF: 60 -65%. : Monitor renal function, I/O's, electrolytes replacement per protocol. Place on Free water 250ml Q8 GI: Liver lesions suspicious of metastatic process G is following. On Pepcid 20mg IV Q12 for GI prophylaxis Continue tube feeds-On 2cal HN with goal rate 55ml/hr Ed 5mg IV Q8 PRN ID: Monitor for signs of infections (Fever, WBC) WBC is trending down Received Vanco and Zosyn in ED. Continue with Zosyn and Vanco Follow up on sputum cx and BC 06/23 Heme: Monitor CBC, follow up on Hep PLT ab Doppler US LE: Occlusive thrombus in both posterior tibial veins. Heme is following. CT chest, abd/pelvis ordered by [facility] for mets workup. Tumor markers elevated. CEA: 41, AFP:13, CA 125: 1091, CA19-9: 593.6, CA 15-3:177 Seen by Vascular surgery for cyanosis of fingertios on right hand- Not a candidate for surgery Endo: SSI for glycemic control DVT GI prophylaxis -Teds SCDs -Subcu heparin -Pepcid Palliative care is following- Patient was made no code DNR Poor prognosis 35 minutes of critical care
[2018-06-25] MEDS: Senna/Docusate Sodium 8.6/50 MG Tablet PO SCH ×2 (09:08→20:49)
[2018-06-25] MEDS: Famotidine PF Inj 20 MG/2 ML Vial IV.PUSH SCH ×2 (09:08→20:49)
[2018-06-25] MEDS: Aspirin 300 MG Supp RECTAL SCH (09:12)
[2018-06-25] MEDS: Chlorhexidine 0.12% Oral Kit 15 ML UDC OROPHARYNG SCH ×2 (09:13→20:49)
[2018-06-25] MEDS ORDERED: Diatrizoate Meglum/Diatrizoate Sod Liq 9 ML UDC PO ONE (11:15)
[2018-06-25] MEDS: fentaNYL 10 mcg/mL Premix Drip 2,500 MCG/250 ML BAG IV.SIG PRN (11:57)
[2018-06-25] MEDS: Vancomycin Inj 1,250 MG in Sodium Chlor 0.9% Inj 250 ML IV.SIG SCH (13:17)
--- NOTE | 2018-06-25 14:31 | P.PNONC ---
Subjective Interval history: Patient remains intubated and sedated. Her three friends are at the bedside, one of which is Cari Dumas, her health care surrogate. Erica from palliative for care is also at the bedside, she has discussed concerns for decline with the [facility], goals appear to be to add nothing further and to keep her comfortable. She also discussed pending CT scans with worsening renal function. They are aware that these tests would be for information only as the patients condition is so poor. They do not wish to proceed at this time. Objective Vital Signs/Intake & Output: Vital Signs 06/24/18 14:30 06/24/18 15:00 06/24/18 15:21 Temperature Pulse Rate 81 80 79 Respiratory Rate 12 12 17 Blood Pressure 107/55 L 108/59 L Pulse Oximetry 94 L 95 96 06/24/18 15:30 06/24/18 16:00 06/24/18 16:30 Temperature 98.7 F Pulse Rate 79 79 79 Respiratory Rate 11 L 10 L 8 L Blood Pressure 98/53 L 95/53 L 105/56 L Pulse Oximetry 96 97 98 06/24/18 17:00 06/24/18 17:30 06/24/18 18:00 Temperature Pulse Rate 78 79 78 Respiratory Rate 8 L 9 L 8 L Blood Pressure 99/55 L 102/56 L 97/52 L Pulse Oximetry 98 98 98 06/24/18 19:16 06/24/18 20:00 06/24/18 22:00 Temperature 97.6 F Pulse Rate 76 79 80 Respiratory Rate 16 13 Blood Pressure 136/65 Pulse Oximetry 98 99 06/25/18 00:00 06/25/18 00:06 06/25/18 00:08 Temperature 98 F Pulse Rate 74 80 Respiratory Rate 13 14 13 Blood Pressure 87/53 L Pulse Oximetry 98 100 06/25/18 02:00 06/25/18 03:26 06/25/18 04:00 Temperature 98.4 F Pulse Rate 79 88 85 Respiratory Rate 15 12 Blood Pressure 89/54 L Pulse Oximetry 98 06/25/18 04:16 06/25/18 06:00 06/25/18 07:40 Temperature Pulse Rate 88 Respiratory Rate 16 15 Blood Pressure Pulse Oximetry 98 97 06/25/18 07:46 06/25/18 08:00 06/25/18 10:00 Temperature 96.6 F L Pulse Rate 90 87 87 Respiratory Rate 18 17 Blood Pressure 125/67 Pulse Oximetry 96 06/25/18 11:18 06/25/18 11:29 06/25/18 11:58 Temperature Pulse Rate 90 Respiratory Rate 15 17 17 Blood Pressure Pulse Oximetry 97 06/25/18 12:00 06/25/18 13:18 Temperature 99.1 F Pulse Rate 97 H Respiratory Rate 18 14 Blood Pressure 126/59 L Pulse Oximetry 95 Intake & Output 06/24/18 06/25/18 06/25/18 18:59 06:59 18:59 Intake Total 1562.5 / 1562.5 658 / 658 300 / 300 Output Total 760 / 760 325 / 325 Balance 802.5 / 802.5 333 / 333 300 / 300 Weight 63.1 kg 63.9 kg Intake: IV 1562.5 / 1562.5 300 / 300 300 / 300 Diprivan 1000 mg/100 ml Inj 1, 200 / 200 200 / 200 000 mg In 100 ml @ 5 MCG/KG/MIN 2.042 mls/hr IV.CONT TITRATE PRN Rx#:[id number] NS Inj 1,000 ML @ 84 mls/hr IV. 1000 / 1000 CONT .[id number] [facility] Rx#:[id number] Zosyn 3.375 GM Premix 50 ML @ 100 / 100 100 / 100 50 / 50 100 mls/hr IV.SIG Q6H [facility] Rx#: [id number] Vancomycin Inj 1,250 MG In NS 262.5 / 262.5 Inj 250 ML @ 250 mls/hr IV.SIG ONCE ONE Rx#:[id number] fentaNYL 10 mcg/mL Premix Drip 250 / 250 2,500 mcg In 250 ml @ 50 MCG/HR 5 mls/hr IV.SIG TITRATE PRN Rx #:[id number] Tube Feeding 298 / 298 Water Bolus Amount 60 / 60 Output: Urine 650 / 650 Urine Amount (Catheter) 325 / 325 Indwelling Urethral Catheter 325 / 325 Chest Tube Drainage 110 / 110 #1 Left Upper Mid-Axillary 110 / 110 Chest Other: # Bowel Movements 0 0 Result Diagrams: 06/25/18 05:57 06/25/18 05:57 Laboratory Results: Laboratory Results - last 24 hr 06/23/18 06/24/18 06/24/18 09:25 09:52 17:17 WBC RBC Hgb Hct MCV MCH MCHC RDW Plt Count MPV Prelim Diff (Auto) Neut % (Auto) Lymph % (Auto) [place] % (Auto) Eos % (Auto) Baso % (Auto) Neut # (Auto) Lymph # (Auto) [place] # (Auto) Eos # (Auto) Baso # (Auto) WBC Differential Diff Scan Differential Comment Platelet Estimate Platelet Morphology Sodium Potassium Chloride Carbon Dioxide Anion Gap BUN Creatinine Estimated GFR POC Glucose 154 H Random Glucose Calcium Phosphorus Magnesium Total Bilirubin AST ALT Alkaline Phosphatase Total Protein Albumin Random Vancomycin Chromogranin A 104.0 H Heparin Dep Plt Ab OD 0.424 Hep-Induced Plt Ab Sheryl Negative 06/24/18 06/24/18 06/25/18 18:59 23:28 05:57 WBC 19.8 H RBC 3.74 L Hgb 11.1 L Hct 33.8 L MCV 90.4 MCH 29.7 MCHC 32.9 RDW 14.7 Plt Count 61 L MPV 11.2 H Prelim Diff (Auto) Slide review pending Neut % (Auto) 85.9 H Lymph % (Auto) 6.2 L [place] % (Auto) 7.2 Eos % (Auto) 0.3 Baso % (Auto) 0.4 Neut # (Auto) 17.0 H Lymph # (Auto) 1.2 [place] # (Auto) 1.4 H Eos # (Auto) 0.1 Baso # (Auto) 0.1 WBC Differential . Diff Scan Auto diff confirmed Differential Comment . Platelet Estimate Low L Platelet Morphology Enlarged H Sodium Potassium 3.4 L Chloride Carbon Dioxide Anion Gap BUN Creatinine Estimated GFR POC Glucose 138 H Random Glucose Calcium Phosphorus Magnesium Total Bilirubin AST ALT Alkaline Phosphatase Total Protein Albumin Random Vancomycin Chromogranin A Heparin Dep Plt Ab OD Hep-Induced Plt Ab Sheryl 06/25/18 06/25/18 05:57 13:22 WBC RBC Hgb Hct MCV MCH MCHC RDW Plt Count MPV Prelim Diff (Auto) Neut % (Auto) Lymph % (Auto) [place] % (Auto) Eos % (Auto) Baso % (Auto) Neut # (Auto) Lymph # (Auto) [place] # (Auto) Eos # (Auto) Baso # (Auto) WBC Differential Diff Scan Differential Comment Platelet Estimate Platelet Morphology Sodium 150 H Potassium 4.2 D Chloride 115 H Carbon Dioxide 23.0 Anion Gap 12 BUN 35 H Creatinine 1.47 H Estimated GFR 35 L POC Glucose 180 H Random Glucose 160 H Calcium 7.8 L Phosphorus 2.8 Magnesium 2.5 Total Bilirubin 0.4 AST 30 ALT 22 Alkaline Phosphatase 120 H Total Protein 6.0 L Albumin 2.1 L Random Vancomycin 10.7 Chromogranin A Heparin Dep Plt Ab OD Hep-Induced Plt Ab Sheryl Culture Results: Microbiology 06/23/18 20:15 Gram Stain - Final Sputum - Endotracheal Sputum Culture - Preliminary Moderate growth normal respiratory karl at 24 hours 06/23/18 11:05 Aerobic Blood Culture - Preliminary Blood - Peripheral No growth in 2 days Anaerobic Blood Culture - Final QNS - See aerobic report. 06/23/18 10:50 Aerobic Blood Culture - Preliminary Blood - Peripheral No growth in 2 days Anaerobic Blood Culture - Final QNS - See aerobic report. Medications: Active Medications Generic Name Dose Route Start Last Admin Trade Name Freq PRN Reason Stop Dose Admin Albuterol 1 ampul 06/22/18 20:00 06/25/18 11:29 Duoneb Neb ([facility]) NEB 1 ampul Q4HR NEB MATIAS Administration Aspirin 300 mg 06/23/18 09:15 06/25/18 09:12 Aspirin Supp RECTAL 300 mg DAILY MATIAS Administration Atorvastatin Calcium 80 mg 06/23/18 09:00 06/25/18 09:07 Lipitor PO 80 mg DAILY MATIAS Administration Chlorhexidine Gluconate 15 ml 06/22/18 20:00 06/25/18 09:13 Peridex 0.12% Oral Kit OROPHARYNG 15 ml BID@0800,2000 MATIAS Administration Chlorhexidine Gluconate 3 pack 06/23/18 04:00 06/25/18 03:41 Chlorhexidine 2% Cloth TOPICAL 06/28/18 03:59 3 pack DAILY@0400 MATIAS Administration Famotidine 20 mg 06/22/18 21:00 06/25/18 09:08 Pepcid Pf Inj IV.PUSH 20 mg Q12HR MATIAS Administration Heparin Sodium (Porcine) 5,000 units 06/23/18 10:00 06/25/18 09:09 Heparin Inj SQ 5,000 units Q8H MATIAS Administration Propofol 1,000 mg in 100 mls @ 2.042 mls/hr 06/22/18 15:23 06/25/18 07:01 Diprivan 1000 Mg/100 Ml Inj IV.CONT 40 mcg/kg/min TITRATE PRN 16.34 mls/hr Per Protocol Administration Protocol 5 MCG/KG/MIN Piperacillin/Tazobactam/Dextrose 50 mls @ 100 mls/hr 06/23/18 15:00 06/25/18 09:45 Zosyn 3.375 Gm Premix IV.SIG Infused Q6H MATIAS Infusion Fentanyl 2,500 mcg in 250 mls @ 5 mls/hr 06/23/18 14:50 06/25/18 11:57 Fentanyl 10 Mcg/Ml Premix Drip IV.SIG 50 mcg/hr TITRATE PRN 5 mls/hr Per Protocol Administration Protocol 50 MCG/HR Vancomycin HCl 1,250 mg/ 262.5 mls @ 250 mls/hr 06/25/18 12:00 06/25/18 13:17 Sodium Chloride IV.SIG 250 mls/hr Q24H MATIAS Administration Insulin Human Regular 0 units 06/23/18 12:00 06/25/18 13:23 Novolin R Correctional Sugar Inj SQ 1 units Q6HR MATIAS Administration Protocol Metoclopramide HCl 5 mg 06/24/18 07:03 06/25/18 01:56 Reglan Inj IV.PUSH 5 mg Q8H PRN Administration VOMITING Protocol Miscellaneous Medication 1 each 06/23/18 00:00 06/25/18 13:17 OROPHARYNG 1 each 0000,0400,1200,1600 MATIAS Administration Potassium Bicarb/Potassium Chloride 50 meq 06/23/18 08:53 06/24/18 20:15 K-Lyte Cl Eff PO 50 meq UNSCH PRN Administration For Potassium 3.3 - 3.5 mEq/L Senna/Docusate Sodium 1 tab 06/22/18 21:00 06/25/18 09:08 Shadia-Colace PO 1 tab BID MATIAS Administration Sodium Chloride 2 ml 06/22/18 21:00 06/25/18 11:59 Ns Flush IV.FLUSH Not Given BID MATIAS Sodium Chloride 2 ml 06/22/18 18:48 06/25/18 09:10 Ns Flush IV.FLUSH 2 ml PRN PRN Administration FLUSH AFTER USING IV ACCESS Sterile Water 250 ml 06/25/18 08:00 06/25/18 09:13 Free Water G-TUBE 250 ml Q8HR MATIAS Administration Objective Remarks: GENERAL: Critically ill-appearing female patient, ventilated and sedated. SKIN: Warm and dry. HEAD: Normocephalic. EYES: No scleral icterus. No injection or drainage. NECK: Supple, trachea midline. CARDIOVASCULAR: +S1/S2. RESPIRATORY: Breath sounds diminished on the left. +intubated, FiO2 45. Left chest tube draining minimal bright red fluid. GASTROINTESTINAL: Abdomen distended, upper abdominal soft large bulge. EXTREMITIES: Right hand cyanosis and mottling, no palpable radial pulse, 3/5 brachial pulse. Remaining extremities warm and pink. MUSCULOSKELETAL: Decreased muscle tone. NEUROLOGICAL: Sedated. Assessment/Plan - Plan Ms. Reina is an unfortunate 78-year-old female currently being cared for in the intensive care unit, ventilated and sedated. She was found on the floor by a friend, unknown how long. She has been diagnosed with acute CVA, PE, bilateral DVT and pneumothorax with rib fractures status post left chest tube placement. According to palliative care the patient has been under the care of Dr. Rivera , for lung cancer. Unknown what treatments she has received. Hematology was consulted for anticoagulation recommendations in a patient who has had an acute thrombotic stroke, pulmonary embolism and bilateral lower leg DVTs. Patient was also found to have liver lesions. Plan: 1. 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 This is likely secondary to hypercoagulable state from malignancy. Patient is not a candidate for anticoagulation. IVC filter has been placed. 2. Liver lesions, likely metastatic lung cancer. Records received, she has a history of breast cancer in 1989 and 1998. And a history of early stage non- small cell lung cancer, status post resection in 2013. 3. Right cyanotic hand, no palpable radial pulse and cool to touch. Pt evaluated by Dr. Khanna, vascular surgeon who does not recommend surgery given the patients critical state. 4. Palliative care is present as well as the patient's healthcare surrogate. - Attending Statement The exam, history, and the medical decision-making described in the above note were completed with the assistance of the mid-level provider. I reviewed and agree with the findings presented. I attest that I had a [id number] encounter with the patient on the same day, and personally performed and documented my assessment and findings in the medical record. Patient unable to tolerate sedation vacation She remains on the ventilator. CT has showed progression of the stroke CT chest abdomen and pelvis without contrast does not show any evidence of primary malignancy. Patient has ischemic right upper extremity It does not appear that patient is going to improve from her stroke anytime soon. Recommend best supportive care with hospice Discussed with the Erica from palliative care Health surrogate and family will make a decision tomorrow
--- NOTE | 2018-06-25 14:47 | P.PNPAL ---
Reason for Visit Reason for visit: a. To assist with evaluation and management of symptoms including: pain, dyspnea b. To assist medical decision maker(s) with: better understanding of current medical conditions; weighing benefits/burdens of medical treatment options; making medical treatment decisions. Subjective Subjective/Interval History: Draft... Patient seen and examined in ICU. No family or friends present during exam. Patient remains sedated (Fentanyl 100 and Propofol 35) on [facility]. Nurse reports increased work of breathing, tachypnea, vent asynchrony with sedation vacation. Currently on vent with FiO2 45%, PEEP 8. Platelets 61. Creatinine increased from 1.22 to 1.47. Ischemic right hand. Dr. Deluna evaluated patient, not a candidate for surgical intervention. Blood culture no growth 2 days, sputum culture pending. Patient has mottling bilateral feet, left foot drop. On physical exam she is not moving left upper or lower extremity spontaneously or to painful stimuli today. No movement noted on right upper spontaneously or to painful stimuli. She was moving all but left upper on my exam 06/24/18. Spoke with Dr. Turcios change CT chest/abd/pelvis to no contrast given increasing creatinine. Discussed with Dr. Littlejohn. Family/Friend Interactions: Met with Cari Dumas, HCS and friends. Medical update provided. Reviewed new physical exam findings and related concerns. I reviewed medical team thoughts regarding prognosis. Explained will have to do non-contrasted CT scan given worsening renal function, they understand limitations without contrast and understand rationale. Reviewed Dr. Deluna evaluation and that she is not a candidate for surgical intervention at this time. Overall prognosis appears poor. Brother will be arriving sometime in the coming days. They have elected to continue current level of care, no further escalation of care (No pressors, no invasive procedures, no escalation of care). They desire comfort medications be continued and not held for hypotension or other reasons as per patient written directives in her living will. Will obtain CTs and further clarify goals of medical treatment once results available 06/26/18. Cari wishes to be contacted if any change in condition as she does not want patient to alone. Advance Directives Advance Directives Date on File: 12/04/89 Health Care Surrogate Name and Number: Cari Dumas, friend: [phone] Documented care wishes:: Living Will states that if she is unable to participate in decisions concerning her life: if no reasonable expectation for recovery from extreme physical or mental disability that she directs she be allowed to , not be kept alive by medications, artificial means, life support or heroic measures. She asks that medication be administered to alleviate suffering even though this may shorten her remaining life. She also indicates she hopes to live out her last days at home rather than n the the hospital if it does not jeopardize the chance of recovery to a meaningful and conscious life and does not impose an undue burden on my family. Significant change in goals:: Met with Cari Dumas, HCS and friends. Medical update provided. They have elected to continue current level of care, no further escalation of care (No pressors, no invasive procedures, no escalation of care). They desire comfort medications be continued and not held for hypotension or other reasons as per patient written directives in her living will. Will obtain CTs and further clarify goals of medical treatment once results available 06/26/18. Cari wishes to be contacted if any change in condition as she does not want patient to alone. Objective Vital Signs: Vital Signs 06/24/18 15:00 06/24/18 15:21 06/24/18 15:30 Temperature Pulse Rate 80 79 79 Respiratory Rate 12 17 11 L Blood Pressure 108/59 L 98/53 L Pulse Oximetry 95 96 96 06/24/18 16:00 06/24/18 16:30 06/24/18 17:00 Temperature 98.7 F Pulse Rate 79 79 78 Respiratory Rate 10 L 8 L 8 L Blood Pressure 95/53 L 105/56 L 99/55 L Pulse Oximetry 97 98 98 06/24/18 17:30 06/24/18 18:00 06/24/18 19:16 Temperature Pulse Rate 79 78 76 Respiratory Rate 9 L 8 L 16 Blood Pressure 102/56 L 97/52 L Pulse Oximetry 98 98 98 06/24/18 20:00 06/24/18 22:00 06/25/18 00:00 Temperature 97.6 F 98 F Pulse Rate 79 80 74 Respiratory Rate 13 13 Blood Pressure 136/65 87/53 L Pulse Oximetry 99 98 06/25/18 00:06 06/25/18 00:08 06/25/18 02:00 Temperature Pulse Rate 80 79 Respiratory Rate 14 13 Blood Pressure Pulse Oximetry 100 06/25/18 03:26 06/25/18 04:00 06/25/18 04:16 Temperature 98.4 F Pulse Rate 88 85 Respiratory Rate 15 12 16 Blood Pressure 89/54 L Pulse Oximetry 98 98 06/25/18 06:00 06/25/18 07:40 06/25/18 07:46 Temperature Pulse Rate 88 90 Respiratory Rate 15 18 Blood Pressure Pulse Oximetry 97 06/25/18 08:00 06/25/18 10:00 06/25/18 11:18 Temperature 96.6 F L Pulse Rate 87 87 Respiratory Rate 17 15 Blood Pressure 125/67 Pulse Oximetry 96 97 06/25/18 11:29 06/25/18 11:58 06/25/18 12:00 Temperature 99.1 F Pulse Rate 90 97 H Respiratory Rate 17 17 18 Blood Pressure 126/59 L Pulse Oximetry 95 06/25/18 13:18 Temperature Pulse Rate Respiratory Rate 14 Blood Pressure Pulse Oximetry Intake & Output 06/24/18 06/25/18 06/25/18 18:59 06:59 18:59 Intake Total 1562.5 / 1562.5 658 / 658 300 / 300 Output Total 760 / 760 325 / 325 Balance 802.5 / 802.5 333 / 333 300 / 300 Weight 63.1 kg 63.9 kg Intake: IV 1562.5 / 1562.5 300 / 300 300 / 300 Diprivan 1000 mg/100 ml Inj 1, 200 / 200 200 / 200 000 mg In 100 ml @ 5 MCG/KG/MIN 2.042 mls/hr IV.CONT TITRATE PRN Rx#:[id number] NS Inj 1,000 ML @ 84 mls/hr IV. 1000 / 1000 CONT .[id number] [facility] Rx#:[id number] Zosyn 3.375 GM Premix 50 ML @ 100 / 100 100 / 100 50 / 50 100 mls/hr IV.SIG Q6H [facility] Rx#: [id number] Vancomycin Inj 1,250 MG In NS 262.5 / 262.5 Inj 250 ML @ 250 mls/hr IV.SIG ONCE ONE Rx#:[id number] fentaNYL 10 mcg/mL Premix Drip 250 / 250 2,500 mcg In 250 ml @ 50 MCG/HR 5 mls/hr IV.SIG TITRATE PRN Rx #:[id number] Tube Feeding 298 / 298 Water Bolus Amount 60 / 60 Output: Urine 650 / 650 Urine Amount (Catheter) 325 / 325 Indwelling Urethral Catheter 325 / 325 Chest Tube Drainage 110 / 110 #1 Left Upper Mid-Axillary 110 / 110 Chest Other: # Bowel Movements 0 0 Physical Exam: CONSTITUTIONAL/GENERAL: This is an adequately nourished patient, [facility]. TUBES/LINES/DRAINS: ETT, OG, PIVs, left chest tube, Siddiqi, bilateral soft wrist restraints. SKIN: No jaundice, rashes, or lesions. Ecchymoses on upper extremities, bilateral knees and left hip. EYES: Pupils equal and round. ENT: Unable to assess hearing. Nose without bleeding or purulent drainage. Throat difficult to visualize due to tubes. CARDIOVASCULAR: Regular rate and rhythm, some ectopy noted. RESPIRATORY/CHEST: Left chest tube. Mildly labored respirations on vent. crackles. diminished breath sounds. GASTROINTESTINAL: Abdomen soft, non-tender, nondistended. Bowel sounds present. Easily reducible, soft hernia right upper abdomen. GENITOURINARY: Without palpable bladder distension. Siddiqi catheter in place. MUSCULOSKELETAL: Extremities without clubbing edema. Mottling noted left foot, cool to touch. Right hand with significant ischemic changes. NEUROLOGICAL: Sedated on vent. Withdraws to painful stimuli right LE, Left arm, right arm and left lower extremity flaccid. PSYCHIATRIC: Sedated. Diagnostic Tests Laboratory: Laboratory Results - last 72 hr 06/22/18 06/22/18 06/22/18 14:00 14:00 14:00 WBC RBC Hgb Hct MCV MCH MCHC RDW Plt Count MPV Prelim Diff (Auto) Neut % (Auto) Lymph % (Auto) [place] % (Auto) Eos % (Auto) Baso % (Auto) Neut # (Auto) Lymph # (Auto) [place] # (Auto) Eos # (Auto) Baso # (Auto) WBC Differential Manual diff final Diff Scan Seg Neuts % (Manual) 86 H Band Neuts % (Manual) 2 Lymphocytes % (Manual) 4 L Monocytes % (Manual) 8 Abs Neuts (Manual) 27.3 H Differential Comment Platelet Estimate Low L Platelet Morphology Normal RBC Morphology ESR PT 11.9 H INR 1.2 APTT 23.6 L Puncture Site Patient Temperature O2 Saturation ABG pH ABG pCO2 ABG pO2 ABG HCO3 ABG O2 Content ABG Base Excess ABG Methemoglobin Jay Test Hemoglobin Carboxyhemoglobin O2 Delivery Device Vent Setting Inspired O2 Critical Value Sodium Potassium Chloride Carbon Dioxide Anion Gap BUN Creatinine Estimated GFR POC Glucose Random Glucose Hemoglobin A1c Calcium Phosphorus Magnesium Total Bilirubin AST ALT Alkaline Phosphatase Total Creatine Kinase CK-MB (CK-2) CK-MB (CK-2) % Troponin I 0.29 H Total Protein Albumin Triglycerides Cholesterol LDL Cholesterol, Calc HDL Cholesterol Cholesterol/HDL Ratio Tumor Marker AFP Carcinoembryonic Ag CA 15-3 Antigen CA 19-9 Antigen CA 125 Antigen Urine Color Urine Clarity Urine pH Ur Specific [place] Urine Protein Urine Glucose (UA) Urine Ketones Urine Occult Blood Urine Nitrate Urine Bilirubin Urine Urobilinogen Ur Leukocyte Esterase Urine RBC Urine WBC Ur Squamous Epith Cells Urine Mucus Micro UA Comment Ur Microscopic Review Urine Culture Comments Nasal Screen MRSA (PCR) Random Vancomycin Serum Alcohol Less than 3 Chromogranin A Heparin Dep Plt Ab OD Hep-Induced Plt Ab Sheryl Blood Type Antibody Screen 06/22/18 06/22/18 06/22/18 14:00 16:28 16:30 WBC RBC Hgb Hct MCV MCH MCHC RDW Plt Count MPV Prelim Diff (Auto) Neut % (Auto) Lymph % (Auto) [place] % (Auto) Eos % (Auto) Baso % (Auto) Neut # (Auto) Lymph # (Auto) [place] # (Auto) Eos # (Auto) Baso # (Auto) WBC Differential Diff Scan Seg Neuts % (Manual) Band Neuts % (Manual) Lymphocytes % (Manual) Monocytes % (Manual) Abs Neuts (Manual) Differential Comment Platelet Estimate Platelet Morphology RBC Morphology ESR PT INR APTT Puncture Site Left radial Patient Temperature 98.6 O2 Saturation 98 ABG pH 7.34 L ABG pCO2 40 ABG pO2 172 H ABG HCO3 21 L ABG O2 Content 19.4 ABG Base Excess -3.9 L ABG Methemoglobin 0.7 Jay Test Present Hemoglobin 14.0 Carboxyhemoglobin 0.9 O2 Delivery Device Ventilator Vent Setting Inspired O2 100 Critical Value No Sodium Potassium Chloride Carbon Dioxide Anion Gap BUN Creatinine Estimated GFR POC Glucose Random Glucose Hemoglobin A1c Calcium Phosphorus Magnesium Total Bilirubin AST ALT Alkaline Phosphatase Total Creatine Kinase CK-MB (CK-2) CK-MB (CK-2) % Troponin I Total Protein Albumin Triglycerides Cholesterol LDL Cholesterol, Calc HDL Cholesterol Cholesterol/HDL Ratio Tumor Marker AFP Carcinoembryonic Ag CA 15-3 Antigen CA 19-9 Antigen CA 125 Antigen Urine Color Nancie Urine Clarity Cloudy H Urine pH 5.0 Ur Specific [place] 1.021 Urine Protein 100 H Urine Glucose (UA) Negative Urine Ketones Trace H Urine Occult Blood Large H Urine Nitrate Negative Urine Bilirubin Negative Urine Urobilinogen Less than 2 Ur Leukocyte Esterase Negative Urine RBC 37 H Urine WBC 3 Ur Squamous Epith Cells 2 Urine Mucus Few H Micro UA Comment Culture not ind Ur Microscopic Review Not Reportable Urine Culture Comments Culture not ind Nasal Screen MRSA (PCR) Random Vancomycin Serum Alcohol Chromogranin A Heparin Dep Plt Ab OD Hep-Induced Plt Ab Sheryl Blood Type O Positive Antibody Screen Negative 06/22/18 06/22/18 06/23/18 18:49 23:59 04:54 WBC 22.1 H RBC 4.46 Hgb 13.1 Hct 39.7 MCV 89.0 MCH 29.3 MCHC 32.9 RDW 13.6 Plt Count 77 L D MPV 10.0 Prelim Diff (Auto) Slide review pending Neut % (Auto) 83.3 H Lymph % (Auto) 6.9 L [place] % (Auto) 9.7 H Eos % (Auto) 0.0 Baso % (Auto) 0.1 Neut # (Auto) 18.4 H Lymph # (Auto) 1.5 [place] # (Auto) 2.1 H Eos # (Auto) 0.0 Baso # (Auto) 0.0 WBC Differential . Diff Scan Auto diff confirmed Seg Neuts % (Manual) Band Neuts % (Manual) Lymphocytes % (Manual) Monocytes % (Manual) Abs Neuts (Manual) Differential Comment . Platelet Estimate Low L Platelet Morphology Normal RBC Morphology ESR PT INR APTT Puncture Site Patient Temperature O2 Saturation ABG pH ABG pCO2 ABG pO2 ABG HCO3 ABG O2 Content ABG Base Excess ABG Methemoglobin Jay Test Hemoglobin Carboxyhemoglobin O2 Delivery Device Vent Setting Inspired O2 Critical Value Sodium Potassium Chloride Carbon Dioxide Anion Gap BUN Creatinine Estimated GFR POC Glucose Random Glucose Hemoglobin A1c Calcium Phosphorus Magnesium Total Bilirubin AST ALT Alkaline Phosphatase Total Creatine Kinase 470 H CK-MB (CK-2) 20.2 H CK-MB (CK-2) % 4.3 H* Troponin I 0.64 H* D Total Protein Albumin Triglycerides Cholesterol LDL Cholesterol, Calc HDL Cholesterol Cholesterol/HDL Ratio Tumor Marker AFP Carcinoembryonic Ag CA 15-3 Antigen CA 19-9 Antigen CA 125 Antigen Urine Color Urine Clarity Urine pH Ur Specific [place] Urine Protein Urine Glucose (UA) Urine Ketones Urine Occult Blood Urine Nitrate Urine Bilirubin Urine Urobilinogen Ur Leukocyte Esterase Urine RBC Urine WBC Ur Squamous Epith Cells Urine Mucus Micro UA Comment Ur Microscopic Review Urine Culture Comments Nasal Screen MRSA (PCR) Not detected Random Vancomycin Serum Alcohol Chromogranin A Heparin Dep Plt Ab OD Hep-Induced Plt Ab Sheryl Blood Type Antibody Screen 06/23/18 06/23/18 06/23/18 04:54 04:54 04:54 WBC RBC Hgb Hct MCV MCH MCHC RDW Plt Count MPV Prelim Diff (Auto) Neut % (Auto) Lymph % (Auto) [place] % (Auto) Eos % (Auto) Baso % (Auto) Neut # (Auto) Lymph # (Auto) [place] # (Auto) Eos # (Auto) Baso # (Auto) WBC Differential Diff Scan Seg Neuts % (Manual) Band Neuts % (Manual) Lymphocytes % (Manual) Monocytes % (Manual) Abs Neuts (Manual) Differential Comment Platelet Estimate Platelet Morphology RBC Morphology ESR PT 11.5 INR 1.1 APTT 25.5 Puncture Site Patient Temperature O2 Saturation ABG pH ABG pCO2 ABG pO2 ABG HCO3 ABG O2 Content ABG Base Excess ABG Methemoglobin Jay Test Hemoglobin Carboxyhemoglobin O2 Delivery Device Vent Setting Inspired O2 Critical Value Sodium 145 Potassium 3.1 L Chloride 109 H Carbon Dioxide 23.4 Anion Gap 13 BUN 32 H Creatinine 1.23 H Estimated GFR 42 L POC Glucose Random Glucose 104 Hemoglobin A1c 6.0 Calcium 8.0 L Phosphorus 3.6 Magnesium 2.0 Total Bilirubin 0.6 AST 43 H ALT 22 Alkaline Phosphatase 85 Total Creatine Kinase CK-MB (CK-2) CK-MB (CK-2) % Troponin I 0.56 H Total Protein 6.3 L Albumin 2.8 L Triglycerides 322 H Cholesterol 209 H LDL Cholesterol, Calc 100 H HDL Cholesterol 44.9 Cholesterol/HDL Ratio 4.65 Tumor Marker AFP Carcinoembryonic Ag CA 15-3 Antigen CA 19-9 Antigen CA 125 Antigen Urine Color Urine Clarity Urine pH Ur Specific [place] Urine Protein Urine Glucose (UA) Urine Ketones Urine Occult Blood Urine Nitrate Urine Bilirubin Urine Urobilinogen Ur Leukocyte Esterase Urine RBC Urine WBC Ur Squamous Epith Cells Urine Mucus Micro UA Comment Ur Microscopic Review Urine Culture Comments Nasal Screen MRSA (PCR) Random Vancomycin Serum Alcohol Chromogranin A Heparin Dep Plt Ab OD Hep-Induced Plt Ab Sheryl Blood Type Antibody Screen 06/23/18 06/23/18 06/23/18 04:54 09:25 09:25 WBC 22.0 H RBC 4.45 Hgb 13.1 Hct 39.5 MCV 88.8 MCH 29.4 MCHC 33.2 RDW 14.1 Plt Count 71 L MPV 10.4 Prelim Diff (Auto) Slide review pending Neut % (Auto) 85.4 H Lymph % (Auto) 5.8 L [place] % (Auto) 8.5 H Eos % (Auto) 0.0 Baso % (Auto) 0.3 Neut # (Auto) 18.8 H Lymph # (Auto) 1.3 [place] # (Auto) 1.9 H Eos # (Auto) 0.0 Baso # (Auto) 0.1 WBC Differential Manual diff final Diff Scan Seg Neuts % (Manual) 73 H Band Neuts % (Manual) 12 H Lymphocytes % (Manual) 6 L Monocytes % (Manual) 9 H Abs Neuts (Manual) 18.7 H Differential Comment . Platelet Estimate Low L Platelet Morphology Enlarged H RBC Morphology Normal ESR PT INR APTT Puncture Site Patient Temperature O2 Saturation ABG pH ABG pCO2 ABG pO2 ABG HCO3 ABG O2 Content ABG Base Excess ABG Methemoglobin Jay Test Hemoglobin Carboxyhemoglobin O2 Delivery Device Vent Setting Inspired O2 Critical Value Sodium 144 Potassium 3.3 L Chloride 109 H Carbon Dioxide 24.3 Anion Gap 11 BUN 31 H Creatinine 1.21 H Estimated GFR 43 L POC Glucose Random Glucose 153 H Hemoglobin A1c Calcium 8.0 L Phosphorus 3.1 Magnesium 2.1 Total Bilirubin 0.7 AST 51 H ALT 25 Alkaline Phosphatase 87 Total Creatine Kinase CK-MB (CK-2) CK-MB (CK-2) % Troponin I Total Protein 6.4 Albumin 2.8 L Triglycerides 327 H Cholesterol 205 H LDL Cholesterol, Calc 97 HDL Cholesterol 43.0 Cholesterol/HDL Ratio 4.76 Tumor Marker AFP Carcinoembryonic Ag CA 15-3 Antigen CA 19-9 Antigen CA 125 Antigen Urine Color Urine Clarity Urine pH Ur Specific [place] Urine Protein Urine Glucose (UA) Urine Ketones Urine Occult Blood Urine Nitrate Urine Bilirubin Urine Urobilinogen Ur Leukocyte Esterase Urine RBC Urine WBC Ur Squamous Epith Cells Urine Mucus Micro UA Comment Ur Microscopic Review Urine Culture Comments Nasal Screen MRSA (PCR) Random Vancomycin Serum Alcohol Chromogranin A Heparin Dep Plt Ab OD Hep-Induced Plt Ab Sheryl Blood Type Antibody Screen 06/23/18 06/23/18 06/23/18 09:25 09:25 09:25 WBC RBC Hgb Hct MCV MCH MCHC RDW Plt Count MPV Prelim Diff (Auto) Neut % (Auto) Lymph % (Auto) [place] % (Auto) Eos % (Auto) Baso % (Auto) Neut # (Auto) Lymph # (Auto) [place] # (Auto) Eos # (Auto) Baso # (Auto) WBC Differential Diff Scan Seg Neuts % (Manual) Band Neuts % (Manual) Lymphocytes % (Manual) Monocytes % (Manual) Abs Neuts (Manual) Differential Comment Platelet Estimate Platelet Morphology RBC Morphology ESR 10 PT INR APTT Puncture Site Patient Temperature O2 Saturation ABG pH ABG pCO2 ABG pO2 ABG HCO3 ABG O2 Content ABG Base Excess ABG Methemoglobin Jay Test Hemoglobin Carboxyhemoglobin O2 Delivery Device Vent Setting Inspired O2 Critical Value Sodium Potassium Chloride Carbon Dioxide Anion Gap BUN Creatinine Estimated GFR POC Glucose Random Glucose Hemoglobin A1c 5.9 Calcium Phosphorus Magnesium Total Bilirubin AST ALT Alkaline Phosphatase Total Creatine Kinase CK-MB (CK-2) CK-MB (CK-2) % Troponin I Total Protein Albumin Triglycerides 494 H Cholesterol 225 H LDL Cholesterol, Calc HDL Cholesterol 45.3 Cholesterol/HDL Ratio 4.96 Tumor Marker AFP 13.3 H Carcinoembryonic Ag 41.3 H CA 15-3 Antigen CA 19-9 Antigen CA 125 Antigen Urine Color Urine Clarity Urine pH Ur Specific [place] Urine Protein Urine Glucose (UA) Urine Ketones Urine Occult Blood Urine Nitrate Urine Bilirubin Urine Urobilinogen Ur Leukocyte Esterase Urine RBC Urine WBC Ur Squamous Epith Cells Urine Mucus Micro UA Comment Ur Microscopic Review Urine Culture Comments Nasal Screen MRSA (PCR) Random Vancomycin Serum Alcohol Chromogranin A Heparin Dep Plt Ab OD Hep-Induced Plt Ab Sheryl Blood Type Antibody Screen 06/23/18 06/23/18 06/23/18 09:25 09:25 11:27 WBC RBC Hgb Hct MCV MCH MCHC RDW Plt Count MPV Prelim Diff (Auto) Neut % (Auto) Lymph % (Auto) [place] % (Auto) Eos % (Auto) Baso % (Auto) Neut # (Auto) Lymph # (Auto) [place] # (Auto) Eos # (Auto) Baso # (Auto) WBC Differential Diff Scan Seg Neuts % (Manual) Band Neuts % (Manual) Lymphocytes % (Manual) Monocytes % (Manual) Abs Neuts (Manual) Differential Comment Platelet Estimate Platelet Morphology RBC Morphology ESR PT INR APTT Puncture Site Patient Temperature O2 Saturation ABG pH ABG pCO2 ABG pO2 ABG HCO3 ABG O2 Content ABG Base Excess ABG Methemoglobin Jay Test Hemoglobin Carboxyhemoglobin O2 Delivery Device Vent Setting Inspired O2 Critical Value Sodium Potassium Chloride Carbon Dioxide Anion Gap BUN Creatinine Estimated GFR POC Glucose 97 Random Glucose Hemoglobin A1c Calcium Phosphorus Magnesium Total Bilirubin AST ALT Alkaline Phosphatase Total Creatine Kinase CK-MB (CK-2) CK-MB (CK-2) % Troponin I Total Protein Albumin Triglycerides Cholesterol LDL Cholesterol, Calc HDL Cholesterol Cholesterol/HDL Ratio Tumor Marker AFP Carcinoembryonic Ag CA 15-3 Antigen 177.1 H CA 19-9 Antigen 593.6 H CA 125 Antigen 1091.1 H Urine Color Urine Clarity Urine pH Ur Specific [place] Urine Protein Urine Glucose (UA) Urine Ketones Urine Occult Blood Urine Nitrate Urine Bilirubin Urine Urobilinogen Ur Leukocyte Esterase Urine RBC Urine WBC Ur Squamous Epith Cells Urine Mucus Micro UA Comment Ur Microscopic Review Urine Culture Comments Nasal Screen MRSA (PCR) Random Vancomycin Serum Alcohol Chromogranin A 104.0 H Heparin Dep Plt Ab OD Hep-Induced Plt Ab Sheryl Blood Type Antibody Screen 06/23/18 06/23/18 06/24/18 17:22 23:37 06:04 WBC RBC Hgb Hct MCV MCH MCHC RDW Plt Count MPV Prelim Diff (Auto) Neut % (Auto) Lymph % (Auto) [place] % (Auto) Eos % (Auto) Baso % (Auto) Neut # (Auto) Lymph # (Auto) [place] # (Auto) Eos # (Auto) Baso # (Auto) WBC Differential Diff Scan Seg Neuts % (Manual) Band Neuts % (Manual) Lymphocytes % (Manual) Monocytes % (Manual) Abs Neuts (Manual) Differential Comment Platelet Estimate Platelet Morphology RBC Morphology ESR PT INR APTT Puncture Site Patient Temperature O2 Saturation ABG pH ABG pCO2 ABG pO2 ABG HCO3 ABG O2 Content ABG Base Excess ABG Methemoglobin Jay Test Hemoglobin Carboxyhemoglobin O2 Delivery Device Vent Setting Inspired O2 Critical Value Sodium Potassium Chloride Carbon Dioxide Anion Gap BUN Creatinine Estimated GFR POC Glucose 114 H 161 H 160 H Random Glucose Hemoglobin A1c Calcium Phosphorus Magnesium Total Bilirubin AST ALT Alkaline Phosphatase Total Creatine Kinase CK-MB (CK-2) CK-MB (CK-2) % Troponin I Total Protein Albumin Triglycerides Cholesterol LDL Cholesterol, Calc HDL Cholesterol Cholesterol/HDL Ratio Tumor Marker AFP Carcinoembryonic Ag CA 15-3 Antigen CA 19-9 Antigen CA 125 Antigen Urine Color Urine Clarity Urine pH Ur Specific [place] Urine Protein Urine Glucose (UA) Urine Ketones Urine Occult Blood Urine Nitrate Urine Bilirubin Urine Urobilinogen Ur Leukocyte Esterase Urine RBC Urine WBC Ur Squamous Epith Cells Urine Mucus Micro UA Comment Ur Microscopic Review Urine Culture Comments Nasal Screen MRSA (PCR) Random Vancomycin Serum Alcohol Chromogranin A Heparin Dep Plt Ab OD Hep-Induced Plt Ab Sheryl Blood Type Antibody Screen 06/24/18 06/24/18 06/24/18 06:48 06:48 09:52 WBC 23.8 H RBC 3.83 L Hgb 11.5 L Hct 34.7 L MCV 90.6 MCH 30.0 MCHC 33.2 RDW 14.3 Plt Count 55 L MPV 10.6 Prelim Diff (Auto) Slide review pending Neut % (Auto) 87.3 H Lymph % (Auto) 5.0 L [place] % (Auto) 7.5 Eos % (Auto) 0.1 Baso % (Auto) 0.1 Neut # (Auto) 20.8 H Lymph # (Auto) 1.2 [place] # (Auto) 1.8 H Eos # (Auto) 0.0 Baso # (Auto) 0.0 WBC Differential Manual diff final Diff Scan Seg Neuts % (Manual) 80 H Band Neuts % (Manual) 13 H Lymphocytes % (Manual) 2 L Monocytes % (Manual) 5 Abs Neuts (Manual) 22.1 H Differential Comment . Platelet Estimate Low L Platelet Morphology Normal RBC Morphology Normal ESR PT INR APTT Puncture Site Patient Temperature O2 Saturation ABG pH ABG pCO2 ABG pO2 ABG HCO3 ABG O2 Content ABG Base Excess ABG Methemoglobin Jay Test Hemoglobin Carboxyhemoglobin O2 Delivery Device Vent Setting Inspired O2 Critical Value Sodium 146 H Potassium 3.5 Chloride 112 H Carbon Dioxide 21.5 Anion Gap 13 BUN 33 H Creatinine 1.22 H Estimated GFR 43 L POC Glucose Random Glucose 150 H Hemoglobin A1c Calcium 7.9 L Phosphorus 2.6 Magnesium 2.3 Total Bilirubin 0.5 AST 30 ALT 21 Alkaline Phosphatase 95 Total Creatine Kinase CK-MB (CK-2) CK-MB (CK-2) % Troponin I Total Protein 5.7 L D Albumin 2.3 L Triglycerides Cholesterol LDL Cholesterol, Calc HDL Cholesterol Cholesterol/HDL Ratio Tumor Marker AFP Carcinoembryonic Ag CA 15-3 Antigen CA 19-9 Antigen CA 125 Antigen Urine Color Urine Clarity Urine pH Ur Specific [place] Urine Protein Urine Glucose (UA) Urine Ketones Urine Occult Blood Urine Nitrate Urine Bilirubin Urine Urobilinogen Ur Leukocyte Esterase Urine RBC Urine WBC Ur Squamous Epith Cells Urine Mucus Micro UA Comment Ur Microscopic Review Urine Culture Comments Nasal Screen MRSA (PCR) Random Vancomycin Serum Alcohol Chromogranin A Heparin Dep Plt Ab OD 0.424 Hep-Induced Plt Ab Sheryl Negative Blood Type Antibody Screen 06/24/18 06/24/18 06/24/18 12:04 17:17 18:59 WBC RBC Hgb Hct MCV MCH MCHC RDW Plt Count MPV Prelim Diff (Auto) Neut % (Auto) Lymph % (Auto) [place] % (Auto) Eos % (Auto) Baso % (Auto) Neut # (Auto) Lymph # (Auto) [place] # (Auto) Eos # (Auto) Baso # (Auto) WBC Differential Diff Scan Seg Neuts % (Manual) Band Neuts % (Manual) Lymphocytes % (Manual) Monocytes % (Manual) Abs Neuts (Manual) Differential Comment Platelet Estimate Platelet Morphology RBC Morphology ESR PT INR APTT Puncture Site Patient Temperature O2 Saturation ABG pH ABG pCO2 ABG pO2 ABG HCO3 ABG O2 Content ABG Base Excess ABG Methemoglobin Jay Test Hemoglobin Carboxyhemoglobin O2 Delivery Device Vent Setting Inspired O2 Critical Value Sodium Potassium 3.4 L Chloride Carbon Dioxide Anion Gap BUN Creatinine Estimated GFR POC Glucose 169 H 154 H Random Glucose Hemoglobin A1c Calcium Phosphorus Magnesium Total Bilirubin AST ALT Alkaline Phosphatase Total Creatine Kinase CK-MB (CK-2) CK-MB (CK-2) % Troponin I Total Protein Albumin Triglycerides Cholesterol LDL Cholesterol, Calc HDL Cholesterol Cholesterol/HDL Ratio Tumor Marker AFP Carcinoembryonic Ag CA 15-3 Antigen CA 19-9 Antigen CA 125 Antigen Urine Color Urine Clarity Urine pH Ur Specific [place] Urine Protein Urine Glucose (UA) Urine Ketones Urine Occult Blood Urine Nitrate Urine Bilirubin Urine Urobilinogen Ur Leukocyte Esterase Urine RBC Urine WBC Ur Squamous Epith Cells Urine Mucus Micro UA Comment Ur Microscopic Review Urine Culture Comments Nasal Screen MRSA (PCR) Random Vancomycin Serum Alcohol Chromogranin A Heparin Dep Plt Ab OD Hep-Induced Plt Ab Sheryl Blood Type Antibody Screen 06/24/18 06/25/1806/25/18 23:28 05:57 05:57 WBC 19.8 H RBC 3.74 L Hgb 11.1 L Hct 33.8 L MCV 90.4 MCH 29.7 MCHC 32.9 RDW 14.7 Plt Count 61 L MPV 11.2 H Prelim Diff (Auto) Slide review pending Neut % (Auto) 85.9 H Lymph % (Auto) 6.2 L [place] % (Auto) 7.2 Eos % (Auto) 0.3 Baso % (Auto) 0.4 Neut # (Auto) 17.0 H Lymph # (Auto) 1.2 [place] # (Auto) 1.4 H Eos # (Auto) 0.1 Baso # (Auto) 0.1 WBC Differential . Diff Scan Auto diff confirmed Seg Neuts % (Manual) Band Neuts % (Manual) Lymphocytes % (Manual) Monocytes % (Manual) Abs Neuts (Manual) Differential Comment . Platelet Estimate Low L Platelet Morphology Enlarged H RBC Morphology ESR PT INR APTT Puncture Site Patient Temperature O2 Saturation ABG pH ABG pCO2 ABG pO2 ABG HCO3 ABG O2 Content ABG Base Excess ABG Methemoglobin Jay Test Hemoglobin Carboxyhemoglobin O2 Delivery Device Vent Setting Inspired O2 Critical Value Sodium 150 H Potassium 4.2 D Chloride 115 H Carbon Dioxide 23.0 Anion Gap 12 BUN 35 H Creatinine 1.47 H Estimated GFR 35 L POC Glucose 138 H Random Glucose 160 H Hemoglobin A1c Calcium 7.8 L Phosphorus 2.8 Magnesium 2.5 Total Bilirubin 0.4 AST 30 ALT 22 Alkaline Phosphatase 120 H Total Creatine Kinase CK-MB (CK-2) CK-MB (CK-2) % Troponin I Total Protein 6.0 L Albumin 2.1 L Triglycerides Cholesterol LDL Cholesterol, Calc HDL Cholesterol Cholesterol/HDL Ratio Tumor Marker AFP Carcinoembryonic Ag CA 15-3 Antigen CA 19-9 Antigen CA 125 Antigen Urine Color Urine Clarity Urine pH Ur Specific [place] Urine Protein Urine Glucose (UA) Urine Ketones Urine Occult Blood Urine Nitrate Urine Bilirubin Urine Urobilinogen Ur Leukocyte Esterase Urine RBC Urine WBC Ur Squamous Epith Cells Urine Mucus Micro UA Comment Ur Microscopic Review Urine Culture Comments Nasal Screen MRSA (PCR) Random Vancomycin 10.7 Serum Alcohol Chromogranin A Heparin Dep Plt Ab OD Hep-Induced Plt Ab Sheryl Blood Type Antibody Screen 06/25/18 13:22 WBC RBC Hgb Hct MCV MCH MCHC RDW Plt Count MPV Prelim Diff (Auto) Neut % (Auto) Lymph % (Auto) [place] % (Auto) Eos % (Auto) Baso % (Auto) Neut # (Auto) Lymph # (Auto) [place] # (Auto) Eos # (Auto) Baso # (Auto) WBC Differential Diff Scan Seg Neuts % (Manual) Band Neuts % (Manual) Lymphocytes % (Manual) Monocytes % (Manual) Abs Neuts (Manual) Differential Comment Platelet Estimate Platelet Morphology RBC Morphology ESR PT INR APTT Puncture Site Patient Temperature O2 Saturation ABG pH ABG pCO2 ABG pO2 ABG HCO3 ABG O2 Content ABG Base Excess ABG Methemoglobin Jay Test Hemoglobin Carboxyhemoglobin O2 Delivery Device Vent Setting Inspired O2 Critical Value Sodium Potassium Chloride Carbon Dioxide Anion Gap BUN Creatinine Estimated GFR POC Glucose 180 H Random Glucose Hemoglobin A1c Calcium Phosphorus Magnesium Total Bilirubin AST ALT Alkaline Phosphatase Total Creatine Kinase CK-MB (CK-2) CK-MB (CK-2) % Troponin I Total Protein Albumin Triglycerides Cholesterol LDL Cholesterol, Calc HDL Cholesterol Cholesterol/HDL Ratio Tumor Marker AFP Carcinoembryonic Ag CA 15-3 Antigen CA 19-9 Antigen CA 125 Antigen Urine Color Urine Clarity Urine pH Ur Specific [place] Urine Protein Urine Glucose (UA) Urine Ketones Urine Occult Blood Urine Nitrate Urine Bilirubin Urine Urobilinogen Ur Leukocyte Esterase Urine RBC Urine WBC Ur Squamous Epith Cells Urine Mucus Micro UA Comment Ur Microscopic Review Urine Culture Comments Nasal Screen MRSA (PCR) Random Vancomycin Serum Alcohol Chromogranin A Heparin Dep Plt Ab OD Hep-Induced Plt Ab Sheryl Blood Type Antibody Screen Result Diagrams: 06/25/18 05:57 06/25/18 05:57 Microbiology: Microbiology 06/23/18 20:15 Gram Stain - Final Sputum - Endotracheal Sputum Culture - Preliminary Moderate growth normal respiratory karl at 24 hours 06/23/18 11:05 Aerobic Blood Culture - Preliminary Blood - Peripheral No growth in 2 days Anaerobic Blood Culture - Final QNS - See aerobic report. 06/23/18 10:50 Aerobic Blood Culture - Preliminary Blood - Peripheral No growth in 2 days Anaerobic Blood Culture - Final QNS - See aerobic report. Imaging: Cervical Spine CT 06/22/18 13:58 CONCLUSION: 1. Multilevel degenerative changes. 2. Scattered neural foraminal narrowing. 3. No compression fracture or spondylolisthesis Pelvis X-Ray 06/22/18 13:58 CONCLUSION: Limited study without gross abnormality. Humerus X-Ray 06/22/18 13:59 CONCLUSION: No abnormality involving the humerus. Subcutaneous air is seen tracking over the lateral left chest wall. Thoracic Aorta CT 06/22/18 15:28 CONCLUSION: 1. Moderate volume acute pulmonary emboli. 2. Moderate size left pneumothorax with overlying subcutaneous air. 3. Severe emphysematous changes. 4. 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 5. Occlusion of the right outflow possibly acute in origin. Clinical evaluation for right lower extremity claudication suggested. 6. 2 hepatic masses worrisome for metastatic disease. These are limited in their evaluation on this study due to the arterial phase of the exam. Consider MRI of the liver to further assess if clinically warranted. Head MRI 06/23/18 00:00 CONCLUSION: 1. 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 2. There appear to be 2 punctate acute infarctions involving the right cerebellar hemisphere. This is best seen on the diffusion-weighted images. Venous Doppler Study 06/23/18 00:00 CONCLUSION: 1. Occlusive thrombus in both posterior tibial veins. Head MRA 06/23/18 09:12 CONCLUSION: 1. Occlusion of the mid to distal right M1 segment with reconstitution of the proximal right M2 branches via collaterals. IVC Filter Placement X-Ray 06/23/18 09:20 CONCLUSION: 1. Uncomplicated inferior vena cava filter placement as above. Chest X-Ray 06/24/18 00:00 CONCLUSION: Stable chest. Carotid Doppler Study 06/24/18 08:01 CONCLUSION: 1. No hemodynamic significant stenosis in right carotid artery. 2. There is an approximate 50-69% stenosis left internal carotid artery. Chest CT 06/25/18 00:00 CONCLUSION: 1. Underlying emphysema with consolidation in the posterior left lower lobe with air bronchograms most characteristic of pneumonia. 2. Left-sided chest tube in place with no residual pneumothorax. Subcutaneous emphysema remains over the left lateral chest wall. There are multiple left rib fractures. 3. No evidence of primary malignancy. Head CT 06/25/18 00:00 CONCLUSION: 1. Evolving large right posterior MCA territory infarct. 2. Evolving focal infarcts in the right cerebellar hemisphere. 3. No intercurrent hemorrhage or herniation. . Procedures: * 06/22/18 - intubated, chest tube placed. Assessment and Plan - Disease Oriented Problem List (1) Emphysema lung (2) History of lung cancer (3) Acute CVA (cerebrovascular accident) (4) Closed rib fracture (5) DVT (deep venous thrombosis) (6) Liver lesion (7) Pneumothorax (8) Leucocytosis (9) Thrombocytopenia - Symptom Scale (1) Pain after cerebrovascular accident (CVA) 0-10 Scale: Unable to quantify (2) Dyspnea 0-10 Scale: Unable to quantify Pertinent Non-Medical Issues: Psychosocial: Single. Has 2 sisters, 1 brother and 1 son. 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 Spiritual: Unknown. Legal: Patient is not capacitated to make her own health care decisions, uncertain if she will regain capacity. HAs written Living Will and designation of health care surrogate, Cari Dumas (primary HCS) and Nathaniel Reina (alternate HCS). Ethical issues impacting care: No known concerns at this time. Important Contacts: * Cari Dumas, [facility]/friend: [phone] * Nathaniel Reina, brother: [phone] Prognosis: Will need additional test results to adequately prognosticate. Code Status: No Code DNR Plan: * Patient is not capacitated to make her own health care decisions, uncertain if she will regain capacity. HAs written Living Will and designation of health care surrogate, Cari Dumas (primary HCS) and Nathaniel Reina (alternate HCS). * NO CODE * Goals: Met with Cari Dumas, [facility] and friends. Medical update provided. Reviewed new physical exam findings and related concerns. I reviewed medical team thoughts regarding prognosis. Explained will have to do non-contrasted CT scan given worsening renal function, they understand limitations without contrast and understand rationale. Reviewed Dr. Deluna evaluation and that she is not a candidate for surgical intervention at this time. Overall prognosis appears poor. Brother will be arriving sometime in the coming days. They have elected to continue current level of care, no further escalation of care (No pressors, no invasive procedures, no escalation of care). They desire comfort medications be continued and not held for hypotension or other reasons as per patient written directives in her living will. Will obtain CTs and further clarify goals of medical treatment once results available 06/26/18. Cari wishes to be contacted if any change in condition as she does not want patient to alone. * Discussed with Dr. Turcios who recommends CT chest/abdomen and pelvis without contrast due tin increasing creatinine. * CT brain ordered. * SYMPTOMS: Dyspnea: secondary to COPD/emphysema, possible lung cancer, pulmonary embolus, rib fractures, pneumothorax, chest tube in place. On mechanical vent, vent asynchrony, tachypnea with lowering of sedation. Pain: due to recent fall, stroke, tubes. Currently sedated on Propofol and Fentanyl. Will monitor. No new medication recommendations at this time. * Palliative care will continue to follow throughout hospital course to assist with symptom management and further clarification of goals of medical treatment. Attestation Attestation: To help prompt me to consider important information that might be impacting today's encounter and assessment, information from prior notes written by myself or my colleagues may have been "brought forward" into today's note. My signature on this note, however, is an attestation that I personally performed the exam, history, and/or decision-making noted today, and, unless otherwise indicated, the interactions with patient, family, and staff as well as the review of records all occurred today. I also attest that the listed assessment and stated plan reflect my best clinical judgment today based on the combination of historical information, prior notes, and today's exam/ interactions. When time spent is documented, it refers only to time spent today by the signer, or if indicated, combined time spent today by collaborating physician/nurse practitioner.
--- NOTE | 2018-06-25 17:33 | CT ---
EXAM DATE: 06/25/2018 4:56 PM EDT AGE/SEX: 78 years / Female INDICATIONS: Stroke CLINICAL DATA: This is the patient's initial encounter. Patient reports that signs and symptoms have been present for 1 day and indicates a pain score of Nonresponsive. MEDICAL/SURGICAL HISTORY: Cerebrovascular disease. Hypertension. Carcinoma, lung. Appendectomy. Hysterectomy. Lobectomy. RADIATION DOSE: 56.35 CTDI (mGy) COMPARISON: [facility] [place]/O [place]AST, 06/23/2018. . TECHNIQUE: CT of the head without contrast. Using automated exposure control and adjustment of the mA and/or kV according to patient size, radiation dose was kept as low as reasonably achievable to ob tain optimal diagnostic quality images. DICOM format image data is available electronically for revi ew and comparison. FINDINGS: Cerebrum: Evolving large right posterior MCA territory infarct. No evidence for intercurrent hemorrh age. No significant mass effect. No midline shift. Mild to moderate diffuse cerebral atrophy. The anju tricles are normal for degree of atrophy. No extraaxial fluid collections are seen. Posterior Fossa: Ill-defined decreased density in the right cerebellar hemisphere corresponding to r egions of focal infarction on recent MRI exam The 4th ventricle is midline. The cerebellopontine ang le is unremarkable. Extracranial: The visualized portion of the orbits is intact. Skull: The calvaria is intact. No evidence of skull fracture. CONCLUSION: 1. Evolving large right posterior MCA territory infarct. 2. Evolving focal infarcts in the right cerebellar hemisphere. 3. No intercurrent hemorrhage or herniation. . Electronically signed by: Robb Ferguson MD 06/25/2018 5:32 PM EDT
--- NOTE | 2018-06-25 17:45 | CT ---
EXAM DATE: 06/25/2018 4:56 PM EDT AGE/SEX: 78 years / Female INDICATIONS: evaluate for primary malignancy patient with large right posterior middle cerebral alanna ry territory infarct. Abnormal chest x-ray with airspace disease in the left lung base. The pneumotho rax with chest tube in place. CLINICAL DATA: This is the patient's initial encounter. Patient reports that signs and symptoms have been present for 1 day and indicates a pain score of Nonresponsive. MEDICAL/SURGICAL HISTORY: Cerebrovascular disease. Hypertension. Carcinoma, lung. Hysterectomy. Appendectomy. Lobectomy. RADIATION DOSE: 5.61 CTDI (mGy) ; Combined studies COMPARISON: No prior exams available for comparison. TECHNIQUE: Multiple contiguous axial images were obtained through the chest without contrast. Image s were obtained in suspended respiration using multiple row detector helical technique. Using automa alison exposure control and adjustment of the mA and/or kV according to patient size, radiation dose was kept as low as reasonably achievable to obtain optimal diagnostic quality images. DICOM format imag e data is available electronically for review and comparison. FINDINGS: Lungs: The lungs are symmetrically aerated. There is consolidation in the posterior left lower lobe with air bronchograms. There is milder patchy opacity in the right lower lobe. There are no pulmonary masses or nodules. There is underlying emphysema. The left-sided chest tube remains in place with n o residual pneumothorax.. Mediastinum: There is good visualization of the great vessels of the middle mediastinum. No evidenc e of mediastinal or hilar adenopathy/mass. Coronary artery calcifications are present. There is an en dotracheal tube and nasogastric tube in place. There is no pericardial effusion. Pleurae: No evidence of focal thickening or pleural effusion. Axillae: Unremarkable. Bony Structures: There is subcutaneous emphysema along the left lateral chest wall. Are several left -sided rib fractures identified. Visualization is suboptimal in this area due to motion artifact. Miscellaneous: The examination was extended to include the upper abdomen, and both adrenal glands ar e normal in size and configuration. CONCLUSION: 1. Underlying emphysema with consolidation in the posterior left lower lobe with air bronchograms mo st characteristic of pneumonia. 2. Left-sided chest tube in place with no residual pneumothorax. Subcutaneous emphysema remains over the left lateral chest wall. There are multiple left rib fractures. 3. No evidence of primary malignancy. Electronically signed by: Jose Griffiths MD 06/25/2018 5:44 PM EDT
--- NOTE | 2018-06-25 17:51 | CT ---
EXAM DATE: 06/25/2018 4:56 PM EDT AGE/SEX: 78 years / Female INDICATIONS: Evaluate for primary malignancy CLINICAL DATA: This is the patient's initial encounter. Patient reports that signs and symptoms have been present for 1 day and indicates a pain score of Nonresponsive. MEDICAL/SURGICAL HISTORY: Cerebrovascular disease. Hypertension. Carcinoma, lung. Appendectom y. Hysterectomy. Lobectomy. RADIATION DOSE: 5.61 CTDI (mGy) ; Combined studies COMPARISON: [facility], CTA THOR ABD AORTA W CONTRAST W 3D, 06/22/2018. . TECHNIQUE: Multiple contiguous axial images were obtained through the abdomen. Images were obtained using multiple row detector helical technique. Using automated exposure control and adjustment of the mA and/or kV according to patient size, radiation dose was kept as low as reasonably achievable to o btain optimal diagnostic quality images. DICOM format image data is available electronically for rev iew and comparison. FINDINGS: LOWER LUNGS: Interval placement of left-sided chest tube which is partially imaged resolution of haz y noted left-sided pneumothorax with diffuse interstitial opacities and parenchymal consolidation in the lower lobes, left greater than right. Persistent subcutaneous emphysema in the inferior left patrice thorax. LIVER: Diffusely homogeneous density without intrahepatic ductal dilatation or volume loss. Vicariou s excretion of contrast into the gallbladder with a calcified gallstone dependently. SPLEEN: Homogeneous density without enlargement. PANCREAS: Grossly unremarkable. KIDNEYS: Kidneys are symmetrical in size without evidence for radiopaque renal calculi or hydronephr osis. No significant contour deforming renal abnormality. ADRENAL GLANDS: Unremarkable. AORTA: Carmen-aneurysmal. IVC filter in place. BOWEL/MESENTERY: Moderate sigmoid and scattered descending colonic diverticulosis without significan t inflammatory change. Small bowel loops are normal in caliber without evidence for obstruction. Ther e is no free fluid or drainable fluid collections. There is no gross mesenteric mass or adenopathy. ABDOMINAL WALL: Large mouth superior anterior abdominal wall fat-containing hernia. BLADDER: Decompressed secondary to Siddiqi catheter. REPRODUCTIVE: Uterus is not demonstrated and may be surgically absent. BONY STRUCTURES: Mild degenerative spondylosis of the lower lumbar spine. No definitive focal lytic or blastic bony lesions. CONCLUSION: 1. Limited examination due to lack of IV contrast. However, there is no definitive evidence for a pr imary malignancy in the abdomen or pelvis. 2. Partially imaged left-sided chest tube with interval resolution of left-sided pneumothorax. 3. Bilateral lower lobe airspace consolidation, left greater than right, which may reflect atelectas is although differential considerations include aspiration. 4. Ancillary findings include cholelithiasis, colonic diverticulosis, anterior abdominal wall fat-co ntaining hernia, and degenerative spondylosis of the lumbar spine. Electronically signed by: Robb Ferguson MD 06/25/2018 5:49 PM EDT
[2018-06-26] MEDS: Insulin NovoLIN Regular Correctional Sugar Inj SQ SCH ×4 (00:08→17:39)
[2018-06-26] MEDS: Oral Hygiene Kit OROPHARYNG SCH ×4 (00:09→16:52)
[2018-06-26] MEDS: Heparin - SQ 10,000 UNITS/ML Vial SQ SCH ×3 (02:12→17:07)
[2018-06-26] MEDS: Piperacil/Tazo 3.375 GM Premix 50 ML IV.SIG SCH ×4 (02:12→20:18)
[2018-06-26] MEDS: Propofol 1000 mg/100 ml Inj 1,000 MG/100 ML BOTTLE IV.CONT PRN ×3 (02:13→17:07)
[2018-06-26] MEDS: Chlorhexidine Gluconate 2% 1 Pack (2 Cloths) TOPICAL SCH (03:56)
--- NOTE | 2018-06-26 08:00 | P.PNNEU ---
Subjective Subjective Comments: No acute events being followed by palliative care Active Medications: Active Medications Acetaminophen (Tylenol) 650 mg PO Q6H PRN PRN Reason: PAIN 1-10 AND/OR FEVER >101F Al Hydroxide/Mg Hydroxide (Milk Of Magnrosemary Liq) 30 ml PO Q12H PRN PRN Reason: Mild Constipation Albuterol (Duoneb Neb (Prn)) 1 ampul NEB Q2HR NEB PRN PRN Reason: WHEEZING Albuterol (Duoneb Neb (Nicola)) 1 ampul NEB Q4HR NEB [facility] Last Admin: 06/26/18 07:42 Dose: 1 ampul Aspirin (Aspirin Supp) 300 mg RECTAL DAILY [facility] Last Admin: 06/25/18 09:12 Dose: 300 mg Atorvastatin Calcium (Lipitor) 80 mg PO DAILY [facility] Last Admin: 06/25/18 09:07 Dose: 80 mg Bisacodyl (Dulcolax Supp) 10 mg RECTAL DAILY PRN PRN Reason: SEVERE CONSITIPATION Chlorhexidine Gluconate (Peridex 0.12% Oral Kit) 15 ml OROPHARYNG BID@0800, 2000 [facility] Last Admin: 06/25/18 20:49 Dose: 15 ml Chlorhexidine Gluconate (Chlorhexidine 2% Cloth) 3 pack TOPICAL DAILY@0400 [facility] Stop: 06/28/18 03:59 Last Admin: 06/26/18 03:56 Dose: 3 pack Chlorhexidine Gluconate (Chlorhexidine 2% Cloth) 3 pack TOPICAL DAILY@0400 PRN PRN Reason: Extra cloth needed Stop: 06/28/18 03:59 Dextrose (D50w Vial) 50 ml IV.PUSH UNSCH PRN PRN Reason: PER HYPOGLYCEMIA PROTOCOL Famotidine (Pepcid Pf Inj) 20 mg IV.PUSH Q12HR [facility] Last Admin: 06/25/18 20:49 Dose: 20 mg Glucagon (Glucagon Inj) 1 mg OTHER PRN PRN PRN Reason: for Hypoglycemia Protocol Heparin Sodium (Porcine) (Heparin Inj) 5,000 units SQ Q8H [facility] Last Admin: 06/26/18 02:12 Dose: 5,000 units Propofol (Diprivan 1000 Mg/100 Ml Inj) 1,000 mg in 100 mls @ 2.042 mls/hr IV.CONT TITRATE PRN; Protocol PRN Reason: Per Protocol Last Admin: 06/26/18 02:13 Dose: 30 mcg/kg/min, 12.25 mls/hr Magnesium Sulfate 4 gm/ Sodium (Chloride) 100 mls @ 50 mls/hr IV.SIG UNSCH PRN PRN Reason: For Magnesium 0.9 - 1.1 mg/dL Potassium Chloride (Kcl 40 Meq Premix Inj) 40 meq in 100 mls @ 25 mls/hr IV.SIG Q2H PRN PRN Reason: For Potassium 2.8 - 3.2 mEq/L Potassium Chloride (Kcl 20 Meq Premix Inj) 20 meq in 100 mls @ 50 mls/hr IV.SIG Q2H PRN PRN Reason: For Potassium 3.3 - 3.5 mEq/L Potassium Chloride (Kcl 40 Meq Premix Inj) 40 meq in 100 mls @ 25 mls/hr IV.SIG UNSCH PRN PRN Reason: For Potassium 3.3 - 3.5 mEq/L Potassium Chloride (Kcl 20 Meq Premix Inj) 20 meq in 100 mls @ 50 mls/hr IV.SIG Q2H PRN PRN Reason: For Potassium 2.8 - 3.2 mEq/L Potassium Phosphate 30 mmol/ (Sodium Chloride) 260 mls @ 42 mls/hr IV.SIG UNSCH PRN PRN Reason: SEE LABEL COMMENTS Sodium Phosphate 30 mmol/ (Sodium Chloride) 260 mls @ 42 mls/hr IV.SIG UNSCH PRN PRN Reason: For Phosphorus < 2.5 mg/dL Magnesium Sulfate 2 gm/ Sodium (Chloride) 100 mls @ 50 mls/hr IV.SIG UNSCH PRN PRN Reason: For Magnesium 1.2 - 1.6 mg/dL Piperacillin/Tazobactam/Dextrose (Zosyn 3.375 Gm Premix) 50 mls @ 100 mls/hr IV.SIG Q6H [facility] Last Infusion: 06/26/18 03:12 Dose: Infused Fentanyl (Fentanyl 10 Mcg/Ml Premix Drip) 2,500 mcg in 250 mls @ 5 mls/hr IV.SIG TITRATE PRN; Protocol PRN Reason: Per Protocol Last Admin: 06/25/18 11:57 Dose: 50 mcg/hr, 5 mls/hr Vancomycin HCl 1,250 mg/ (Sodium Chloride) 262.5 mls @ 250 mls/hr IV.SIG Q24H [facility] Last Infusion: 06/25/18 14:30 Dose: Infused Insulin Human Regular (Novolin R Correctional Sugar Inj) 0 units SQ Q6HR [facility]; Protocol Last Admin: 06/26/18 06:34 Dose: 1 units Lactulose (Lactulose Liq) 30 ml PO DAILY PRN PRN Reason: SEVERE CONSITIPATION Magnesium Oxide (Mag-Ox) 800 mg PO UNSCH PRN PRN Reason: For Magnesium 1.2 - 1.6 mg/dL Metoclopramide HCl (Reglan Inj) 5 mg IV.PUSH Q8H PRN; Protocol PRN Reason: VOMITING Last Admin: 06/25/18 01:56 Dose: 5 mg Midazolam HCl (Versed Inj) 2 mg IV.PUSH Q1H PRN PRN Reason: SEDATION Miscellaneous Information ([facility] Ordered Lab Info) 0 each OTHER ONCE ONE Stop: 06/27/18 11:46 Miscellaneous Medication () 1 each OROPHARYNG 0000,0400,1200,1600 [facility] Last Admin: 06/26/18 03:56 Dose: 1 each Ondansetron HCl (Zofran Inj) 4 mg IV.PUSH Q6H PRN PRN Reason: NAUSEA OR VOMITING Pharmacy Profile Note (Vancomycin Consult Pharmacy) 1 each OTHER UNSCH PRN PRN Reason: Pharmacy to dose Potassium Bicarb/Potassium Chloride (K-Lyte Cl Eff) 50 meq PO UNSCH PRN PRN Reason: For Potassium 3.3 - 3.5 mEq/L Last Admin: 06/24/18 20:15 Dose: 50 meq Potassium Phosphate (K-Phos Original) 2,000 mg PO UNSCH PRN PRN Reason: SEE LABEL COMMENTS Potassium Phosphate (K-Phos Original) 2,000 mg PO Q4H PRN PRN Reason: Phosphorus Less Than 2.5 mg/dL Senna/Docusate Sodium (Shadia-Colace) 1 tab PO BID [facility] Last Admin: 06/25/18 20:49 Dose: 1 tab Sennosides (Senokot) 17.2 mg PO Q12H PRN PRN Reason: Moderate Constipation Sodium Chloride (Ns Flush) 2 ml IV.FLUSH BID [facility] Last Admin: 06/25/18 20:49 Dose: 2 ml Sodium Chloride (Ns Flush) 2 ml IV.FLUSH PRN PRN PRN Reason: FLUSH AFTER USING IV ACCESS Last Admin: 06/25/18 09:10 Dose: 2 ml Sterile Water (Free Water) 250 ml G-TUBE Q8HR [facility] Last Admin: 06/26/18 05:30 Dose: 250 ml Allergies/Adverse Reactions: Allergies Allergy/AdvReac Type Severity Reaction Status Date / Time No Known Allergies Allergy Unverified 06/22/18 13:53 Review of Systems unobtainable due to endotracheal tube, unobtainable due to mental status Physical Exam Vital signs: Vital Signs 06/25/18 08:00 06/25/18 10:00 06/25/18 11:18 Temperature 96.6 F L Pulse Rate 87 87 Respiratory Rate 17 15 Blood Pressure 125/67 Pulse Oximetry 96 97 06/25/18 11:29 06/25/18 11:58 06/25/18 12:00 Temperature 99.1 F Pulse Rate 90 97 H Respiratory Rate 17 17 18 Blood Pressure 126/59 L Pulse Oximetry 95 06/25/18 13:18 06/25/18 14:00 06/25/18 14:55 Temperature Pulse Rate 90 Respiratory Rate 14 17 Blood Pressure Pulse Oximetry 99 06/25/18 15:02 06/25/18 16:00 06/25/18 18:00 Temperature 99.5 F Pulse Rate 88 87 90 Respiratory Rate 17 17 Blood Pressure 96/53 L Pulse Oximetry 88 L 06/25/18 18:15 06/25/18 19:52 06/25/18 19:55 Temperature Pulse Rate 87 Respiratory Rate 15 13 Blood Pressure Pulse Oximetry 100 97 06/25/18 20:00 06/25/18 22:00 06/25/18 23:23 Temperature 99 F Pulse Rate 83 90 92 H Respiratory Rate 14 15 Blood Pressure 97/52 L Pulse Oximetry 95 06/25/18 23:42 06/26/18 00:00 06/26/18 02:00 Temperature 99.5 F Pulse Rate 84 82 Respiratory Rate 15 14 Blood Pressure 98/53 L Pulse Oximetry 96 96 06/26/18 04:00 06/26/18 04:12 06/26/18 06:00 Temperature 99.5 F Pulse Rate 80 80 87 Respiratory Rate 13 16 Blood Pressure 103/57 L Pulse Oximetry 98 98 06/26/18 07:42 Temperature Pulse Rate 85 Respiratory Rate 16 Blood Pressure Pulse Oximetry 96 Intake & Output 06/25/18 06/26/18 06/26/18 18:59 06:59 18:59 Intake Total 1110.5 / 1110.5 1091 / 1091 Output Total 225 / 225 230 / 230 Balance 885.5 / 885.5 861 / 861 Weight 68.2 kg Intake: IV 662.5 / 662.5 250 / 250 Diprivan 1000 mg/100 ml Inj 1, 100 / 100 100 / 100 000 mg In 100 ml @ 5 MCG/KG/MIN 2.042 mls/hr IV.CONT TITRATE PRN Rx#:[id number] Zosyn 3.375 GM Premix 50 ML @ 50 / 50 150 / 150 100 mls/hr IV.SIG Q6H [facility] Rx#: [id number] Vancomycin Inj 1,250 MG In NS 262.5 / 262.5 Inj 250 ML @ 250 mls/hr IV.SIG Q24H [facility] Rx#:[id number] fentaNYL 10 mcg/mL Premix Drip 250 / 250 2,500 mcg In 250 ml @ 50 MCG/HR 5 mls/hr IV.SIG TITRATE PRN Rx #:[id number] Tube Feeding 198 / 198 341 / 341 Water Bolus Amount 250 / 250 500 / 500 Output: Urine 225 / 225 Urine Amount (Catheter) 200 / 200 Indwelling Urethral Catheter 200 / 200 Chest Tube Drainage 30 / 30 #1 Left Upper Mid-Axillary 30 / 30 Chest Other: Date of Last Bowel Movement 06/26/18 # Bowel Movements 0 Narrative: GENERAL: in NAD, SKIN: Warm and dry. HEAD: Atraumatic. Normocephalic. EYES: Sluggish reactive pupils ENT: No nasal bleeding or discharge. Mucous membranes pink and moist. NECK: Trachea midline. No JVD. CARDIOVASCULAR: Regular rate and rhythm. RESPIRATORY: Intubated GASTROINTESTINAL: Abdomen soft, non-tender, MUSCULOSKELETAL: No obvious deformities. NEUROLOGICAL: Intubated, somnolent not following nonverbal, mild right gaze preference reduced blink to threat sluggishly reactive, left hemiplegia with localization of the right upper lower extremity left plantar extensor, no involuntary movements PSYCHIATRIC: Calm - Constitutional no acute distress - Routine HEENT Exam Head: Present: normocephalic - Urinary Catheter Management Indwelling Urethral Catheter Cath placed during this visit: yes Reason for continuing: Terminally ill/Comfort care Insertion date: 06/22/18 Insertion time: 15:29 Objective Laboratory Results - last 24 hr 06/24/18 06/25/18 06/25/18 09:52 05:57 13:22 WBC Differential . Diff Scan Auto diff confirmed Platelet Estimate Low L Platelet Morphology Enlarged H POC Glucose 180 H Heparin Dep Plt Ab OD 0.424 Hep-Induced Plt Ab Sheryl Negative 06/25/18 06/25/18 06/26/18 19:04 23:56 05:57 WBC Differential Diff Scan Platelet Estimate Platelet Morphology POC Glucose 145 H 154 H 199 H Heparin Dep Plt Ab OD Hep-Induced Plt Ab Sheryl Microbiology 06/23/18 20:15 Gram Stain - Final Sputum - Endotracheal Sputum Culture - Preliminary Moderate growth normal respiratory karl at 24 hours 06/23/18 11:05 Aerobic Blood Culture - Preliminary Blood - Peripheral No growth in 2 days Anaerobic Blood Culture - Final QNS - See aerobic report. 06/23/18 10:50 Aerobic Blood Culture - Preliminary Blood - Peripheral No growth in 2 days Anaerobic Blood Culture - Final QNS - See aerobic report. Review/Management - Diagnosis (1) Acute right MCA stroke Code(s): I63.511 - Cerebral infarction due to unspecified occlusion or stenosis of right middle cerebral artery Status: Acute Current Visit: Yes (2) Pulmonary embolism Code(s): I26.99 - Other pulmonary embolism without acute cor pulmonale Status : Acute Current Visit: Yes (3) Pneumothorax Code(s): J93.9 - Pneumothorax, unspecified Status: Acute Current Visit: Yes (4) Closed rib fracture Code(s): S22.39XA - Fracture of one rib, unspecified side, initial encounter for closed fracture Status: Acute Current Visit: Yes (5) DVT (deep venous thrombosis) Code(s): I82.409 - Acute embolism and thrombosis of unspecified deep veins of unspecified lower extremity Status: Acute Current Visit: Yes (6) Liver lesion Code(s): K76.9 - Liver disease, unspecified Status: Acute Current Visit: Yes - Review/Management Plan: Acute right MCA stroke Possibly related to hypercoagulable state she also has a concurrent pulmonary embolus; possible underlying neoplasm MRI brain scan reviewed right posterior MCA stroke. MRI brain showing distal MCA branch occlusion Echo normal Recommendations No significant change in neurologic exam Carotid ultrasound; no significant vaso-occlusive disease in the right carotid, left carotid with mild to moderate stenosis however not the etiology for stroke Patient being followed by oncology and palliative care. Healthcare surrogate's are looking at potentially transitioning the patient to comfort care Patient is critically ill (2) Pulmonary embolism Qualifiers: Pulmonary embolism type: other Chronicity: acute Acute cor pulmonale presence: without acute cor pulmonale Qualified Code(s): I26.99 - Other pulmonary embolism without acute cor pulmonale (3) Pneumothorax Qualifiers: Pneumothorax type: traumatic Encounter type: initial encounter Qualified Code(s): S27.0XXA - Traumatic pneumothorax, initial encounter (4) Closed rib fracture Qualifiers: Encounter type: initial encounter Rib fracture type: multiple ribs Laterality: left Qualified Code(s): S22.42XA - Multiple fractures of ribs, left side, initial encounter for closed fracture
[2018-06-26 08:28] LABS: Alanine Aminotransferase 27 U/L (10-53); Albumin 1.9 g/dL (3.4-5.0); Anion Gap 4 meq/L (5-15); Aspartate Aminotransferase 44 U/L (15-37); Blood Urea Nitrogen 44 mg/dL (7-18); Calcium 7.7 mg/dL (8.5-10.1); Carbon Dioxide 23.7 meq/L (21.0-32.0); Chloride 117 meq/L (98-107); Glomerular Filtration Rate 34 mL/min (>89); Glucose,Random 163 mg/dL (74-106); Magnesium 2.7 mg/dL (1.5-2.5); Phosphorus 3.3 mg/dL (2.5-4.9); Potassium 3.9 meq/L (3.5-5.1); Sodium 145 meq/L (136-145)
[2018-06-26 08:30] LABS: Alkaline Phosphatase 158 U/L (45-117); Total Protein 5.9 g/dL (6.4-8.2)
[2018-06-26 08:31] LABS: Baso # (Auto) 0.1 th/mm3 (0.0-0.2); Baso % (Auto) 0.4 % (0.0-2.0); Eos # (Auto) 0.1 th/mm3 (0.0-0.4); Eos % (Auto) 0.4 % (0.0-4.0); Hematocrit 29.8 % (35.0-46.0); Lymph # (Auto) 1.2 th/mm3 (1.0-4.8); Lymph % (Auto) 7.2 % (9.0-44.0); Mean Corpuscular HGB Conc 33.5 % (32.0-36.0); Mean Corpuscular Hemoglobin 29.8 pg (27.0-34.0); Mean Platelet Volume 11.4 fL (7.0-11.0); Mono # (Auto) 1.3 th/mm3 (0.0-0.9); Mono % (Auto) 7.3 % (0.0-8.0); Neut # (Auto) 14.6 th/mm3 (1.8-7.7); Neut % (Auto) 84.7 % (16.0-70.0); Platelet Count 82 th/mm3 (150-450); Red Blood Count 3.35 mil/mm3 (4.00-5.30); Red Cell Distribution Width 14.8 % (11.6-17.2); White Blood Count 17.2 th/mm3 (4.0-11.0)
[2018-06-26 09:53] LABS: Lymphocytes 2 % (9-44); Metamyelocytes 1 % (0-1); Monocytes 4 % (0-8)
[2018-06-26] MEDS: Senna/Docusate Sodium 8.6/50 MG Tablet PO SCH ×2 (10:10→20:17)
[2018-06-26] MEDS: Aspirin 300 MG Supp RECTAL SCH (10:10)
[2018-06-26] MEDS: Famotidine PF Inj 20 MG/2 ML Vial IV.PUSH SCH ×2 (10:11→20:17)
[2018-06-26] MEDS: Chlorhexidine 0.12% Oral Kit 15 ML UDC OROPHARYNG SCH ×2 (10:11→20:17)
--- NOTE | 2018-06-26 11:29 | P.PNONC ---
Subjective Interval history: Patient remains on the ventilator and sedated Patient is critically ill Objective Vital Signs/Intake & Output: Vital Signs 06/25/18 11:29 06/25/18 11:58 06/25/18 12:00 Temperature 99.1 F Pulse Rate 90 97 H Respiratory Rate 17 17 18 Blood Pressure 126/59 L Pulse Oximetry 95 06/25/18 13:18 06/25/18 14:00 06/25/18 14:55 Temperature Pulse Rate 90 Respiratory Rate 14 17 Blood Pressure Pulse Oximetry 99 06/25/18 15:02 06/25/18 16:00 06/25/18 18:00 Temperature 99.5 F Pulse Rate 88 87 90 Respiratory Rate 17 17 Blood Pressure 96/53 L Pulse Oximetry 88 L 06/25/18 18:15 06/25/18 19:52 06/25/18 19:55 Temperature Pulse Rate 87 Respiratory Rate 15 13 Blood Pressure Pulse Oximetry 100 97 06/25/18 20:00 06/25/18 22:00 06/25/18 23:23 Temperature 99 F Pulse Rate 83 90 92 H Respiratory Rate 14 15 Blood Pressure 97/52 L Pulse Oximetry 95 06/25/18 23:42 06/26/18 00:00 06/26/18 02:00 Temperature 99.5 F Pulse Rate 84 82 Respiratory Rate 15 14 Blood Pressure 98/53 L Pulse Oximetry 96 96 06/26/18 04:00 06/26/18 04:12 06/26/18 06:00 Temperature 99.5 F Pulse Rate 80 80 87 Respiratory Rate 13 16 Blood Pressure 103/57 L Pulse Oximetry 98 98 06/26/18 07:42 06/26/18 08:00 06/26/18 11:22 Temperature 98.9 F Pulse Rate 85 85 90 Respiratory Rate 16 16 13 Blood Pressure 109/55 L Pulse Oximetry 96 97 97 Intake & Output 06/25/18 06/26/18 06/26/18 18:59 06:59 18:59 Intake Total 1110.5 / 1110.5 1091 / 1091 100 / 100 Output Total 225 / 225 230 / 230 Balance 885.5 / 885.5 861 / 861 100 / 100 Weight 68.2 kg Intake: IV 662.5 / 662.5 250 / 250 100 / 100 Diprivan 1000 mg/100 ml Inj 1, 100 / 100 100 / 100 100 / 100 000 mg In 100 ml @ 5 MCG/KG/MIN 2.042 mls/hr IV.CONT TITRATE PRN Rx#:[id number] Zosyn 3.375 GM Premix 50 ML @ 50 / 50 150 / 150 100 mls/hr IV.SIG Q6H [facility] Rx#: [id number] Vancomycin Inj 1,250 MG In NS 262.5 / 262.5 Inj 250 ML @ 250 mls/hr IV.SIG Q24H [facility] Rx#:[id number] fentaNYL 10 mcg/mL Premix Drip 250 / 250 2,500 mcg In 250 ml @ 50 MCG/HR 5 mls/hr IV.SIG TITRATE PRN Rx #:[id number] Tube Feeding 198 / 198 341 / 341 Water Bolus Amount 250 / 250 500 / 500 Output: Urine 225 / 225 Urine Amount (Catheter) 200 / 200 Indwelling Urethral Catheter 200 / 200 Chest Tube Drainage #1 Left Upper Mid-Axillary Chest Other: Date of Last Bowel Movement 06/26/18 # Bowel Movements 0 Result Diagrams: 06/26/18 07:30 06/26/18 07:30 Laboratory Results: Laboratory Results - last 24 hr 06/24/18 06/25/18 06/25/18 09:52 13:22 19:04 WBC RBC Hgb Hct MCV MCH MCHC RDW Plt Count MPV Prelim Diff (Auto) Neut % (Auto) Lymph % (Auto) Will[place] % (Auto) Eos % (Auto) Baso % (Auto) Neut # (Auto) Lymph # (Auto) Willacy # (Auto) Eos # (Auto) Baso # (Auto) WBC Differential Seg Neuts % (Manual) Band Neuts % (Manual) Lymphocytes % (Manual) Monocytes % (Manual) Metamyelocytes % (Man) Abs Neuts (Manual) Differential Comment Platelet Estimate Platelet Morphology Sodium Potassium Chloride Carbon Dioxide Anion Gap BUN Creatinine Estimated GFR POC Glucose 180 H 145 H Random Glucose Calcium Phosphorus Magnesium Total Bilirubin AST ALT Alkaline Phosphatase Total Protein Albumin Heparin Dep Plt Ab OD 0.424 Hep-Induced Plt Ab Sheryl Negative 06/25/18 06/26/18 06/26/18 23:56 05:57 07:30 WBC 17.2 H RBC 3.35 L Hgb 10.0 L Hct 29.8 L MCV 89.0 MCH 29.8 MCHC 33.5 RDW 14.8 Plt Count 82 L D MPV 11.4 H Prelim Diff (Auto) Slide review pending Neut % (Auto) 84.7 H Lymph % (Auto) 7.2 L Will[place] % (Auto) 7.3 Eos % (Auto) 0.4 Baso % (Auto) 0.4 Neut # (Auto) 14.6 H Lymph # (Auto) 1.2 Willacy # (Auto) 1.3 H Eos # (Auto) 0.1 Baso # (Auto) 0.1 WBC Differential Manual diff final Seg Neuts % (Manual) 89 H Band Neuts % (Manual) 4 Lymphocytes % (Manual) 2 L Monocytes % (Manual) 4 Metamyelocytes % (Man) 1 Abs Neuts (Manual) 16.2 H Differential Comment . Platelet Estimate Low L Platelet Morphology Enlarged H Sodium Potassium Chloride Carbon Dioxide Anion Gap BUN Creatinine Estimated GFR POC Glucose 154 H 199 H Random Glucose Calcium Phosphorus Magnesium Total Bilirubin AST ALT Alkaline Phosphatase Total Protein Albumin Heparin Dep Plt Ab OD Hep-Induced Plt Ab Sheryl 06/26/18 07:30 WBC RBC Hgb Hct MCV MCH MCHC RDW Plt Count MPV Prelim Diff (Auto) Neut % (Auto) Lymph % (Auto) Will[place] % (Auto) Eos % (Auto) Baso % (Auto) Neut # (Auto) Lymph # (Auto) Willacy # (Auto) Eos # (Auto) Baso # (Auto) WBC Differential Seg Neuts % (Manual) Band Neuts % (Manual) Lymphocytes % (Manual) Monocytes % (Manual) Metamyelocytes % (Man) Abs Neuts (Manual) Differential Comment Platelet Estimate Platelet Morphology Sodium 145 Potassium 3.9 Chloride 117 H Carbon Dioxide 23.7 Anion Gap 4 L BUN 44 H Creatinine 1.49 H Estimated GFR 34 L POC Glucose Random Glucose 163 H Calcium 7.7 L Phosphorus 3.3 Magnesium 2.7 H Total Bilirubin 0.3 AST 44 H ALT 27 Alkaline Phosphatase 158 H Total Protein 5.9 L Albumin 1.9 L Heparin Dep Plt Ab OD Hep-Induced Plt Ab Sheryl Culture Results: Microbiology 06/23/18 11:05 Aerobic Blood Culture - Preliminary Blood - Peripheral No growth in 3 days Anaerobic Blood Culture - Final QNS - See aerobic report. 06/23/18 10:50 Aerobic Blood Culture - Preliminary Blood - Peripheral No growth in 3 days Anaerobic Blood Culture - Final QNS - See aerobic report. 06/23/18 20:15 Gram Stain - Final Sputum - Endotracheal Sputum Culture - Preliminary Moderate growth normal respiratory karl at 24 hours Imaging Studies: Impressions Abdomen/Pelvis CT 06/25/18 00:00 CONCLUSION: 1. Limited examination due to lack of IV contrast. However, there is no definitive evidence for a primary malignancy in the abdomen or pelvis. 2. Partially imaged left-sided chest tube with interval resolution of left- sided pneumothorax. 3. Bilateral lower lobe airspace consolidation, left greater than right, which may reflect atelectasis although differential considerations include aspiration. 4. Ancillary findings include cholelithiasis, colonic diverticulosis, anterior abdominal wall fat-containing hernia, and degenerative spondylosis of the lumbar spine. Chest CT 06/25/18 00:00 CONCLUSION: 1. Underlying emphysema with consolidation in the posterior left lower lobe with air bronchograms most characteristic of pneumonia. 2. Left-sided chest tube in place with no residual pneumothorax. Subcutaneous emphysema remains over the left lateral chest wall. There are multiple left rib fractures. 3. No evidence of primary malignancy. Head CT 06/25/18 00:00 CONCLUSION: 1. Evolving large right posterior MCA territory infarct. 2. Evolving focal infarcts in the right cerebellar hemisphere. 3. No intercurrent hemorrhage or herniation. . Medications: Active Medications Generic Name Dose Route Start Last Admin Trade Name Freq PRN Reason Stop Dose Admin Albuterol 1 ampul 06/22/18 20:00 06/26/18 11:22 Duoneb Neb ([facility]) NEB 1 ampul Q4HR NEB [facility] Administration Aspirin 300 mg 06/23/18 09:15 06/26/18 10:10 Aspirin Supp RECTAL 300 mg DAILY [facility] Administration Atorvastatin Calcium 80 mg 06/23/18 09:00 06/26/18 10:10 Lipitor PO 80 mg DAILY [facility] Administration Chlorhexidine Gluconate 15 ml 06/22/18 20:00 06/26/18 10:11 Peridex 0.12% Oral Kit OROPHARYNG 15 ml BID@0800,2000 [facility] Administration Chlorhexidine Gluconate 3 pack 06/23/18 04:00 06/26/18 03:56 Chlorhexidine 2% Cloth TOPICAL 06/28/18 03:59 3 pack DAILY@0400 [facility] Administration Famotidine 20 mg 06/22/18 21:00 06/26/18 10:11 Pepcid Pf Inj IV.PUSH 20 mg Q12HR [facility] Administration Heparin Sodium (Porcine) 5,000 units 06/23/18 10:00 06/26/18 10:10 Heparin Inj SQ 5,000 units Q8H [facility] Administration Propofol 1,000 mg in 100 mls @ 2.042 mls/hr 06/22/18 15:23 06/26/18 10:41 Diprivan 1000 Mg/100 Ml Inj IV.CONT 30 mcg/kg/min TITRATE PRN 12.25 mls/hr Per Protocol Administration Protocol 5 MCG/KG/MIN Piperacillin/Tazobactam/Dextrose 50 mls @ 100 mls/hr 06/23/18 15:00 06/26/18 10:10 Zosyn 3.375 Gm Premix IV.SIG 100 mls/hr Q6H [facility] Administration Fentanyl 2,500 mcg in 250 mls @ 5 mls/hr 06/23/18 14:50 06/25/18 11:57 Fentanyl 10 Mcg/Ml Premix Drip IV.SIG 50 mcg/hr TITRATE PRN 5 mls/hr Per Protocol Administration Protocol 50 MCG/HR Vancomycin HCl 1,250 mg/ 262.5 mls @ 250 mls/hr 06/25/18 12:00 06/25/18 14:30 Sodium Chloride IV.SIG Infused Q24H [facility] Infusion Insulin Human Regular 0 units 06/23/18 12:00 06/26/18 06:34 Novolin R Correctional Sugar Inj SQ 1 units Q6HR [facility] Administration Protocol Metoclopramide HCl 5 mg 06/24/18 07:03 06/25/18 01:56 Reglan Inj IV.PUSH 5 mg Q8H PRN Administration VOMITING Protocol Miscellaneous Medication 1 each 06/23/18 00:00 06/26/18 03:56 OROPHARYNG 1 each 0000,0400,1200,1600 [facility] Administration Potassium Bicarb/Potassium Chloride 50 meq 06/23/18 08:53 06/24/18 20:15 K-Lyte Cl Eff PO 50 meq UNSCH PRN Administration For Potassium 3.3 - 3.5 mEq/L Senna/Docusate Sodium 1 tab 06/22/18 21:00 06/26/18 10:10 Shadia-Colace PO 1 tab BID [facility] Administration Sodium Chloride 2 ml 06/22/18 21:00 06/26/18 10:11 Ns Flush IV.FLUSH 2 ml BID [facility] Administration Sodium Chloride 2 ml 06/22/18 18:48 06/25/18 09:10 Ns Flush IV.FLUSH 2 ml PRN PRN Administration FLUSH AFTER USING IV ACCESS Sterile Water 250 ml 06/25/18 08:00 06/26/18 05:30 Free Water G-TUBE 250 ml Q8HR [facility] Administration Objective Remarks: GENERAL: Critically ill-appearing female patient, ventilated and sedated. SKIN: Warm and dry. HEAD: Normocephalic. EYES: No scleral icterus. No injection or drainage. NECK: Supple, trachea midline. CARDIOVASCULAR: +S1/S2. RESPIRATORY: Breath sounds diminished on the left. +intubated, FiO2 45. Left chest tube draining minimal bright red fluid. GASTROINTESTINAL: Abdomen distended, upper abdominal soft large bulge. EXTREMITIES: Right hand cyanosis and mottling, no palpable radial pulse, 3/5 brachial pulse. Remaining extremities warm and pink. MUSCULOSKELETAL: Decreased muscle tone. NEUROLOGICAL: Sedated. . Assessment/Plan - Plan Ms. Reina is an unfortunate 78-year-old female currently being cared for in the intensive care unit, ventilated and sedated. She was found on the floor by a friend, unknown how long. She has been diagnosed with acute CVA, PE, bilateral DVT and pneumothorax with rib fractures status post left chest tube placement. According to palliative care the patient has been under the care of Dr. Rivera , for lung cancer. Unknown what treatments she has received. Hematology was consulted for anticoagulation recommendations in a patient who has had an acute thrombotic stroke, pulmonary embolism and bilateral lower leg DVTs. Patient was also found to have liver lesions. Plan: 1. 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 This is likely secondary to hypercoagulable state from malignancy. Patient is not a candidate for anticoagulation. IVC filter has been placed. 2. Liver lesions, likely metastatic lung cancer. Records received, she has a history of breast cancer in 1989 and 1998. And a history of early stage non- small cell lung cancer, status post resection in 2013. 3. Right cyanotic hand, no palpable radial pulse and cool to touch. Pt evaluated by Dr. Khanna, vascular surgeon who does not recommend surgery given the patients critical state. 4. Palliative care is present as well as the patient's healthcare surrogate. 06/26/2018 No improvement in neurological status Remains on the ventilator and sedated Patient's prognosis is extremely poor CT chest abdomen and pelvis without contrast showed no primary malignancy I recommend hospice Palliative care will meet with health surrogate and family today and will make a decision to take her off of the life support.
--- NOTE | 2018-06-26 12:18 | P.PNCC ---
Subjective Subjective Remarks/Hospital Course: 78-year-old female presents to the ED for evaluation of possible CVA and shortness of breath. Per [facility] they got a call that apparently the patient had been found on the floor. Unclear as to how long the patient had been on the floor. Last time the patient was seen normal was on Friday per friends that were in the scene. Per patient herself she cannot really tell us any history other than she has pain on the left side of her body as well as weakness to her left arm. She cannot move her left arm on her own. She denies any history of stroke on herself. She cannot really give us good history about her medications. She denies taking blood thinners however. She cannot recall when she fell and she cannot really tell us how long she has been on the floor. No one really at bedside to give us any information about how long the symptoms have been going. Per [facility] she is also been having left facial droop. CT of the brain obtained in the emergency department shows Acute right parietal infarcts. No midline shift or mass effect. The chest x-ray with the findings of Subcutaneous emphysema along the left chest wall along with multiple left- sided rib fractures. CTA of the pulmonary artery is consistent with Moderate volume acute pulmonary emboli and Moderate size left pneumothorax with overlying subcutaneous air. The patient was intubated by ED attending and the chest tube was placed in the emergency department as well. 06/23 Patient is sedated with Diprivan and intubated. Afebrile. 06/24 Patient remains sedated with Fentanyl and Diprivan and intubated. T:100.3 , s/p IVC filter placement yesterday.Had an episode of desaturation and now on 100% FIO2 with PEEP:5 and sats 94-95% 06/25. Patient remains intubated and sedated. Afebrile. FIO2 down to 55% with good sats. 06/26 No events overnight. Sedated and intubated. Afebrile Objective Vital Signs / I&O: Vital Signs 06/25/18 13:18 06/25/18 14:00 06/25/18 14:55 Temperature Pulse Rate 90 Respiratory Rate 14 17 Blood Pressure Pulse Oximetry 99 06/25/18 15:02 06/25/18 16:00 06/25/18 18:00 Temperature 99.5 F Pulse Rate 88 87 90 Respiratory Rate 17 17 Blood Pressure 96/53 L Pulse Oximetry 88 L 06/25/18 18:15 06/25/18 19:52 06/25/18 19:55 Temperature Pulse Rate 87 Respiratory Rate 15 13 Blood Pressure Pulse Oximetry 100 97 06/25/18 20:00 06/25/18 22:00 06/25/18 23:23 Temperature 99 F Pulse Rate 83 90 92 H Respiratory Rate 14 15 Blood Pressure 97/52 L Pulse Oximetry 95 06/25/18 23:42 06/26/18 00:00 06/26/18 02:00 Temperature 99.5 F Pulse Rate 84 82 Respiratory Rate 15 14 Blood Pressure 98/53 L Pulse Oximetry 96 96 06/26/18 04:00 06/26/18 04:12 06/26/18 06:00 Temperature 99.5 F Pulse Rate 80 80 87 Respiratory Rate 13 16 Blood Pressure 103/57 L Pulse Oximetry 98 98 06/26/18 07:42 06/26/18 08:00 06/26/18 11:22 Temperature 98.9 F Pulse Rate 85 85 90 Respiratory Rate 16 16 13 Blood Pressure 109/55 L Pulse Oximetry 96 97 97 Intake & Output 06/25/18 06/26/18 06/26/18 18:59 06:59 18:59 Intake Total 1110.5 / 1110.5 1091 / 1091 100 / 100 Output Total 225 / 225 230 / 230 Balance 885.5 / 885.5 861 / 861 100 / 100 Weight 68.2 kg Intake: IV 662.5 / 662.5 250 / 250 100 / 100 Diprivan 1000 mg/100 ml Inj 1, 100 / 100 100 / 100 100 / 100 000 mg In 100 ml @ 5 MCG/KG/MIN 2.042 mls/hr IV.CONT TITRATE PRN Rx#:[id number] Zosyn 3.375 GM Premix 50 ML @ 50 / 50 150 / 150 100 mls/hr IV.SIG Q6H MATIAS Rx#: [id number] Vancomycin Inj 1,250 MG In NS 262.5 / 262.5 Inj 250 ML @ 250 mls/hr IV.SIG Q24H MATIAS Rx#:[id number] fentaNYL 10 mcg/mL Premix Drip 250 / 250 2,500 mcg In 250 ml @ 50 MCG/HR 5 mls/hr IV.SIG TITRATE PRN Rx #:[id number] Tube Feeding 198 / 198 341 / 341 Water Bolus Amount 250 / 250 500 / 500 Output: Urine 225 / 225 Urine Amount (Catheter) 200 / 200 Indwelling Urethral Catheter 200 / 200 Chest Tube Drainage #1 Left Upper Mid-Axillary Chest Other: Date of Last Bowel Movement 06/26/18 06/26/18 # Bowel Movements 0 Result Diagrams: 06/26/18 07:30 06/26/18 07:30 Other Results: Laboratory Results - last 12 hr 06/26/18 06/26/18 06/26/18 05:57 07:30 07:30 WBC 17.2 H RBC 3.35 L Hgb 10.0 L Hct 29.8 L MCV 89.0 MCH 29.8 MCHC 33.5 RDW 14.8 Plt Count 82 L D MPV 11.4 H Prelim Diff (Auto) Slide review pending Neut % (Auto) 84.7 H Lymph % (Auto) 7.2 L Jerome % (Auto) 7.3 Eos % (Auto) 0.4 Baso % (Auto) 0.4 Neut # (Auto) 14.6 H Lymph # (Auto) 1.2 Jerome # (Auto) 1.3 H Eos # (Auto) 0.1 Baso # (Auto) 0.1 WBC Differential Manual diff final Seg Neuts % (Manual) 89 H Band Neuts % (Manual) 4 Lymphocytes % (Manual) 2 L Monocytes % (Manual) 4 Metamyelocytes % (Man) 1 Abs Neuts (Manual) 16.2 H Differential Comment . Platelet Estimate Low L Platelet Morphology Enlarged H Sodium 145 Potassium 3.9 Chloride 117 H Carbon Dioxide 23.7 Anion Gap 4 L BUN 44 H Creatinine 1.49 H Estimated GFR 34 L POC Glucose 199 H Random Glucose 163 H Calcium 7.7 L Phosphorus 3.3 Magnesium 2.7 H Total Bilirubin 0.3 AST 44 H ALT 27 Alkaline Phosphatase 158 H Total Protein 5.9 L Albumin 1.9 L Imaging: Cervical Spine CT 06/22/18 13:58 CONCLUSION: 1. Multilevel degenerative changes. 2. Scattered neural foraminal narrowing. 3. No compression fracture or spondylolisthesis Pelvis X-Ray 06/22/18 13:58 CONCLUSION: Limited study without gross abnormality. Humerus X-Ray 06/22/18 13:59 CONCLUSION: No abnormality involving the humerus. Subcutaneous air is seen tracking over the lateral left chest wall. Thoracic Aorta CT 06/22/18 15:28 CONCLUSION: 1. Moderate volume acute pulmonary emboli. 2. Moderate size left pneumothorax with overlying subcutaneous air. 3. Severe emphysematous changes. 4. 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 5. Occlusion of the right outflow possibly acute in origin. Clinical evaluation for right lower extremity claudication suggested. 6. 2 hepatic masses worrisome for metastatic disease. These are limited in their evaluation on this study due to the arterial phase of the exam. Consider MRI of the liver to further assess if clinically warranted. Head MRI 06/23/18 00:00 CONCLUSION: 1. 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 2. There appear to be 2 punctate acute infarctions involving the right cerebellar hemisphere. This is best seen on the diffusion-weighted images. Venous Doppler Study 06/23/18 00:00 CONCLUSION: 1. Occlusive thrombus in both posterior tibial veins. Head MRA 06/23/18 09:12 CONCLUSION: 1. Occlusion of the mid to distal right M1 segment with reconstitution of the proximal right M2 branches via collaterals. IVC Filter Placement X-Ray 06/23/18 09:20 CONCLUSION: 1. Uncomplicated inferior vena cava filter placement as above. Chest X-Ray 06/24/18 00:00 CONCLUSION: Stable chest. Carotid Doppler Study 06/24/18 08:01 CONCLUSION: 1. No hemodynamic significant stenosis in right carotid artery. 2. There is an approximate 50-69% stenosis left internal carotid artery. Abdomen/Pelvis CT 06/25/18 00:00 CONCLUSION: 1. Limited examination due to lack of IV contrast. However, there is no definitive evidence for a primary malignancy in the abdomen or pelvis. 2. Partially imaged left-sided chest tube with interval resolution of left- sided pneumothorax. 3. Bilateral lower lobe airspace consolidation, left greater than right, which may reflect atelectasis although differential considerations include aspiration. 4. Ancillary findings include cholelithiasis, colonic diverticulosis, anterior abdominal wall fat-containing hernia, and degenerative spondylosis of the lumbar spine. Chest CT 06/25/18 00:00 CONCLUSION: 1. Underlying emphysema with consolidation in the posterior left lower lobe with air bronchograms most characteristic of pneumonia. 2. Left-sided chest tube in place with no residual pneumothorax. Subcutaneous emphysema remains over the left lateral chest wall. There are multiple left rib fractures. 3. No evidence of primary malignancy. Head CT 06/25/18 00:00 CONCLUSION: 1. Evolving large right posterior MCA territory infarct. 2. Evolving focal infarcts in the right cerebellar hemisphere. 3. No intercurrent hemorrhage or herniation. . Objective Remarks: GENERAL: Patient is 78 yo critically ill intubated and sedated SKIN: Warm and dry. HEAD: Normocephalic. EYES: No scleral icterus. No injection or drainage. NECK: Supple, trachea midline. No JVD or lymphadenopathy. CARDIOVASCULAR: Regular rate and rhythm without murmurs, gallops, or rubs. RESPIRATORY: Breath sounds equal bilaterally. No accessory muscle use. GASTROINTESTINAL: Abdomen soft, non-tender, nondistended. MUSCULOSKELETAL: No edema. +Cyanosis of fingertips on right hand Neuro: sedated Assessment and Plan - Assessment and Plan Plan: VDRF Acute CVA ( Acute right parietal infarcts) Pulmonary embolism Left sided PTX Liver lesions suspicious of metastatic process Mild elevated troponin-multifactorial. Leukocytosis Thrombocytopenia Plan Neuro: On Diprivan, Fentanyl infusion for sedation. Daily sedation vacation. Repeat CT brain 06/26: Evolving large right posterior MCA territory infarct. Evolving focal infarcts in the right cerebellar hemisphere. No intercurrent hemorrhage or herniation. CT brain: Acute parietal infarcts MRI brain:. 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 2 punctate acute infarctions involving the right cerebellar hemisphere. MRA brain: Occlusion of the mid to distal right M1 segment with reconstitution of the proximal right M2 branches via collaterals. Carotid Doppler US: No hemodynamic significant stenosis in right carotid artery. There is an approximate 50-69% stenosis left internal carotid artery. Neuro is following Unknown downtime. Not a candidate for TPA or thrombectomy Aspirin, statins Pulm: Continue with vent support keep sats >92% On PRVC RR 12, TV 450, IT:1.0, PEEP:5 and FIO2:55%. Decrease FIO2 as josh. Bronchodilators, ICU vent bundle. CT chest 06/26: Underlying emphysema with consolidation in the posterior left lower lobe with air bronchograms most characteristic of pneumonia. Left-sided chest tube in place with no residual pneumothorax. Subcutaneous emphysema remains over the left lateral chest wall. There are multiple left rib fractures. No evidence of primary malignancy CT thoracic aorta: Pulmonary embolism, left sided PTX s/p CT placement- monitor CT drainage Doppler US LE b/l LE: Occlusive thrombus in both posterior tibial veins. Not a candidate for anticoagulation due to worrisome of hemorrhagic conversion s/p IVC filter placement on 06/23. Heme is following. CV: Monitor HR and BP keep MAP>65mmHg Continue ASA, Lipitor Echo showed Normal left ventricular size. Wall thickness is normal. EF: 60-65%. : Monitor renal function, I/O's, electrolytes replacement per protocol. Place on Free water 250ml Q8 GI: Liver lesions suspicious of metastatic process GI is following. On Pepcid 20mg IV Q12 for GI prophylaxis Continue tube feeds-On 2cal HN with goal rate 55ml/hr Grady 5mg IV Q8 PRN ID: Monitor for signs of infections (Fever, WBC) WBC is trending down Received Vanco and Zosyn in ED. Continue with Zosyn and Vanco Follow up on sputum cx and BC 06/23 Heme: Monitor CBC, follow up on Hep PLT ab Doppler US LE: Occlusive thrombus in both posterior tibial veins. Heme is following recommending hospice Tumor markers elevated. CEA: 41, AFP:13, CA 125: 1091, CA19-9: 593.6, CA 15-3:177 Seen by Vascular surgery for cyanosis of fingertips on right hand- Not a candidate for surgery Endo: SSI for glycemic control DVT GI prophylaxis -Teds SCDs -Subcu heparin -Pepcid Palliative care is following- Patient was made no code DNR Poor prognosis 35 minutes of critical care
[2018-06-26] MEDS: Vancomycin Inj 1,250 MG in Sodium Chlor 0.9% Inj 250 ML IV.SIG SCH (12:54)
[2018-06-26] MEDS: fentaNYL 10 mcg/mL Premix Drip 2,500 MCG/250 ML BAG IV.SIG PRN (14:36)
[2018-06-26] MEDS ORDERED: Etomidate Inj 40 MG/20 ML Vial IV.PUSH ONE (15:19)
--- NOTE | 2018-06-26 15:21 | P.PNPAL ---
Reason for Visit Reason for visit: a. To assist with evaluation and management of symptoms including: pain, dyspnea b. To assist medical decision maker(s) with: better understanding of current medical conditions; weighing benefits/burdens of medical treatment options; making medical treatment decisions. Subjective Subjective/Interval History: Pt seen today to follow up on goals w [facility]. Notified by nurse pt w air leak around ETT and may require tube exchange. Pt has remained on mech vent, sedation in ICU. + on fentanyl, propofol. +On Tube feed. CBC stable, WBC still elevated 17.2. renal function cont to slowly increase BUN 44/creatinine 1.49. CT abd/pelvis completed =no definitive evidence for a primary malignancy in the abdomen or pelvis. CT brain = evolving infarcts, no hemorrhage. Blood cultures = no growth to day. Sputum = normal respiratory karl. Oncology following, has reviewing CT imaging notes "No improvement in neurological status, Patient's prognosis is extremely poor, CT chest abdomen and pelvis without contrast showed no primary malignancy, I recommend hospice." Critical care request f/up w [facility] to determine if they would wish to proceed w ETT exchange. Seen in room no visitors present. Dual visit w Y Ev[facility] [employer]. Sedated. not responding to exam- no eye opening. no withdraw of extremities. Rt hand continues to be cool, purple. Call to [facility] Cari Dumas- updated on current condition, assessments, recent diagnostics including imaging. Review may need ETT exchange she indicates good understanding of tube exchange. Review goals for possible withdrawal. She does indicate will Likely consider withdrawal in coming days once other family here , and does not want further escalation of tx, however would proceed w ETT exchange at this time. She informs brother will be arriving from out of town around 530 pm tonight, though not sure if he will be visiting [facility], if so would be around 6pm, requests I update nurse on this. All questions answered to the best of my ability. She requests to be notified of any other changes in condition. D/w primary nurse, d/w critical care. Advance Directives Advance Directives Date on File: 12/04/89 Health Care Surrogate Name and Number: Cari Dumas, friend: [phone] Documented care wishes:: Living Will states that if she is unable to participate in decisions concerning her life: if no reasonable expectation for recovery from extreme physical or mental disability that she directs she be allowed to , not be kept alive by medications, artificial means, life support or heroic measures. She asks that medication be administered to alleviate suffering even though this may shorten her remaining life. She also indicates she hopes to live out her last days at home rather than n the the hospital if it does not jeopardize the chance of recovery to a meaningful and conscious life and does not impose an undue burden on my family. Objective Vital Signs: Vital Signs 06/25/18 16:00 06/25/18 18:00 06/25/18 18:15 Temperature 99.5 F Pulse Rate 87 90 Respiratory Rate 17 Blood Pressure 96/53 L Pulse Oximetry 88 L 100 06/25/18 19:52 06/25/18 19:55 06/25/18 20:00 Temperature 99 F Pulse Rate 87 83 Respiratory Rate 15 13 14 Blood Pressure 97/52 L Pulse Oximetry 97 95 06/25/18 22:00 06/25/18 23:23 06/25/18 23:42 Temperature Pulse Rate 90 92 H Respiratory Rate 15 15 Blood Pressure Pulse Oximetry 96 06/26/18 00:00 06/26/18 02:00 06/26/18 04:00 Temperature 99.5 F 99.5 F Pulse Rate 84 82 80 Respiratory Rate 14 13 Blood Pressure 98/53 L 103/57 L Pulse Oximetry 96 98 06/26/18 04:12 06/26/18 06:00 06/26/18 07:42 Temperature Pulse Rate 80 87 85 Respiratory Rate 16 16 Blood Pressure Pulse Oximetry 98 96 06/26/18 08:00 06/26/18 11:22 Temperature 98.9 F Pulse Rate 85 90 Respiratory Rate 16 13 Blood Pressure 109/55 L Pulse Oximetry 97 97 Intake & Output 06/25/18 06/26/18 06/26/18 18:59 06:59 18:59 Intake Total 1110.5 / 1110.5 1091 / 1091 662.5 / 662.5 Output Total 225 / 225 230 / 230 Balance 885.5 / 885.5 861 / 861 662.5 / 662.5 Weight 68.2 kg Intake: IV 662.5 / 662.5 250 / 250 662.5 / 662.5 Diprivan 1000 mg/100 ml Inj 1, 100 / 100 100 / 100 100 / 100 000 mg In 100 ml @ 5 MCG/KG/MIN 2.042 mls/hr IV.CONT TITRATE PRN Rx#:[id number] Zosyn 3.375 GM Premix 50 ML @ 50 / 50 150 / 150 50 / 50 100 mls/hr IV.SIG Q6H [facility] Rx#: [id number] Vancomycin Inj 1,250 MG In NS 262.5 / 262.5 262.5 / 262.5 Inj 250 ML @ 250 mls/hr IV.SIG Q24H [facility] Rx#:[id number] fentaNYL 10 mcg/mL Premix Drip 250 / 250 250 / 250 2,500 mcg In 250 ml @ 50 MCG/HR 5 mls/hr IV.SIG TITRATE PRN Rx #:[id number] Tube Feeding 198 / 198 341 / 341 Water Bolus Amount 250 / 250 500 / 500 Output: Urine 225 / 225 Urine Amount (Catheter) 200 / 200 Indwelling Urethral Catheter 200 / 200 Chest Tube Drainage 30 / 30 #1 Left Upper Mid-Axillary 30 / 30 Chest Other: Date of Last Bowel Movement 06/26/18 06/26/18 # Bowel Movements 0 Physical Exam: CONSTITUTIONAL/GENERAL: This is an adequately nourished patient, sedated on mech vent. TUBES/LINES/DRAINS: ETT, OG, PIVs, left chest tube, Siddiqi, bilateral soft wrist restraints. SKIN: No jaundice, rashes, or lesions. Ecchymoses on upper extremities, bilateral knees and left hip. multiple areas ecchymoses abdomen. EYES: Pupils equal and round. ENT: Unable to assess hearing. Nose without bleeding or purulent drainage. Throat difficult to visualize due to tubes. CARDIOVASCULAR: Regular rate and rhythm, some ectopy noted. RESPIRATORY/CHEST: Left chest tube. unlabored respirations on vent. crackles. diminished breath sounds. +audible air leak around ETT GASTROINTESTINAL: Abdomen soft, no apparent tenderness, nondistended. Bowel sounds present. Easily reducible, soft hernia right upper abdomen. GENITOURINARY: Without palpable bladder distension. Siddiqi catheter in place. MUSCULOSKELETAL: Extremities without clubbing edema. Mottling noted left foot, cool to touch. Right hand purple, cool. NEUROLOGICAL: Sedated on vent. no eye opening, no response to stimuli. PSYCHIATRIC: Sedated. Diagnostic Tests Laboratory: Laboratory Results - last 72 hr 06/23/18 06/23/18 06/23/18 04:54 09:25 09:25 WBC RBC Hgb Hct MCV MCH MCHC RDW Plt Count MPV Prelim Diff (Auto) Neut % (Auto) Lymph % (Auto) Charlotte % (Auto) Eos % (Auto) Baso % (Auto) Neut # (Auto) Lymph # (Auto) Charlotte # (Auto) Eos # (Auto) Baso # (Auto) WBC Differential Diff Scan Seg Neuts % (Manual) Band Neuts % (Manual) Lymphocytes % (Manual) Monocytes % (Manual) Metamyelocytes % (Man) Abs Neuts (Manual) Differential Comment Platelet Estimate Platelet Morphology RBC Morphology Sodium Potassium Chloride Carbon Dioxide Anion Gap BUN Creatinine Estimated GFR POC Glucose Random Glucose Hemoglobin A1c 6.0 5.9 Calcium Phosphorus Magnesium Total Bilirubin AST ALT Alkaline Phosphatase Total Protein Albumin Random Vancomycin Chromogranin A 104.0 H Heparin Dep Plt Ab OD Hep-Induced Plt Ab Sheryl 06/23/18 06/23/18 06/24/18 17:22 23:37 06:04 WBC RBC Hgb Hct MCV MCH MCHC RDW Plt Count MPV Prelim Diff (Auto) Neut % (Auto) Lymph % (Auto) Charlotte % (Auto) Eos % (Auto) Baso % (Auto) Neut # (Auto) Lymph # (Auto) [place] # (Auto) Eos # (Auto) Baso # (Auto) WBC Differential Diff Scan Seg Neuts % (Manual) Band Neuts % (Manual) Lymphocytes % (Manual) Monocytes % (Manual) Metamyelocytes % (Man) Abs Neuts (Manual) Differential Comment Platelet Estimate Platelet Morphology RBC Morphology Sodium Potassium Chloride Carbon Dioxide Anion Gap BUN Creatinine Estimated GFR POC Glucose 114 H 161 H 160 H Random Glucose Hemoglobin A1c Calcium Phosphorus Magnesium Total Bilirubin AST ALT Alkaline Phosphatase Total Protein Albumin Random Vancomycin Chromogranin A Heparin Dep Plt Ab OD Hep-Induced Plt Ab Sheryl 06/24/18 06/24/18 06/24/18 06:48 06:48 09:52 WBC 23.8 H RBC 3.83 L Hgb 11.5 L Hct 34.7 L MCV 90.6 MCH 30.0 MCHC 33.2 RDW 14.3 Plt Count 55 L MPV 10.6 Prelim Diff (Auto) Slide review pending Neut % (Auto) 87.3 H Lymph % (Auto) 5.0 L Charlotte % (Auto) 7.5 Eos % (Auto) 0.1 Baso % (Auto) 0.1 Neut # (Auto) 20.8 H Lymph # (Auto) 1.2 Charlotte # (Auto) 1.8 H Eos # (Auto) 0.0 Baso # (Auto) 0.0 WBC Differential Manual diff final Diff Scan Seg Neuts % (Manual) 80 H Band Neuts % (Manual) 13 H Lymphocytes % (Manual) 2 L Monocytes % (Manual) 5 Metamyelocytes % (Man) Abs Neuts (Manual) 22.1 H Differential Comment . Platelet Estimate Low L Platelet Morphology Normal RBC Morphology Normal Sodium 146 H Potassium 3.5 Chloride 112 H Carbon Dioxide 21.5 Anion Gap 13 BUN 33 H Creatinine 1.22 H Estimated GFR 43 L POC Glucose Random Glucose 150 H Hemoglobin A1c Calcium 7.9 L Phosphorus 2.6 Magnesium 2.3 Total Bilirubin 0.5 AST 30 ALT 21 Alkaline Phosphatase 95 Total Protein 5.7 L D Albumin 2.3 L Random Vancomycin Chromogranin A Heparin Dep Plt Ab OD 0.424 Hep-Induced Plt Ab Sheryl Negative 06/24/18 06/24/18 06/24/18 12:04 17:17 18:59 WBC RBC Hgb Hct MCV MCH MCHC RDW Plt Count MPV Prelim Diff (Auto) Neut % (Auto) Lymph % (Auto) Charlotte % (Auto) Eos % (Auto) Baso % (Auto) Neut # (Auto) Lymph # (Auto) Charlotte # (Auto) Eos # (Auto) Baso # (Auto) WBC Differential Diff Scan Seg Neuts % (Manual) Band Neuts % (Manual) Lymphocytes % (Manual) Monocytes % (Manual) Metamyelocytes % (Man) Abs Neuts (Manual) Differential Comment Platelet Estimate Platelet Morphology RBC Morphology Sodium Potassium 3.4 L Chloride Carbon Dioxide Anion Gap BUN Creatinine Estimated GFR POC Glucose 169 H 154 H Random Glucose Hemoglobin A1c Calcium Phosphorus Magnesium Total Bilirubin AST ALT Alkaline Phosphatase Total Protein Albumin Random Vancomycin Chromogranin A Heparin Dep Plt Ab OD Hep-Induced Plt Ab Sheryl 06/24/18 06/25/18 06/25/18 23:28 05:57 05:57 WBC 19.8 H RBC 3.74 L Hgb 11.1 L Hct 33.8 L MCV 90.4 MCH 29.7 MCHC 32.9 RDW 14.7 Plt Count 61 L MPV 11.2 H Prelim Diff (Auto) Slide review pending Neut % (Auto) 85.9 H Lymph % (Auto) 6.2 L Charlotte % (Auto) 7.2 Eos % (Auto) 0.3 Baso % (Auto) 0.4 Neut # (Auto) 17.0 H Lymph # (Auto) 1.2 Charlotte # (Auto) 1.4 H Eos # (Auto) 0.1 Baso # (Auto) 0.1 WBC Differential . Diff Scan Auto diff confirmed Seg Neuts % (Manual) Band Neuts % (Manual) Lymphocytes % (Manual) Monocytes % (Manual) Metamyelocytes % (Man) Abs Neuts (Manual) Differential Comment . Platelet Estimate Low L Platelet Morphology Enlarged H RBC Morphology Sodium 150 H Potassium 4.2 D Chloride 115 H Carbon Dioxide 23.0 Anion Gap 12 BUN 35 H Creatinine 1.47 H Estimated GFR 35 L POC Glucose 138 H Random Glucose 160 H Hemoglobin A1c Calcium 7.8 L Phosphorus 2.8 Magnesium 2.5 Total Bilirubin 0.4 AST 30 ALT 22 Alkaline Phosphatase 120 H Total Protein 6.0 L Albumin 2.1 L Random Vancomycin 10.7 Chromogranin A Heparin Dep Plt Ab OD Hep-Induced Plt Ab Sheryl 06/25/18 06/25/18 06/25/18 13:22 19:04 23:56 WBC RBC Hgb Hct MCV MCH MCHC RDW Plt Count MPV Prelim Diff (Auto) Neut % (Auto) Lymph % (Auto) Charlotte % (Auto) Eos % (Auto) Baso % (Auto) Neut # (Auto) Lymph # (Auto) Charlotte # (Auto) Eos # (Auto) Baso # (Auto) WBC Differential Diff Scan Seg Neuts % (Manual) Band Neuts % (Manual) Lymphocytes % (Manual) Monocytes % (Manual) Metamyelocytes % (Man) Abs Neuts (Manual) Differential Comment Platelet Estimate Platelet Morphology RBC Morphology Sodium Potassium Chloride Carbon Dioxide Anion Gap BUN Creatinine Estimated GFR POC Glucose 180 H 145 H 154 H Random Glucose Hemoglobin A1c Calcium Phosphorus Magnesium Total Bilirubin AST ALT Alkaline Phosphatase Total Protein Albumin Random Vancomycin Chromogranin A Heparin Dep Plt Ab OD Hep-Induced Plt Ab Sheryl 06/26/18 06/26/18 06/26/18 05:57 07:30 07:30 WBC 17.2 H RBC 3.35 L Hgb 10.0 L Hct 29.8 L MCV 89.0 MCH 29.8 MCHC 33.5 RDW 14.8 Plt Count 82 L D MPV 11.4 H Prelim Diff (Auto) Slide review pending Neut % (Auto) 84.7 H Lymph % (Auto) 7.2 L Charlotte % (Auto) 7.3 Eos % (Auto) 0.4 Baso % (Auto) 0.4 Neut # (Auto) 14.6 H Lymph # (Auto) 1.2 Charlotte # (Auto) 1.3 H Eos # (Auto) 0.1 Baso # (Auto) 0.1 WBC Differential Manual diff final Diff Scan Seg Neuts % (Manual) 89 H Band Neuts % (Manual) 4 Lymphocytes % (Manual) 2 L Monocytes % (Manual) 4 Metamyelocytes % (Man) 1 Abs Neuts (Manual) 16.2 H Differential Comment . Platelet Estimate Low L Platelet Morphology Enlarged H RBC Morphology Sodium 145 Potassium 3.9 Chloride 117 H Carbon Dioxide 23.7 Anion Gap 4 L BUN 44 H Creatinine 1.49 H Estimated GFR 34 L POC Glucose 199 H Random Glucose 163 H Hemoglobin A1c Calcium 7.7 L Phosphorus 3.3 Magnesium 2.7 H Total Bilirubin 0.3 AST 44 H ALT 27 Alkaline Phosphatase 158 H Total Protein 5.9 L Albumin 1.9 L Random Vancomycin Chromogranin A Heparin Dep Plt Ab OD Hep-Induced Plt Ab Sheryl 06/26/18 12:58 WBC RBC Hgb Hct MCV MCH MCHC RDW Plt Count MPV Prelim Diff (Auto) Neut % (Auto) Lymph % (Auto) Charlotte % (Auto) Eos % (Auto) Baso % (Auto) Neut # (Auto) Lymph # (Auto) [place] # (Auto) Eos # (Auto) Baso # (Auto) WBC Differential Diff Scan Seg Neuts % (Manual) Band Neuts % (Manual) Lymphocytes % (Manual) Monocytes % (Manual) Metamyelocytes % (Man) Abs Neuts (Manual) Differential Comment Platelet Estimate Platelet Morphology RBC Morphology Sodium Potassium Chloride Carbon Dioxide Anion Gap BUN Creatinine Estimated GFR POC Glucose 177 H Random Glucose Hemoglobin A1c Calcium Phosphorus Magnesium Total Bilirubin AST ALT Alkaline Phosphatase Total Protein Albumin Random Vancomycin Chromogranin A Heparin Dep Plt Ab OD Hep-Induced Plt Ab Sheryl Result Diagrams: 06/26/18 07:30 06/26/18 07:30 Microbiology: Microbiology 06/23/18 20:15 Gram Stain - Final Sputum - Endotracheal Sputum Culture - Final Moderate growth normal respiratory karl 06/23/18 11:05 Aerobic Blood Culture - Preliminary Blood - Peripheral No growth in 3 days Anaerobic Blood Culture - Final QNS - See aerobic report. 06/23/18 10:50 Aerobic Blood Culture - Preliminary Blood - Peripheral No growth in 3 days Anaerobic Blood Culture - Final QNS - See aerobic report. Imaging: Impressions Abdomen/Pelvis CT 06/25/18 00:00 CONCLUSION: 1. Limited examination due to lack of IV contrast. However, there is no definitive evidence for a primary malignancy in the abdomen or pelvis. 2. Partially imaged left-sided chest tube with interval resolution of left- sided pneumothorax. 3. Bilateral lower lobe airspace consolidation, left greater than right, which may reflect atelectasis although differential considerations include aspiration. 4. Ancillary findings include cholelithiasis, colonic diverticulosis, anterior abdominal wall fat-containing hernia, and degenerative spondylosis of the lumbar spine. Chest CT 06/25/18 00:00 CONCLUSION: 1. Underlying emphysema with consolidation in the posterior left lower lobe with air bronchograms most characteristic of pneumonia. 2. Left-sided chest tube in place with no residual pneumothorax. Subcutaneous emphysema remains over the left lateral chest wall. There are multiple left rib fractures. 3. No evidence of primary malignancy. Head CT 06/25/18 00:00 CONCLUSION: 1. Evolving large right posterior MCA territory infarct. 2. Evolving focal infarcts in the right cerebellar hemisphere. 3. No intercurrent hemorrhage or herniation. . Procedures: * 06/22/18 - intubated, chest tube placed. Assessment and Plan - Disease Oriented Problem List (1) Emphysema lung (2) History of lung cancer (3) Acute CVA (cerebrovascular accident) (4) Closed rib fracture (5) DVT (deep venous thrombosis) (6) Liver lesion (7) Pneumothorax (8) Leucocytosis (9) Thrombocytopenia Pertinent Non-Medical Issues: Psychosocial: Single. Has 2 sisters, 1 brother and 1 son. 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 Spiritual: Unknown. Legal: Patient is not capacitated to make her own health care decisions, uncertain if she will regain capacity. HAs written Living Will and designation of health care surrogate, Cari Dumas (primary HCS) and Nathaniel Reina (alternate HCS). Ethical issues impacting care: No known concerns at this time. Important Contacts: * Cari Dumas, [facility]/friend: [phone] * Nathaniel Reina, brother: [phone] Prognosis: Will need additional test results to adequately prognosticate. Code Status: No Code DNR Plan: * Patient is not capacitated to make her own health care decisions, uncertain if she will regain capacity. HAs written Living Will and designation of health care surrogate, Cari Dumas (primary HCS) and Nathaniel Reina (alternate HCS). * NO CODE * Goals: Met with Cari Dumas, [facility] and friends. Medical update provided. Reviewed new physical exam findings and related concerns. I reviewed medical team thoughts regarding prognosis. Explained will have to do non-contrasted CT scan given worsening renal function, they understand limitations without contrast and understand rationale. Reviewed Dr. Deluna evaluation and that she is not a candidate for surgical intervention at this time. Overall prognosis appears poor. Brother will be arriving sometime in the coming days. They have elected to continue current level of care, no further escalation of care (No pressors, no invasive procedures, no escalation of care). They desire comfort medications be continued and not held for hypotension or other reasons as per patient written directives in her living will. Will obtain CTs and further clarify goals of medical treatment once results available 06/26/18. Cari wishes to be contacted if any change in condition as she does not want patient to alone. * 06/26/18 Cari WOOD consented to exchange ETT/ brother will be arriving later this evening, though may or may not see pt tonight. * SYMPTOMS: Dyspnea: secondary to COPD/emphysema, possible lung cancer, pulmonary embolus, rib fractures, pneumothorax, chest tube in place. On mechanical vent, vent asynchrony, tachypnea with lowering of sedation. Pain: due to recent fall, stroke, tubes. Currently sedated on Propofol and Fentanyl. Will monitor. No new medication recommendations at this time. * Palliative care will continue to follow throughout hospital course to assist with symptom management and further clarification of goals of medical treatment. Attestation Attestation: To help prompt me to consider important information that might be impacting today's encounter and assessment, information from prior notes written by myself or my colleagues may have been "brought forward" into today's note. My signature on this note, however, is an attestation that I personally performed the exam, history, and/or decision-making noted today, and, unless otherwise indicated, the interactions with patient, family, and staff as well as the review of records all occurred today. I also attest that the listed assessment and stated plan reflect my best clinical judgment today based on the combination of historical information, prior notes, and today's exam/ interactions. When time spent is documented, it refers only to time spent today by the signer, or if indicated, combined time spent today by collaborating physician/nurse practitioner.
--- NOTE | 2018-06-26 15:47 | XR ---
EXAM DATE: 06/26/2018 3:22 PM EDT AGE/SEX: 78 years / Female INDICATIONS: Post intubation. CLINICAL DATA: This is the patient's initial encounter. Patient reports that signs and symptoms have been present for 3 days and indicates a pain score of Nonresponsive. MEDICAL/SURGICAL HISTORY: Cerebrovascular disease. Hypertension. Carcinoma, lung. Appendectom y. lobectomy COMPARISON: [facility], CHEST 1V SINGLE AP, 06/24/2018. . FINDINGS: Endotracheal tube is present with tip 2 or 3 cm above the jennifer. Nasogastric tube descends into the stomach. Left thoracostomy tube is present. There has been improvement in aeration with increase in l hawa volumes and decrease in confluence of right base and diffuse left lung infiltrates. Cardiac conto urs are grossly satisfactory. CONCLUSION: Satisfactory endotracheal tube positioning. Improved aeration. Electronically signed by: Zeus Vora MD 06/26/2018 3:46 PM EDT
--- NOTE | 2018-06-26 17:08 | P.PNPAL ---
Spoke with Dr. Turcios on 06/25/[address] scan results and his thoughts regarding prognosis. He feels patient has overall poor prognosis and recommends consideration of transition to comfort measures and hospice support. Spoke with Dr. Benavides following ETT replacement this afternoon. He does not feel patient will be able to be weaned from mechanical vent and would likely need trach and PEG. He too agrees overall prognosis is poor and feels comfort measures with hospice support would be appropriate. Call placed to NINA Gould to review CT results and the above conversations with medical team. She reports she is driving to [place] to [place] patient's brother. They may visit [facility]. She will advise of MD thoughts regarding prognosis. Cari indicates patient would not want trach/PEG. She is considering transition to comfort with withdrawal of life support in the coming days while patient's brother is in town. She would like him to assist with this decision. Anticipatory guidance provided regarding comfort, withdrawal of life support and hospice services. She will speak with family and let me know if they decide to transition to comfort. Advised I will be available to answer calls this weekend if needed. Offered support.
[2018-06-27] MEDS: Oral Hygiene Kit OROPHARYNG SCH ×4 (00:03→16:00)
[2018-06-27] MEDS: Insulin NovoLIN Regular Correctional Sugar Inj SQ SCH ×4 (00:03→17:16)
[2018-06-27] MEDS: Propofol 1000 mg/100 ml Inj 1,000 MG/100 ML BOTTLE IV.CONT PRN ×4 (01:04→21:18)
[2018-06-27] MEDS: Heparin - SQ 10,000 UNITS/ML Vial SQ SCH ×3 (02:08→17:15)
[2018-06-27] MEDS: Piperacil/Tazo 3.375 GM Premix 50 ML IV.SIG SCH ×4 (03:37→21:18)
[2018-06-27] MEDS: Chlorhexidine Gluconate 2% 1 Pack (2 Cloths) TOPICAL SCH (03:38)
[2018-06-27 05:51] LABS: Baso # (Auto) 0.1 th/mm3 (0.0-0.2); Baso % (Auto) 0.4 % (0.0-2.0); Eos # (Auto) 0.1 th/mm3 (0.0-0.4); Eos % (Auto) 0.4 % (0.0-4.0); Hematocrit 31.1 % (35.0-46.0); Hemoglobin 10.4 gm/dL (11.6-15.3); Lymph # (Auto) 0.9 th/mm3 (1.0-4.8); Lymph % (Auto) 4.9 % (9.0-44.0); Mean Corpuscular HGB Conc 33.3 % (32.0-36.0); Mean Corpuscular Hemoglobin 29.7 pg (27.0-34.0); Mean Corpuscular Volume 89.3 fL (80.0-100.0); Mean Platelet Volume 11.2 fL (7.0-11.0); Mono # (Auto) 1.6 th/mm3 (0.0-0.9); Mono % (Auto) 8.3 % (0.0-8.0); Neut # (Auto) 16.1 th/mm3 (1.8-7.7); Platelet Count 97 th/mm3 (150-450); Red Blood Count 3.48 mil/mm3 (4.00-5.30); Red Cell Distribution Width 14.4 % (11.6-17.2); White Blood Count 18.8 th/mm3 (4.0-11.0)
[2018-06-27 06:22] LABS: Albumin 1.9 g/dL (3.4-5.0); Anion Gap 9 meq/L (5-15); Aspartate Aminotransferase 61 U/L (15-37); Blood Urea Nitrogen 54 mg/dL (7-18); Calcium 8.5 mg/dL (8.5-10.1); Carbon Dioxide 24.4 meq/L (21.0-32.0); Chloride 114 meq/L (98-107); Glomerular Filtration Rate 37 mL/min (>89); Glucose,Random 197 mg/dL (74-106); Magnesium 2.8 mg/dL (1.5-2.5); Sodium 147 meq/L (136-145)
[2018-06-27 06:23] LABS: Alanine Aminotransferase 37 U/L (10-53); Phosphorus 3.4 mg/dL (2.5-4.9)
[2018-06-27 06:25] LABS: Alkaline Phosphatase 188 U/L (45-117); Total Protein 6.3 g/dL (6.4-8.2)
--- NOTE | 2018-06-27 07:10 | P.PNCC ---
Subjective Subjective Remarks/Hospital Course: 78-year-old female presents to the ED for evaluation of possible CVA and shortness of breath. Per [facility] they got a call that apparently the patient had been found on the floor. Unclear as to how long the patient had been on the floor. Last time the patient was seen normal was on Friday per friends that were in the scene. Per patient herself she cannot really tell us any history other than she has pain on the left side of her body as well as weakness to her left arm. She cannot move her left arm on her own. She denies any history of stroke on herself. She cannot really give us good history about her medications. She denies taking blood thinners however. She cannot recall when she fell and she cannot really tell us how long she has been on the floor. No one really at bedside to give us any information about how long the symptoms have been going. Per [facility] she is also been having left facial droop. CT of the brain obtained in the emergency department shows Acute right parietal infarcts. No midline shift or mass effect. The chest x-ray with the findings of Subcutaneous emphysema along the left chest wall along with multiple left- sided rib fractures. CTA of the pulmonary artery is consistent with Moderate volume acute pulmonary emboli and Moderate size left pneumothorax with overlying subcutaneous air. The patient was intubated by ED attending and the chest tube was placed in the emergency department as well. 06/23 Patient is sedated with Diprivan and intubated. Afebrile. 06/24 Patient remains sedated with Fentanyl and Diprivan and intubated. T:100.3 , s/p IVC filter placement yesterday.Had an episode of desaturation and now on 100% FIO2 with PEEP:5 and sats 94-95% 06/25. Patient remains intubated and sedated. Afebrile. FIO2 down to 55% with good sats. 06/26 No events overnight. Sedated and intubated. Afebrile 06/27 Patient had cuff tear in ETT and was replaced. Sedated with Diprivan and Fentanyl infusions. Afebrile. Objective Vital Signs / I&O: Vital Signs 06/26/18 07:42 06/26/18 08:00 06/26/18 10:00 Temperature 98.9 F Pulse Rate 85 85 86 Respiratory Rate 16 16 Blood Pressure 109/55 L Pulse Oximetry 96 97 10/12/18 11:22 06/26/18 12:00 06/26/18 14:00 Temperature 97.4 F L Pulse Rate 90 91 H 84 Respiratory Rate 13 16 Blood Pressure 126/67 Pulse Oximetry 97 98 06/26/18 16:00 06/26/18 16:04 06/26/18 18:00 Temperature 97.5 F L Pulse Rate 82 80 82 Respiratory Rate 14 14 Blood Pressure 116/56 L Pulse Oximetry 97 98 06/26/18 19:00 06/26/18 19:30 06/26/18 19:57 Temperature Pulse Rate 83 83 84 Respiratory Rate 16 16 16 Blood Pressure 128/59 L 120/61 Pulse Oximetry 97 98 06/26/18 20:00 06/26/18 20:30 06/26/18 21:00 Temperature 98.6 F Pulse Rate 83 85 89 Respiratory Rate 16 16 14 Blood Pressure 123/66 126/64 132/70 Pulse Oximetry 99 96 96 06/26/18 21:30 06/26/18 22:00 06/26/18 22:30 Temperature 98.7 F Pulse Rate 91 H 92 H 90 Respiratory Rate 13 13 12 Blood Pressure 142/72 H 152/66 H 125/65 Pulse Oximetry 91 L 91 L 94 L 06/26/18 23:00 06/26/18 23:30 06/27/18 00:00 Temperature 98.6 F Pulse Rate 89 87 87 Respiratory Rate 12 50 H 40 H Blood Pressure 118/60 117/59 L 119/60 Pulse Oximetry 94 L 94 L 93 L 06/27/18 00:04 06/27/18 00:30 06/27/18 01:00 Temperature Pulse Rate 88 89 Respiratory Rate 15 22 24 Blood Pressure 125/65 120/55 L Pulse Oximetry 94 L 93 L 93 L 06/27/18 01:30 06/27/18 02:00 06/27/18 02:30 Temperature Pulse Rate 86 86 86 Respiratory Rate 23 24 24 Blood Pressure 113/56 L 110/61 105/59 L Pulse Oximetry 92 L 91 L 91 L 06/27/18 03:00 06/27/18 03:30 06/27/18 03:59 Temperature Pulse Rate 87 85 Respiratory Rate 21 28 H 16 Blood Pressure 107/59 L 105/57 L Pulse Oximetry 91 L 92 L 94 L 06/27/18 04:00 06/27/18 06:00 Temperature 98.8 F Pulse Rate 86 87 Respiratory Rate 23 Blood Pressure 103/55 L Pulse Oximetry 92 L Intake & Output 06/26/18 06/27/18 06/27/18 18:59 06:59 18:59 Intake Total 1052.5 / 1052.5 300 / 300 Output Total 350 / 350 Balance 702.5 / 702.5 300 / 300 Intake: IV 812.5 / 812.5 300 / 300 Diprivan 1000 mg/100 ml Inj 1, 200 / 200 200 / 200 000 mg In 100 ml @ 5 MCG/KG/MIN 2.042 mls/hr IV.CONT TITRATE PRN Rx#:[id number] Zosyn 3.375 GM Premix 50 ML @ 100 / 100 100 / 100 100 mls/hr IV.SIG Q6H [facility]AS Rx#: [id number] Vancomycin Inj 1,250 MG In NS 262.5 / 262.5 Inj 250 ML @ 250 mls/hr IV.SIG Q24H [facility] Rx#:[id number] fentaNYL 10 mcg/mL Premix Drip 250 / 250 2,500 mcg In 250 ml @ 50 MCG/HR 5 mls/hr IV.SIG TITRATE PRN Rx #:[id number] Tube Feeding 240 / 240 Output: Urine Amount (Catheter) 300 / 300 Indwelling Urethral Catheter 300 / 300 Chest Tube Drainage 50 / 50 #1 Left Upper Mid-Axillary 50 / 50 Chest Other: Date of Last Bowel Movement 06/26/18 06/27/18 Result Diagrams: 06/27/18 04:15 06/27/18 04:15 Other Results: Laboratory Results - last 12 hr 06/27/18 06/27/18 06/27/18 00:01 04:15 04:15 WBC 18.8 H RBC 3.48 L Hgb 10.4 L Hct 31.1 L MCV 89.3 MCH 29.7 MCHC 33.3 RDW 14.4 Plt Count 97 L MPV 11.2 H Prelim Diff (Auto) Slide review pending Neut % (Auto) 86.0 H Lymph % (Auto) 4.9 L [place] % (Auto) 8.3 H Eos % (Auto) 0.4 Baso % (Auto) 0.4 Neut # (Auto) 16.1 H Lymph # (Auto) 0.9 L [place] # (Auto) 1.6 H Eos # (Auto) 0.1 Baso # (Auto) 0.1 Differential Comment . Sodium 147 H Potassium 4.0 Chloride 114 H Carbon Dioxide 24.4 Anion Gap 9 BUN 54 H Creatinine 1.40 H Estimated GFR 37 L POC Glucose 140 H Random Glucose 197 H Calcium 8.5 D Phosphorus 3.4 Magnesium 2.8 H Total Bilirubin 0.5 AST 61 H ALT 37 Alkaline Phosphatase 188 H Total Protein 6.3 L Albumin 1.9 L 06/27/18 05:32 WBC RBC Hgb Hct MCV MCH MCHC RDW Plt Count MPV Prelim Diff (Auto) Neut % (Auto) Lymph % (Auto) [place] % (Auto) Eos % (Auto) Baso % (Auto) Neut # (Auto) Lymph # (Auto) [place] # (Auto) Eos # (Auto) Baso # (Auto) Differential Comment Sodium Potassium Chloride Carbon Dioxide Anion Gap BUN Creatinine Estimated GFR POC Glucose 201 H Random Glucose Calcium Phosphorus Magnesium Total Bilirubin AST ALT Alkaline Phosphatase Total Protein Albumin Imaging: Cervical Spine CT 06/22/18 13:58 CONCLUSION: 1. Multilevel degenerative changes. 2. Scattered neural foraminal narrowing. 3. No compression fracture or spondylolisthesis Pelvis X-Ray 06/22/18 13:58 CONCLUSION: Limited study without gross abnormality. Humerus X-Ray 06/22/18 13:59 CONCLUSION: No abnormality involving the humerus. Subcutaneous air is seen tracking over the lateral left chest wall. Thoracic Aorta CT 06/22/18 15:28 CONCLUSION: 1. Moderate volume acute pulmonary emboli. 2. Moderate size left pneumothorax with overlying subcutaneous air. 3. Severe emphysematous changes. 4. 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 5. Occlusion of the right outflow possibly acute in origin. Clinical evaluation for right lower extremity claudication suggested. 6. 2 hepatic masses worrisome for metastatic disease. These are limited in their evaluation on this study due to the arterial phase of the exam. Consider MRI of the liver to further assess if clinically warranted. Head MRI 06/23/18 00:00 CONCLUSION: 1. 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 2. There appear to be 2 punctate acute infarctions involving the right cerebellar hemisphere. This is best seen on the diffusion-weighted images. Venous Doppler Study 06/23/18 00:00 CONCLUSION: 1. Occlusive thrombus in both posterior tibial veins. Head MRA 06/23/18 09:12 CONCLUSION: 1. Occlusion of the mid to distal right M1 segment with reconstitution of the proximal right M2 branches via collaterals. IVC Filter Placement X-Ray 06/23/18 09:20 CONCLUSION: 1. Uncomplicated inferior vena cava filter placement as above. Carotid Doppler Study 06/24/18 08:01 CONCLUSION: 1. No hemodynamic significant stenosis in right carotid artery. 2. There is an approximate 50-69% stenosis left internal carotid artery. Abdomen/Pelvis CT 06/25/18 00:00 CONCLUSION: 1. Limited examination due to lack of IV contrast. However, there is no definitive evidence for a primary malignancy in the abdomen or pelvis. 2. Partially imaged left-sided chest tube with interval resolution of left- sided pneumothorax. 3. Bilateral lower lobe airspace consolidation, left greater than right, which may reflect atelectasis although differential considerations include aspiration. 4. Ancillary findings include cholelithiasis, colonic diverticulosis, anterior abdominal wall fat-containing hernia, and degenerative spondylosis of the lumbar spine. Chest CT 06/25/18 00:00 CONCLUSION: 1. Underlying emphysema with consolidation in the posterior left lower lobe with air bronchograms most characteristic of pneumonia. 2. Left-sided chest tube in place with no residual pneumothorax. Subcutaneous emphysema remains over the left lateral chest wall. There are multiple left rib fractures. 3. No evidence of primary malignancy. Head CT 06/25/18 00:00 CONCLUSION: 1. Evolving large right posterior MCA territory infarct. 2. Evolving focal infarcts in the right cerebellar hemisphere. 3. No intercurrent hemorrhage or herniation. . Chest X-Ray 06/26/18 15:22 CONCLUSION: Satisfactory endotracheal tube positioning. Improved aeration. Objective Remarks: GENERAL: Patient is 78 yo critically ill intubated and sedated SKIN: Warm and dry. HEAD: Normocephalic. EYES: No scleral icterus. No injection or drainage. NECK: Supple, trachea midline. No JVD or lymphadenopathy. CARDIOVASCULAR: Regular rate and rhythm without murmurs, gallops, or rubs. RESPIRATORY: Breath sounds equal bilaterally. No accessory muscle use. GASTROINTESTINAL: Abdomen soft, non-tender, nondistended. MUSCULOSKELETAL: No edema. +Cyanosis of fingertips on right hand Neuro: sedated Assessment and Plan - [facility] Plan [facility] ( Acute right parietal infarcts) Pulmonary embolism Left sided PTX Liver lesions suspicious of metastatic process Mild elevated troponin-multifactorial. Leukocytosis Thrombocytopenia Plan Neuro: On Diprivan, Fentanyl infusion for sedation. Daily sedation vacation. Repeat CT brain 06/26: Evolving large right posterior MCA territory infarct. Evolving focal infarcts in the right cerebellar hemisphere. No intercurrent hemorrhage or herniation. CT brain: Acute parietal infarcts MRI brain:. 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 2 punctate acute infarctions involving the right cerebellar hemisphere. MRA brain: Occlusion of the mid to distal right M1 segment with reconstitution of the proximal right M2 branches via collaterals. Carotid Doppler US: No hemodynamic significant stenosis in right carotid artery. There is an approximate 50-69% stenosis left internal carotid artery. Neuro is following Unknown downtime. Not a candidate for TPA or thrombectomy Aspirin, statins Pulm: Continue with vent support keep sats >92% ETT replaced 06/26 ( Had cuff tear and low volumes) On PRVC RR 12, TV 450, IT:1.0, PEEP:8 and FIO2:40% Bronchodilators, ICU vent bundle. SBT daily as josh CXR 06/26: ETT above jennifer, improved aeration CT chest 06/26: Underlying emphysema with consolidation in the posterior left lower lobe with air bronchograms most characteristic of pneumonia. Left-sided chest tube in place with no residual pneumothorax. Subcutaneous emphysema remains over the left lateral chest wall. There are multiple left rib fractures. No evidence of primary malignancy CT thoracic aorta: Pulmonary embolism, left sided PTX s/p CT placement- monitor CT drainage Doppler US LE b/l LE: Occlusive thrombus in both posterior tibial veins. Not a candidate for anticoagulation due to worrisome of hemorrhagic conversion s/p IVC filter placement on 06/23. Heme is following. CV: Monitor HR and BP keep MAP>65mmHg Continue ASA, Lipitor Echo showed Normal left ventricular size. Wall thickness is normal. EF: 60-65%. : Monitor renal function, I/O's, electrolytes replacement per protocol. on Free water 250ml Q8 Cr: 1.40 today from 1.49 GI: Liver lesions suspicious of metastatic process GI is following. On Pepcid 20mg IV Q12 for GI prophylaxis Continue tube feeds-On 2cal HN @ 55ml/hr Ed 5mg IV Q8 PRN ID: Monitor for signs of infections (Fever, WBC) WBC is trending down Received Vanco and Zosyn in ED. Continue with Zosyn and Vanco Follow up on sputum cx and BC 06/23; NGTD Heme: Monitor CBC, Hep PLT ab: negative Doppler US LE: Occlusive thrombus in both posterior tibial veins. Heme is following recommending hospice Tumor markers elevated. CEA: 41, AFP:13, CA 125: 1091, CA19-9: 593.6, CA 15-3:177 Seen by Vascular surgery for cyanosis of fingertips on right hand- Not a candidate for surgery Endo: SSI for glycemic control DVT GI prophylaxis -Teds SCDs -Subcu heparin -Pepcid Palliative care is following- Code status: no code DNR Poor prognosis 35 minutes of critical care
[2018-06-27] MEDS: Chlorhexidine 0.12% Oral Kit 15 ML UDC OROPHARYNG SCH ×2 (07:50→21:17)
[2018-06-27] MEDS: Aspirin 300 MG Supp RECTAL SCH (08:03)
[2018-06-27] MEDS: Famotidine PF Inj 20 MG/2 ML Vial IV.PUSH SCH ×2 (08:07→21:17)
[2018-06-27] MEDS: Senna/Docusate Sodium 8.6/50 MG Tablet PO SCH ×2 (08:07→21:17)
[2018-06-27 08:11] LABS: Eosinophils 1 % (0-4); Lymphocytes 6 % (9-44); Monocytes 7 % (0-8)
[2018-06-27 08:12] LABS: Platelet Morphology Normal (Normal)
[2018-06-27 08:13] LABS: Ovalocytes 1+
--- NOTE | 2018-06-27 09:22 | P.PNONC ---
Subjective Interval history: Afebrile. Remains on ventilator. RN at the bedside states she just turned off the sedation. Patient appears to be opening her eyes slightly to voice. Moves right foot, not to command. Objective Vital Signs/Intake & Output: Vital Signs 06/26/18 10:00 06/26/18 11:22 06/26/18 12:00 Temperature 97.4 F L Pulse Rate 86 90 91 H Respiratory Rate 13 16 Blood Pressure 126/67 Pulse Oximetry 97 98 06/26/18 14:00 06/26/18 16:00 06/26/18 16:04 Temperature 97.5 F L Pulse Rate 84 82 80 Respiratory Rate 14 14 Blood Pressure 116/56 L Pulse Oximetry 97 98 06/26/18 18:00 06/26/18 19:00 06/26/18 19:30 Temperature Pulse Rate 82 83 83 Respiratory Rate 16 16 Blood Pressure 128/59 L 120/61 Pulse Oximetry 97 98 06/26/18 19:57 06/26/18 20:00 06/26/18 20:30 Temperature 98.6 F Pulse Rate 84 83 85 Respiratory Rate 16 16 16 Blood Pressure 123/66 126/64 Pulse Oximetry 99 96 06/26/18 21:00 06/26/18 21:30 06/26/18 22:00 Temperature 98.7 F Pulse Rate 89 91 H 92 H Respiratory Rate 14 13 13 Blood Pressure 132/70 142/72 H 152/66 H Pulse Oximetry 96 91 L 91 L 06/26/18 22:30 06/26/18 23:00 06/26/18 23:30 Temperature Pulse Rate 90 89 87 Respiratory Rate 12 12 50 H Blood Pressure 125/65 118/60 117/59 L Pulse Oximetry 94 L 94 L 94 L 06/27/18 00:00 06/27/18 00:04 06/27/18 00:30 Temperature 98.6 F Pulse Rate 87 88 Respiratory Rate 40 H 15 22 Blood Pressure 119/60 125/65 Pulse Oximetry 93 L 94 L 93 L 06/27/18 01:00 06/27/18 01:30 06/27/18 02:00 Temperature Pulse Rate 89 86 86 Respiratory Rate 24 23 24 Blood Pressure 120/55 L 113/56 L 110/61 Pulse Oximetry 93 L 92 L 91 L 06/27/18 02:30 06/27/18 03:00 06/27/18 03:30 Temperature Pulse Rate 86 87 85 Respiratory Rate 24 21 28 H Blood Pressure 105/59 L 107/59 L 105/57 L Pulse Oximetry 91 L 91 L 92 L 06/27/18 03:59 06/27/18 04:00 06/27/18 06:00 Temperature 98.8 F Pulse Rate 86 87 Respiratory Rate 16 23 Blood Pressure 103/55 L Pulse Oximetry 94 L 92 L 06/27/18 08:00 Temperature Pulse Rate Respiratory Rate 18 Blood Pressure Pulse Oximetry 94 L Intake & Output 06/26/18 06/27/18 06/27/18 18:59 06:59 18:59 Intake Total 1052.5 / 1052.5 1060 / 1060 Output Total 350 / 350 310 / 310 Balance 702.5 / 702.5 750 / 750 Weight 65.9 kg Intake: IV 812.5 / 812.5 300 / 300 Diprivan 1000 mg/100 ml Inj 1, 200 / 200 200 / 200 000 mg In 100 ml @ 5 MCG/KG/MIN 2.042 mls/hr IV.CONT TITRATE PRN Rx#:[id number] Zosyn 3.375 GM Premix 50 ML @ 100 / 100 100 / 100 100 mls/hr IV.SIG Q6H MATIAS Rx#: [id number] Vancomycin Inj 1,250 MG In NS 262.5 / 262.5 Inj 250 ML @ 250 mls/hr IV.SIG Q24H MATIAS Rx#:[id number] fentaNYL 10 mcg/mL Premix Drip 250 / 250 2,500 mcg In 250 ml @ 50 MCG/HR 5 mls/hr IV.SIG TITRATE PRN Rx #:[id number] Tube Feeding 240 / 240 240 / 240 Tube Irrigant 120 / 120 Water Bolus Amount 400 / 400 Output: Urine Amount (Catheter) 300 / 300 300 / 300 Indwelling Urethral Catheter 300 / 300 300 / 300 Chest Tube Drainage 50 / 50 10 / 10 #1 Left Upper Mid-Axillary 50 / 50 10 / 10 Chest Other: Date of Last Bowel Movement 06/26/18 06/27/18 Result Diagrams: 06/27/18 04:15 06/27/18 04:15 Laboratory Results: Laboratory Results - last 24 hr 06/26/18 06/26/18 06/26/18 07:30 12:58 17:14 WBC RBC Hgb Hct MCV MCH MCHC RDW Plt Count MPV Prelim Diff (Auto) Neut % (Auto) Lymph % (Auto) [place] % (Auto) Eos % (Auto) Baso % (Auto) Neut # (Auto) Lymph # (Auto) [place] # (Auto) Eos # (Auto) Baso # (Auto) WBC Differential Manual diff final Seg Neuts % (Manual) 89 H Band Neuts % (Manual) 4 Lymphocytes % (Manual) 2 L Monocytes % (Manual) 4 Eosinophils % (Manual) Metamyelocytes % (Man) 1 Abs Neuts (Manual) 16.2 H Differential Comment Platelet Estimate Low L Platelet Morphology Enlarged H Ovalocytes Sodium Potassium Chloride Carbon Dioxide Anion Gap BUN Creatinine Estimated GFR POC Glucose 177 H 149 H Random Glucose Calcium Phosphorus Magnesium Total Bilirubin AST ALT Alkaline Phosphatase Total Protein Albumin 06/27/18 06/27/18 06/27/18 00:01 04:15 04:15 WBC 18.8 H RBC 3.48 L Hgb 10.4 L Hct 31.1 L MCV 89.3 MCH 29.7 MCHC 33.3 RDW 14.4 Plt Count 97 L MPV 11.2 H Prelim Diff (Auto) Slide review pending Neut % (Auto) 86.0 H Lymph % (Auto) 4.9 L [place] % (Auto) 8.3 H Eos % (Auto) 0.4 Baso % (Auto) 0.4 Neut # (Auto) 16.1 H Lymph # (Auto) 0.9 L [place] # (Auto) 1.6 H Eos # (Auto) 0.1 Baso # (Auto) 0.1 WBC Differential Manual diff final Seg Neuts % (Manual) 74 H Band Neuts % (Manual) 12 H Lymphocytes % (Manual) 6 L Monocytes % (Manual) 7 Eosinophils % (Manual) 1 Metamyelocytes % (Man) Abs Neuts (Manual) 16.2 H Differential Comment . Platelet Estimate Low L Platelet Morphology Normal Ovalocytes 1+ H Sodium 147 H Potassium 4.0 Chloride 114 H Carbon Dioxide 24.4 Anion Gap 9 BUN 54 H Creatinine 1.40 H Estimated GFR 37 L POC Glucose 140 H Random Glucose 197 H Calcium 8.5 D Phosphorus 3.4 Magnesium 2.8 H Total Bilirubin 0.5 AST 61 H ALT 37 Alkaline Phosphatase 188 H Total Protein 6.3 L Albumin 1.9 L 06/27/18 05:32 WBC RBC Hgb Hct MCV MCH MCHC RDW Plt Count MPV Prelim Diff (Auto) Neut % (Auto) Lymph % (Auto) [place] % (Auto) Eos % (Auto) Baso % (Auto) Neut # (Auto) Lymph # (Auto) [place] # (Auto) Eos # (Auto) Baso # (Auto) WBC Differential Seg Neuts % (Manual) Band Neuts % (Manual) Lymphocytes % (Manual) Monocytes % (Manual) Eosinophils % (Manual) Metamyelocytes % (Man) Abs Neuts (Manual) Differential Comment Platelet Estimate Platelet Morphology Ovalocytes Sodium Potassium Chloride Carbon Dioxide Anion Gap BUN Creatinine Estimated GFR POC Glucose 201 H Random Glucose Calcium Phosphorus Magnesium Total Bilirubin AST ALT Alkaline Phosphatase Total Protein Albumin Culture Results: Microbiology 06/23/18 20:15 Gram Stain - Final Sputum - Endotracheal Sputum Culture - Final Moderate growth normal respiratory karl 06/23/18 11:05 Aerobic Blood Culture - Preliminary Blood - Peripheral No growth in 3 days Anaerobic Blood Culture - Final QNS - See aerobic report. 06/23/18 10:50 Aerobic Blood Culture - Preliminary Blood - Peripheral No growth in 3 days Anaerobic Blood Culture - Final QNS - See aerobic report. Imaging Studies: Impressions Chest X-Ray 06/26/18 15:22 CONCLUSION: Satisfactory endotracheal tube positioning. Improved aeration. Medications: Active Medications Generic Name Dose Route Start Last Admin Trade Name Freq PRN Reason Stop Dose Admin Aspirin 300 mg 06/23/18 09:15 06/27/18 08:03 Aspirin Supp RECTAL 300 mg DAILY MATIAS Administration Atorvastatin Calcium 80 mg 06/23/18 09:00 06/27/18 08:03 Lipitor PO 80 mg DAILY MATIAS Administration Chlorhexidine Gluconate 15 ml 06/22/18 20:00 06/27/18 07:50 Peridex 0.12% Oral Kit OROPHARYNG 15 ml BID@0800,2000 MATIAS Administration Chlorhexidine Gluconate 3 pack 06/23/18 04:00 06/27/18 03:38 Chlorhexidine 2% Cloth TOPICAL 06/28/18 03:59 3 pack DAILY@0400 MATIAS Administration Famotidine 20 mg 06/22/18 21:00 06/27/18 08:07 Pepcid Pf Inj IV.PUSH 20 mg Q12HR MATIAS Administration Heparin Sodium (Porcine) 5,000 units 06/23/18 10:00 06/27/18 02:08 Heparin Inj SQ 5,000 units Q8H MATIAS Administration Propofol 1,000 mg in 100 mls @ 2.042 mls/hr 06/22/18 15:23 06/27/18 06:23 Diprivan 1000 Mg/100 Ml Inj IV.CONT 40 mcg/kg/min TITRATE PRN 16.34 mls/hr Per Protocol Administration Protocol 5 MCG/KG/MIN Piperacillin/Tazobactam/Dextrose 50 mls @ 100 mls/hr 06/23/18 15:00 06/27/18 08:07 Zosyn 3.375 Gm Premix IV.SIG 100 mls/hr Q6H MATIAS Administration Fentanyl 2,500 mcg in 250 mls @ 5 mls/hr 06/23/18 14:50 06/26/18 14:36 Fentanyl 10 Mcg/Ml Premix Drip IV.SIG 50 mcg/hr TITRATE PRN 5 mls/hr Per Protocol Administration Protocol 50 MCG/HR Vancomycin HCl 1,250 mg/ 262.5 mls @ 250 mls/hr 06/25/18 12:00 06/26/18 14:39 Sodium Chloride IV.SIG Infused Q24H MATIAS Infusion Insulin Human Regular 0 units 06/23/18 12:00 06/27/18 05:36 Novolin R Correctional Sugar Inj SQ 3 units Q6HR MATIAS Administration Protocol Metoclopramide HCl 5 mg 06/24/18 07:03 06/25/18 01:56 Reglan Inj IV.PUSH 5 mg Q8H PRN Administration VOMITING Protocol Miscellaneous Medication 1 each 06/23/18 00:00 06/27/18 03:38 OROPHARYNG 1 each 0000,0400,1200,1600 MATIAS Administration Potassium Bicarb/Potassium Chloride 50 meq 06/23/18 08:53 06/24/18 20:15 K-Lyte Cl Eff PO 50 meq UNSCH PRN Administration For Potassium 3.3 - 3.5 mEq/L Senna/Docusate Sodium 1 tab 06/22/18 21:00 06/27/18 08:07 Shadia-Colace PO Not Given BID MATIAS Sodium Chloride 2 ml 06/22/18 21:00 06/27/18 08:06 Ns Flush IV.FLUSH 2 ml BID MATIAS Administration Sodium Chloride 2 ml 06/22/18 18:48 06/25/18 09:10 Ns Flush IV.FLUSH 2 ml PRN PRN Administration FLUSH AFTER USING IV ACCESS Sterile Water 250 ml 06/25/18 08:00 06/27/18 05:30 Free Water G-TUBE 250 ml Q8HR MATIAS Administration Objective Remarks: GENERAL: Critically ill-appearing female patient, ventilated, currently with trial of no sedation. SKIN: Warm and dry. HEAD: Normocephalic. EYES: No scleral icterus. No injection or drainage. NECK: Supple, trachea midline. CARDIOVASCULAR: +S1/S2. RESPIRATORY: Breath sounds diminished on the left. +intubated, FiO2 45. Left chest tube draining minimal bright red fluid. GASTROINTESTINAL: Abdomen distended, upper abdominal soft large bulge. Small echymotic areas to mid abd, Oozing blood at one injection site. EXTREMITIES: Right hand cyanosis and mottling, no palpable radial pulse, 3/5 brachial pulse. Left hand warm and pink, 4/5 radial pulse. Bilateral toes with mottling. MUSCULOSKELETAL: Decreased muscle tone. NEUROLOGICAL: Opening eyes slightly to voice. Not following commands. Intermittently moves right leg. Assessment/Plan - Plan Ms. Reina is an unfortunate 78-year-old female currently being cared for in the intensive care unit, ventilated and sedated. She was found on the floor by a friend, unknown how long. She has been diagnosed with acute CVA, PE, bilateral DVT and pneumothorax with rib fractures status post left chest tube placement. According to palliative care the patient has been under the care of Dr. Rivera , for lung cancer. Unknown what treatments she has received. Hematology was consulted for anticoagulation recommendations in a patient who has had an acute thrombotic stroke, pulmonary embolism and bilateral lower leg DVTs. Patient was also found to have liver lesions. Plan: 1. 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 Likely right hand with arterial thrombus as well. This is likely secondary to hypercoagulable state from malignancy. Patient is not a candidate for anticoagulation. IVC filter has been placed. 2. Liver lesions, likely malignancy. Records received, she has a history of breast cancer in 1989 and 1998. And a history of early stage non-small cell lung cancer, status post resection in 2013. CT chest, abdomen/pelvis without contrast showed no primary malignancy. 3. Right cyanotic hand, no palpable radial pulse and cool to touch. Pt evaluated by Dr. Khanna, vascular surgeon who does not recommend surgery given the patients critical state. 4. Palliative care is following. The patients brother visited briefly last night. - Attending Statement The exam, history, and the medical decision-making described in the above note were completed with the assistance of the mid-level provider. I reviewed and agree with the findings presented. I attest that I had a [id number] encounter with the patient on the same day, and personally performed and documented my assessment and findings in the medical record. Patient remains intubated. Caregiver is at the bedside. Family is contemplating stopping aggressive care and pursue hospice. Liver lesion most consistent with metastatic disease. Overall prognosis is poor.
--- NOTE | 2018-06-27 11:12 | P.DIET ---
Nutritional Evaluation Type of nutrition evaluation: initial Nutrition consult regarding: Tube Feeding Objective - Diagnosis shortness of breath - Objective [place] body weight: 47 kg % IBW: 138 Body Weight Used for Calculations: Upper end of IBW Energy Needs - Lower Range (kCal/kg): 28 Energy Needs - Upper Range (kCal/kg): 32 Lower Limit kCal/kg (kCals): 1,316 Upper Limit kCal/kg (kCals): 1,504 Lower Limit Protein Factor (Grams per Kg): 1 Upper Limit Protein Factor (Grams per Kg): 1.5 Lower Protein Needs (Protein): 47 Upper Protein Needs (Protein): 70 Dietitian Reviewed in Medical Record: Curent medications, Labs, Medical history , Tube feeding Diet Order: TF Feeding - Current Tube Feeding Tube Feeding Product: Two Darnell HN Tube Feeding Method: Pump Tube Feeding Rate: 55 Current kCals Provided by Tube Feedin,640 Current Protein Provided by Tube Feeding (gPRO): 110 Diprivan Rate: 16 Lipid kCals From Diprivan: 422 Assessment Assessment: Pt. is at nutritional risk due to dx. and need for TFing. Pt. presents to the ED for evaluation of possible CVA and shortness of breath. Per [facility] they got a call that apparently the patient had been found on the floor. MD noted, Remains on ventilator. RN at the bedside states she just turned off the sedation. Patient appears to be opening her eyes slightly to voice. Pt. with a PMH of lung cancer with newly found liver lesions that are likely to be malignant. Family considering withdrawal of care per Palliative cares note. Pt. is currenly being overfed with propofol and two darnell tfing. Recommend changing TFing to Jevity 1.5 @ goal rate of 40mls/hr with and without propofol. Will provide 1440kcals, 61g of protein and 730mls of free water. Monitor TFing tolerance, labs, BM and UOP. Recommendations: 1. Recommend changing TFing to Jevity 1.5 @ goal rate of 40mls/hr with and without propofol. 2. Monitor TFing tolerance, labs, BM and UOP. Dietitian to Monitor: Lab values, Renal labs, Glucose level, Tube feeding tolerance, Weight change, Residuals, Wound/skin status, Medical course
[2018-06-27] MEDS: fentaNYL 10 mcg/mL Premix Drip 2,500 MCG/250 ML BAG IV.SIG PRN (11:38)
[2018-06-27] MEDS ORDERED: Pharmacy Ordered Lab Info OTHER ONE (11:45)
[2018-06-27] MEDS: Vancomycin Inj 1,250 MG in Sodium Chlor 0.9% Inj 250 ML IV.SIG SCH (14:11)
[2018-06-28] MEDS: Insulin NovoLIN Regular Correctional Sugar Inj SQ SCH ×6 (01:04→20:11)
[2018-06-28] MEDS: Heparin - SQ 10,000 UNITS/ML Vial SQ SCH ×3 (01:04→17:56)
[2018-06-28] MEDS: Oral Hygiene Kit OROPHARYNG SCH ×4 (01:04→17:56)
[2018-06-28] MEDS: Piperacil/Tazo 3.375 GM Premix 50 ML IV.SIG SCH ×4 (05:37→20:03)
[2018-06-28] MEDS: Propofol 1000 mg/100 ml Inj 1,000 MG/100 ML BOTTLE IV.CONT PRN ×3 (05:38→22:43)
[2018-06-28 06:00] LABS: Baso # (Auto) 0.1 th/mm3 (0.0-0.2); Baso % (Auto) 0.4 % (0.0-2.0); Eos # (Auto) 0.1 th/mm3 (0.0-0.4); Eos % (Auto) 0.5 % (0.0-4.0); Hematocrit 30.7 % (35.0-46.0); Hemoglobin 10.2 gm/dL (11.6-15.3); Lymph % (Auto) 4.5 % (9.0-44.0); Mean Corpuscular HGB Conc 33.3 % (32.0-36.0); Mean Corpuscular Hemoglobin 29.9 pg (27.0-34.0); Mean Corpuscular Volume 89.7 fL (80.0-100.0); Mono # (Auto) 1.6 th/mm3 (0.0-0.9); Mono % (Auto) 7.1 % (0.0-8.0); Neut # (Auto) 19.1 th/mm3 (1.8-7.7); Neut % (Auto) 87.5 % (16.0-70.0); Platelet Count 122 th/mm3 (150-450); Red Blood Count 3.42 mil/mm3 (4.00-5.30); Red Cell Distribution Width 14.8 % (11.6-17.2); White Blood Count 21.9 th/mm3 (4.0-11.0)
[2018-06-28 06:21] LABS: Albumin 1.6 g/dL (3.4-5.0); Anion Gap 9 meq/L (5-15); Aspartate Aminotransferase 67 U/L (15-37); Blood Urea Nitrogen 52 mg/dL (7-18); Calcium 8.4 mg/dL (8.5-10.1); Chloride 113 meq/L (98-107); Glomerular Filtration Rate 37 mL/min (>89); Glucose,Random 250 mg/dL (74-106); Magnesium 2.7 mg/dL (1.5-2.5); Potassium 3.8 meq/L (3.5-5.1); Sodium 148 meq/L (136-145)
[2018-06-28 06:32] LABS: Alanine Aminotransferase 51 U/L (10-53); Alkaline Phosphatase 239 U/L (45-117); Phosphorus 2.2 mg/dL (2.5-4.9); Total Protein 6.2 g/dL (6.4-8.2)
--- NOTE | 2018-06-28 07:12 | P.PNCC ---
Subjective Subjective Remarks/Hospital Course: 78-year-old female presents to the ED for evaluation of possible CVA and shortness of breath. Per [facility] they got a call that apparently the patient had been found on the floor. Unclear as to how long the patient had been on the floor. Last time the patient was seen normal was on Friday per friends that were in the scene. Per patient herself she cannot really tell us any history other than she has pain on the left side of her body as well as weakness to her left arm. She cannot move her left arm on her own. She denies any history of stroke on herself. She cannot really give us good history about her medications. She denies taking blood thinners however. She cannot recall when she fell and she cannot really tell us how long she has been on the floor. No one really at bedside to give us any information about how long the symptoms have been going. Per EVAC she is also been having left facial droop. CT of the brain obtained in the emergency department shows Acute right parietal infarcts. No midline shift or mass effect. The chest x-ray with the findings of Subcutaneous emphysema along the left chest wall along with multiple left- sided rib fractures. CTA of the pulmonary artery is consistent with Moderate volume acute pulmonary emboli and Moderate size left pneumothorax with overlying subcutaneous air. The patient was intubated by ED attending and the chest tube was placed in the emergency department as well. 06/23 Patient is sedated with Diprivan and intubated. Afebrile. 06/24 Patient remains sedated with Fentanyl and Diprivan and intubated. T:100.3 , s/p IVC filter placement yesterday.Had an episode of desaturation and now on 100% FIO2 with PEEP:5 and sats 94-95% 06/25. Patient remains intubated and sedated. Afebrile. FIO2 down to 55% with good sats. 06/26 No events overnight. Sedated and intubated. Afebrile 06/27 Patient had cuff tear in ETT and was replaced. Sedated with Diprivan and Fentanyl infusions. Afebrile. 06/28 No events overnight. Sedated and intubated. Not tolerating CPAP trials. T: 100.5 Objective Vital Signs / I&O: Vital Signs 06/27/18 08:00 06/27/18 10:00 06/27/18 11:00 Temperature 99.7 F H Pulse Rate 110 H 96 H 96 H Respiratory Rate 14 13 Blood Pressure 156/97 H 138/65 Pulse Oximetry 94 L 95 06/27/18 11:30 06/27/18 11:57 06/27/18 12:00 Temperature 101.4 F H Pulse Rate 97 H 99 H Respiratory Rate 13 15 14 Blood Pressure 134/63 150/69 H Pulse Oximetry 94 L 91 L 99 06/27/18 12:30 06/27/18 13:00 06/27/18 13:30 Temperature Pulse Rate 101 H 98 H 99 H Respiratory Rate 15 14 14 Blood Pressure 141/78 H 138/66 130/69 Pulse Oximetry 100 100 06/27/18 14:00 06/27/18 14:30 06/27/18 15:00 Temperature Pulse Rate 98 H 97 H 96 H Respiratory Rate 14 14 13 Blood Pressure 137/60 129/62 121/59 L Pulse Oximetry 100 100 06/27/18 15:30 06/27/18 16:00 06/27/18 16:30 Temperature 97.9 F Pulse Rate 95 H 93 H 92 H Respiratory Rate 13 13 13 Blood Pressure 134/64 128/60 128/61 Pulse Oximetry 99 100 100 06/27/18 17:00 06/27/18 17:30 06/27/18 17:51 Temperature Pulse Rate 92 H 90 90 Respiratory Rate 13 13 Blood Pressure 122/58 L 125/59 L Pulse Oximetry 99 06/27/18 18:00 06/27/18 18:30 06/27/18 19:00 Temperature Pulse Rate 88 87 86 Respiratory Rate 13 12 12 Blood Pressure 121/56 L 119/55 L 116/56 L Pulse Oximetry 97 96 06/27/18 19:30 06/27/18 20:00 06/27/18 20:30 Temperature 99.2 F Pulse Rate 86 86 90 Respiratory Rate 12 12 13 Blood Pressure 118/56 L 118/57 L 130/65 Pulse Oximetry 96 95 95 06/27/18 20:48 06/27/18 21:00 06/27/18 21:30 Temperature Pulse Rate 88 91 H Respiratory Rate 13 13 18 Blood Pressure 126/64 156/70 H Pulse Oximetry 95 95 85 L 06/27/18 22:00 06/27/18 22:30 06/27/18 23:00 Temperature Pulse Rate 91 H 91 H 90 Respiratory Rate 15 16 15 Blood Pressure 128/61 126/63 129/63 Pulse Oximetry 91 L 93 L 94 L 06/27/18 23:30 06/28/18 00:00 06/28/18 00:30 Temperature 98.9 F Pulse Rate 91 H 89 90 Respiratory Rate 15 16 16 Blood Pressure 129/63 128/63 123/60 Pulse Oximetry 93 L 93 L 94 L 06/28/18 00:50 06/28/18 01:00 06/28/18 01:30 Temperature Pulse Rate 90 91 H Respiratory Rate 14 15 14 Blood Pressure 121/60 117/60 Pulse Oximetry 96 94 L 96 06/28/18 02:00 06/28/18 02:30 06/28/18 03:00 Temperature Pulse Rate 91 H 91 H 93 H Respiratory Rate 14 14 15 Blood Pressure 116/55 L 122/57 L 124/58 L Pulse Oximetry 96 96 96 06/28/18 03:30 06/28/18 04:00 06/28/18 04:10 Temperature 100.5 F H Pulse Rate 93 H 96 H Respiratory Rate 17 18 19 Blood Pressure 137/60 144/64 H Pulse Oximetry 84 L 100 100 06/28/18 04:30 06/28/18 05:00 06/28/18 05:30 Temperature Pulse Rate 96 H 97 H 96 H Respiratory Rate 18 19 17 Blood Pressure 143/63 H 140/65 124/58 L Pulse Oximetry 100 100 100 06/28/18 06:00 Temperature Pulse Rate 96 H Respiratory Rate 18 Blood Pressure 143/65 H Pulse Oximetry 86 L Intake & Output 06/27/18 06/28/18 06/28/18 18:59 06:59 18:59 Intake Total 1393.5 / 1393.5 1329 / 1329 Output Total 350 / 350 400 / 400 Balance 1043.5 / 1043.5 929 / 929 Weight 68.9 kg Intake: IV 712.5 / 712.5 250 / 250 Diprivan 1000 mg/100 ml Inj 1, 100 / 100 200 / 200 000 mg In 100 ml @ 5 MCG/KG/MIN 2.042 mls/hr IV.CONT TITRATE PRN Rx#:[id number] Zosyn 3.375 GM Premix 50 ML @ 100 / 100 50 / 50 100 mls/hr IV.SIG Q6H [facility] Rx#: [id number] Vancomycin Inj 1,250 MG In NS 262.5 / 262.5 Inj 250 ML @ 250 mls/hr IV.SIG Q24H [facility] Rx#:[id number] fentaNYL 10 mcg/mL Premix Drip 250 / 250 2,500 mcg In 250 ml @ 50 MCG/HR 5 mls/hr IV.SIG TITRATE PRN Rx #:[id number] Tube Feeding 431 / 431 579 / 579 Tube Irrigant 0 / 0 Water Bolus Amount 250 / 250 500 / 500 Output: Urine 0 / 0 Urine Amount (Catheter) 350 / 350 350 / 350 Indwelling Urethral Catheter 350 / 350 350 / 350 Gastric Drainage 0 / 0 Orogastric Tube 0 / 0 Chest Tube Drainage 50 / 50 #1 Left Upper Mid-Axillary 50 / 50 Chest Other: Date of Last Bowel Movement 06/27/18 06/28/18 # Bowel Movements 2 2 # Incontinent Bowel Movements 2 Result Diagrams: 06/28/18 04:53 06/28/18 04:53 Other Results: Laboratory Results - last 12 hr 06/28/18 06/28/18 06/28/18 00:54 04:53 04:53 WBC 21.9 H RBC 3.42 L Hgb 10.2 L Hct 30.7 L MCV 89.7 MCH 29.9 MCHC 33.3 RDW 14.8 Plt Count 122 L MPV 11.0 Neut % (Auto) 87.5 H Lymph % (Auto) 4.5 L Hopkins % (Auto) 7.1 Eos % (Auto) 0.5 Baso % (Auto) 0.4 Neut # (Auto) 19.1 H Lymph # (Auto) 1.0 Hopkins # (Auto) 1.6 H Eos # (Auto) 0.1 Baso # (Auto) 0.1 WBC Differential . Differential Comment Auto diff final Sodium 148 H Potassium 3.8 Chloride 113 H Carbon Dioxide 26.0 Anion Gap 9 BUN 52 H Creatinine 1.37 H Estimated GFR 37 L POC Glucose 208 H Random Glucose 250 H Calcium 8.4 L Phosphorus 2.2 L D Magnesium 2.7 H Total Bilirubin 0.5 AST 67 H ALT 51 Alkaline Phosphatase 239 H Total Protein 6.2 L Albumin 1.6 L 06/28/18 05:23 WBC RBC Hgb Hct MCV MCH MCHC RDW Plt Count MPV Neut % (Auto) Lymph % (Auto) Hopkins % (Auto) Eos % (Auto) Baso % (Auto) Neut # (Auto) Lymph # (Auto) Hopkins # (Auto) Eos # (Auto) Baso # (Auto) WBC Differential Differential Comment Sodium Potassium Chloride Carbon Dioxide Anion Gap BUN Creatinine Estimated GFR POC Glucose 243 H Random Glucose Calcium Phosphorus Magnesium Total Bilirubin AST ALT Alkaline Phosphatase Total Protein Albumin Imaging: Cervical Spine CT 06/22/18 13:58 CONCLUSION: 1. Multilevel degenerative changes. 2. Scattered neural foraminal narrowing. 3. No compression fracture or spondylolisthesis Pelvis X-Ray 06/22/18 13:58 CONCLUSION: Limited study without gross abnormality. Humerus X-Ray 06/22/18 13:59 CONCLUSION: No abnormality involving the humerus. Subcutaneous air is seen tracking over the lateral left chest wall. Thoracic Aorta CT 06/22/18 15:28 CONCLUSION: 1. Moderate volume acute pulmonary emboli. 2. Moderate size left pneumothorax with overlying subcutaneous air. 3. Severe emphysematous changes. 4. 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 5. Occlusion of the right outflow possibly acute in origin. Clinical evaluation for right lower extremity claudication suggested. 6. 2 hepatic masses worrisome for metastatic disease. These are limited in their evaluation on this study due to the arterial phase of the exam. Consider MRI of the liver to further assess if clinically warranted. Head MRI 06/23/18 00:00 CONCLUSION: 1. 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 2. There appear to be 2 punctate acute infarctions involving the right cerebellar hemisphere. This is best seen on the diffusion-weighted images. Venous Doppler Study 06/23/18 00:00 CONCLUSION: 1. Occlusive thrombus in both posterior tibial veins. Head MRA 06/23/18 09:12 CONCLUSION: 1. Occlusion of the mid to distal right M1 segment with reconstitution of the proximal right M2 branches via collaterals. IVC Filter Placement X-Ray 06/23/18 09:20 CONCLUSION: 1. Uncomplicated inferior vena cava filter placement as above. Carotid Doppler Study 06/24/18 08:01 CONCLUSION: 1. No hemodynamic significant stenosis in right carotid artery. 2. There is an approximate 50-69% stenosis left internal carotid artery. Abdomen/Pelvis CT 06/25/18 00:00 CONCLUSION: 1. Limited examination due to lack of IV contrast. However, there is no definitive evidence for a primary malignancy in the abdomen or pelvis. 2. Partially imaged left-sided chest tube with interval resolution of left- sided pneumothorax. 3. Bilateral lower lobe airspace consolidation, left greater than right, which may reflect atelectasis although differential considerations include aspiration. 4. Ancillary findings include cholelithiasis, colonic diverticulosis, anterior abdominal wall fat-containing hernia, and degenerative spondylosis of the lumbar spine. Chest CT 06/25/18 00:00 CONCLUSION: 1. Underlying emphysema with consolidation in the posterior left lower lobe with air bronchograms most characteristic of pneumonia. 2. Left-sided chest tube in place with no residual pneumothorax. Subcutaneous emphysema remains over the left lateral chest wall. There are multiple left rib fractures. 3. No evidence of primary malignancy. Head CT 06/25/18 00:00 CONCLUSION: 1. Evolving large right posterior MCA territory infarct. 2. Evolving focal infarcts in the right cerebellar hemisphere. 3. No intercurrent hemorrhage or herniation. . Chest X-Ray 06/26/18 15:22 CONCLUSION: Satisfactory endotracheal tube positioning. Improved aeration. Objective Remarks: GENERAL: Patient is 78 yo critically ill intubated and sedated SKIN: Warm and dry. HEAD: Normocephalic. EYES: No scleral icterus. No injection or drainage. NECK: Supple, trachea midline. No JVD or lymphadenopathy. CARDIOVASCULAR: Regular rate and rhythm without murmurs, gallops, or rubs. RESPIRATORY: Breath sounds equal bilaterally. No accessory muscle use. GASTROINTESTINAL: Abdomen soft, non-tender, nondistended. MUSCULOSKELETAL: No edema. +Cyanosis of fingertips on right hand Neuro: sedated Assessment and Plan - Assessment and Plan Plan: VDRF Acute CVA ( Acute right parietal infarcts) Pulmonary embolism Left sided PTX Liver lesions suspicious of metastatic process Mild elevated troponin-multifactorial. Leukocytosis Thrombocytopenia Plan Neuro: On Diprivan, Fentanyl infusion for sedation. Daily sedation vacation. Repeat CT brain 06/26: Evolving large right posterior MCA territory infarct. Evolving focal infarcts in the right cerebellar hemisphere. No intercurrent hemorrhage or herniation. CT brain: Acute parietal infarcts MRI brain:. 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 2 punctate acute infarctions involving the right cerebellar hemisphere. MRA brain: Occlusion of the mid to distal right M1 segment with reconstitution of the proximal right M2 branches via collaterals. Carotid Doppler US: No hemodynamic significant stenosis in right carotid artery. There is an approximate 50-69% stenosis left internal carotid artery. Neuro is following Unknown downtime. Not a candidate for TPA or thrombectomy Aspirin, statins Pulm: Continue with vent support keep sats >92% ETT replaced 06/26 ( Had cuff tear and low volumes) On PRVC RR 12, TV 450, IT:1.0, PEEP:8 and FIO2:40% Bronchodilators, ICU vent bundle. SBT daily as josh CXR 06/26: ETT above jennifer, improved aeration CT chest 06/26: Underlying emphysema with consolidation in the posterior left lower lobe with air bronchograms most characteristic of pneumonia. Left-sided chest tube in place with no residual pneumothorax. Subcutaneous emphysema remains over the left lateral chest wall. There are multiple left rib fractures. No evidence of primary malignancy CT thoracic aorta: Pulmonary embolism, left sided PTX s/p CT placement- monitor CT drainage Doppler US LE b/l LE: Occlusive thrombus in both posterior tibial veins. Not a candidate for anticoagulation due to worrisome of hemorrhagic conversion s/p IVC filter placement on 06/23. Heme is following. CV: Monitor HR and BP keep MAP>65mmHg Continue ASA, Lipitor Echo showed Normal left ventricular size. Wall thickness is normal. EF: 60-65%. : Monitor renal function, I/O's, electrolytes replacement per protocol. Change Free water 250ml Q6 Cr: 1.40 today from 1.49 GI: Liver lesions suspicious of metastatic process GI is following. On Pepcid 20mg IV Q12 for GI prophylaxis Continue tube feeds-Jevity 1.5 with goal rate 40ml/hr Ed 5mg IV Q8 PRN ID: Monitor for signs of infections (Fever, WBC) WBC is trending down Received Vanco and Zosyn in ED. Continue with Zosyn and Vanco sputum cx and BC 06/23; NGTD Heme: Monitor CBC, Hep PLT ab: negative Doppler US LE: Occlusive thrombus in both posterior tibial veins. Heme is following recommending hospice Tumor markers elevated. CEA: 41, AFP:13, CA 125: 1091, CA19-9: 593.6, CA 15-3:177 Seen by Vascular surgery for cyanosis of fingertips on right hand- Not a candidate for surgery Endo: Increase SSI(medium scale) for glycemic control DVT GI prophylaxis -Teds SCDs -Subcu heparin -Pepcid Palliative care is following- Code status: no code DNR Poor prognosis 35 minutes of critical care
[2018-06-28] MEDS ORDERED: Dextrose 50% in Water 50 ML Vial IV.PUSH PRN (07:14)
[2018-06-28] MEDS: Famotidine PF Inj 20 MG/2 ML Vial IV.PUSH SCH ×2 (08:54→20:04)
[2018-06-28] MEDS: Senna/Docusate Sodium 8.6/50 MG Tablet PO SCH ×2 (08:55→20:05)
[2018-06-28] MEDS: Chlorhexidine 0.12% Oral Kit 15 ML UDC OROPHARYNG SCH ×2 (08:56→20:04)
[2018-06-28] MEDS: Aspirin 300 MG Supp RECTAL SCH (09:33)
[2018-06-28] MEDS: fentaNYL 10 mcg/mL Premix Drip 2,500 MCG/250 ML BAG IV.SIG PRN (10:04)
--- NOTE | 2018-06-28 10:06 | P.PNPAL ---
Reason for Visit Reason for visit: a. To assist with evaluation and management of symptoms including: pain, dyspnea b. To assist medical decision maker(s) with: better understanding of current medical conditions; weighing benefits/burdens of medical treatment options; making medical treatment decisions. Subjective Subjective/Interval History: Patient seen and examined in ICU. Cari Dumas ([facility]) and brother, Nathaniel ( alternate HCS) and his partner, Jonathan at bedside. [facility] (FiO2 50%, PEEP 8) sedation in ICU. Sedated with on fentanyl, propofol. Tolerating tube feeding. Albumin 1.6. WBC increasing over the past 3 days 17.2, 18.8 and 21.9 sequentially. Patient has had some fevers Tmax 101.4. Platelets stable 122. Creatinine stable 1.37. Patient sedated. Does not open eyes to voice, exam or painful stimuli. Withdraws to pain right lower extremity only. Right hand with worsening ischemic changes, cold to touch, purple in color. Patient is not tolerating CPAP trials. Off sedation patient opens eyes slightly , does not follow commands or track. Discussed with Dr. Littlejohn and nursing staff. Family/Friend Interactions: Met with Nathaniel Alcala and Jonathan in consult room. Reviewed clinical course since admission including test results, my discussions with oncology and documentation billing clerk as well as neurology and vascular surgery thoughts and recommendations. Discussed upcoming decisions including trach and PEG. Overall poor prognosis for meaningful recovery. Reviewed options of continued aggressive care vs. transition to comfort measures with withdrawal of life support and offered hospice services. Family reviewed her wishes as per patient's written advance directives. All are in agreement that patient would direct life prolonging measures be withdrawn and that she would not find any quality of life less than prior to admission acceptable. They are certain patient wants to be kept comfortable and would direct such measures. Anticipatory guidance provided regarding withdrawal of life support. Family is appropriately tearful. Questions answered. Support offered. They would like to go home and speak with other friends to determine a time when those who would want to be here can come together, likely 06/29/18 in the afternoon. Cari will let me know what they decide once a final decision is made. Advance Directives Advance Directives Date on File: 12/04/89 Health Care Surrogate Name and Number: Cari Dumas, friend: [phone] Documented care wishes:: Living Will states that if she is unable to participate in decisions concerning her life: if no reasonable expectation for recovery from extreme physical or mental disability that she directs she be allowed to , not be kept alive by medications, artificial means, life support or heroic measures. She asks that medication be administered to alleviate suffering even though this may shorten her remaining life. She also indicates she hopes to live out her last days at home rather than n the the hospital if it does not jeopardize the chance of recovery to a meaningful and conscious life and does not impose an undue burden on my family. Objective Vital Signs: Vital Signs 06/27/18 10:00 06/27/18 11:00 06/27/18 11:30 Temperature Pulse Rate 96 H 96 H 97 H Respiratory Rate 13 13 Blood Pressure 138/65 134/63 Pulse Oximetry 95 94 L 06/27/18 11:57 06/27/18 12:00 06/27/18 12:30 Temperature 101.4 F H Pulse Rate 99 H 101 H Respiratory Rate 15 14 15 Blood Pressure 150/69 H 141/78 H Pulse Oximetry 91 L 99 06/27/18 13:00 06/27/18 13:30 06/27/18 14:00 Temperature Pulse Rate 98 H 99 H 98 H Respiratory Rate 14 14 14 Blood Pressure 138/66 130/69 137/60 Pulse Oximetry 100 100 100 06/27/18 14:30 06/27/18 15:00 06/27/18 15:30 Temperature Pulse Rate 97 H 96 H 95 H Respiratory Rate 14 13 13 Blood Pressure 129/62 121/59 L 134/64 Pulse Oximetry 100 99 06/27/18 16:00 06/27/18 16:30 06/27/18 17:00 Temperature 97.9 F Pulse Rate 93 H 92 H 92 H Respiratory Rate 13 13 13 Blood Pressure 128/60 128/61 122/58 L Pulse Oximetry 100 100 99 06/27/18 17:30 06/27/18 17:51 06/27/18 18:00 Temperature Pulse Rate 90 90 88 Respiratory Rate 13 13 Blood Pressure 125/59 L 121/56 L Pulse Oximetry 06/27/18 18:30 06/27/18 19:00 06/27/18 19:30 Temperature Pulse Rate 87 86 86 Respiratory Rate 12 12 12 Blood Pressure 119/55 L 116/56 L 118/56 L Pulse Oximetry 97 96 96 06/27/18 20:00 06/27/18 20:30 06/27/18 20:48 Temperature 99.2 F Pulse Rate 86 90 Respiratory Rate 12 13 13 Blood Pressure 118/57 L 130/65 Pulse Oximetry 95 95 95 06/27/18 21:00 06/27/18 21:30 06/27/18 22:00 Temperature Pulse Rate 88 91 H 91 H Respiratory Rate 13 18 15 Blood Pressure 126/64 156/70 H 128/61 Pulse Oximetry 95 85 L 91 L 06/27/18 22:30 06/27/18 23:00 06/27/18 23:30 Temperature Pulse Rate 91 H 90 91 H Respiratory Rate 16 15 15 Blood Pressure 126/63 129/63 129/63 Pulse Oximetry 93 L 94 L 93 L 06/28/18 00:00 06/28/18 00:30 06/28/18 00:50 Temperature 98.9 F Pulse Rate 89 90 Respiratory Rate 16 16 14 Blood Pressure 128/63 123/60 Pulse Oximetry 93 L 94 L 96 06/28/18 01:00 06/28/18 01:30 06/28/18 02:00 Temperature Pulse Rate 90 91 H 91 H Respiratory Rate 15 14 14 Blood Pressure 121/60 117/60 116/55 L Pulse Oximetry 94 L 96 96 06/28/18 02:30 06/28/18 03:00 06/28/18 03:30 Temperature Pulse Rate 91 H 93 H 93 H Respiratory Rate 14 15 17 Blood Pressure 122/57 L 124/58 L 137/60 Pulse Oximetry 96 96 84 L 06/28/18 04:00 06/28/18 04:10 06/28/18 04:30 Temperature 100.5 F H Pulse Rate 96 H 96 H Respiratory Rate 18 19 18 Blood Pressure 144/64 H 143/63 H Pulse Oximetry 100 100 100 06/28/18 05:00 06/28/18 05:30 06/28/18 06:00 Temperature Pulse Rate 97 H 96 H 96 H Respiratory Rate 19 17 18 Blood Pressure 140/65 124/58 L 143/65 H Pulse Oximetry 100 100 86 L 06/28/18 07:47 Temperature Pulse Rate Respiratory Rate 19 Blood Pressure Pulse Oximetry 99 Intake & Output 10/13/18 10/14/18 10/14/18 18:59 06:59 18:59 Intake Total 1393.5 / 1393.5 1379 / 1379 Output Total 350 / 350 400 / 400 Balance 1043.5 / 1043.5 979 / 979 Weight 68.9 kg Intake: IV 712.5 / 712.5 300 / 300 Diprivan 1000 mg/100 ml Inj 1, 100 / 100 200 / 200 000 mg In 100 ml @ 5 MCG/KG/MIN 2.042 mls/hr IV.CONT TITRATE PRN Rx#:[id number] Zosyn 3.375 GM Premix 50 ML @ 100 / 100 100 / 100 100 mls/hr IV.SIG Q6H MATIAS Rx#: [id number] Vancomycin Inj 1,250 MG In NS 262.5 / 262.5 Inj 250 ML @ 250 mls/hr IV.SIG Q24H MATIAS Rx#:[id number] fentaNYL 10 mcg/mL Premix Drip 250 / 250 2,500 mcg In 250 ml @ 50 MCG/HR 5 mls/hr IV.SIG TITRATE PRN Rx #:[id number] Tube Feeding 431 / 431 579 / 579 Tube Irrigant 0 / 0 Water Bolus Amount 250 / 250 500 / 500 Output: Urine 0 / 0 Urine Amount (Catheter) 350 / 350 350 / 350 Indwelling Urethral Catheter 350 / 350 350 / 350 Gastric Drainage 0 / 0 Orogastric Tube 0 / 0 Chest Tube Drainage 50 / 50 #1 Left Upper Mid-Axillary 50 / 50 Chest Other: Date of Last Bowel Movement 06/27/18 06/28/18 # Bowel Movements 2 2 # Incontinent Bowel Movements 2 Physical Exam: CONSTITUTIONAL/GENERAL: This is an adequately nourished patient, sedated on mech vent. TUBES/LINES/DRAINS: ETT, OG, PIVs, left chest tube, Siddiqi, bilateral soft wrist restraints. SKIN: Ecchymoses on upper extremities, bilateral knees and left hip, multiple areas ecchymoses abdomen. Color dusky. Right hand ischemic. EYES: eyes closed. ENT: Unable to assess hearing. Nose without bleeding or purulent drainage. Throat difficult to visualize due to tubes. CARDIOVASCULAR: Regular rate and rhythm, some ectopy noted. RESPIRATORY/CHEST: Left chest tube. unlabored respirations on vent. crackles. diminished breath sounds. GASTROINTESTINAL: Abdomen soft, no apparent tenderness, nondistended. Bowel sounds present. Easily reducible, soft hernia right upper abdomen. GENITOURINARY: Without palpable bladder distension. Siddiqi catheter in place. MUSCULOSKELETAL: Extremities without clubbing edema. Mottling noted left foot, cool to touch. Left foot drop. Right hand purple, cool. Withdraws only to pain on right LEs. NEUROLOGICAL: Sedated on vent. no eye opening, no response to stimuli. PSYCHIATRIC: Sedated. Diagnostic Tests Laboratory: Laboratory Results - last 72 hr 06/24/18 06/25/18 06/25/18 09:52 13:22 19:04 WBC RBC Hgb Hct MCV MCH MCHC RDW Plt Count MPV Prelim Diff (Auto) Neut % (Auto) Lymph % (Auto) Robertson % (Auto) Eos % (Auto) Baso % (Auto) Neut # (Auto) Lymph # (Auto) Robertson # (Auto) Eos # (Auto) Baso # (Auto) WBC Differential Seg Neuts % (Manual) Band Neuts % (Manual) Lymphocytes % (Manual) Monocytes % (Manual) Eosinophils % (Manual) Metamyelocytes % (Man) Abs Neuts (Manual) Differential Comment Platelet Estimate Platelet Morphology Ovalocytes Sodium Potassium Chloride Carbon Dioxide Anion Gap BUN Creatinine Estimated GFR POC Glucose 180 H 145 H Random Glucose Calcium Phosphorus Magnesium Total Bilirubin AST ALT Alkaline Phosphatase Total Protein Albumin Vancomycin Trough Heparin Dep Plt Ab OD 0.424 Hep-Induced Plt Ab Sheryl Negative 06/25/18 06/26/18 06/26/18 23:56 05:57 07:30 WBC 17.2 H RBC 3.35 L Hgb 10.0 L Hct 29.8 L MCV 89.0 MCH 29.8 MCHC 33.5 RDW 14.8 Plt Count 82 L D MPV 11.4 H Prelim Diff (Auto) Slide review pending Neut % (Auto) 84.7 H Lymph % (Auto) 7.2 L Robertson % (Auto) 7.3 Eos % (Auto) 0.4 Baso % (Auto) 0.4 Neut # (Auto) 14.6 H Lymph # (Auto) 1.2 Robertson # (Auto) 1.3 H Eos # (Auto) 0.1 Baso # (Auto) 0.1 WBC Differential Manual diff final Seg Neuts % (Manual) 89 H Band Neuts % (Manual) 4 Lymphocytes % (Manual) 2 L Monocytes % (Manual) 4 Eosinophils % (Manual) Metamyelocytes % (Man) 1 Abs Neuts (Manual) 16.2 H Differential Comment . Platelet Estimate Low L Platelet Morphology Enlarged H Ovalocytes Sodium Potassium Chloride Carbon Dioxide Anion Gap BUN Creatinine Estimated GFR POC Glucose 154 H 199 H Random Glucose Calcium Phosphorus Magnesium Total Bilirubin AST ALT Alkaline Phosphatase Total Protein Albumin Vancomycin Trough Heparin Dep Plt Ab OD Hep-Induced Plt Ab Sheryl 06/26/18 06/26/18 06/26/18 07:30 12:58 17:14 WBC RBC Hgb Hct MCV MCH MCHC RDW Plt Count MPV Prelim Diff (Auto) Neut % (Auto) Lymph % (Auto) Robertson % (Auto) Eos % (Auto) Baso % (Auto) Neut # (Auto) Lymph # (Auto) Robertson # (Auto) Eos # (Auto) Baso # (Auto) WBC Differential Seg Neuts % (Manual) Band Neuts % (Manual) Lymphocytes % (Manual) Monocytes % (Manual) Eosinophils % (Manual) Metamyelocytes % (Man) Abs Neuts (Manual) Differential Comment Platelet Estimate Platelet Morphology Ovalocytes Sodium 145 Potassium 3.9 Chloride 117 H Carbon Dioxide 23.7 Anion Gap 4 L BUN 44 H Creatinine 1.49 H Estimated GFR 34 L POC Glucose 177 H 149 H Random Glucose 163 H Calcium 7.7 L Phosphorus 3.3 Magnesium 2.7 H Total Bilirubin 0.3 AST 44 H ALT 27 Alkaline Phosphatase 158 H Total Protein 5.9 L Albumin 1.9 L Vancomycin Trough Heparin Dep Plt Ab OD Hep-Induced Plt Ab Sheryl 06/27/18 06/27/18 06/27/18 00:01 04:15 04:15 WBC 18.8 H RBC 3.48 L Hgb 10.4 L Hct 31.1 L MCV 89.3 MCH 29.7 MCHC 33.3 RDW 14.4 Plt Count 97 L MPV 11.2 H Prelim Diff (Auto) Slide review pending Neut % (Auto) 86.0 H Lymph % (Auto) 4.9 L Robertson % (Auto) 8.3 H Eos % (Auto) 0.4 Baso % (Auto) 0.4 Neut # (Auto) 16.1 H Lymph # (Auto) 0.9 L Robertson # (Auto) 1.6 H Eos # (Auto) 0.1 Baso # (Auto) 0.1 WBC Differential Manual diff final Seg Neuts % (Manual) 74 H Band Neuts % (Manual) 12 H Lymphocytes % (Manual) 6 L Monocytes % (Manual) 7 Eosinophils % (Manual) 1 Metamyelocytes % (Man) Abs Neuts (Manual) 16.2 H Differential Comment . Platelet Estimate Low L Platelet Morphology Normal Ovalocytes 1+ H Sodium 147 H Potassium 4.0 Chloride 114 H Carbon Dioxide 24.4 Anion Gap 9 BUN 54 H Creatinine 1.40 H Estimated GFR 37 L POC Glucose 140 H Random Glucose 197 H Calcium 8.5 D Phosphorus 3.4 Magnesium 2.8 H Total Bilirubin 0.5 AST 61 H ALT 37 Alkaline Phosphatase 188 H Total Protein 6.3 L Albumin 1.9 L Vancomycin Trough Heparin Dep Plt Ab OD Hep-Induced Plt Ab Sheryl 06/27/18 06/27/18 06/27/18 05:32 11:34 12:45 WBC RBC Hgb Hct MCV MCH MCHC RDW Plt Count MPV Prelim Diff (Auto) Neut % (Auto) Lymph % (Auto) Robertson % (Auto) Eos % (Auto) Baso % (Auto) Neut # (Auto) Lymph # (Auto) Robertson # (Auto) Eos # (Auto) Baso # (Auto) WBC Differential Seg Neuts % (Manual) Band Neuts % (Manual) Lymphocytes % (Manual) Monocytes % (Manual) Eosinophils % (Manual) Metamyelocytes % (Man) Abs Neuts (Manual) Differential Comment Platelet Estimate Platelet Morphology Ovalocytes Sodium Potassium Chloride Carbon Dioxide Anion Gap BUN Creatinine Estimated GFR POC Glucose 201 H 219 H Random Glucose Calcium Phosphorus Magnesium Total Bilirubin AST ALT Alkaline Phosphatase Total Protein Albumin Vancomycin Trough 8.3 Heparin Dep Plt Ab OD Hep-Induced Plt Ab Sheryl 06/27/18 06/28/18 06/28/18 17:12 00:54 04:53 WBC 21.9 H RBC 3.42 L Hgb 10.2 L Hct 30.7 L MCV 89.7 MCH 29.9 MCHC 33.3 RDW 14.8 Plt Count 122 L MPV 11.0 Prelim Diff (Auto) Neut % (Auto) 87.5 H Lymph % (Auto) 4.5 L Robertson % (Auto) 7.1 Eos % (Auto) 0.5 Baso % (Auto) 0.4 Neut # (Auto) 19.1 H Lymph # (Auto) 1.0 Robertson # (Auto) 1.6 H Eos # (Auto) 0.1 Baso # (Auto) 0.1 WBC Differential . Seg Neuts % (Manual) Band Neuts % (Manual) Lymphocytes % (Manual) Monocytes % (Manual) Eosinophils % (Manual) Metamyelocytes % (Man) Abs Neuts (Manual) Differential Comment Auto diff final Platelet Estimate Platelet Morphology Ovalocytes Sodium Potassium Chloride Carbon Dioxide Anion Gap BUN Creatinine Estimated GFR POC Glucose 227 H 208 H Random Glucose Calcium Phosphorus Magnesium Total Bilirubin AST ALT Alkaline Phosphatase Total Protein Albumin Vancomycin Trough Heparin Dep Plt Ab OD Hep-Induced Plt Ab Sheryl 06/28/18 06/28/18 06/28/18 04:53 05:23 09:10 WBC RBC Hgb Hct MCV MCH MCHC RDW Plt Count MPV Prelim Diff (Auto) Neut % (Auto) Lymph % (Auto) Robertson % (Auto) Eos % (Auto) Baso % (Auto) Neut # (Auto) Lymph # (Auto) Robertson # (Auto) Eos # (Auto) Baso # (Auto) WBC Differential Seg Neuts % (Manual) Band Neuts % (Manual) Lymphocytes % (Manual) Monocytes % (Manual) Eosinophils % (Manual) Metamyelocytes % (Man) Abs Neuts (Manual) Differential Comment Platelet Estimate Platelet Morphology Ovalocytes Sodium 148 H Potassium 3.8 Chloride 113 H Carbon Dioxide 26.0 Anion Gap 9 BUN 52 H Creatinine 1.37 H Estimated GFR 37 L POC Glucose 243 H 277 H Random Glucose 250 H Calcium 8.4 L Phosphorus 2.2 L D Magnesium 2.7 H Total Bilirubin 0.5 AST 67 H ALT 51 Alkaline Phosphatase 239 H Total Protein 6.2 L Albumin 1.6 L Vancomycin Trough Heparin Dep Plt Ab OD Hep-Induced Plt Ab Sheryl Result Diagrams: 06/28/18 04:53 06/28/18 04:53 Microbiology: Microbiology 06/23/18 11:05 Aerobic Blood Culture - Preliminary Blood - Peripheral No growth in 4 days Anaerobic Blood Culture - Final QNS - See aerobic report. 06/23/18 10:50 Aerobic Blood Culture - Preliminary Blood - Peripheral No growth in 4 days Anaerobic Blood Culture - Final QNS - See aerobic report. 06/23/18 20:15 Gram Stain - Final Sputum - Endotracheal Sputum Culture - Final Moderate growth normal respiratory karl Imaging: Cervical Spine CT 06/22/18 13:58 CONCLUSION: 1. Multilevel degenerative changes. 2. Scattered neural foraminal narrowing. 3. No compression fracture or spondylolisthesis Pelvis X-Ray 06/22/18 13:58 CONCLUSION: Limited study without gross abnormality. Humerus X-Ray 06/22/18 13:59 CONCLUSION: No abnormality involving the humerus. Subcutaneous air is seen tracking over the lateral left chest wall. Thoracic Aorta CT 06/22/18 15:28 CONCLUSION: 1. Moderate volume acute pulmonary emboli. 2. Moderate size left pneumothorax with overlying subcutaneous air. 3. Severe emphysematous changes. 4. 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 5. Occlusion of the right outflow possibly acute in origin. Clinical evaluation for right lower extremity claudication suggested. 6. 2 hepatic masses worrisome for metastatic disease. These are limited in their evaluation on this study due to the arterial phase of the exam. Consider MRI of the liver to further assess if clinically warranted. Head MRI 06/23/18 00:00 CONCLUSION: 1. 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 2. There appear to be 2 punctate acute infarctions involving the right cerebellar hemisphere. This is best seen on the diffusion-weighted images. Venous Doppler Study 06/23/18 00:00 CONCLUSION: 1. Occlusive thrombus in both posterior tibial veins. Head MRA 06/23/18 09:12 CONCLUSION: 1. Occlusion of the mid to distal right M1 segment with reconstitution of the proximal right M2 branches via collaterals. IVC Filter Placement X-Ray 06/23/18 09:20 CONCLUSION: 1. Uncomplicated inferior vena cava filter placement as above. Carotid Doppler Study 06/24/18 08:01 CONCLUSION: 1. No hemodynamic significant stenosis in right carotid artery. 2. There is an approximate 50-69% stenosis left internal carotid artery. Abdomen/Pelvis CT 06/25/18 00:00 CONCLUSION: 1. Limited examination due to lack of IV contrast. However, there is no definitive evidence for a primary malignancy in the abdomen or pelvis. 2. Partially imaged left-sided chest tube with interval resolution of left- sided pneumothorax. 3. Bilateral lower lobe airspace consolidation, left greater than right, which may reflect atelectasis although differential considerations include aspiration. 4. Ancillary findings include cholelithiasis, colonic diverticulosis, anterior abdominal wall fat-containing hernia, and degenerative spondylosis of the lumbar spine. Chest CT 06/25/18 00:00 CONCLUSION: 1. Underlying emphysema with consolidation in the posterior left lower lobe with air bronchograms most characteristic of pneumonia. 2. Left-sided chest tube in place with no residual pneumothorax. Subcutaneous emphysema remains over the left lateral chest wall. There are multiple left rib fractures. 3. No evidence of primary malignancy. Head CT 06/25/18 00:00 CONCLUSION: 1. Evolving large right posterior MCA territory infarct. 2. Evolving focal infarcts in the right cerebellar hemisphere. 3. No intercurrent hemorrhage or herniation. . Chest X-Ray 06/26/18 15:22 CONCLUSION: Satisfactory endotracheal tube positioning. Improved aeration. Procedures: * 06/22/18 - intubated, chest tube placed. Assessment and Plan - Disease Oriented Problem List (1) Emphysema lung (2) History of lung cancer (3) Acute CVA (cerebrovascular accident) (4) Closed rib fracture (5) DVT (deep venous thrombosis) (6) Liver lesion (7) Pneumothorax (8) Leucocytosis (9) Thrombocytopenia - Symptom Scale (1) Pain after cerebrovascular accident (CVA) 0-10 Scale: Unable to quantify (2) Dyspnea 0-10 Scale: Unable to quantify Pertinent Non-Medical Issues: Psychosocial: Single. Has 2 sisters, 1 brother and 1 son. 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 Spiritual: Unknown. Legal: Patient is not capacitated to make her own health care decisions, uncertain if she will regain capacity. HAs written Living Will and designation of health care surrogate, Cari Dumas (primary [facility]) and Nathaniel Aguilarzio (alternate [facility]). Ethical issues impacting care: No known concerns at this time. Important Contacts: * Cari Dumas, [facility]/friend: [phone] * Nathaniel Reina, brother, alternate [facility]: [phone] Prognosis: Ms. Reina is a 78 year old female admitted with acute right MCA ischemic stroke , pulmonary embolus, bilateral LE DVT and likely right hand arterial thrombus ( not a surgical candidate) likely secondary to hypercoagulable state from malignancy. Significantly elevate tumor markers, liver lesions likely malignancy. She is not a candidate for anticoagulation, s/p IVC filter placement. She has a history of breast (1989's) and lung cancer (2014 s/p resections x 2). Patient also has underlying pulmonary disease due to prolonged and recent smoking history. Overall prognosis is poor for meaningful recovery. Sustainable Communities Designer, vascular surgery and oncology recommend comfort measures. Code Status: No Code DNR Plan: * Patient is not capacitated to make her own health care decisions, uncertain if she will regain capacity. HAs written Living Will and designation of health care surrogate, Cari Dumas (primary HCS) and Nathaniel Reina (alternate HCS). * NO CODE * Goals: Met with Cari Dumas, [facility], Nathaniel (brother, alternate HCS) and Jonathan. Medical update provided. All are in agreement that patient would direct life prolonging measures be withdrawn and that she would not find any quality of life less than prior to admission acceptable. They are certain patient wants to be kept comfortable and would direct such measures. Anticipatory guidance provided regarding withdrawal of life support. They would like to go home and speak with other friends to determine a time when those who would want to be here can come together, likely withdrawal of life support 06/29/18 in the afternoon. Cari will let me know what they decide once a final decision is made. * SYMPTOMS: Dyspnea: secondary to COPD/emphysema, possible lung cancer, pulmonary embolus, rib fractures, pneumothorax, chest tube in place. On mechanical vent, vent asynchrony, tachypnea with lowering of sedation. Pain: due to recent fall, stroke, tubes. Currently sedated on Propofol and Fentanyl. Will monitor. No new medication recommendations at this time, palliative care will write orders for comfort when family is ready. * Palliative care will continue to follow throughout hospital course to assist with symptom management and further clarification of goals of medical treatment. Attestation Attestation: To help prompt me to consider important information that might be impacting today's encounter and assessment, information from prior notes written by myself or my colleagues may have been "brought forward" into today's note. My signature on this note, however, is an attestation that I personally performed the exam, history, and/or decision-making noted today, and, unless otherwise indicated, the interactions with patient, family, and staff as well as the review of records all occurred today. I also attest that the listed assessment and stated plan reflect my best clinical judgment today based on the combination of historical information, prior notes, and today's exam/ interactions. When time spent is documented, it refers only to time spent today by the signer, or if indicated, combined time spent today by collaborating physician/nurse practitioner.
[2018-06-28] MEDS: Vancomycin Inj 1,250 MG in Sodium Chlor 0.9% Inj 250 ML IV.SIG SCH (12:09)
[2018-06-29] MEDS: Insulin NovoLIN Regular Correctional Sugar Inj SQ SCH ×3 (00:08→09:44)
[2018-06-29] MEDS: Oral Hygiene Kit OROPHARYNG SCH ×2 (00:09→04:14)
[2018-06-29] MEDS: Heparin - SQ 10,000 UNITS/ML Vial SQ SCH ×2 (01:59→09:28)
[2018-06-29] MEDS: fentaNYL 10 mcg/mL Premix Drip 2,500 MCG/250 ML BAG IV.SIG PRN (03:20)
[2018-06-29] MEDS: Piperacil/Tazo 3.375 GM Premix 50 ML IV.SIG SCH ×2 (04:12→09:28)
[2018-06-29] MEDS: Propofol 1000 mg/100 ml Inj 1,000 MG/100 ML BOTTLE IV.CONT PRN (05:45)
--- NOTE | 2018-06-29 06:41 | P.PNNEU ---
Subjective Active Medications: Active Medications Acetaminophen (Tylenol) 650 mg PO Q6H PRN PRN Reason: PAIN 1-10 AND/OR FEVER >101F Last Admin: 06/27/18 12:19 Dose: 650 mg Al Hydroxide/Mg Hydroxide (Milk Of Magnrosemary Liq) 30 ml PO Q12H PRN PRN Reason: Mild Constipation Albuterol (Duoneb Neb (Prn)) 1 ampul NEB Q2HR NEB PRN PRN Reason: WHEEZING Albuterol (Duoneb Neb (Matias)) 1 ampul NEB Q4HR NEB [facility] Last Admin: 06/29/18 04:26 Dose: 1 ampul Aspirin (Aspirin Supp) 300 mg RECTAL DAILY [facility] Last Admin: 06/28/18 09:33 Dose: 300 mg Atorvastatin Calcium (Lipitor) 80 mg PO DAILY [facility] Last Admin: 06/28/18 08:54 Dose: 80 mg Bisacodyl (Dulcolax Supp) 10 mg RECTAL DAILY PRN PRN Reason: SEVERE CONSITIPATION Chlorhexidine Gluconate (Peridex 0.12% Oral Kit) 15 ml OROPHARYNG BID@0800, 2000 [facility] Last Admin: 06/28/18 20:04 Dose: 15 ml Dextrose (D50w Vial) 50 ml IV.PUSH UNSCH PRN PRN Reason: PER HYPOGLYCEMIA PROTOCOL Dextrose (D50w Vial) 50 ml IV.PUSH UNSCH PRN PRN Reason: PER HYPOGLYCEMIA PROTOCOL Famotidine (Pepcid Pf Inj) 10 mg IV.PUSH Q12HR [facility] Last Admin: 06/28/18 20:04 Dose: 10 mg Glucagon (Glucagon Inj) 1 mg OTHER PRN PRN PRN Reason: for Hypoglycemia Protocol Glucagon (Glucagon Inj) 1 mg OTHER PRN PRN PRN Reason: for Hypoglycemia Protocol Heparin Sodium (Porcine) (Heparin Inj) 5,000 units SQ Q8H [facility] Last Admin: 06/29/18 01:59 Dose: 5,000 units Propofol (Diprivan 1000 Mg/100 Ml Inj) 1,000 mg in 100 mls @ 2.042 mls/hr IV.CONT TITRATE PRN; Protocol PRN Reason: Per Protocol Last Admin: 06/29/18 05:45 Dose: 30 mcg/kg/min, 12.25 mls/hr Magnesium Sulfate 4 gm/ Sodium (Chloride) 100 mls @ 50 mls/hr IV.SIG UNSCH PRN PRN Reason: For Magnesium 0.9 - 1.1 mg/dL Potassium Chloride (Kcl 40 Meq Premix Inj) 40 meq in 100 mls @ 25 mls/hr IV.SIG Q2H PRN PRN Reason: For Potassium 2.8 - 3.2 mEq/L Potassium Chloride (Kcl 20 Meq Premix Inj) 20 meq in 100 mls @ 50 mls/hr IV.SIG Q2H PRN PRN Reason: For Potassium 3.3 - 3.5 mEq/L Potassium Chloride (Kcl 40 Meq Premix Inj) 40 meq in 100 mls @ 25 mls/hr IV.SIG UNSCH PRN PRN Reason: For Potassium 3.3 - 3.5 mEq/L Potassium Chloride (Kcl 20 Meq Premix Inj) 20 meq in 100 mls @ 50 mls/hr IV.SIG Q2H PRN PRN Reason: For Potassium 2.8 - 3.2 mEq/L Potassium Phosphate 30 mmol/ (Sodium Chloride) 260 mls @ 42 mls/hr IV.SIG UNSCH PRN PRN Reason: SEE LABEL COMMENTS Sodium Phosphate 30 mmol/ (Sodium Chloride) 260 mls @ 42 mls/hr IV.SIG UNSCH PRN PRN Reason: For Phosphorus < 2.5 mg/dL Magnesium Sulfate 2 gm/ Sodium (Chloride) 100 mls @ 50 mls/hr IV.SIG UNSCH PRN PRN Reason: For Magnesium 1.2 - 1.6 mg/dL Piperacillin/Tazobactam/Dextrose (Zosyn 3.375 Gm Premix) 50 mls @ 100 mls/hr IV.SIG Q6H [facility] Last Infusion: 06/29/18 04:44 Dose: Infused Fentanyl (Fentanyl 10 Mcg/Ml Premix Drip) 2,500 mcg in 250 mls @ 5 mls/hr IV.SIG TITRATE PRN; Protocol PRN Reason: Per Protocol Last Admin: 06/29/18 03:20 Dose: 150 mcg/hr, 15 mls/hr Vancomycin HCl 1,250 mg/ (Sodium Chloride) 262.5 mls @ 250 mls/hr IV.SIG Q24H [facility] Last Infusion: 06/28/18 17:56 Dose: Infused Insulin Human Regular (Novolin R Correctional Sugar Inj) 0 units SQ Q4HR [facility]; Protocol Last Admin: 06/29/18 04:14 Dose: Not Given Lactulose (Lactulose Liq) 30 ml PO DAILY PRN PRN Reason: SEVERE CONSITIPATION Magnesium Oxide (Mag-Ox) 800 mg PO UNSCH PRN PRN Reason: For Magnesium 1.2 - 1.6 mg/dL Metoclopramide HCl (Reglan Inj) 5 mg IV.PUSH Q8H PRN; Protocol PRN Reason: VOMITING Last Admin: 06/25/18 01:56 Dose: 5 mg Midazolam HCl (Versed Inj) 2 mg IV.PUSH Q1H PRN PRN Reason: SEDATION Miscellaneous Information ([facility] [place]dered Lab Info) 0 each OTHER ONCE ONE Stop: 07/02/18 11:46 Miscellaneous Medication () 1 each OROPHARYNG 0000,0400,1200,1600 [facility] Last Admin: 06/29/18 04:14 Dose: 1 each Ondansetron HCl (Zofran Inj) 4 mg IV.PUSH Q6H PRN PRN Reason: NAUSEA OR VOMITING Pharmacy Profile Note (Vancomycin Consult Pharmacy) 1 each OTHER UNSCH PRN PRN Reason: Pharmacy to dose Potassium Bicarb/Potassium Chloride (K-Lyte Cl Eff) 50 meq PO UNSCH PRN PRN Reason: For Potassium 3.3 - 3.5 mEq/L Last Admin: 06/24/18 20:15 Dose: 50 meq Potassium Phosphate (K-Phos Original) 2,000 mg PO UNSCH PRN PRN Reason: SEE LABEL COMMENTS Last Admin: 06/28/18 12:10 Dose: 2,000 mg Potassium Phosphate (K-Phos Original) 2,000 mg PO Q4H PRN PRN Reason: Phosphorus Less Than 2.5 mg/dL Senna/Docusate Sodium (Shadia-Colace) 1 tab PO BID [facility] Last Admin: 06/28/18 20:05 Dose: Not Given Sennosides (Senokot) 17.2 mg PO Q12H PRN PRN Reason: Moderate Constipation Sodium Chloride (Ns Flush) 2 ml IV.FLUSH BID [facility] Last Admin: 06/28/18 20:04 Dose: 2 ml Sodium Chloride (Ns Flush) 2 ml IV.FLUSH PRN PRN PRN Reason: FLUSH AFTER USING IV ACCESS Last Admin: 06/25/18 09:10 Dose: 2 ml Sterile Water (Free Water) 0 ml G-TUBE Q6HR [facility] Last Admin: 06/29/18 06:20 Dose: Not Given Allergies/Adverse Reactions: Allergies Allergy/AdvReac Type Severity Reaction Status Date / Time No Known Allergies Allergy Unverified 06/22/18 13:53 Physical Exam Vital signs: Vital Signs 06/28/18 07:47 06/28/18 08:00 06/28/18 08:17 Temperature 99.1 F Pulse Rate 92 H 90 Respiratory Rate 19 21 18 Blood Pressure 141/52 H 128/68 Pulse Oximetry 99 92 L 99 06/28/18 08:20 06/28/18 08:22 06/28/18 08:25 Temperature Pulse Rate 89 89 89 Respiratory Rate 19 20 20 Blood Pressure 128/67 136/64 130/63 Pulse Oximetry 99 99 99 06/28/18 08:27 06/28/18 08:30 06/28/18 08:32 Temperature Pulse Rate 90 90 91 H Respiratory Rate 21 20 20 Blood Pressure 130/64 134/65 138/70 Pulse Oximetry 99 99 99 06/28/18 08:35 06/28/18 08:38 06/28/18 08:40 Temperature Pulse Rate 90 90 90 Respiratory Rate 22 20 21 Blood Pressure 138/63 135/63 140/66 Pulse Oximetry 99 99 98 06/28/18 08:42 06/28/18 08:45 06/28/18 08:47 Temperature Pulse Rate 91 H 92 H 92 H Respiratory Rate 19 23 21 Blood Pressure 143/71 H 145/73 H 148/71 H Pulse Oximetry 98 99 99 06/28/18 08:50 06/28/18 09:00 06/28/18 10:00 Temperature Pulse Rate 93 H 92 H 86 Respiratory Rate 20 21 21 Blood Pressure 148/70 H 141/62 H 101/54 L Pulse Oximetry 99 99 98 06/28/18 11:00 06/28/18 12:00 06/28/18 12:41 Temperature 99.2 F Pulse Rate 84 84 89 Respiratory Rate 18 12 14 Blood Pressure 105/58 L 117/56 L Pulse Oximetry 98 97 06/28/18 13:00 06/28/18 14:00 06/28/18 14:04 Temperature Pulse Rate 90 92 H 92 H Respiratory Rate 13 13 13 Blood Pressure 124/58 L 114/57 L Pulse Oximetry 94 L 97 06/28/18 14:05 06/28/18 15:00 10/14/18 16:00 Temperature 99.4 F Pulse Rate 90 87 Respiratory Rate 13 13 14 Blood Pressure 115/55 L 104/50 L Pulse Oximetry 97 97 95 06/28/18 17:00 06/28/18 18:00 06/28/18 19:00 Temperature 100.3 F H Pulse Rate 86 90 85 Respiratory Rate 14 18 12 Blood Pressure 115/59 L 116/62 114/55 L Pulse Oximetry 97 93 L 94 L 06/28/18 19:27 06/28/18 19:29 06/28/18 20:00 Temperature Pulse Rate 85 83 Respiratory Rate 15 15 15 Blood Pressure 101/53 L Pulse Oximetry 94 L 94 L 06/28/18 21:00 06/28/18 21:17 06/28/18 22:00 Temperature Pulse Rate 83 72 72 Respiratory Rate 16 12 17 Blood Pressure 101/56 L 95/51 L Pulse Oximetry 95 94 L 96 06/28/18 23:00 06/28/18 23:30 06/29/18 00:00 Temperature 100.0 F H Pulse Rate 66 82 65 Respiratory Rate 12 14 15 Blood Pressure 104/58 L 108/57 L Pulse Oximetry 96 95 06/29/18 00:23 06/29/18 00:40 06/29/18 01:00 Temperature Pulse Rate 65 85 Respiratory Rate 14 14 Blood Pressure 101/66 109/55 L Pulse Oximetry 96 94 L 94 L 06/29/18 02:00 06/29/18 03:00 06/29/18 04:00 Temperature 100.3 F H Pulse Rate 76 72 76 Respiratory Rate 23 23 23 Blood Pressure 106/55 L 117/60 134/63 Pulse Oximetry 97 98 97 06/29/18 04:24 06/29/18 04:26 Temperature Pulse Rate 90 Respiratory Rate 14 14 Blood Pressure Pulse Oximetry 92 L Intake & Output 06/28/18 06/28/18 06/29/18 06:59 18:59 06:59 Intake Total 1379 / 1379 1416.5 / 1416.5 1485 / 1485 Output Total 400 / 400 300 / 300 355 / 355 Balance 979 / 979 1116.5 / 1116.5 1130 / 1130 Weight 68.9 kg 68.5 kg Intake: IV 300 / 300 662.5 / 662.5 600 / 600 Diprivan 1000 mg/100 ml Inj 1, 200 / 200 100 / 100 200 / 200 000 mg In 100 ml @ 5 MCG/KG/MIN 2.042 mls/hr IV.CONT TITRATE PRN Rx#:[id number] Zosyn 3.375 GM Premix 50 ML @ 100 / 100 50 / 50 150 / 150 100 mls/hr IV.SIG Q6H [facility] Rx#: [id number] Vancomycin Inj 1,250 MG In NS 262.5 / 262.5 Inj 250 ML @ 250 mls/hr IV.SIG Q24H [facility] Rx#:[id number] fentaNYL 10 mcg/mL Premix Drip 250 / 250 250 / 250 2,500 mcg In 250 ml @ 50 MCG/HR 5 mls/hr IV.SIG TITRATE PRN Rx #:[id number] Tube Feeding 579 / 579 254 / 254 485 / 485 Tube Irrigant 0 / 0 Water Bolus Amount 500 / 500 500 / 500 400 / 400 Output: Urine 0 / 0 325 / 325 Urine Amount (Catheter) 350 / 350 300 / 300 Indwelling Urethral Catheter 350 / 350 300 / 300 Gastric Drainage 0 / 0 Orogastric Tube 0 / 0 Chest Tube Drainage 50 / 50 30 / 30 #1 Left Upper Mid-Axillary 50 / 50 30 / 30 Chest Other: Date of Last Bowel Movement 06/28/18 06/28/18 06/29/18 # Bowel Movements 2 # Incontinent Bowel Movements 2 1 1 - Urinary Catheter Management Indwelling Urethral Catheter Cath placed during this visit: yes Reason for continuing: Terminally ill/Comfort care Insertion date: 06/22/18 Insertion time: 15:29 Objective Laboratory Results - last 24 hr 06/28/18 06/28/18 06/28/18 09:10 11:51 17:17 POC Glucose 277 H 259 H 158 H Phosphorus 06/28/18 06/28/18 06/29/18 19:02 20:10 00:04 POC Glucose 143 H 201 H Phosphorus 3.0 06/29/18 06/29/18 03:40 06:13 POC Glucose 158 H 157 H Phosphorus Microbiology 06/23/18 11:05 Aerobic Blood Culture - Final Blood - Peripheral No growth in 5 days Anaerobic Blood Culture - Final QNS - See aerobic report. 06/23/18 10:50 Aerobic Blood Culture - Final Blood - Peripheral No growth in 5 days Anaerobic Blood Culture - Final QNS - See aerobic report. Review/Management - Diagnosis (1) Acute right MCA stroke Code(s): I63.511 - Cerebral infarction due to unspecified occlusion or stenosis of right middle cerebral artery Status: Acute Current Visit: Yes (2) Pulmonary embolism Code(s): I26.99 - Other pulmonary embolism without acute cor pulmonale Status : Acute Current Visit: Yes (3) Pneumothorax Code(s): J93.9 - Pneumothorax, unspecified Status: Acute Current Visit: Yes (4) Closed rib fracture Code(s): S22.39XA - Fracture of one rib, unspecified side, initial encounter for closed fracture Status: Acute Current Visit: Yes (5) DVT (deep venous thrombosis) Code(s): I82.409 - Acute embolism and thrombosis of unspecified deep veins of unspecified lower extremity Status: Acute Current Visit: Yes (6) Liver lesion Code(s): K76.9 - Liver disease, unspecified Status: Acute Current Visit: Yes - Review/Management Plan: Acute right MCA stroke Possibly related to hypercoagulable state she also has a concurrent pulmonary embolus; possible underlying neoplasm MRI brain scan reviewed right posterior MCA stroke. MRI brain showing distal MCA branch occlusion Echo normal Recommendations No significant change in neurologic exam Carotid ultrasound; no significant vaso-occlusive disease in the right carotid, left carotid with mild to moderate stenosis however not the etiology for stroke Patient being followed by oncology and palliative care. Healthcare surrogate's are looking at potentially transitioning the patient to comfort care Patient is critically ill (2) Pulmonary embolism Qualifiers: Pulmonary embolism type: other Chronicity: acute Acute cor pulmonale presence: without acute cor pulmonale Qualified Code(s): I26.99 - Other pulmonary embolism without acute cor pulmonale (3) Pneumothorax Qualifiers: Pneumothorax type: traumatic Encounter type: initial encounter Qualified Code(s): S27.0XXA - Traumatic pneumothorax, initial encounter (4) Closed rib fracture Qualifiers: Encounter type: initial encounter Rib fracture type: multiple ribs Laterality: left Qualified Code(s): S22.42XA - Multiple fractures of ribs, left side, initial encounter for closed fracture
--- NOTE | 2018-06-29 07:09 | P.PNCC ---
Subjective Subjective Remarks/Hospital Course: 78-year-old female presents to the ED for evaluation of possible CVA and shortness of breath. Per [facility] they got a call that apparently the patient had been found on the floor. Unclear as to how long the patient had been on the floor. Last time the patient was seen normal was on Friday per friends that were in the scene. Per patient herself she cannot really tell us any history other than she has pain on the left side of her body as well as weakness to her left arm. She cannot move her left arm on her own. She denies any history of stroke on herself. She cannot really give us good history about her medications. She denies taking blood thinners however. She cannot recall when she fell and she cannot really tell us how long she has been on the floor. No one really at bedside to give us any information about how long the symptoms have been going. Per [facility] she is also been having left facial droop. CT of the brain obtained in the emergency department shows Acute right parietal infarcts. No midline shift or mass effect. The chest x-ray with the findings of Subcutaneous emphysema along the left chest wall along with multiple left- sided rib fractures. CTA of the pulmonary artery is consistent with Moderate volume acute pulmonary emboli and Moderate size left pneumothorax with overlying subcutaneous air. The patient was intubated by ED attending and the chest tube was placed in the emergency department as well. 06/23 Patient is sedated with Diprivan and intubated. Afebrile. 06/24 Patient remains sedated with Fentanyl and Diprivan and intubated. T:100.3 , s/p IVC filter placement yesterday.Had an episode of desaturation and now on 100% FIO2 with PEEP:5 and sats 94-95% 06/25. Patient remains intubated and sedated. Afebrile. FIO2 down to 55% with good sats. 06/26 No events overnight. Sedated and intubated. Afebrile 06/27 Patient had cuff tear in ETT and was replaced. Sedated with Diprivan and Fentanyl infusions. Afebrile. 06/28 No events overnight. Sedated and intubated. Not tolerating CPAP trials. T: 100.5 06/29 Patient remains intubated and sedated, had an episode of desaturation overnight and is now on PRVC with 50% FIO2 and PEEP:8. For possible withdrawal care today. Objective Vital Signs / I&O: Vital Signs 06/28/18 07:47 06/28/18 08:00 06/28/18 08:17 Temperature 99.1 F Pulse Rate 92 H 90 Respiratory Rate 19 21 18 Blood Pressure 141/52 H 128/68 Pulse Oximetry 99 92 L 99 06/28/18 08:20 06/28/18 08:22 06/28/18 08:25 Temperature Pulse Rate 89 89 89 Respiratory Rate 19 20 20 Blood Pressure 128/67 136/64 130/63 Pulse Oximetry 99 99 99 06/28/18 08:27 06/28/18 08:30 06/28/18 08:32 Temperature Pulse Rate 90 90 91 H Respiratory Rate 21 20 20 Blood Pressure 130/64 134/65 138/70 Pulse Oximetry 99 99 99 06/28/18 08:35 06/28/18 08:38 06/28/18 08:40 Temperature Pulse Rate 90 90 90 Respiratory Rate 22 20 21 Blood Pressure 138/63 135/63 140/66 Pulse Oximetry 99 99 98 06/28/18 08:42 06/28/18 08:45 06/28/18 08:47 Temperature Pulse Rate 91 H 92 H 92 H Respiratory Rate 19 23 21 Blood Pressure 143/71 H 145/73 H 148/71 H Pulse Oximetry 98 99 99 06/28/18 08:50 06/28/18 09:00 06/28/18 10:00 Temperature Pulse Rate 93 H 92 H 86 Respiratory Rate 20 21 21 Blood Pressure 148/70 H 141/62 H 101/54 L Pulse Oximetry 99 99 98 06/28/18 11:00 06/28/18 12:00 06/28/18 12:41 Temperature 99.2 F Pulse Rate 84 84 89 Respiratory Rate 18 12 14 Blood Pressure 105/58 L 117/56 L Pulse Oximetry 98 97 06/28/18 13:00 06/28/18 14:00 06/28/18 14:04 Temperature Pulse Rate 90 92 H 92 H Respiratory Rate 13 13 13 Blood Pressure 124/58 L 114/57 L Pulse Oximetry 94 L 97 06/28/18 14:05 06/28/18 15:00 06/28/18 16:00 Temperature 99.4 F Pulse Rate 90 87 Respiratory Rate 13 13 14 Blood Pressure 115/55 L 104/50 L Pulse Oximetry 97 97 95 06/28/18 17:00 06/28/18 18:00 06/28/18 19:00 Temperature 100.3 F H Pulse Rate 86 90 85 Respiratory Rate 14 18 12 Blood Pressure 115/59 L 116/62 114/55 L Pulse Oximetry 97 93 L 94 L 06/28/18 19:27 06/28/18 19:29 06/28/18 20:00 Temperature Pulse Rate 85 83 Respiratory Rate 15 15 15 Blood Pressure 101/53 L Pulse Oximetry 94 L 94 L 06/28/18 21:00 06/28/18 21:17 06/28/18 22:00 Temperature Pulse Rate 83 72 72 Respiratory Rate 16 12 17 Blood Pressure 101/56 L 95/51 L Pulse Oximetry 95 94 L 96 06/28/18 23:00 06/28/18 23:30 06/29/18 00:00 Temperature 100.0 F H Pulse Rate 66 82 65 Respiratory Rate 12 14 15 Blood Pressure 104/58 L 108/57 L Pulse Oximetry 96 95 06/29/18 00:23 06/29/18 00:40 06/29/18 01:00 Temperature Pulse Rate 65 85 Respiratory Rate 14 14 Blood Pressure 101/66 109/55 L Pulse Oximetry 96 94 L 94 L 06/29/18 02:00 06/29/18 03:00 06/29/18 04:00 Temperature 100.3 F H Pulse Rate 76 72 76 Respiratory Rate 23 23 23 Blood Pressure 106/55 L 117/60 134/63 Pulse Oximetry 97 98 97 06/29/18 04:24 06/29/18 04:26 Temperature Pulse Rate 90 Respiratory Rate 14 14 Blood Pressure Pulse Oximetry 92 L Intake & Output 06/28/18 06/29/18 06/29/18 18:59 06:59 18:59 Intake Total 1416.5 / 1416.5 1485 / 1485 Output Total 300 / 300 355 / 355 Balance 1116.5 / 1116.5 1130 / 1130 Weight 68.5 kg Intake: IV 662.5 / 662.5 600 / 600 Diprivan 1000 mg/100 ml Inj 1, 100 / 100 200 / 200 000 mg In 100 ml @ 5 MCG/KG/MIN 2.042 mls/hr IV.CONT TITRATE PRN Rx#:[id number] Zosyn 3.375 GM Premix 50 ML @ 50 / 50 150 / 150 100 mls/hr IV.SIG Q6H [facility] Rx#: [id number] Vancomycin Inj 1,250 MG In NS 262.5 / 262.5 Inj 250 ML @ 250 mls/hr IV.SIG Q24H [facility] Rx#:[id number] fentaNYL 10 mcg/mL Premix Drip 250 / 250 250 / 250 2,500 mcg In 250 ml @ 50 MCG/HR 5 mls/hr IV.SIG TITRATE PRN Rx #:[id number] Tube Feeding 254 / 254 485 / 485 Water Bolus Amount 500 / 500 400 / 400 Output: Urine 325 / 325 Urine Amount (Catheter) 300 / 300 Indwelling Urethral Catheter 300 / 300 Chest Tube Drainage #1 Left Upper Mid-Axillary Chest Other: Date of Last Bowel Movement 06/28/18 06/29/18 # Incontinent Bowel Movements 1 1 Result Diagrams: 06/28/18 04:53 06/28/18 04:53 Other Results: Laboratory Results - last 12 hr 06/28/18 06/28/18 06/29/18 19:02 20:10 00:04 POC Glucose 143 H 201 H Phosphorus 3.0 06/29/18 06/29/18 03:40 06:13 POC Glucose 158 H 157 H Phosphorus Imaging: Cervical Spine CT 06/22/18 13:58 CONCLUSION: 1. Multilevel degenerative changes. 2. Scattered neural foraminal narrowing. 3. No compression fracture or spondylolisthesis Pelvis X-Ray 06/22/18 13:58 CONCLUSION: Limited study without gross abnormality. Humerus X-Ray 06/22/18 13:59 CONCLUSION: No abnormality involving the humerus. Subcutaneous air is seen tracking over the lateral left chest wall. Thoracic Aorta CT 06/22/18 15:28 CONCLUSION: 1. Moderate volume acute pulmonary emboli. 2. Moderate size left pneumothorax with overlying subcutaneous air. 3. Severe emphysematous changes. 4. 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 5. Occlusion of the right outflow possibly acute in origin. Clinical evaluation for right lower extremity claudication suggested. 6. 2 hepatic masses worrisome for metastatic disease. These are limited in their evaluation on this study due to the arterial phase of the exam. Consider MRI of the liver to further assess if clinically warranted. Head MRI 06/23/18 00:00 CONCLUSION: 1. 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 2. There appear to be 2 punctate acute infarctions involving the right cerebellar hemisphere. This is best seen on the diffusion-weighted images. Venous Doppler Study 06/23/18 00:00 CONCLUSION: 1. Occlusive thrombus in both posterior tibial veins. Head MRA 06/23/18 09:12 CONCLUSION: 1. Occlusion of the mid to distal right M1 segment with reconstitution of the proximal right M2 branches via collaterals. IVC Filter Placement X-Ray 06/23/18 09:20 CONCLUSION: 1. Uncomplicated inferior vena cava filter placement as above. Carotid Doppler Study 06/24/18 08:01 CONCLUSION: 1. No hemodynamic significant stenosis in right carotid artery. 2. There is an approximate 50-69% stenosis left internal carotid artery. Abdomen/Pelvis CT 06/25/18 00:00 CONCLUSION: 1. Limited examination due to lack of IV contrast. However, there is no definitive evidence for a primary malignancy in the abdomen or pelvis. 2. Partially imaged left-sided chest tube with interval resolution of left- sided pneumothorax. 3. Bilateral lower lobe airspace consolidation, left greater than right, which may reflect atelectasis although differential considerations include aspiration. 4. Ancillary findings include cholelithiasis, colonic diverticulosis, anterior abdominal wall fat-containing hernia, and degenerative spondylosis of the lumbar spine. Chest CT 06/25/18 00:00 CONCLUSION: 1. Underlying emphysema with consolidation in the posterior left lower lobe with air bronchograms most characteristic of pneumonia. 2. Left-sided chest tube in place with no residual pneumothorax. Subcutaneous emphysema remains over the left lateral chest wall. There are multiple left rib fractures. 3. No evidence of primary malignancy. Head CT 06/25/18 00:00 CONCLUSION: 1. Evolving large right posterior MCA territory infarct. 2. Evolving focal infarcts in the right cerebellar hemisphere. 3. No intercurrent hemorrhage or herniation. . Chest X-Ray 06/26/18 15:22 CONCLUSION: Satisfactory endotracheal tube positioning. Improved aeration. Objective Remarks: GENERAL: Patient is 78 yo critically ill intubated and sedated SKIN: Warm and dry. HEAD: Normocephalic. EYES: No scleral icterus. No injection or drainage. NECK: Supple, trachea midline. No JVD or lymphadenopathy. CARDIOVASCULAR: Regular rate and rhythm without murmurs, gallops, or rubs. RESPIRATORY: Breath sounds equal bilaterally. No accessory muscle use. GASTROINTESTINAL: Abdomen soft, non-tender, nondistended. MUSCULOSKELETAL: No edema. +Cyanosis of fingertips on right hand Neuro: sedated Assessment and Plan - Assessment and Plan Plan: VDRF Acute CVA ( Acute right parietal infarcts) Pulmonary embolism Left sided PTX Liver lesions suspicious of metastatic process Mild elevated troponin-multifactorial. Leukocytosis Thrombocytopenia Plan Neuro: On Diprivan, Fentanyl infusion for sedation. Daily sedation vacation. Repeat CT brain 06/26: Evolving large right posterior MCA territory infarct. Evolving focal infarcts in the right cerebellar hemisphere. No intercurrent hemorrhage or herniation. CT brain: Acute parietal infarcts MRI brain:. 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 2 punctate acute infarctions involving the right cerebellar hemisphere. MRA brain: Occlusion of the mid to distal right M1 segment with reconstitution of the proximal right M2 branches via collaterals. Carotid Doppler US: No hemodynamic significant stenosis in right carotid artery. There is an approximate 50-69% stenosis left internal carotid artery. Neuro is following Unknown downtime. Not a candidate for TPA or thrombectomy Aspirin, statins Pulm: Continue with vent support keep sats >92% ETT replaced 06/26 ( Had cuff tear and low volumes) On PRVC RR 12, TV 450, IT:1.0, PEEP:8 and FIO2:50% Bronchodilators, ICU vent bundle. SBT daily as josh CXR 06/26: ETT above jennifer, improved aeration CT chest 06/26: Underlying emphysema with consolidation in the posterior left lower lobe with air bronchograms most characteristic of pneumonia. Left-sided chest tube in place with no residual pneumothorax. Subcutaneous emphysema remains over the left lateral chest wall. There are multiple left rib fractures. No evidence of primary malignancy CT thoracic aorta: Pulmonary embolism, left sided PTX s/p CT placement- monitor CT drainage Doppler US LE b/l LE: Occlusive thrombus in both posterior tibial veins. Not a candidate for anticoagulation due to worrisome of hemorrhagic conversion s/p IVC filter placement on 06/23. Heme is following. CV: Monitor HR and BP keep MAP>65mmHg Continue ASA, Lipitor Echo showed Normal left ventricular size. Wall thickness is normal. EF: 60-65%. : Monitor renal function, I/O's, electrolytes replacement per protocol. On Free water 250ml Q6. Follow up on BMP GI: Liver lesions suspicious of metastatic process GI is following. On Pepcid 20mg IV Q12 for GI prophylaxis Continue tube feeds-Jevity 1.5 @40ml/hr [place] 5mg IV Q8 PRN ID: Monitor for signs of infections (Fever, WBC) WBC is trending down Received Vanco and Zosyn in ED. Continue with Zosyn and Vanco sputum cx and BC 06/23; NGTD Heme: Monitor CBC, Hep PLT ab: negative Doppler US LE: Occlusive thrombus in both posterior tibial veins. Heme is following recommending hospice Tumor markers elevated. CEA: 41, AFP:13, CA 125: 1091, CA19-9: 593.6, CA 15-3:177 Seen by Vascular surgery for cyanosis of fingertips on right hand- Not a candidate for surgery Endo: SSI(medium scale) for glycemic control DVT GI prophylaxis -Teds SCDs -Subcu heparin -Pepcid Palliative care is following-For possible withdrawal care today Code status: no code DNR Poor prognosis. 35 minutes of critical care
[2018-06-29 07:23] LABS: Baso # (Auto) 0.1 th/mm3 (0.0-0.2); Baso % (Auto) 0.4 % (0.0-2.0); Eos # (Auto) 0.1 th/mm3 (0.0-0.4); Eos % (Auto) 0.4 % (0.0-4.0); Hematocrit 29.1 % (35.0-46.0); Hemoglobin 9.6 gm/dL (11.6-15.3); Lymph # (Auto) 1.5 th/mm3 (1.0-4.8); Mean Corpuscular Hemoglobin 29.7 pg (27.0-34.0); Mean Corpuscular Volume 89.9 fL (80.0-100.0); Mean Platelet Volume 11.6 fL (7.0-11.0); Mono # (Auto) 1.9 th/mm3 (0.0-0.9); Mono % (Auto) 8.8 % (0.0-8.0); Neut # (Auto) 17.7 th/mm3 (1.8-7.7); Neut % (Auto) 83.4 % (16.0-70.0); Platelet Count 148 th/mm3 (150-450); Red Blood Count 3.24 mil/mm3 (4.00-5.30); Red Cell Distribution Width 14.5 % (11.6-17.2); White Blood Count 21.2 th/mm3 (4.0-11.0)
[2018-06-29 07:38] LABS: Albumin 1.5 g/dL (3.4-5.0); Aspartate Aminotransferase 97 U/L (15-37); Blood Urea Nitrogen 53 mg/dL (7-18); Chloride 110 meq/L (98-107); Glomerular Filtration Rate 36 mL/min (>89); Glucose,Random 190 mg/dL (74-106); Magnesium 2.6 mg/dL (1.5-2.5); Potassium 4.2 meq/L (3.5-5.1); Sodium 145 meq/L (136-145)
[2018-06-29 07:40] LABS: Alanine Aminotransferase 61 U/L (10-53)
[2018-06-29 07:43] LABS: Alkaline Phosphatase 253 U/L (45-117); Anion Gap 11 meq/L (5-15); Carbon Dioxide 24.4 meq/L (21.0-32.0); Phosphorus 3.5 mg/dL (2.5-4.9); Total Protein 6.4 g/dL (6.4-8.2)
--- NOTE | 2018-06-29 07:55 | P.PNNEU ---
Subjective Subjective Comments: no acute events Active Medications: Active Medications Acetaminophen (Tylenol) 650 mg PO Q6H PRN PRN Reason: PAIN 1-10 AND/OR FEVER >101F Last Admin: 06/27/18 12:19 Dose: 650 mg Al Hydroxide/Mg Hydroxide (Milk Of Magnrosemary Liq) 30 ml PO Q12H PRN PRN Reason: Mild Constipation Albuterol (Duoneb Neb (Prn)) 1 ampul NEB Q2HR NEB PRN PRN Reason: WHEEZING Albuterol (Duoneb Neb (Matias)) 1 ampul NEB Q4HR NEB MATIAS Last Admin: 06/29/18 04:26 Dose: 1 ampul Aspirin (Aspirin Supp) 300 mg RECTAL DAILY [facility] Last Admin: 06/28/18 09:33 Dose: 300 mg Atorvastatin Calcium (Lipitor) 80 mg PO DAILY [facility] Last Admin: 06/28/18 08:54 Dose: 80 mg Bisacodyl (Dulcolax Supp) 10 mg RECTAL DAILY PRN PRN Reason: SEVERE CONSITIPATION Chlorhexidine Gluconate (Peridex 0.12% Oral Kit) 15 ml OROPHARYNG BID@0800, 2000 [facility] Last Admin: 06/28/18 20:04 Dose: 15 ml Dextrose (D50w Vial) 50 ml IV.PUSH UNSCH PRN PRN Reason: PER HYPOGLYCEMIA PROTOCOL Dextrose (D50w Vial) 50 ml IV.PUSH UNSCH PRN PRN Reason: PER HYPOGLYCEMIA PROTOCOL Famotidine (Pepcid Pf Inj) 10 mg IV.PUSH Q12HR [facility] Last Admin: 06/28/18 20:04 Dose: 10 mg Glucagon (Glucagon Inj) 1 mg OTHER PRN PRN PRN Reason: for Hypoglycemia Protocol Glucagon (Glucagon Inj) 1 mg OTHER PRN PRN PRN Reason: for Hypoglycemia Protocol Heparin Sodium (Porcine) (Heparin Inj) 5,000 units SQ Q8H [facility] Last Admin: 06/29/18 01:59 Dose: 5,000 units Propofol (Diprivan 1000 Mg/100 Ml Inj) 1,000 mg in 100 mls @ 2.042 mls/hr IV.CONT TITRATE PRN; Protocol PRN Reason: Per Protocol Last Admin: 06/29/18 05:45 Dose: 30 mcg/kg/min, 12.25 mls/hr Magnesium Sulfate 4 gm/ Sodium (Chloride) 100 mls @ 50 mls/hr IV.SIG UNSCH PRN PRN Reason: For Magnesium 0.9 - 1.1 mg/dL Potassium Chloride (Kcl 40 Meq Premix Inj) 40 meq in 100 mls @ 25 mls/hr IV.SIG Q2H PRN PRN Reason: For Potassium 2.8 - 3.2 mEq/L Potassium Chloride (Kcl 20 Meq Premix Inj) 20 meq in 100 mls @ 50 mls/hr IV.SIG Q2H PRN PRN Reason: For Potassium 3.3 - 3.5 mEq/L Potassium Chloride (Kcl 40 Meq Premix Inj) 40 meq in 100 mls @ 25 mls/hr IV.SIG UNSCH PRN PRN Reason: For Potassium 3.3 - 3.5 mEq/L Potassium Chloride (Kcl 20 Meq Premix Inj) 20 meq in 100 mls @ 50 mls/hr IV.SIG Q2H PRN PRN Reason: For Potassium 2.8 - 3.2 mEq/L Potassium Phosphate 30 mmol/ (Sodium Chloride) 260 mls @ 42 mls/hr IV.SIG UNSCH PRN PRN Reason: SEE LABEL COMMENTS Sodium Phosphate 30 mmol/ (Sodium Chloride) 260 mls @ 42 mls/hr IV.SIG UNSCH PRN PRN Reason: For Phosphorus < 2.5 mg/dL Magnesium Sulfate 2 gm/ Sodium (Chloride) 100 mls @ 50 mls/hr IV.SIG UNSCH PRN PRN Reason: For Magnesium 1.2 - 1.6 mg/dL Piperacillin/Tazobactam/Dextrose (Zosyn 3.375 Gm Premix) 50 mls @ 100 mls/hr IV.SIG Q6H [facility] Last Infusion: 06/29/18 04:44 Dose: Infused Fentanyl (Fentanyl 10 Mcg/Ml Premix Drip) 2,500 mcg in 250 mls @ 5 mls/hr IV.SIG TITRATE PRN; Protocol PRN Reason: Per Protocol Last Admin: 06/29/18 03:20 Dose: 150 mcg/hr, 15 mls/hr Vancomycin HCl 1,250 mg/ (Sodium Chloride) 262.5 mls @ 250 mls/hr IV.SIG Q24H [facility] Last Infusion: 06/28/18 17:56 Dose: Infused Insulin Human Regular (Novolin R Correctional Sugar Inj) 0 units SQ Q4HR MATIAS; Protocol Last Admin: 06/29/18 04:14 Dose: Not Given Lactulose (Lactulose Liq) 30 ml PO DAILY PRN PRN Reason: SEVERE CONSITIPATION Magnesium Oxide (Mag-Ox) 800 mg PO UNSCH PRN PRN Reason: For Magnesium 1.2 - 1.6 mg/dL Metoclopramide HCl (Reglan Inj) 5 mg IV.PUSH Q8H PRN; Protocol PRN Reason: VOMITING Last Admin: 06/25/18 01:56 Dose: 5 mg Midazolam HCl (Versed Inj) 2 mg IV.PUSH Q1H PRN PRN Reason: SEDATION Miscellaneous Information ([facility] Ordered Lab Info) 0 each OTHER ONCE ONE Stop: 07/02/18 11:46 Miscellaneous Medication () 1 each OROPHARYNG 0000,0400,1200,1600 [facility] Last Admin: 06/29/18 04:14 Dose: 1 each Ondansetron HCl (Zofran Inj) 4 mg IV.PUSH Q6H PRN PRN Reason: NAUSEA OR VOMITING Pharmacy Profile Note (Vancomycin Consult Pharmacy) 1 each OTHER UNSCH PRN PRN Reason: Pharmacy to dose Potassium Bicarb/Potassium Chloride (K-Lyte Cl Eff) 50 meq PO UNSCH PRN PRN Reason: For Potassium 3.3 - 3.5 mEq/L Last Admin: 06/24/18 20:15 Dose: 50 meq Potassium Phosphate (K-Phos Original) 2,000 mg PO UNSCH PRN PRN Reason: SEE LABEL COMMENTS Last Admin: 06/28/18 12:10 Dose: 2,000 mg Potassium Phosphate (K-Phos Original) 2,000 mg PO Q4H PRN PRN Reason: Phosphorus Less Than 2.5 mg/dL Senna/Docusate Sodium (Shadia-Colace) 1 tab PO BID [facility] Last Admin: 06/28/18 20:05 Dose: Not Given Sennosides (Senokot) 17.2 mg PO Q12H PRN PRN Reason: Moderate Constipation Sodium Chloride (Ns Flush) 2 ml IV.FLUSH BID [facility] Last Admin: 06/28/18 20:04 Dose: 2 ml Sodium Chloride (Ns Flush) 2 ml IV.FLUSH PRN PRN PRN Reason: FLUSH AFTER USING IV ACCESS Last Admin: 06/25/18 09:10 Dose: 2 ml Sterile Water (Free Water) 0 ml G-TUBE Q6HR [facility] Last Admin: 06/29/18 06:20 Dose: Not Given Allergies/Adverse Reactions: Allergies Allergy/AdvReac Type Severity Reaction Status Date / Time No Known Allergies Allergy Unverified 06/22/18 13:53 Review of Systems unobtainable due to endotracheal tube, unobtainable due to mental status Physical Exam Vital signs: Vital Signs 06/28/18 08:00 06/28/18 08:17 06/28/18 08:20 Temperature 99.1 F Pulse Rate 92 H 90 89 Respiratory Rate 21 18 19 Blood Pressure 141/52 H 128/68 128/67 Pulse Oximetry 92 L 99 99 06/28/18 08:22 06/28/18 08:25 06/28/18 08:27 Temperature Pulse Rate 89 89 90 Respiratory Rate 20 20 21 Blood Pressure 136/64 130/63 130/64 Pulse Oximetry 99 99 99 06/28/18 08:30 06/28/18 08:32 06/28/18 08:35 Temperature Pulse Rate 90 91 H 90 Respiratory Rate 20 20 22 Blood Pressure 134/65 138/70 138/63 Pulse Oximetry 99 99 99 06/28/18 08:38 06/28/18 08:40 06/28/18 08:42 Temperature Pulse Rate 90 90 91 H Respiratory Rate 20 21 19 Blood Pressure 135/63 140/66 143/71 H Pulse Oximetry 99 98 98 06/28/18 08:45 06/28/18 08:47 06/28/18 08:50 Temperature Pulse Rate 92 H 92 H 93 H Respiratory Rate 23 21 20 Blood Pressure 145/73 H 148/71 H 148/70 H Pulse Oximetry 99 99 99 06/28/18 09:00 06/28/18 10:00 06/28/18 11:00 Temperature Pulse Rate 92 H 86 84 Respiratory Rate 21 21 18 Blood Pressure 141/62 H 101/54 L 105/58 L Pulse Oximetry 99 98 98 06/28/18 12:00 06/28/18 12:41 06/28/18 13:00 Temperature 99.2 F Pulse Rate 84 89 90 Respiratory Rate 12 14 13 Blood Pressure 117/56 L 124/58 L Pulse Oximetry 97 94 L 06/28/18 14:00 06/28/18 14:04 06/28/18 14:05 Temperature Pulse Rate 92 H 92 H Respiratory Rate 13 13 13 Blood Pressure 114/57 L Pulse Oximetry 97 97 06/28/18 15:00 06/28/18 16:00 06/28/18 17:00 Temperature 99.4 F Pulse Rate 90 87 86 Respiratory Rate 13 14 14 Blood Pressure 115/55 L 104/50 L 115/59 L Pulse Oximetry 97 95 97 06/28/18 18:00 06/28/18 19:00 06/28/18 19:27 Temperature 100.3 F H Pulse Rate 90 85 Respiratory Rate 18 12 15 Blood Pressure 116/62 114/55 L Pulse Oximetry 93 L 94 L 94 L 06/28/18 19:29 06/28/18 20:00 06/28/18 21:00 Temperature Pulse Rate 85 83 83 Respiratory Rate 15 15 16 Blood Pressure 101/53 L 101/56 L Pulse Oximetry 94 L 95 06/28/18 21:17 06/28/18 22:00 06/28/18 23:00 Temperature Pulse Rate 72 72 66 Respiratory Rate 12 17 12 Blood Pressure 95/51 L 104/58 L Pulse Oximetry 94 L 96 96 06/28/18 23:30 06/29/18 00:00 06/29/18 00:23 Temperature 100.0 F H Pulse Rate 82 65 65 Respiratory Rate 14 15 Blood Pressure 108/57 L 101/66 Pulse Oximetry 95 96 06/29/18 00:40 06/29/18 01:00 06/29/18 02:00 Temperature Pulse Rate 85 76 Respiratory Rate 14 14 23 Blood Pressure 109/55 L 106/55 L Pulse Oximetry 94 L 94 L 97 06/29/18 03:00 06/29/18 04:00 06/29/18 04:24 Temperature 100.3 F H Pulse Rate 72 76 Respiratory Rate 23 23 14 Blood Pressure 117/60 134/63 Pulse Oximetry 98 97 92 L 06/29/18 04:26 Temperature Pulse Rate 90 Respiratory Rate 14 Blood Pressure Pulse Oximetry Intake & Output 06/28/18 06/29/18 06/29/18 18:59 06:59 18:59 Intake Total 1416.5 / 1416.5 1485 / 1485 Output Total 300 / 300 355 / 355 Balance 1116.5 / 1116.5 1130 / 1130 Weight 68.5 kg Intake: IV 662.5 / 662.5 600 / 600 Diprivan 1000 mg/100 ml Inj 1, 100 / 100 200 / 200 000 mg In 100 ml @ 5 MCG/KG/MIN 2.042 mls/hr IV.CONT TITRATE PRN Rx#:[id number] Zosyn 3.375 GM Premix 50 ML @ 50 / 50 150 / 150 100 mls/hr IV.SIG Q6H [facility] Rx#: [id number] Vancomycin Inj 1,250 MG In NS 262.5 / 262.5 Inj 250 ML @ 250 mls/hr IV.SIG Q24H [facility] Rx#:[id number] fentaNYL 10 mcg/mL Premix Drip 250 / 250 250 / 250 2,500 mcg In 250 ml @ 50 MCG/HR 5 mls/hr IV.SIG TITRATE PRN Rx #:[id number] Tube Feeding 254 / 254 485 / 485 Water Bolus Amount 500 / 500 400 / 400 Output: Urine 325 / 325 Urine Amount (Catheter) 300 / 300 Indwelling Urethral Catheter 300 / 300 Chest Tube Drainage 30 / 30 #1 Left Upper Mid-Axillary 30 / 30 Chest Other: Date of Last Bowel Movement 06/28/18 06/29/18 # Incontinent Bowel Movements 1 1 Narrative: GENERAL: in NAD, SKIN: Warm and dry. HEAD: Atraumatic. Normocephalic. EYES: Sluggish reactive pupils ENT: No nasal bleeding or discharge. NECK: Trachea midline. No JVD. CARDIOVASCULAR: Regular rate and rhythm. RESPIRATORY: Intubated GASTROINTESTINAL: Abdomen soft, non-tender, NEUROLOGICAL: Intubated, somnolent not following nonverbal, mild right gaze preference reduced blink to threat sluggishly reactive, left hemiplegia with localization of the right upper lower extremity left plantar extensor, no involuntary movements PSYCHIATRIC: Calm - Constitutional no acute distress - Routine HEENT Exam Head: Present: normocephalic - Urinary Catheter Management Indwelling Urethral Catheter Cath placed during this visit: yes Reason for continuing: Terminally ill/Comfort care Insertion date: 06/22/18 Insertion time: 15:29 Objective Laboratory Results - last 24 hr 06/28/18 06/28/18 06/28/18 09:10 11:51 17:17 WBC RBC Hgb Hct MCV MCH MCHC RDW Plt Count MPV Neut % (Auto) Lymph % (Auto) Cottle % (Auto) Eos % (Auto) Baso % (Auto) Neut # (Auto) Lymph # (Auto) Cottle # (Auto) Eos # (Auto) Baso # (Auto) WBC Differential Differential Comment Sodium Potassium Chloride Carbon Dioxide Anion Gap BUN Creatinine Estimated GFR POC Glucose 277 H 259 H 158 H Random Glucose Calcium Phosphorus Magnesium Total Bilirubin AST ALT Alkaline Phosphatase Total Protein Albumin 06/28/18 06/28/18 06/29/18 19:02 20:10 00:04 WBC RBC Hgb Hct MCV MCH MCHC RDW Plt Count MPV Neut % (Auto) Lymph % (Auto) Cottle % (Auto) Eos % (Auto) Baso % (Auto) Neut # (Auto) Lymph # (Auto) Cottle # (Auto) Eos # (Auto) Baso # (Auto) WBC Differential Differential Comment Sodium Potassium Chloride Carbon Dioxide Anion Gap BUN Creatinine Estimated GFR POC Glucose 143 H 201 H Random Glucose Calcium Phosphorus 3.0 Magnesium Total Bilirubin AST ALT Alkaline Phosphatase Total Protein Albumin 06/29/18 06/29/18 06/29/18 03:40 06:13 06:48 WBC 21.2 H RBC 3.24 L Hgb 9.6 L Hct 29.1 L MCV 89.9 MCH 29.7 MCHC 33.0 RDW 14.5 Plt Count 148 L MPV 11.6 H Neut % (Auto) 83.4 H Lymph % (Auto) 7.0 L Cottle % (Auto) 8.8 H Eos % (Auto) 0.4 Baso % (Auto) 0.4 Neut # (Auto) 17.7 H Lymph # (Auto) 1.5 Cottle # (Auto) 1.9 H Eos # (Auto) 0.1 Baso # (Auto) 0.1 WBC Differential . Differential Comment Auto diff final Sodium Potassium Chloride Carbon Dioxide Anion Gap BUN Creatinine Estimated GFR POC Glucose 158 H 157 H Random Glucose Calcium Phosphorus Magnesium Total Bilirubin AST ALT Alkaline Phosphatase Total Protein Albumin 06/29/18 06:48 WBC RBC Hgb Hct MCV MCH MCHC RDW Plt Count MPV Neut % (Auto) Lymph % (Auto) Cottle % (Auto) Eos % (Auto) Baso % (Auto) Neut # (Auto) Lymph # (Auto) Cottle # (Auto) Eos # (Auto) Baso # (Auto) WBC Differential Differential Comment Sodium 145 Potassium 4.2 Chloride 110 H Carbon Dioxide 24.4 Anion Gap 11 BUN 53 H Creatinine 1.41 H Estimated GFR 36 L POC Glucose Random Glucose 190 H Calcium 8.0 L Phosphorus 3.5 Magnesium 2.6 H Total Bilirubin 0.5 AST 97 H ALT 61 H Alkaline Phosphatase 253 H Total Protein 6.4 Albumin 1.5 L Microbiology 06/23/18 11:05 Aerobic Blood Culture - Final Blood - Peripheral No growth in 5 days Anaerobic Blood Culture - Final QNS - See aerobic report. 06/23/18 10:50 Aerobic Blood Culture - Final Blood - Peripheral No growth in 5 days Anaerobic Blood Culture - Final QNS - See aerobic report. Review/Management - Diagnosis (1) Acute right MCA stroke Code(s): I63.511 - Cerebral infarction due to unspecified occlusion or stenosis of right middle cerebral artery Status: Acute Current Visit: Yes (2) Pulmonary embolism Code(s): I26.99 - Other pulmonary embolism without acute cor pulmonale Status : Acute Current Visit: Yes (3) Pneumothorax Code(s): J93.9 - Pneumothorax, unspecified Status: Acute Current Visit: Yes (4) Closed rib fracture Code(s): S22.39XA - Fracture of one rib, unspecified side, initial encounter for closed fracture Status: Acute Current Visit: Yes (5) DVT (deep venous thrombosis) Code(s): I82.409 - Acute embolism and thrombosis of unspecified deep veins of unspecified lower extremity Status: Acute Current Visit: Yes (6) Liver lesion Code(s): K76.9 - Liver disease, unspecified Status: Acute Current Visit: Yes - Review/Management Plan: Acute right MCA stroke Possibly related to hypercoagulable state she also has a concurrent pulmonary embolus; possible underlying neoplasm MRI brain scan reviewed right posterior MCA stroke. MRI brain showing distal MCA branch occlusion Echo normal Carotid ultrasound; no significant vaso-occlusive disease in the right carotid, left carotid with mild to moderate stenosis however not the etiology for stroke Recommendations No significant change in neurologic exam son coming in to see pt. Healthcare surrogate's are looking at potentially transitioning the patient to comfort care stroke, mass/?cancer, dvt/pe d/w rn Patient is critically ill (2) Pulmonary embolism Qualifiers: Pulmonary embolism type: other Chronicity: acute Acute cor pulmonale presence: without acute cor pulmonale Qualified Code(s): I26.99 - Other pulmonary embolism without acute cor pulmonale (3) Pneumothorax Qualifiers: Pneumothorax type: traumatic Encounter type: initial encounter Qualified Code(s): S27.0XXA - Traumatic pneumothorax, initial encounter (4) Closed rib fracture Qualifiers: Encounter type: initial encounter Rib fracture type: multiple ribs Laterality: left Qualified Code(s): S22.42XA - Multiple fractures of ribs, left side, initial encounter for closed fracture
[2018-06-29 08:15] VITALS: RESP 12
[2018-06-29] MEDS: Famotidine PF Inj 20 MG/2 ML Vial IV.PUSH SCH (09:28)
[2018-06-29] MEDS: Senna/Docusate Sodium 8.6/50 MG Tablet PO SCH (09:28)
[2018-06-29] MEDS: Chlorhexidine 0.12% Oral Kit 15 ML UDC OROPHARYNG SCH (09:29)
[2018-06-29] MEDS: Aspirin 300 MG Supp RECTAL SCH (09:29)
[2018-06-29 11:50] VITALS: PULSE 89
[2018-06-29 11:54] VITALS: O2SAT 96
[2018-06-29 11:58] VITALS: BP 108/56; TEMP 99.9
[2018-06-29] MEDS ORDERED: fentaNYL 10 mcg/mL Premix Drip 2,500 MCG/250 ML BAG IV.SIG PRN (12:57)
[2018-06-29] MEDS ORDERED: Acetaminophen 650 MG Supp RECTAL PRN (12:58)
[2018-06-29] MEDS ORDERED: Morphine Inj 4 MG/ML Vial IV.PUSH PRN ×2 (12:58→13:45)
[2018-06-29] MEDS ORDERED: Hyoscyamine Inj 0.5 MG/ML Ampul IV.PUSH PRN (12:58)
--- NOTE | 2018-06-29 13:11 | P.PNPAL ---
Reason for Visit Reason for visit: a. To assist with evaluation and management of symptoms including: pain, dyspnea b. To assist medical decision maker(s) with: better understanding of current medical conditions; weighing benefits/burdens of medical treatment options; making medical treatment decisions. Subjective Subjective/Interval History: Patient seen and examined in ICU. Cari Dumas ([facility]) and brotherNathaniel ( alternate HCS) and many friends at bedside. Patient remains on mech vent (FiO2 50%, PEEP 8) sedation in ICU. No evidence of clinical improvement overnight. Patient sedated. Does not open eyes to voice, exam or painful stimuli. Withdraws to pain right lower extremity only. Right hand with worsening ischemic changes, cold to touch, purple in color. Patient is not tolerating CPAP trials. Episode of desaturation reported overnight. Discussed with Dr. Littlejohn, Dr. Cote and nursing staff. Family/Friend Interactions: Met with [facility], Cari, Nathaniel maldonado and other friends at bedside. Medical update provided. Anticipatory guidance provided regarding transition to comfort measures and withdrawal of life support. Questions answered. Advance Directives Advance Directives Date on File: 12/04/89 Health Care Surrogate Name and Number: Cari Dumas, friend: [phone] Documented care wishes:: Living Will states that if she is unable to participate in decisions concerning her life: if no reasonable expectation for recovery from extreme physical or mental disability that she directs she be allowed to , not be kept alive by medications, artificial means, life support or heroic measures. She asks that medication be administered to alleviate suffering even though this may shorten her remaining life. She also indicates she hopes to live out her last days at home rather than n the the hospital if it does not jeopardize the chance of recovery to a meaningful and conscious life and does not impose an undue burden on my family. Significant change in goals:: NO CODE. They have elected to proceed with transition to comfort measures with withdrawal of life support. Comfort measures in accordance with patient verbal and written advance directives. Admitted to Hospice. Objective Vital Signs: Vital Signs 06/28/18 14:00 06/28/18 14:04 06/28/18 14:05 Temperature Pulse Rate 92 H 92 H Respiratory Rate 13 13 13 Blood Pressure 114/57 L Pulse Oximetry 97 97 06/28/18 15:00 06/28/18 16:00 06/28/18 17:00 Temperature 99.4 F Pulse Rate 90 87 86 Respiratory Rate 13 14 14 Blood Pressure 115/55 L 104/50 L 115/59 L Pulse Oximetry 97 95 97 06/28/18 18:00 06/28/18 19:00 06/28/18 19:27 Temperature 100.3 F H Pulse Rate 90 85 Respiratory Rate 18 12 15 Blood Pressure 116/62 114/55 L Pulse Oximetry 93 L 94 L 94 L 06/28/18 19:29 06/28/18 20:00 06/28/18 21:00 Temperature Pulse Rate 85 83 83 Respiratory Rate 15 15 16 Blood Pressure 101/53 L 101/56 L Pulse Oximetry 94 L 95 06/28/18 21:17 06/28/18 22:00 06/28/18 23:00 Temperature Pulse Rate 72 72 66 Respiratory Rate 12 17 12 Blood Pressure 95/51 L 104/58 L Pulse Oximetry 94 L 96 96 06/28/18 23:30 06/29/18 00:00 06/29/18 00:23 Temperature 100.0 F H Pulse Rate 82 65 65 Respiratory Rate 14 15 Blood Pressure 108/57 L 101/66 Pulse Oximetry 95 96 06/29/18 00:40 06/29/18 01:00 06/29/18 02:00 Temperature Pulse Rate 85 76 Respiratory Rate 14 14 23 Blood Pressure 109/55 L 106/55 L Pulse Oximetry 94 L 94 L 97 06/29/18 03:00 06/29/18 04:00 06/29/18 04:24 Temperature 100.3 F H Pulse Rate 72 76 Respiratory Rate 23 23 14 Blood Pressure 117/60 134/63 Pulse Oximetry 98 97 92 L 06/29/18 04:26 06/29/18 08:00 06/29/18 08:13 Temperature 99.9 F H Pulse Rate 90 90 90 Respiratory Rate 14 16 12 Blood Pressure 108/56 L Pulse Oximetry 96 95 06/29/18 10:00 06/29/18 11:52 Temperature Pulse Rate 89 Respiratory Rate 12 Blood Pressure Pulse Oximetry 96 Intake & Output 06/28/18 06/29/18 06/29/18 18:59 06:59 18:59 Intake Total 1416.5 / 1416.5 1485 / 1485 50 / 50 Output Total 300 / 300 355 / 355 Balance 1116.5 / 1116.5 1130 / 1130 50 / 50 Weight 68.5 kg Intake: IV 662.5 / 662.5 600 / 600 50 / 50 Diprivan 1000 mg/100 ml Inj 1, 100 / 100 200 / 200 000 mg In 100 ml @ 5 MCG/KG/MIN 2.042 mls/hr IV.CONT TITRATE PRN Rx#:[id number] Zosyn 3.375 GM Premix 50 ML @ 50 / 50 150 / 150 50 / 50 100 mls/hr IV.SIG Q6H [facility] Rx#: [id number] Vancomycin Inj 1,250 MG In NS 262.5 / 262.5 Inj 250 ML @ 250 mls/hr IV.SIG Q24H [facility] Rx#:[id number] fentaNYL 10 mcg/mL Premix Drip 250 / 250 250 / 250 2,500 mcg In 250 ml @ 50 MCG/HR 5 mls/hr IV.SIG TITRATE PRN Rx #:[id number] Tube Feeding 254 / 254 485 / 485 Water Bolus Amount 500 / 500 400 / 400 Output: Urine 325 / 325 Urine Amount (Catheter) 300 / 300 Indwelling Urethral Catheter 300 / 300 Chest Tube Drainage 30 #1 Left Upper Mid-Axillary 30 30 Chest Other: Date of Last Bowel Movement 06/28/18 06/29/18 06/29/18 # Incontinent Bowel Movements 1 1 Physical Exam: CONSTITUTIONAL/GENERAL: This is an adequately nourished patient, sedated on mech vent. TUBES/LINES/DRAINS: ETT, OG, PIVs, left chest tube, Siddiqi, bilateral soft wrist restraints. SKIN: Ecchymoses on upper extremities, bilateral knees and left hip, multiple areas ecchymoses abdomen. Color dusky. Right hand ischemic. ENT: Unable to assess hearing. Nose without bleeding or purulent drainage. Throat difficult to visualize due to tubes. CARDIOVASCULAR: Regular rate and rhythm, some ectopy noted. RESPIRATORY/CHEST: Left chest tube. unlabored respirations on vent. crackles. diminished breath sounds. GASTROINTESTINAL: Abdomen soft, no apparent tenderness, nondistended. Bowel sounds present. Easily reducible, soft hernia right upper abdomen. GENITOURINARY: Without palpable bladder distension. Siddiqi catheter in place. MUSCULOSKELETAL: Extremities without clubbing edema. Mottling noted left foot, cool to touch. Left foot drop. Right hand purple, cool. Withdraws only to pain on right LEs. NEUROLOGICAL: Sedated on vent. no eye opening, no response to stimuli. PSYCHIATRIC: Sedated. Diagnostic Tests Laboratory: Laboratory Results - last 72 hr 06/26/18 06/26/18 06/27/18 12:58 17:14 00:01 WBC RBC Hgb Hct MCV MCH MCHC RDW Plt Count MPV Prelim Diff (Auto) Neut % (Auto) Lymph % (Auto) Mccone % (Auto) Eos % (Auto) Baso % (Auto) Neut # (Auto) Lymph # (Auto) Mccone # (Auto) Eos # (Auto) Baso # (Auto) WBC Differential Seg Neuts % (Manual) Band Neuts % (Manual) Lymphocytes % (Manual) Monocytes % (Manual) Eosinophils % (Manual) Abs Neuts (Manual) Differential Comment Platelet Estimate Platelet Morphology Ovalocytes Sodium Potassium Chloride Carbon Dioxide Anion Gap BUN Creatinine Estimated GFR POC Glucose 177 H 149 H 140 H Random Glucose Calcium Phosphorus Magnesium Total Bilirubin AST ALT Alkaline Phosphatase Total Protein Albumin Vancomycin Trough 06/27/18 06/27/18 06/27/18 04:15 04:15 05:32 WBC 18.8 H RBC 3.48 L Hgb 10.4 L Hct 31.1 L MCV 89.3 MCH 29.7 MCHC 33.3 RDW 14.4 Plt Count 97 L MPV 11.2 H Prelim Diff (Auto) Slide review pending Neut % (Auto) 86.0 H Lymph % (Auto) 4.9 L Mccone % (Auto) 8.3 H Eos % (Auto) 0.4 Baso % (Auto) 0.4 Neut # (Auto) 16.1 H Lymph # (Auto) 0.9 L Mccone # (Auto) 1.6 H Eos # (Auto) 0.1 Baso # (Auto) 0.1 WBC Differential Manual diff final Seg Neuts % (Manual) 74 H Band Neuts % (Manual) 12 H Lymphocytes % (Manual) 6 L Monocytes % (Manual) 7 Eosinophils % (Manual) 1 Abs Neuts (Manual) 16.2 H Differential Comment . Platelet Estimate Low L Platelet Morphology Normal Ovalocytes 1+ H Sodium 147 H Potassium 4.0 Chloride 114 H Carbon Dioxide 24.4 Anion Gap 9 BUN 54 H Creatinine 1.40 H Estimated GFR 37 L POC Glucose 201 H Random Glucose 197 H Calcium 8.5 D Phosphorus 3.4 Magnesium 2.8 H Total Bilirubin 0.5 AST 61 H ALT 37 Alkaline Phosphatase 188 H Total Protein 6.3 L Albumin 1.9 L Vancomycin Trough 06/27/18 06/27/18 06/27/18 11:34 12:45 17:12 WBC RBC Hgb Hct MCV MCH MCHC RDW Plt Count MPV Prelim Diff (Auto) Neut % (Auto) Lymph % (Auto) Mccone % (Auto) Eos % (Auto) Baso % (Auto) Neut # (Auto) Lymph # (Auto) Mccone # (Auto) Eos # (Auto) Baso # (Auto) WBC Differential Seg Neuts % (Manual) Band Neuts % (Manual) Lymphocytes % (Manual) Monocytes % (Manual) Eosinophils % (Manual) Abs Neuts (Manual) Differential Comment Platelet Estimate Platelet Morphology Ovalocytes Sodium Potassium Chloride Carbon Dioxide Anion Gap BUN Creatinine Estimated GFR POC Glucose 219 H 227 H Random Glucose Calcium Phosphorus Magnesium Total Bilirubin AST ALT Alkaline Phosphatase Total Protein Albumin Vancomycin Trough 8.3 06/28/18 06/28/18 06/28/18 00:54 04:53 04:53 WBC 21.9 H RBC 3.42 L Hgb 10.2 L Hct 30.7 L MCV 89.7 MCH 29.9 MCHC 33.3 RDW 14.8 Plt Count 122 L MPV 11.0 Prelim Diff (Auto) Neut % (Auto) 87.5 H Lymph % (Auto) 4.5 L Mccone % (Auto) 7.1 Eos % (Auto) 0.5 Baso % (Auto) 0.4 Neut # (Auto) 19.1 H Lymph # (Auto) 1.0 Mccone # (Auto) 1.6 H Eos # (Auto) 0.1 Baso # (Auto) 0.1 WBC Differential . Seg Neuts % (Manual) Band Neuts % (Manual) Lymphocytes % (Manual) Monocytes % (Manual) Eosinophils % (Manual) Abs Neuts (Manual) Differential Comment Auto diff final Platelet Estimate Platelet Morphology Ovalocytes Sodium 148 H Potassium 3.8 Chloride 113 H Carbon Dioxide 26.0 Anion Gap 9 BUN 52 H Creatinine 1.37 H Estimated GFR 37 L POC Glucose 208 H Random Glucose 250 H Calcium 8.4 L Phosphorus 2.2 L D Magnesium 2.7 H Total Bilirubin 0.5 AST 67 H ALT 51 Alkaline Phosphatase 239 H Total Protein 6.2 L Albumin 1.6 L Vancomycin Trough 06/28/18 06/28/18 06/28/18 05:23 09:10 11:51 WBC RBC Hgb Hct MCV MCH MCHC RDW Plt Count MPV Prelim Diff (Auto) Neut % (Auto) Lymph % (Auto) Mccone % (Auto) Eos % (Auto) Baso % (Auto) Neut # (Auto) Lymph # (Auto) Mccone # (Auto) Eos # (Auto) Baso # (Auto) WBC Differential Seg Neuts % (Manual) Band Neuts % (Manual) Lymphocytes % (Manual) Monocytes % (Manual) Eosinophils % (Manual) Abs Neuts (Manual) Differential Comment Platelet Estimate Platelet Morphology Ovalocytes Sodium Potassium Chloride Carbon Dioxide Anion Gap BUN Creatinine Estimated GFR POC Glucose 243 H 277 H 259 H Random Glucose Calcium Phosphorus Magnesium Total Bilirubin AST ALT Alkaline Phosphatase Total Protein Albumin Vancomycin Trough 06/28/18 06/28/18 06/28/18 17:17 19:02 20:10 WBC RBC Hgb Hct MCV MCH MCHC RDW Plt Count MPV Prelim Diff (Auto) Neut % (Auto) Lymph % (Auto) Mccone % (Auto) Eos % (Auto) Baso % (Auto) Neut # (Auto) Lymph # (Auto) Mccone # (Auto) Eos # (Auto) Baso # (Auto) WBC Differential Seg Neuts % (Manual) Band Neuts % (Manual) Lymphocytes % (Manual) Monocytes % (Manual) Eosinophils % (Manual) Abs Neuts (Manual) Differential Comment Platelet Estimate Platelet Morphology Ovalocytes Sodium Potassium Chloride Carbon Dioxide Anion Gap BUN Creatinine Estimated GFR POC Glucose 158 H 143 H Random Glucose Calcium Phosphorus 3.0 Magnesium Total Bilirubin AST ALT Alkaline Phosphatase Total Protein Albumin Vancomycin Trough 06/29/18 06/29/18 06/29/18 00:04 03:40 06:13 WBC RBC Hgb Hct MCV MCH MCHC RDW Plt Count MPV Prelim Diff (Auto) Neut % (Auto) Lymph % (Auto) Mccone % (Auto) Eos % (Auto) Baso % (Auto) Neut # (Auto) Lymph # (Auto) Mccone # (Auto) Eos # (Auto) Baso # (Auto) WBC Differential Seg Neuts % (Manual) Band Neuts % (Manual) Lymphocytes % (Manual) Monocytes % (Manual) Eosinophils % (Manual) Abs Neuts (Manual) Differential Comment Platelet Estimate Platelet Morphology Ovalocytes Sodium Potassium Chloride Carbon Dioxide Anion Gap BUN Creatinine Estimated GFR POC Glucose 201 H 158 H 157 H Random Glucose Calcium Phosphorus Magnesium Total Bilirubin AST ALT Alkaline Phosphatase Total Protein Albumin Vancomycin Trough 06/29/18 06/29/18 06/29/18 06:48 06:48 09:32 WBC 21.2 H RBC 3.24 L Hgb 9.6 L Hct 29.1 L MCV 89.9 MCH 29.7 MCHC 33.0 RDW 14.5 Plt Count 148 L MPV 11.6 H Prelim Diff (Auto) Neut % (Auto) 83.4 H Lymph % (Auto) 7.0 L Mccone % (Auto) 8.8 H Eos % (Auto) 0.4 Baso % (Auto) 0.4 Neut # (Auto) 17.7 H Lymph # (Auto) 1.5 Mccone # (Auto) 1.9 H Eos # (Auto) 0.1 Baso # (Auto) 0.1 WBC Differential . Seg Neuts % (Manual) Band Neuts % (Manual) Lymphocytes % (Manual) Monocytes % (Manual) Eosinophils % (Manual) Abs Neuts (Manual) Differential Comment Auto diff final Platelet Estimate Platelet Morphology Ovalocytes Sodium 145 Potassium 4.2 Chloride 110 H Carbon Dioxide 24.4 Anion Gap 11 BUN 53 H Creatinine 1.41 H Estimated GFR 36 L POC Glucose 213 H Random Glucose 190 H Calcium 8.0 L Phosphorus 3.5 Magnesium 2.6 H Total Bilirubin 0.5 AST 97 H ALT 61 H Alkaline Phosphatase 253 H Total Protein 6.4 Albumin 1.5 L Vancomycin Trough Result Diagrams: 06/29/18 06:48 06/29/18 06:48 Microbiology: Microbiology 06/23/18 11:05 Aerobic Blood Culture - Final Blood - Peripheral No growth in 5 days Anaerobic Blood Culture - Final QNS - See aerobic report. 06/23/18 10:50 Aerobic Blood Culture - Final Blood - Peripheral No growth in 5 days Anaerobic Blood Culture - Final QNS - See aerobic report. 06/23/18 20:15 Gram Stain - Final Sputum - Endotracheal Sputum Culture - Final Moderate growth normal respiratory karl Imaging: Cervical Spine CT 06/22/18 13:58 CONCLUSION: 1. Multilevel degenerative changes. 2. Scattered neural foraminal narrowing. 3. No compression fracture or spondylolisthesis Pelvis X-Ray 06/22/18 13:58 CONCLUSION: Limited study without gross abnormality. Humerus X-Ray 06/22/18 13:59 CONCLUSION: No abnormality involving the humerus. Subcutaneous air is seen tracking over the lateral left chest wall. Thoracic Aorta CT 06/22/18 15:28 CONCLUSION: 1. Moderate volume acute pulmonary emboli. 2. Moderate size left pneumothorax with overlying subcutaneous air. 3. Severe emphysematous changes. 4. 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 5. Occlusion of the right outflow possibly acute in origin. Clinical evaluation for right lower extremity claudication suggested. 6. 2 hepatic masses worrisome for metastatic disease. These are limited in their evaluation on this study due to the arterial phase of the exam. Consider MRI of the liver to further assess if clinically warranted. Head MRI 06/23/18 00:00 CONCLUSION: 1. 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 2. There appear to be 2 punctate acute infarctions involving the right cerebellar hemisphere. This is best seen on the diffusion-weighted images. Venous Doppler Study 06/23/18 00:00 CONCLUSION: 1. Occlusive thrombus in both posterior tibial veins. Head MRA 06/23/18 09:12 CONCLUSION: 1. Occlusion of the mid to distal right M1 segment with reconstitution of the proximal right M2 branches via collaterals. IVC Filter Placement X-Ray 06/23/18 09:20 CONCLUSION: 1. Uncomplicated inferior vena cava filter placement as above. Carotid Doppler Study 06/24/18 08:01 CONCLUSION: 1. No hemodynamic significant stenosis in right carotid artery. 2. There is an approximate 50-69% stenosis left internal carotid artery. Abdomen/Pelvis CT 06/25/18 00:00 CONCLUSION: 1. Limited examination due to lack of IV contrast. However, there is no definitive evidence for a primary malignancy in the abdomen or pelvis. 2. Partially imaged left-sided chest tube with interval resolution of left- sided pneumothorax. 3. Bilateral lower lobe airspace consolidation, left greater than right, which may reflect atelectasis although differential considerations include aspiration. 4. Ancillary findings include cholelithiasis, colonic diverticulosis, anterior abdominal wall fat-containing hernia, and degenerative spondylosis of the lumbar spine. Chest CT 06/25/18 00:00 CONCLUSION: 1. Underlying emphysema with consolidation in the posterior left lower lobe with air bronchograms most characteristic of pneumonia. 2. Left-sided chest tube in place with no residual pneumothorax. Subcutaneous emphysema remains over the left lateral chest wall. There are multiple left rib fractures. 3. No evidence of primary malignancy. Head CT 06/25/18 00:00 CONCLUSION: 1. Evolving large right posterior MCA territory infarct. 2. Evolving focal infarcts in the right cerebellar hemisphere. 3. No intercurrent hemorrhage or herniation. . Chest X-Ray 06/26/18 15:22 CONCLUSION: Satisfactory endotracheal tube positioning. Improved aeration. Procedures: * 06/22/18 - intubated, chest tube placed. Assessment and Plan - Disease Oriented Problem List (1) Emphysema lung (2) History of lung cancer (3) Acute CVA (cerebrovascular accident) (4) Closed rib fracture (5) DVT (deep venous thrombosis) (6) Liver lesion (7) Pneumothorax (8) Leucocytosis (9) Thrombocytopenia - Symptom Scale (1) Pain after cerebrovascular accident (CVA) 0-10 Scale: Unable to quantify (2) Dyspnea 0-10 Scale: Unable to quantify Pertinent Non-Medical Issues: Psychosocial: Single. Has 2 sisters, 1 brother and 1 son. 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 Spiritual: Unknown. Legal: Patient is not capacitated to make her own health care decisions, uncertain if she will regain capacity. HAs written Living Will and designation of health care surrogate, Cari Dumas (primary [facility]) and Nathaniel Reina (alternate HCS). Ethical issues impacting care: No known concerns at this time. Important Contacts: * Cari Dumas, [facility]/friend: [phone] * Nathaniel Reina, brother, alternate [facility]: [phone] Prognosis: Ms. Reina is a 78 year old female admitted with acute right MCA ischemic stroke , pulmonary embolus, bilateral LE DVT and likely right hand arterial thrombus ( not a surgical candidate) likely secondary to hypercoagulable state from malignancy. Significantly elevate tumor markers, liver lesions likely malignancy. She is not a candidate for anticoagulation, s/p IVC filter placement. She has a history of breast (1989's) and lung cancer (2014 s/p resections x 2). Patient also has underlying pulmonary disease due to prolonged and recent smoking history. Overall prognosis is poor for meaningful recovery. Accounting Software Specialist, vascular surgery and oncology recommend comfort measures. Code Status: No Code DNR Plan: * Patient is not capacitated to make her own health care decisions, uncertain if she will regain capacity. HAs written Living Will and designation of health care surrogate, Cari Dumas (primary HCS) and Nathaniel Reina (alternate HCS). * NO CODE * Goals: Met with Cari Dumas, NINA, Nathaniel (brother, alternate HCS) other friends. NO CODE. They have elected to proceed with transition to comfort measures with withdrawal of life support. Comfort measures in accordance with patient verbal and written advance directives. * Admitted to [facility]. * May transfer to hospice in AM if patient survives and stable for transport. * SYMPTOMS: Dyspnea: secondary to COPD/emphysema, possible lung cancer, pulmonary embolus, rib fractures, pneumothorax, chest tube in place. On mechanical vent, vent asynchrony, tachypnea with lowering of sedation. Pain: due to recent fall, stroke, tubes. Orders written for transition to comfort measures with withdrawal of life support. * Discussed with Dr. Littlejohn, Dr. Cote, nursing staff and hospice admission nurse, Lakesha. * Palliative care will continue to follow throughout hospital course to assist with symptom management and further clarification of goals of medical treatment. Attestation Attestation: To help prompt me to consider important information that might be impacting today's encounter and assessment, information from prior notes written by myself or my colleagues may have been "brought forward" into today's note. My signature on this note, however, is an attestation that I personally performed the exam, history, and/or decision-making noted today, and, unless otherwise indicated, the interactions with patient, family, and staff as well as the review of records all occurred today. I also attest that the listed assessment and stated plan reflect my best clinical judgment today based on the combination of historical information, prior notes, and today's exam/ interactions. When time spent is documented, it refers only to time spent today by the signer, or if indicated, combined time spent today by collaborating physician/nurse practitioner.
[2018-06-29] MEDS ORDERED: Hyoscyamine Inj 0.5 MG/ML Ampul IV.PUSH ONE (13:15)
[2018-06-29] MEDS ORDERED: Morphine Sulfate Inj 8 MG/ML Vial IV.PUSH ONE (13:15)
[2018-06-29] MEDS ORDERED: Morphine Inj 4 MG/ML Vial IV.PUSH ONE ×2 (13:30→13:45)
[2018-06-29] MEDS ORDERED: Sodium Chloride 0.9% 2 ML Flush PRN IV.FLUSH (13:34)
[2018-06-29] MEDS ORDERED: Sodium Chloride 0.9% 2 ML Flush BID IV.FLUSH SCH (21:00)
[2018-07-02] MEDS ORDERED: Pharmacy Ordered Lab Info OTHER ONE (11:45)
== END 2018-06-29 14:34 | disposition expired ==
LOC: NEPE 13:48 → NEDA 18:23 → HIMC 20:05
PROVIDERS: ADMIT Family Medicine Hospice and Palliative Medicine; ATTEND Family Medicine Hospice and Palliative Medicine